=== PATIENT | male | born 1935 | race Two or more races ===

== ENCOUNTER 2016-10-22 12:34 | Inpatient (IN) | payer OTHER ==
[2016-10-22 12:43] VITALS: BMI 20.3
--- NOTE | 2016-10-22 13:27 | PDOC ---
History of Present Illness - General Chief Complaint: Abscess Boil Stated Complaint: abscess PCP SENT, PAIN Time Seen by Provider: 10/22/16 13:24 History Source: Patient, Form Tamping Machine Operator Used, Old Records Exam Limitations: Language Barrier - History of Present Illness Initial Comments: HPI: This 81 yr old macedonian speaking male presents with c/o thoracic spinal abscess. Through an weight and test bar clerk, pt states he has a tendency to get abscess to the back area. He has one removed several years ago at "2 o'clock " next to current abscess with a large scar that is well healed. He went to his doctor, Arslan to have it looked at and Dr. Mcdaniels attempted to aspirate it with a needle with some fluid expressed several days ago. The abscess continues to grow and become painful on the spinal area He denies any fever, drainage, numbness, tingling, chills. Chief Compliant: abscess spinal Pain location: thoracic spine Duration: several weeks Modifying factors: attempted aspiration Quality:moderate Radiating:to the back Severity:sharp when pushed. Time: continual worse over time PMH: DM2, CAD, CAGB, HLD, neuropathy, wheelchair bound FH: Pt has not recently traveled outside the country in the last 30 days. Pt has not been in contact with people who have traveled out of the country, in contact with people who have been ill with fever, n, v, d. 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 Mcdaniels (admitts to Dr. Miguel Goldsmith Nephrology: Dr. Huggins Past History - Past Medical History Allergies/Adverse Reactions: Allergies Allergy/AdvReac Type Severity Reaction Status Date / Time Sulfa (Sulfonamide Allergy Verified 10/22/16 12:38 Antibiotics) Home Medications: Ambulatory Orders Aspirin Coated [Ecotrin -] 81 mg PO DAILY 11/11/15 Atorvastatin Ca [Lipitor] 10 mg PO HS 11/11/15 Carvedilol [Coreg] 25 mg PO BID 11/11/15 Linagliptin [Tradjenta] 5 mg PO DAILY 11/11/15 Multivitamin with Iron [Daily Kandi with Iron] 1 each PO DAILY 11/11/15 Polyethylene Glycol 3350 [Miralax 119 gm Btl -] 17 gm PO DAILY 11/11/15 Tamsulosin HCl [Flomax -] 0.4 mg PO DAILY 11/19/15 Acetaminophen [Tylenol .Regular Strength -] 325 mg PO Q4H PRN #0 tablet Bethanechol Chloride [Bethanechol Chloride -] 25 mg PO TID tablet 12/05/15 Bisacodyl Suppository [Dulcolax Suppository -] 10 mg RC DAILY PRN #30 supp.rect 12/05/15 Docusate Sodium [Colace -] 100 mg PO Q8H PRN #0 capsule 12/05/15 Fluconazole [Diflucan -] 50 mg PO DAILY #7 tablet 12/05/15 Furosemide [Lasix -] 40 mg PO BID #60 tablet 12/05/15 Lisinopril [Prinivil] 7.5 mg PO HS #30 tablet 12/05/15 Nystatin Powder [Nystop Powder -] 1 applic TP BID applic 12/05/15 Sennosides [Senna -] 2 tab PO HS PRN #0 tablet 12/05/15 Sodium Bicarbonate - 650 mg PO BID #60 tablet 12/05/15 Spironolactone [Aldactone -] 25 mg PO BID #60 tablet 12/05/15 Warfarin Sodium [Coumadin] 5 mg PO DAILY #30 tablet 12/05/15 Cardiac Disorders: Yes (cabg x 4 in 1991) Diabetes: Yes Disorders: Yes (urinary retention) HTN: Yes Hypercholesterolemia: Yes - Immunization History Immunization Up to Date: Yes - Psycho/Social/Smoking Cessation Hx Anxiety: No Suicidal Ideation: No Smoking History: Never smoked Have you smoked in the past 12 months: No Information on smoking cessation initiated: No Hx Alcohol Use: No Drug/Substance Use Hx: No Substance Use Type: None Review of Systems - Review of Systems Able to Perform ROS?: Yes Comments:: 10/22/16 15:40 General statement: I have abscess to the back that I want drained. Hematology: neg history of bleeding/blood thinners Skin: No signs of infection to LE howeve, thoracic spine with a large 10 cm round abscess are that is not red or erythemic, no drainage, no warmth, with two small puncture wounds with healed sites tot hem. + pain on palpation. HEENT: Neg symptoms Respiratory: Neg SOB or difficulty in breathing Cardiac: Neg chest pain GI: Neg pain, n/v : Neg problems on voiding MS: Neg for joint pain/stiffness, no edema Neuro: Neg for LOC, weakness, or numbness, tingling or lose of bowel and bladder. Endocrine: Neg for excess thirst/hunger, cold/heat intolerance, excess sweating Allergies: + for allergies *Physical Exam - Vital Signs Last Vital Signs Temp Pulse Resp BP Pulse Ox 97.4 F L 71 18 124/76 100 10/22/16 12:38 10/22/16 12:38 10/22/16 12:38 10/22/16 12:38 10/22/16 12:38 - Physical Exam Comments: 10/22/16 15:46 General Appearance: This 81-year-old male who presents with his home health aide via wheelchair with complaint of a back abscess V/S: hemodynamically stable, afebrile Skin: WNL of pt's skin color, no signs of pallor, mottling, cyanosis except with an abscess to the back thoracic area Head:symmetrical Eyes: EOM's intact, PERRLA Ears: denies pain Nose: patent Throat: lips, teeth, gums, tongue, buccal mucos pink and moist Lungs: Chest symmetry equal. Cap refill <3 seconds. Lung sounds clear Cardiac: PMI at R 4MCL space, pos S1 and S2, regular rate. Abdomen: Soft, round, nontender : Not observed Muscularskeletal: Came in via wheelchair without edema but with +PMS to the upper extremities Neuro: AAOx3 speaks Telugu, cognitively intact, speech clear and appropriate. ED Treatment Course - LABORATORY CBC & Chemistry Diagram: 10/22/16 14:00 10/22/16 14:00 Medical Decision Making - Medical Decision Making 10/22/16 15:47 Patient was initially seen and examined. Patient's showing me his back abscess which was not appearing to be infected however it does have some pain and it is quite large at 10 cm round. It is with pain onto his thoracic spine region when palpating. He denies having any neurological deficits below the level of the abscess. He denies any fever, chills. There has been no drainage out of it. He does not recall whether or not Dr. Bernal and has placed him on antibiotics. I spoken with Dr. Bray, surgeon regarding patient's abscess and drainage. Patient will need to undergo this abscess removal in the operating room in a controlled environment. -CAT scan of the thoracic spine reveals superficial masslike density to the right posterior paraspinal region mainly at 2 and 3 thoracic level measuring 8.5 x 2.6 x 5 cm in the transverse AP and craniocaudal dimensions suggestive of a collection/abscess Sepsis protocol has been started Noted to have an elevated potassium of 6.4 and Kayexalate 15 g will be initially started. Patient placed on EKG and e learning developer EKG shows sinus rhythm with a first-degree AV block with an ST and T-wave abnormality which is unchanged from his prior EKGs Due to his electrolyte imbalance and his elevated creatinine and I have spoken with Dr. Bates who knows the patient and will be placed on consult. I've spoken with Dr. Goldsmith who is covering Dr. Bernal in for admission. At this time due to his electrolyte imbalances, his cardiac status, he will be admitted to the telemetry admission inpatient. He requested I call Dr. Lugo ID, Dr. Lugo consult has been placed. He is been started on Vanco and Zosyn. Patient is aware of his pending admission. *DC/Admit/Observation/Transfer Diagnosis at time of Disposition: DM2 (diabetes mellitus, type 2), Abscess, Abscess of thorax - Discharge Dispostion Condition at time of disposition: Guarded Admit: Yes - Referrals Referrals: Villa Mcdaniels MD [Primary Care Provider] -
[2016-10-22 14:13] LABS: BASOPHIL 0.7 % (0-2.0); EOSINOPHIL 1.6 % (0-4.5); MCH 28.4 pg (25.7-33.7); MCHC 31.8 g/dl (32.0-35.9); MEAN CELL VOLUME 89.4 fl (80-96); MEAN PLT VOLUME 7.3 fl (7.5-11.1); NEUTROPHILS 74.9 % (42.8-82.8); PLATELET COUNT 317 K/MM3 (134-434); RDW 16.6 % (11.9-15.9); WHITE BLOOD COUNT 10.4 K/mm3 (4.0-10.0)
--- NOTE | 2016-10-22 14:24 | PDOC ---
*Physical Exam - Vital Signs Last Vital Signs Temp Pulse Resp BP Pulse Ox 97.4 F L 71 18 124/76 100 10/22/16 12:38 10/22/16 12:38 10/22/16 12:38 10/22/16 12:38 10/22/16 12:38 ED Treatment Course - LABORATORY CBC & Chemistry Diagram: 10/23/16 06:00 10/24/16 06:50 - ADDITIONAL ORDERS Additional order review: 10/22/16 14:00 RBC 3.48 L MCV 89.4 MCHC 31.8 L RDW 16.6 H MPV 7.3 L Neutrophils % 74.9 Lymphocytes % 14.1 D Monocytes % 8.7 Eosinophils % 1.6 Basophils % 0.7 Medical Decision Making - Medical Decision Making 10/22/16 14:24 Patient seen and evaluated with the nurse practitioner. I agree with the overall evaluation, assessment, and management with the following summary of visit: 81-year-old male presents with large midline back abscess. Had one attempt at I+ D as outpatient. Neurologically intact. Agree with management as outlined, imaging to determine extent of abscess infiltration, IV antibiotics, surgical consult. *DC/Admit/Observation/Transfer Diagnosis at time of Disposition: Abscess, Thoracic abscess DM2 (diabetes mellitus, type 2) Qualifiers: Diabetes mellitus complication status: with unspecified complications Diabetes mellitus [facility] insulin use: unspecified [facility] insulin use status Qualified Code(s): E11.8 - Type 2 diabetes mellitus with unspecified complications - Discharge Dispostion Disposition: HOME Condition at time of disposition: Good - Prescriptions - Referrals
[2016-10-22 14:27] LABS: INR 1.24 (0.82-1.09); PROTHROMBIN TIME (PATIENT) 13.7 SEC (9.98-11.88)
[2016-10-22 14:30] LABS: ACTIVATED PTT 30.5 SECONDS (26.9-34.4)
[2016-10-22 14:33] LABS: ALBUMIN 2.2 g/dl (3.4-5.0); BILIRUBIN,TOTAL 0.5 mg/dL (0.2-1.0); CALCIUM 8.2 mg/dL (8.5-10.1); COCKROFT - GAULT 15.13; CREATININE 3.3 mg/dL (0.7-1.3); TOT PROT 6.7 g/dl (6.4-8.2)
[2016-10-22 14:35] LABS: TROPONIN I 0.04 ng/ml (0.00-0.05)
[2016-10-22] MEDS ORDERED: VANCOMYCIN 1,000 MG in DEXTROSE 5%-WATER - 250 ML IVPB ONE (15:13)
[2016-10-22] MEDS ORDERED: PIPERACILLIN/TAZOB 3.375 GM/50 ML PRE-DOCKED IV ONE (15:14)
[2016-10-22] MEDS ORDERED: SODIUM CHLORIDE 500 ML IV STA (15:17)
[2016-10-22] MEDS ORDERED: SODIUM POLYSTYRENE SULFONATE 15 GM/60 ML BOTTLE PO ONE ×2 (15:20→17:36)
[2016-10-22] MEDS ORDERED: SODIUM POLYSTYRENE SULFONATE 15 GM/60 ML BOTTLE ONE (15:27)
[2016-10-22] MEDS ORDERED: PIPERACILLIN/TAZOB 3.375 GM 50 ML IVPB ONE (15:28)
[2016-10-22] MEDS ORDERED: VANCOMYCIN 1 GRAM (PRE-DOCKED) 250 ML IVPB ONE (16:07)
[2016-10-22] MEDS ORDERED: LIDOCAINE HCL 2% (20ML MULTI-DOSE VIAL) NR ONE (16:15)
--- NOTE | 2016-10-22 16:33 | CONSULT ---
Consult Consult Specialty:: surgery Reason for Consultation:: back pain and swelling - History of Present Illness Chief Complaint: back pain History of Present Illness: patient is a 81M with back pain and swelling x 1 week getting worse. workup in ED included CT which showed large subcutaneous abscess - History Source History Provided By: Patient Limitations to Obtaining History: Language Barrier - Past Medical History Cardio/Vascular: Yes: CAD, CHF, Hyperlipdemia Gastrointestinal: Yes: Constipation, Other (no hx colonoscopy) Renal/: Yes: BPH Endocrine: Yes: Diabetes Mellitus - Past Surgical History Past Surgical History: Yes: Amputation (bilateral lower leg amputations due to diabeic complications.), CABG - Alcohol/Substance Use Hx Alcohol Use: No - Smoking History Smoking history: Never smoked Have you smoked in the past 12 months: No - Social History History of Recent Travel: No Home Medications - Allergies Allergies/Adverse Reactions: Allergies Allergy/AdvReac Type Severity Reaction Status Date / Time Sulfa (Sulfonamide Allergy Verified 10/22/16 12:38 Antibiotics) - Home Medications Home Medications: Ambulatory Orders Aspirin Coated [Ecotrin -] 81 mg PO DAILY 11/11/15 Atorvastatin Ca [Lipitor] 10 mg PO HS 11/11/15 Carvedilol [Coreg] 25 mg PO BID 11/11/15 Linagliptin [Tradjenta] 5 mg PO DAILY 11/11/15 Multivitamin with Iron [Daily Kandi with Iron] 1 each PO DAILY 11/11/15 Polyethylene Glycol 3350 [Miralax 119 gm Btl -] 17 gm PO DAILY 11/11/15 Tamsulosin HCl [Flomax -] 0.4 mg PO DAILY 11/19/15 Acetaminophen [Tylenol .Regular Strength -] 325 mg PO Q4H PRN #0 tablet Bethanechol Chloride [Bethanechol Chloride -] 25 mg PO TID tablet 12/05/15 Bisacodyl Suppository [Dulcolax Suppository -] 10 mg RC DAILY PRN #30 supp.rect 12/05/15 Docusate Sodium [Colace -] 100 mg PO Q8H PRN #0 capsule 12/05/15 Fluconazole [Diflucan -] 50 mg PO DAILY #7 tablet 12/05/15 Furosemide [Lasix -] 40 mg PO BID #60 tablet 12/05/15 Lisinopril [Prinivil] 7.5 mg PO HS #30 tablet 12/05/15 Nystatin Powder [Nystop Powder -] 1 applic TP BID applic 12/05/15 Sennosides [Senna -] 2 tab PO HS PRN #0 tablet 12/05/15 Sodium Bicarbonate - 650 mg PO BID #60 tablet 12/05/15 Spironolactone [Aldactone -] 25 mg PO BID #60 tablet 12/05/15 Warfarin Sodium [Coumadin] 5 mg PO DAILY #30 tablet 12/05/15 Review of Systems - Review of Systems Constitutional: denies: Chills, Fever Eyes: denies: Blind Spots, Blurred Vision HENT: denies: Difficult Swallowing, Ear Discharge Neck: denies: Decreased ROM, Lumps Cardiovascular: denies: Chest Pain, Edema Respiratory: denies: Cough, Hemoptysis Gastrointestinal: denies: Abdominal Pain, Bloating Genitourinary: denies: Burning, Discharge Musculoskeletal: reports: Back Pain Integumentary: reports: Blister, Lump Neurological: denies: Change in Speech, Confusion Endocrine: denies: Excessive Sweating, Flushing Hematology/Lymphatic: denies: Easily Bruised, Excessive Bleeding Psychiatric: denies: Altered Sleep Pattern, Anxiety Physical Exam Vital Signs: Vital Signs Temperature 97.4 F L 10/22/16 12:38 Pulse Rate 71 10/22/16 12:38 Respiratory Rate 18 10/22/16 12:38 Blood Pressure 124/76 10/22/16 12:38 O2 Sat by Pulse Oximetry (%) 100 10/22/16 12:38 Constitutional: Yes: No Distress, Calm Eyes: Yes: Conjunctiva Clear, EOM Intact HENT: Yes: Atraumatic, Normocephalic Neck: Yes: Supple, Trachea Midline Cardiovascular: Yes: Regular Rate and Rhythm Respiratory: Yes: Regular, CTA Bilaterally Gastrointestinal: Yes: Soft. No: Distention, Tenderness ...Rectal Exam: Yes: Deferred Renal/: No: CVA Tenderness - Left, CVA Tenderness - Right Musculoskeletal: Yes: Back Pain Extremities: Yes: Other (b/l amputations of LE) Integumentary: Yes: Erythema, Other (large fluctuant area in upper thoracic back medial to old scar.) Neurological: Yes: Alert, Oriented Psychiatric: Yes: Alert, Oriented Labs: CBC, BMP 10/22/16 14:00 10/22/16 14:00 Imaging - Results Cat Scan: Image Reviewed Problem List - Problems (1) Abscess Assessment/Plan: for I&D under local anesthesia Code(s): L02.91 - CUTANEOUS ABSCESS, UNSPECIFIED (2) Acute on chronic systolic and diastolic heart failure, NYHA class 3 Code(s): I50.43 - ACUTE ON CHRONIC COMBINED SYSTOLIC AND DIASTOLIC HRT FAIL (3) CAD (coronary artery disease) Code(s): I25.10 - ATHSCL HEART DISEASE OF [place] CORONARY ARTERY W/O ANG PCTRS (4) CHF (congestive heart failure) Code(s): I50.9 - HEART FAILURE, UNSPECIFIED (5) DM2 (diabetes mellitus, type 2) Code(s): E11.9 - TYPE 2 DIABETES MELLITUS WITHOUT COMPLICATIONS
--- NOTE | 2016-10-22 16:34 | PROC ---
Procedure Note Procedure: pt sitting up. injected 7cc 2% lidocaine as wheal around fluctuant area. Made large cruciate incision and drained copious amounts of white purulent material. wound cultured obtained. irrigated with 30cc NS. dry dressing applied and secured.
--- NOTE | 2016-10-22 17:11 | CONSULT ---
Consult - text type - Consultation Consultation Note: Renal Consult for KAMRAN on CKD and Hyperkalemia 80 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 with PMhx of CKD stage 4 with proteinuia, CAD s/p CABG, DM on Insulin, Hypertension, HLD, 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 Pt had has this boil in his back for some time and now has become painful. No fever or chills at home. No N/V/D. No chest pain or sob. reports poor oral intake for 1 week. No diarrhea. No flank pain or dyuria. PMhx: As above Allergies: NKDA Family Hx: NC Social Hx: No Tobacco, social ETOH ROS: as per HPI Home Medications Medication Instructions Recorded Aspirin Coated [Ecotrin -] 81 mg PO DAILY 11/11/15 Atorvastatin Ca [Lipitor] 10 mg PO HS 11/11/15 Carvedilol [Coreg] 25 mg PO BID 11/11/15 Linagliptin [Tradjenta] 5 mg PO DAILY 11/11/15 Multivitamin with Iron [Daily Kandi 1 each PO DAILY 11/11/15 with Iron] Polyethylene Glycol 3350 [Miralax 17 gm PO DAILY 11/11/15 119 gm Btl -] Tamsulosin HCl [Flomax -] 0.4 mg PO DAILY 11/19/15 Acetaminophen [Tylenol .Regular 325 mg PO Q4H PRN #0 tablet 12/05/15 Strength -] Bethanechol Chloride [Bethanechol 25 mg PO TID tablet 12/05/15 Chloride -] Bisacodyl Suppository [Dulcolax 10 mg RC DAILY PRN #30 supp.rect 12/05/15 Suppository -] Docusate Sodium [Colace -] 100 mg PO Q8H PRN #0 capsule 12/05/15 Fluconazole [Diflucan -] 50 mg PO DAILY #7 tablet 12/05/15 Furosemide [Lasix -] 40 mg PO BID #60 tablet 12/05/15 Lisinopril [Prinivil] 7.5 mg PO HS #30 tablet 12/05/15 Nystatin Powder [Nystop Powder -] 1 applic TP BID applic 12/05/15 Sennosides [Senna -] 2 tab PO HS PRN #0 tablet 12/05/15 Sodium Bicarbonate - 650 mg PO BID #60 tablet 12/05/15 Spironolactone [Aldactone -] 25 mg PO BID #60 tablet 12/05/15 Warfarin Sodium [Coumadin] 5 mg PO DAILY #30 tablet 12/05/15 Vital Signs Temperature 97.4 F L 10/22/16 12:38 Pulse Rate 71 10/22/16 12:38 Respiratory Rate 18 10/22/16 12:38 Blood Pressure 124/76 10/22/16 12:38 O2 Sat by Pulse Oximetry (%) 100 10/22/16 12:38 Intake & Output 10/19/16 10/20/16 10/21/16 10/22/16 23:59 23:59 23:59 23:59 Weight 130 lb Gen: NAD ,awake and alert HEENT: NC/AT, Dry MM, No JVD CVS: RRR, No M/R Lungs: CTA, dec BS lung bases Abd: soft NT/ND Ext: s/p B/L LE amputation. No sacral edema : no bladder distension CBC, BMP 10/22/16 14:00 10/22/16 14:00 Laboratory Tests 10/22/16 14:00 Calcium 8.2 L Albumin 2.2 L A/P 80 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 with PMhx of CKD stage 4 with proteinuia, CAD s/p CABG, DM on Insulin, Hypertension, HLD, 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 #Acute on Chronic Renal insufficiency Etiology likely volume depletion vs ATN in setting of OLIVA/Aldactone and Sepsis/ Abcess formation d/c ACEi and aldcatone Give IV fluids with caution 75cc of NS x 24 hours Check UA, UPCR, FeUrea Dose all meds for Cr Cl less then 15 #Hyperkalemia Secondary to OLIVA/Aldacotne/KAMRAN Give Kayexalate 30g x 1 no acute EKG changes Repeat BMP this evening #Metabolic Acidosis Start sodium bicarb 650mg Daily #Abcess on back Surgical follow up IV Abx as per primary #Anemia check iron profile Trend CBC no acute indication for transfusion #hx of CHF no acute decompensation at his time close monitoring of resp status with IVF Thank you Will follow Hugh Huggins DO
[2016-10-22] MEDS ORDERED: SODIUM CHLORIDE 1,000 ML IV SCH (17:45)
[2016-10-22] MEDS ORDERED: DOCUSATE SODIUM 100 MG CAPSULE (FP) PO PRN (23:14)
[2016-10-22] MEDS ORDERED: BISACODYL 10 MG SUPP.RECT RC PRN (23:14)
[2016-10-23] MEDS: INSULIN SLIDING SCALE (NOVOLOG) 1 VIAL SQ SCH ×3 (06:12→17:38)
[2016-10-23 07:52] LABS: BASOPHIL 0.6 % (0-2.0); EOSINOPHIL 2.6 % (0-4.5); MCH 28.4 pg (25.7-33.7); MEAN CELL VOLUME 88.8 fl (80-96); MEAN PLT VOLUME 7.1 fl (7.5-11.1); PLATELET COUNT 286 K/MM3 (134-434); RDW 16.3 % (11.9-15.9); WHITE BLOOD COUNT 8.7 K/mm3 (4.0-10.0)
[2016-10-23 08:05] LABS: INR 2.39 (0.82-1.09); PROTHROMBIN TIME (PATIENT) 26.8 SEC (9.98-11.88)
[2016-10-23 08:35] LABS: ALBUMIN 2.1 g/dl (3.4-5.0); BILIRUBIN,TOTAL 0.6 mg/dL (0.2-1.0); CALCIUM 7.9 mg/dL (8.5-10.1); COCKROFT - GAULT 16.11; CREATININE 3.1 mg/dL (0.7-1.3); MAGNESIUM 2.1 mg/dL (1.8-2.4); PHOSPHOROUS 3.2 mg/dL (2.5-4.9); TOT PROT 6.3 g/dl (6.4-8.2)
[2016-10-23 08:37] LABS: URINE APPEARANCE CLEAR; URINE BILIRUBIN NEGATIVE (NEGATIVE); URINE COLOR YELLOW; URINE GLUCOSE (UA) 2+ (NEGATIVE); URINE KETONE TRACE (NEGATIVE); URINE LEUK ESTERASE NEGATIVE (NEGATIVE); URINE NITRITE NEGATIVE (NEGATIVE); URINE UROBILINOGEN NEGATIVE E.U./dl (0.2-1.0)
[2016-10-23 09:16] LABS: URINE BLOOD 1+ (NEGATIVE); URINE PROTEIN 3+ (NEGATIVE)
[2016-10-23 09:21] LABS: URINE HYALINE CAST 1 /lpf; URINE RBC 3 /hpf (0-3); URINE WBC 2 /hpf (3-5)
--- NOTE | 2016-10-23 09:56 | HP ---
Admitting History and Physical - Primary Care Physician PCP: Villa Mcdaniels - Admission Chief Complaint: swelling in back History of Present Illness: ER HISTORY - History of Present Illness Initial Comments: HPI: This 81 yr old bulgarian speaking male presents with c/o thoracic spinal abscess. Through an lozenge maker helper, pt states he has a tendency to get abscess to the back area. He has one removed several years ago at "2 o'clock " next to current abscess with a large scar that is well healed. He went to his doctor, Arslan to have it looked at and Dr. Mcdaniels attempted to aspirate it with a needle with some fluid expressed several days ago. The abscess continues to grow and become painful on the spinal area He denies any fever, drainage, numbness, tingling, chills. Chief Compliant: abscess spinal Pain location: thoracic spine Duration: several weeks Modifying factors: attempted aspiration Quality:moderate Radiating:to the back Severity:sharp when pushed. Time: continual worse over time PMH: DM2, CAD, CAGB, HLD, neuropathy, wheelchair bound Pt seen and examined in ER s/p I & D for back abscess Spoke with DR Brooks-- needs daily dressing changes only, no packing Has no pain Also has worsening of renal function- appears dehydrated - received gentle fluids Denies using NSAIDS Pt is wheelchair bound- from home History Source: Patient Limitations to Obtaining History: No Limitations - Past Medical History Cardiovascular: Yes: CAD, CHF (low EF), Hyperlipdemia Gastrointestinal: Yes: Constipation, Other (no hx colonoscopy) Renal/: Yes: BPH Heme/Onc: Yes: Anemia Endocrine: Yes: Diabetes Mellitus - Past Surgical History Past Surgical History: Yes: Amputation (bilateral lower leg amputations due to diabeic complications.), CABG - Smoking History Smoking history: Never smoked Have you smoked in the past 12 months: No - Alcohol/Substance Use Hx Alcohol Use: No - Social History History of Recent Travel: No Home Medications - Allergies Allergies/Adverse Reactions: Allergies Allergy/AdvReac Type Severity Reaction Status Date / Time Sulfa (Sulfonamide Allergy Verified 10/22/16 12:38 Antibiotics) - Home Medications Home Medications: Ambulatory Orders Aspirin Coated [Ecotrin -] 81 mg PO DAILY 11/11/15 Atorvastatin Ca [Lipitor] 10 mg PO HS 11/11/15 Carvedilol [Coreg] 25 mg PO BID 11/11/15 Linagliptin [Tradjenta] 5 mg PO DAILY 11/11/15 Multivitamin with Iron [Daily Kandi with Iron] 1 each PO DAILY 11/11/15 Polyethylene Glycol 3350 [Miralax 119 gm Btl -] 17 gm PO DAILY 11/11/15 Tamsulosin HCl [Flomax -] 0.4 mg PO DAILY 11/19/15 Acetaminophen [Tylenol .Regular Strength -] 325 mg PO Q4H PRN #0 tablet Bethanechol Chloride [Bethanechol Chloride -] 25 mg PO TID tablet 12/05/15 Bisacodyl Suppository [Dulcolax Suppository -] 10 mg RC DAILY PRN #30 supp.rect 12/05/15 Docusate Sodium [Colace -] 100 mg PO Q8H PRN #0 capsule 12/05/15 Fluconazole [Diflucan -] 50 mg PO DAILY #7 tablet 12/05/15 Furosemide [Lasix -] 40 mg PO BID #60 tablet 12/05/15 Lisinopril [Prinivil] 7.5 mg PO HS #30 tablet 12/05/15 Nystatin Powder [Nystop Powder -] 1 applic TP BID applic 12/05/15 Sennosides [Senna -] 2 tab PO HS PRN #0 tablet 12/05/15 Sodium Bicarbonate - 650 mg PO BID #60 tablet 12/05/15 Spironolactone [Aldactone -] 25 mg PO BID #60 tablet 12/05/15 Warfarin Sodium [Coumadin] 5 mg PO DAILY #30 tablet 12/05/15 Review of Systems - Review of Systems Constitutional: denies: Chills Cardiovascular: denies: Chest Pain, Shortness of Breath Physical Examination Vital Signs: Vital Signs Temperature 97.7 F 10/22/16 23:00 Pulse Rate 89 10/23/16 05:34 Respiratory Rate 19 10/23/16 05:34 Blood Pressure 120/91 10/23/16 05:34 O2 Sat by Pulse Oximetry (%) 99 10/22/16 23:00 Constitutional: Yes: No Distress, Calm Cardiovascular: Yes: Regular Rate and Rhythm, Murmur Respiratory: Yes: CTA Bilaterally Gastrointestinal: Yes: Normal Bowel Sounds, Soft. No: Distention, Tenderness Musculoskeletal: Yes: Other (back-- open wound-- dressing in place) Extremities: Yes: Amputation (right BKA and left AKA) Neurological: Yes: Alert, Oriented Labs: CBC, BMP 10/23/16 06:00 10/23/16 06:00 Imaging - Results Chest X-ray: Image Reviewed (no infiltrate, no congestion) Cat Scan: Report Reviewed (thoacic spine CT - abscess+) EKG: Image Reviewed Problem List - Problems (1) KAMRAN (acute kidney injury) Code(s): N17.9 - ACUTE KIDNEY FAILURE, UNSPECIFIED (2) Abscess Code(s): L02.91 - CUTANEOUS ABSCESS, UNSPECIFIED (3) CAD (coronary artery disease) Code(s): I25.10 - ATHSCL HEART DISEASE OF [place] CORONARY ARTERY W/O ANG PCTRS (4) CHF (congestive heart failure) Code(s): I50.9 - HEART FAILURE, UNSPECIFIED (5) DM2 (diabetes mellitus, type 2) Code(s): E11.9 - TYPE 2 DIABETES MELLITUS WITHOUT COMPLICATIONS Assessment/Plan PLAN Not in decompensated CHF Renal function slighly better with gentle fluid boluses Spoke with Renal, will need more hydration as needed, holding diuretics now will resume when his renal function better ID follow up noted-- on PO antibiotics daily dressing changes DVT prophylaxis-- Heparin sc
[2016-10-23] MEDS ORDERED: WARFARIN NA 5 MG TABLET (UD) PO SCH (10:00)
[2016-10-23] MEDS: TAMSULOSIN HCL 0.4 MG CAP.ER.24H (FP) PO SCH (10:32)
[2016-10-23] MEDS: CARVEDILOL 25 MG TABLET (FP) PO SCH ×2 (10:32→22:31)
[2016-10-23] MEDS ORDERED: HEMOQUE TEST 1 EACH EACH ONE (11:18)
[2016-10-23] MEDS ORDERED: INSULIN REGULAR HUMAN 100 UNITS/ML *VIAL ONE ×2 (12:00→17:40)
--- NOTE | 2016-10-23 12:36 | PN ---
Progress Note (short form) - Note Progress Note: ID Consult dictated S/P I&D soft tissue abscess on back Diabetes mellitus CKD Sulfa allergy Given stat doses vancomycin/ zosyn May substitute po clindamycin/ levaquin adjusted for renal failure pending c/s
[2016-10-23] MEDS ORDERED: LEVOFLOXACIN 250 MG TABLET (FP) PO SCH (13:00)
--- NOTE | 2016-10-23 13:25 | EKG ---
Test Reason : Blood Pressure : / mmHG Vent. Rate : 067 BPM Atrial Rate : 067 BPM P-R Int : 254 ms QRS Dur : 124 ms QT Int : 458 ms P-R-T Axes : 016 -22 188 degrees QTc Int : 483 ms SINUS RHYTHM WITH 1ST DEGREE A-V BLOCK WITH PREMATURE ATRIAL COMPLEXES WITH ABERRANT CONDUCTION INFERIOR INFARCT (CITED ON OR BEFORE 27-NOV-2015) ABNORMAL ECG WHEN COMPARED WITH ECG OF 27-NOV-2015 10:38, PREMATURE VENTRICULAR COMPLEXES ARE NO LONGER PRESENT ABERRANT CONDUCTION IS NOW PRESENT CLINICAL CORRELATION IS RECOMMENDED Confirmed by BRICE COLLINS, ASMITA ([id number]) on 10/23/2016 1:25:17 PM Referred By: Confirmed By:ASMITA NARVAEZ MD
--- NOTE | 2016-10-23 13:46 | CONS ---
DATE OF CONSULTATION: HISTORY: A 81-year-old diabetic male evaluated for soft tissue abscess of the back. History was obtained from the chart as well as family members by phone. He is Kyrgyz speaking. The patient has a history of soft tissue abscess of the thoracic spine area, which had been drained previously. He now presents with worsening pain and swelling in the upper back area for approximately 2 weeks. He had been seen as an outpatient by his PMD where an aspiration was performed, however, yielded no pus. He was referred to the emergency room where a CAT scan showed a large soft tissue abscess involving the posterior thorax in the area of T2-T3 consistent with a soft tissue abscess. The patient was seen in the emergency room by Dr. Brooks. An incision and drainage was performed, according to the notes, purulent fluid was obtained. He denies any pain at the present time. He denies any associated fever or chills. On review of previous cultures, the patient had an Acinetobacter in a urine culture. He was empirically treated with vancomycin and Zosyn in the ER. PAST MEDICAL HISTORY: Positive for diabetes, peripheral neuropathy, coronary artery disease, hyperlipidemia, peripheral vascular disease, coronary artery bypass, chronic kidney disease. ALLERGIES: SULFA (rash). MEDICATIONS: Include Colace, Lasix, Prinivil, aspirin, Lipitor, Coreg, Flomax. SOCIAL HISTORY: He lives at home. He has a home health aide. He is wheelchair bound. Negative tobacco or alcohol. SYSTEMS REVIEW: Neurologic: No loss of consciousness, seizure activity, or focal weakness. Cardiac: Negative chest pain or palpitations. Respiratory: Negative cough or sputum production. Gastrointestinal: Negative vomiting or diarrhea. Genitourinary: Negative for urinary tract infection. LABORATORY DATA: White count 8.7, hematocrit 30, platelet count 286, BUN 49, creatinine 3.1. Blood and wound culture is pending. Chest x-ray is negative. PHYSICAL EXAMINATION: General: He is awake and alert. He is not acutely toxic appearing. Vital Signs: Temperature 97.7, blood pressure 120/91, pulse 89 and regular, respirations 20 per minute. HEENT: Sclerae anicteric. Heart: Sound S1, S2. Lungs: Clear. Abdomen: Soft. No tenderness elicited. No mass, rebound, or rigidity. Extremities: Status post left [id number] amputation and right [id number] amputation. Back: There is an incisional wound present over the right scapular area with slight erythema and induration. There is no expressible pus. No fluctuance. IMPRESSION: 1. Status post incision and drainage of soft tissue back abscess. 2. Diabetes mellitus. 3. Chronic kidney disease. 4. SULFA allergy. PLAN: Patient given STAT doses of vancomycin and Zosyn. May substitute oral therapy with clindamycin 300 mg p.o. t.i.d. and Levaquin 250 mg p.o. q.48 hours pending wound culture results. Local wound care. Thank you for the kind referral. GOVIND FRANCO M.D. [id number]
--- NOTE | 2016-10-23 15:03 | PN ---
Progress Note (short form) - Note Progress Note: Renal follow up for KAMRAN on CKD Stage 4 Pt seen and examined in the ED No acute complaints denies sob or chest pain Vital Signs Temperature 97.7 F 10/22/16 23:00 Pulse Rate 89 10/23/16 05:34 Respiratory Rate 19 10/23/16 05:34 Blood Pressure 120/91 10/23/16 05:34 O2 Sat by Pulse Oximetry (%) 99 10/22/16 23:00 Intake & Output 10/20/16 10/21/16 10/22/16 10/23/16 23:59 23:59 23:59 23:59 Weight 130 lb Gen: NAD ,awake and alert HEENT: NC/AT, Dry MM, No JVD CVS: RRR, No M/R Lungs: CTA, dec BS lung bases Abd: soft NT/ND Ext: s/p B/L LE amputation. No sacral edema : no bladder distension CBC, BMP 10/23/16 06:00 10/23/16 06:00 Laboratory Tests 10/23/16 06:00 Calcium 7.9 L Phosphorus 3.2 D Magnesium 2.1 Albumin 2.1 L Current Medications Atorvastatin Calcium (Lipitor -) 10 mg PO HS [facility] Bisacodyl (Dulcolax Suppository -) 10 mg RC DAILY PRN PRN Reason: CONSTIPATION Carvedilol (Coreg -) 25 mg PO BID [facility] Last Admin: 10/23/16 10:32 Dose: 25 mg Clindamycin HCl (Cleocin -) 300 mg PO TID [facility] Docusate Sodium (Colace -) 100 mg PO Q8H PRN PRN Reason: CONSTIPATION Last Admin: 10/23/16 11:13 Dose: 100 mg Insulin Aspart (Novolog Vial Sliding Scale -) 1 vial SQ TIDAC [facility] PRN Reason: Protocol Last Admin: 10/23/16 11:50 Dose: 2 unit Levofloxacin (Levaquin -) 250 mg PO Q2D@0600 [facility] Tamsulosin HCl (Flomax -) 0.4 mg PO DAILY@0830 [facility] Last Admin: 10/23/16 10:32 Dose: 0.4 mg Warfarin Sodium 2 mg/ Warfarin (Sodium 3 mg) 5 mg PO DAILY@1800 [facility] A/P 80 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 with PMhx of CKD stage 4 with proteinuia, CAD s/p CABG, DM on Insulin, Hypertension, HLD, 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 #Acute on Chronic Renal insufficiency Etiology likely volume depletion vs ATN in setting of OLIVA/Aldactone and Sepsis/ Abcess formation Renal function with mild improvement continue to maintain off Aldactone/Diuretics/ACEi Trend BUN/Cr and volume status #Hyperkalemia Secondary to OLIVA/Aldacotne/KAMRAN improved today low k diet #Metabolic Acidosis Start sodium bicarb 650mg Daily #Abcess on back Abx as per ID f/u wound cultures #Anemia check iron profile Trend CBC no acute indication for transfusion #hx of CHF no acute decompensation at his time close monitoring of resp status with IVF Thank you Will follow Hugh Huggins DO
[2016-10-23] MEDS ORDERED: CLINDAMYCIN HCL 150 MG CAPSULE (FP) ONE (15:48)
[2016-10-23] MEDS ORDERED: LEVOFLOXACIN 250 MG TABLET (FP) ONE (15:48)
[2016-10-23] MEDS: CLINDAMYCIN HCL 300 MG CAPSULE PO SCH ×2 (15:55→22:31)
[2016-10-23] MEDS: SODIUM BICARBONATE 650 MG TABLET PO SCH (15:55)
[2016-10-23] MEDS ORDERED: WARFARIN NA PO SCH (18:00)
[2016-10-23] MEDS ORDERED: WARFARIN NA 3 MG TABLET ONE (18:49)
[2016-10-23] MEDS ORDERED: WARFARIN NA 2 MG TABLET (UD) ONE (18:49)
[2016-10-23] MEDS ORDERED: ATORVASTATIN CA 10 MG TABLET (FP) PO SCH (22:00)
[2016-10-23] MEDS: CLINDAMYCIN HCL 150 MG CAPSULE (FP) PO SCH (23:22)
[2016-10-24] MEDS: INSULIN SLIDING SCALE (NOVOLOG) 1 VIAL SQ SCH ×2 (06:36→12:08)
[2016-10-24] MEDS: CLINDAMYCIN HCL 150 MG CAPSULE (FP) PO SCH ×2 (06:36→13:16)
[2016-10-24 08:12] LABS: INR 1.28 (0.82-1.09); PROTHROMBIN TIME (PATIENT) 14.2 SEC (9.98-11.88)
[2016-10-24 08:22] LABS: CALCIUM 7.6 mg/dL (8.5-10.1); COCKROFT - GAULT 16.11; CREATININE 3.1 mg/dL (0.7-1.3)
[2016-10-24] MEDS: TAMSULOSIN HCL 0.4 MG CAP.ER.24H (FP) PO SCH (08:30)
[2016-10-24] MEDS: SODIUM BICARBONATE 650 MG TABLET PO SCH (09:22)
[2016-10-24] MEDS: CARVEDILOL 25 MG TABLET (FP) PO SCH (09:22)
[2016-10-24 09:33] LABS: URINE APPEARANCE CLEAR; URINE BILIRUBIN NEGATIVE (NEGATIVE); URINE BLOOD NEGATIVE (NEGATIVE); URINE COLOR YELLOW; URINE GLUCOSE (UA) 2+ (NEGATIVE); URINE KETONE NEGATIVE (NEGATIVE); URINE LEUK ESTERASE NEGATIVE (NEGATIVE); URINE NITRITE NEGATIVE (NEGATIVE); URINE PROTEIN 3+ (NEGATIVE); URINE UROBILINOGEN NEGATIVE E.U./dl (0.2-1.0)
[2016-10-24 09:36] LABS: GRANULAR CASTS 9 /lpf; URINE RBC 1 /hpf (0-3); URINE WBC 1 /hpf (3-5)
--- NOTE | 2016-10-24 11:11 | PN ---
Progress Note, Physician Chief Complaint: No complaints feels well no pain in back - Current Medication List Current Medications: Active Medications Atorvastatin Calcium (Lipitor -) 10 mg PO HS [facility] Last Admin: 10/23/16 22:31 Dose: 10 mg Bisacodyl (Dulcolax Suppository -) 10 mg RC DAILY PRN PRN Reason: CONSTIPATION Carvedilol (Coreg -) 25 mg PO BID [facility] Last Admin: 10/24/16 09:22 Dose: 25 mg Clindamycin HCl (Cleocin -) 300 mg PO TID [facility] Last Admin: 10/24/16 06:36 Dose: 300 mg Docusate Sodium (Colace -) 100 mg PO Q8H PRN PRN Reason: CONSTIPATION Last Admin: 10/23/16 11:13 Dose: 100 mg Insulin Aspart (Novolog Vial Sliding Scale -) 1 vial SQ TIDAC [facility] PRN Reason: Protocol Last Admin: 10/24/16 06:36 Dose: 2 unit Levofloxacin (Levaquin -) 250 mg PO Q2D@0600 [facility] Last Admin: 10/23/16 15:55 Dose: 250 mg Sodium Bicarbonate (Sodium Bicarbonate -) 650 mg PO DAILY [facility] Last Admin: 10/24/16 09:22 Dose: 650 mg Tamsulosin HCl (Flomax -) 0.4 mg PO DAILY@0830 [facility] Last Admin: 10/24/16 08:30 Dose: 0.4 mg - Objective Vital Signs: Vital Signs Temperature 98.2 F 10/24/16 06:00 Pulse Rate 69 10/24/16 06:00 Respiratory Rate 18 10/24/16 06:00 Blood Pressure 129/68 10/24/16 06:00 O2 Sat by Pulse Oximetry (%) 99 10/23/16 22:00 Constitutional: Yes: No Distress Cardiovascular: Yes: Regular Rate and Rhythm Respiratory: Yes: Diminished Gastrointestinal: Yes: Normal Bowel Sounds, Soft. No: Distention, Tenderness Extremities: Yes: Amputation Edema: No Labs: CBC, BMP 10/23/16 06:00 10/24/16 06:50 INR, PTT INR 1.28 (0.82-1.09) H D 10/24/16 06:50 Problem List - Problems (1) KAMRAN (acute kidney injury) Code(s): N17.9 - ACUTE KIDNEY FAILURE, UNSPECIFIED (2) Abscess Code(s): L02.91 - CUTANEOUS ABSCESS, UNSPECIFIED (3) CAD (coronary artery disease) Code(s): I25.10 - ATHSCL HEART DISEASE OF [place] CORONARY ARTERY W/O ANG PCTRS (4) CHF (congestive heart failure) Code(s): I50.9 - HEART FAILURE, UNSPECIFIED (5) DM2 (diabetes mellitus, type 2) Code(s): E11.9 - TYPE 2 DIABETES MELLITUS WITHOUT COMPLICATIONS Assessment/Plan PLAN Not in decompensated CHF Renal function same ID follow up noted-- on PO antibiotics daily dressing changes DVT prophylaxis-- on Warfarin -- increase to 7.5mg today
[2016-10-24] MEDS ORDERED: PT OWN MED DRAWER 7, Y5N ONE (12:02)
--- NOTE | 2016-10-24 12:16 | DS ---
Physical Examination Vital Signs: Vital Signs Temperature 98.2 F 10/24/16 06:00 Pulse Rate 69 10/24/16 06:00 Respiratory Rate 18 10/24/16 06:00 Blood Pressure 129/68 10/24/16 06:00 O2 Sat by Pulse Oximetry (%) 99 10/23/16 22:00 Labs: CBC, BMP 10/23/16 06:00 10/24/16 06:50 Discharge Summary Reason For Visit: ABCESS/ DM2 Current Active Problems KAMRAN (acute kidney injury) (Acute) Abscess (Acute) Acute on chronic systolic and diastolic heart failure, NYHA class 3 (Acute) CAD (coronary artery disease) (Acute) CHF (congestive heart failure) (Acute) DM2 (diabetes mellitus, type 2) (Acute) DVT (deep venous thrombosis) (Acute) Dyspnea (Acute) HTN (hypertension) (Acute) Ischemic cardiomyopathy (Acute) Nephrotic syndrome (Acute) Obstructive uropathy (Acute) Pleural effusion (Acute) Pneumonia (Acute) S/P CABG (coronary artery bypass graft) (Acute) S/P thoracentesis (Acute) Thoracic abscess (Acute) UTI (urinary tract infection) (Acute) Urinary retention (Acute) Hospital Course: see progress note- spoke with Dr Reese- hold off Lisinopril and Aldactone. May resume Lasix . He will need to follow up with Dr Reese in 1 week and he will repeat BMP Condition: Good - Instructions Diet, Activity, Other Instructions: hold off Lisinopril and Aldactone till seen by Dr Reese in 1 week. May resume Lasix Referrals: Villa Mcdaniels MD [Primary Care Provider] - Hugh Huggins MD [Staff Physician] - Disposition: HOME - Home Medications Comprehensive Discharge Medication List: Ambulatory Orders Aspirin Coated [Ecotrin -] 81 mg PO DAILY 11/11/15 Atorvastatin Ca [Lipitor] 10 mg PO HS 11/11/15 Carvedilol [Coreg] 25 mg PO BID 11/11/15 Linagliptin [Tradjenta] 5 mg PO DAILY 11/11/15 Multivitamin with Iron [Daily Kandi with Iron] 1 each PO DAILY 11/11/15 Polyethylene Glycol 3350 [Miralax 119 gm Btl -] 17 gm PO DAILY 11/11/15 Tamsulosin HCl [Flomax -] 0.4 mg PO DAILY 11/19/15 Acetaminophen [Tylenol .Regular Strength -] 325 mg PO Q4H PRN #0 tablet Bisacodyl Suppository [Dulcolax Suppository -] 10 mg RC DAILY PRN #30 supp.rect 12/05/15 Docusate Sodium [Colace -] 100 mg PO Q8H PRN #0 capsule 12/05/15 Furosemide [Lasix -] 40 mg PO BID #60 tablet 12/05/15 Nystatin Powder [Nystop Powder -] 1 applic TP BID applic 12/05/15 Sennosides [Senna -] 2 tab PO HS PRN #0 tablet 12/05/15 Warfarin Sodium [Coumadin] 5 mg PO DAILY #30 tablet 12/05/15 Clindamycin [Cleocin -] 300 mg PO TID #18 mg 10/24/16 Levofloxacin [Levaquin -] 250 mg PO Q2D@0600 #6 tablet 10/24/16 Sodium Bicarbonate - 650 mg PO DAILY #30 tablet 10/24/16
--- NOTE | 2016-10-24 13:10 | PN ---
Progress Note (short form) - Note Progress Note: Renal follow up for KAMRAN on CKD Stage 4 Pt seen and examined at the bedside no acute complaints denies any fever, chills no sob, chest pain, N/V/D Vital Signs Temperature 98.2 F 10/24/16 06:00 Pulse Rate 69 10/24/16 06:00 Respiratory Rate 18 10/24/16 06:00 Blood Pressure 129/68 10/24/16 06:00 O2 Sat by Pulse Oximetry (%) 99 10/23/16 22:00 Intake & Output 10/21/16 10/22/16 10/23/16 10/24/16 23:59 23:59 23:59 23:59 Intake Total 515 200 Output Total 300 250 Balance 215 -50 Weight 130 lb Gen: NAD ,awake and alert HEENT: NC/AT, Dry MM, No JVD CVS: RRR, No M/R Lungs: CTA, dec BS lung bases Abd: soft NT/ND Ext: s/p B/L LE amputation. No sacral edema : no bladder distension CBC, BMP 10/23/16 06:00 10/24/16 06:50 Current Medications Atorvastatin Calcium (Lipitor -) 10 mg PO HS [facility] Last Admin: 10/23/16 22:31 Dose: 10 mg Bisacodyl (Dulcolax Suppository -) 10 mg RC DAILY PRN PRN Reason: CONSTIPATION Carvedilol (Coreg -) 25 mg PO BID [facility] Last Admin: 10/24/16 09:22 Dose: 25 mg Clindamycin HCl (Cleocin -) 300 mg PO TID [facility] Last Admin: 10/24/16 06:36 Dose: 300 mg Docusate Sodium (Colace -) 100 mg PO Q8H PRN PRN Reason: CONSTIPATION Last Admin: 10/23/16 11:13 Dose: 100 mg Insulin Aspart (Novolog Vial Sliding Scale -) 1 vial SQ TIDAC [facility] PRN Reason: Protocol Last Admin: 10/24/16 12:08 Dose: 2 unit Levofloxacin (Levaquin -) 250 mg PO Q2D@0600 [facility] Last Admin: 10/23/16 15:55 Dose: 250 mg Sodium Bicarbonate (Sodium Bicarbonate -) 650 mg PO DAILY [facility] Last Admin: 10/24/16 09:22 Dose: 650 mg Tamsulosin HCl (Flomax -) 0.4 mg PO DAILY@0830 [facility] Last Admin: 10/24/16 08:30 Dose: 0.4 mg Warfarin Sodium (Coumadin -) 7.5 mg PO DAILY@1800 [facility] A/P 80 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 with PMhx of CKD stage 4 with proteinuia, CAD s/p CABG, DM on Insulin, Hypertension, HLD, 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 #Acute on Chronic Renal insufficiency Etiology likely volume depletion vs ATN in setting of OLIVA/Aldactone and Sepsis/ Abcess formation Renal function with minimal improvement and now stable can restart Lasix 40mg BID to follow up in the office next week on discharge #Hyperkalemia holding Aldactone/Linsinopril for the time being low k diet repeat labs in 1 week #Metabolic Acidosis Continue sodium bicarb 650mg Daily #Abcess on back Abx as per ID #Anemia Hgb stable #hx of CHF no acute decompensation at his time resume lasix 40mg BID, holding ACEi/Aldactone Hugh Huggins DO
[2016-10-24 13:36] VITALS: BP 140/64; PULSE 75; TEMP 98.9
[2016-10-24] MEDS ORDERED: WARFARIN NA 7.5 MG TABLET (FP) PO SCH (18:00)
== END 2016-10-24 16:55 | disposition home or self-care (01) | DRG 683 ==
LOC: JER 12:34 → JERBED 15:56 → J5S 10-23 18:05
PROVIDERS: ADMIT Internal Medicine; ATTEND Internal Medicine
PROC: 0J970ZX Drainage of Back Subcutaneous Tissue and Fascia, Open Approach, Diagnostic (ICD-10-PCS; principal; 2016-10-22)
DX: N17.9 Acute kidney failure, unspecified (principal); L02.212 Cutaneous abscess of back [any part, except buttock and flank]; E87.2 Acidosis; I13.0 Hypertensive heart and chronic kidney disease with heart failure and stage 1 through stage 4 chronic kidney disease, or unspecified chronic kidney disease; I42.8 Other cardiomyopathies; I50.42 Chronic combined systolic (congestive) and diastolic (congestive) heart failure; I25.810 Atherosclerosis of coronary artery bypass graft(s) without angina pectoris; N18.4 Chronic kidney disease, stage 4 (severe); Z95.1 Presence of aortocoronary bypass graft; E78.5 Hyperlipidemia, unspecified; Z99.3 Dependence on wheelchair; E87.5 Hyperkalemia; Z79.4 Long term (current) use of insulin; I73.9 Peripheral vascular disease, unspecified; Z89.511 Acquired absence of right leg below knee; Z89.612 Acquired absence of left leg above knee; D64.9 Anemia, unspecified; E11.22 Type 2 diabetes mellitus with diabetic chronic kidney disease; E86.0 Dehydration; E11.40 Type 2 diabetes mellitus with diabetic neuropathy, unspecified
CPT/HCPCS: 36415; 71010-TC; 72128-TC; 80048; 80053; 81003; 81015; 82550; 82570; 83605; 83735; 84100; 84156; 84300; 84484; 84540; 85025; 85610; 85730; 86850; 86900; 86901; 87040; 87070; 87086; 87186; 87205; 93005; 93010; 99285-25

== ENCOUNTER 2016-11-26 17:58 | Inpatient (IN) | payer OTHER ==
[2016-11-26 18:43] VITALS: BMI 22.7
[2016-11-26] MEDS ORDERED: ALBUTEROL SO4 2.5/IPRATROPIUM 0.5 INH SOL 3 ML VIAL.NEB. NEB ONE ×2 (19:15→19:23)
--- NOTE | 2016-11-26 19:17 | PDOC ---
History of Present Illness - General History Source: Patient, Family, Old Records Exam Limitations: No Limitations - History of Present Illness Initial Comments: 11/26/16 20:13 The patient is a 81 year old male, accompanied by family, with a significant past medical history of Diabetes, HTN, HLD, s/p CABG x4, and diabetes, who presents to the emergency department today for further evaluation of difficulty breathing since yesterday. He states his difficulty breathing is mostly shortness of breath and has been worsening. He notes that his shortness of breath has improved in the emergency department after receiving breathing treatments. He does not report any associated symptoms. He does not report any exacerbating nor alleviating factors. The patient denies fever, chills, and sweats. The patient denies nausea, vomiting, and diarrhea. The patient denies chest pain, cough. PCP: Dr. Mcdaniels [phone] PAST MEDICAL HISTORY: Diabetes, HTN, HLD PAST SURGICAL HISTORY: CABG x 4 FAMILY HISTORY: No pertinent history reported SOCIAL HISTORY: None reported MEDICATIONS: Tradjenta 5 mg, ASA 81 mg, Lasix 40 mg BID, Flomax 0.4 mg, Carvedilol 25 mg, Glipizide 10 mg, Finasteride 5 mg. <Mayank Villarreal - Last Filed: 11/26/16 21:25> <Katerina Looney - Last Filed: 11/28/16 02:22> - General Chief Complaint: Shortness of Breath Stated Complaint: SOB Time Seen by Provider: 11/26/16 18:22 Past History <Mayank Villarreal - Last Filed: 11/26/16 21:25> - Past Medical History Cardiac Disorders: Yes (cabg x 4 in 1991) Diabetes: Yes Disorders: Yes (urinary retention) HTN: Yes Hypercholesterolemia: Yes - Immunization History Immunization Up to Date: Yes - Psycho/Social/Smoking Cessation Hx Anxiety: No Suicidal Ideation: No Smoking History: Never smoked Have you smoked in the past 12 months: No Hx Alcohol Use: No Drug/Substance Use Hx: No Substance Use Type: None <Katerina Looney - Last Filed: 11/28/16 02:22> - Past Medical History Allergies/Adverse Reactions: Allergies Allergy/AdvReac Type Severity Reaction Status Date / Time Sulfa (Sulfonamide Allergy Verified 11/26/16 18:33 Antibiotics) Home Medications: Ambulatory Orders Unobtainable [Unobtainable] 11/26/16 Review of Systems - Review of Systems Able to Perform ROS?: Yes Comments:: CONSTITUTIONAL: Absent: fever, chills, diaphoresis, generalized weakness, malaise, loss of appetite HEENT: Absent: rhinorrhea, nasal congestion, throat pain, throat swelling, difficulty swallowing, mouth swelling, ear pain, eye pain, visual Changes CARDIOVASCULAR: Absent: chest pain, syncope, palpitations, irregular heart rate, lightheadedness , peripheral edema RESPIRATORY: Present: Shortness of breath Absent: cough, dyspnea with exertion, orthopnea, wheezing, stridor, hemoptysis GASTROINTESTINAL: Absent: abdominal pain, abdominal distension, nausea, vomiting, diarrhea, constipation, melena, hematochezia GENITOURINARY: Absent: dysuria, frequency, urgency, hesitancy, hematuria, flank pain, genital pain MUSCULOSKELETAL: Absent: myalgia, arthralgia, joint swelling SKIN: Absent: rash, itching, pallor HEMATOLOGIC/IMMUNOLOGIC: Absent: easy bleeding, easy bruising, lymphadenopathy, frequent infections ENDOCRINE: Absent: unexplained weight gain, unexplained weight loss, heat intolerance, cold intolerance NEUROLOGIC: Absent: headache, focal weakness or paresthesias, dizziness, mental status changes, bladder or bowel incontinence PSYCHIATRIC: Absent: anxiety, depression, suicidal or homicidal ideation, hallucinations. <Mayank Villarreal - Last Filed: 11/26/16 21:25> *Physical Exam - Vital Signs Last Vital Signs Temp Pulse Resp BP Pulse Ox 98.4 F 64 20 141/87 100 11/26/16 18:34 11/26/16 18:44 11/26/16 18:34 11/26/16 18:34 11/26/16 18:44 - Physical Exam Comments: GENERAL: Well developed, well nourished. Awake and alert. No acute distress. HEENT: Normocephalic, atraumatic. PERRLA, EOMI. No conjunctival pallor. Sclera are non- icteric. Moist mucous membranes. Oropharynx is clear. NECK: Supple. Full ROM. No JVD. Carotid pulses 2+ and symmetric, without bruits. No thyromegaly. No lymphadenopathy. CARDIOVASCULAR: Regular rate and rhythm. No murmurs, rubs, or gallops. Distal pulses are 2+ and symmetric. PULMONARY: No evidence of respiratory distress. Lungs clear to auscultation bilaterally. No wheezing, rales or rhonchi. ABDOMINAL: Soft. Non-tender. Non-distended. No rebound or guarding. No organomegaly. Normoactive bowel sounds. MUSCULOSKELETAL No bony deformities or tenderness. No CVA tenderness. EXTREMITIES: (+) AKA at left knee, BKA at right knee. No cyanosis. No clubbing. No edema. No calf tenderness. SKIN: (+) 10 cm scar right upper back, warm and dry. Normal capillary refill. No rashes. No jaundice. NEUROLOGICAL: Alert, awake, appropriate. Cranial nerves 2-12 intact. No deficits to light touch and temperature in face, upper extremities and lower extremities. No motor deficits in the in face, upper extremities and lower extremities. Normoreflexic in the upper and lower extremities. Normal speech. Toes are down-going bilaterally. PSYCHIATRIC: Cooperative. Good eye contact. Appropriate mood and affect. <Mayank Villarreal - Last Filed: 11/26/16 21:25> - Vital Signs Last Vital Signs Temp Pulse Resp BP Pulse Ox 98.4 F 64 20 141/87 100 11/26/16 18:34 11/26/16 18:44 11/26/16 18:34 11/26/16 18:34 11/26/16 18:44 <Katerina Looney - Last Filed: 11/28/16 02:22> Heart Score/ECG Review - ECG Impressions Comment:: Junctional rhythm. Low voltage QRS. ST & T wave abnormalities, consider iferolateral ischemia. Abnormal ECG. <Mayank Villarreal - Last Filed: 11/26/16 21:25> ED Treatment Course - LABORATORY CBC & Chemistry Diagram: 11/26/16 18:30 11/26/16 18:30 - ADDITIONAL ORDERS Additional order review: Laboratory Results 11/26/16 18:30 INR 1.25 H 11/26/16 18:30 RBC 3.73 L MCV 89.0 MCHC 32.2 RDW 19.0 H D MPV 7.8 Neutrophils % 68.1 Lymphocytes % 17.6 D Monocytes % 11.2 H Eosinophils % 2.2 Basophils % 0.9 - RADIOLOGY Radiograph Interpretation: 11/26/16 20:35 EXAM#: TYPE/EXAM: RESULT: [id number] RAD/CHEST X-RAY PORTABLE* HISTORY PROVIDED: Shortness of breath. A single frontal portable projection of the chest at 7:51 PM is submitted. The heart size is enlarged. A moderate right pleural effusion is noted with consolidation/ atelectasis of the lower lobe. The left lung is largely clear with slight blunting of the costophrenic angle indicative of a small amount of pleural fluid. IMPRESSION: Cardiomegaly and moderate right pleural effusion. Reported By: Osmani Mcwilliams MD 11/26/162022 - Medications Given in the ED: ED Medications Discontinued Medications Generic Name Dose Route Start Last Admin Trade Name Freq PRN Reason Stop Dose Admin Albuterol/Ipratropium 1 amp 11/26/16 19:15 11/26/16 19:37 Duoneb - NEB 11/26/16 19:16 1 amp ONCE ONE Administration <Mayank Villarreal - Last Filed: 11/26/16 21:25> - LABORATORY CBC & Chemistry Diagram: 11/27/16 06:55 11/27/16 06:55 <Katerina Looney - Last Filed: 11/28/16 02:22> Medical Decision Making - Medical Decision Making 11/26/16 20:[address] Lisandro Goldsmith placed. Awaiting call back. 11/26/16 20:50 Dr. Goldsmith called in the ED. Case discussed. Patient will be placed in Med Surg. <Mayank Villarreal - Last Filed: 11/26/16 21:25> - Medical Decision Making 81-year-old male presented with increasing shortness of breath. Past medical history of coronary artery disease, severe LV dysfunction, congestive heart failure, diabetes, chronic kidney disease and hypertension. 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 Chest x-ray did not show any infiltrates but did show a pleural effusion. Patient was given Lasix IV and admitted for further workup. He has a chronic anemia. Cardiac enzymes were negative 11/28/16 02:21 <Katerina Looney - Last Filed: 11/28/16 02:22> *DC/Admit/Observation/Transfer - Attestations Scribe Attestion: Documentation prepared by Mayank Villarreal, acting as senior medical technologist for Dr. Katerina Looney MD. <Mayank Villarreal - Last Filed: 11/26/16 21:25> - Discharge Dispostion Admit: Yes <Katerina Looney - Last Filed: 11/28/16 02:22> Diagnosis at time of Disposition: Acute on chronic systolic and diastolic heart failure, NYHA class 3, Pleural effusion Dyspnea Qualifiers: Dyspnea type: shortness of breath Qualified Code(s): R06.02 - Shortness of breath DM2 (diabetes mellitus, type 2) Qualifiers: Diabetes mellitus complication status: with neurologic complications Diabetes mellitus complication detail: with unspecified neuropathy Diabetes mellitus terminal operations supervisor insulin use: without terminal operations supervisor use Qualified Code(s): E11.40 - Type 2 diabetes mellitus with diabetic neuropathy, unspecified - Referrals
[2016-11-26 19:45] LABS: BASOPHIL 0.9 % (0-2.0); EOSINOPHIL 2.2 % (0-4.5); MCH 28.6 pg (25.7-33.7); MCHC 32.2 g/dl (32.0-35.9); MEAN PLT VOLUME 7.8 fl (7.5-11.1); NEUTROPHILS 68.1 % (42.8-82.8); PLATELET COUNT 359 K/MM3 (134-434); WHITE BLOOD COUNT 6.1 K/mm3 (4.0-10.0)
[2016-11-26 19:59] LABS: INR 1.25 (0.82-1.09); PROTHROMBIN TIME (PATIENT) 13.8 SEC (9.98-11.88)
[2016-11-26 20:26] LABS: ALBUMIN 2.7 g/dl (3.4-5.0); BILIRUBIN,TOTAL 0.5 mg/dL (0.2-1.0); CALCIUM 8.4 mg/dL (8.5-10.1); COCKROFT - GAULT 17.97; CREATININE 3.1 mg/dL (0.7-1.3); TOT PROT 7.1 g/dl (6.4-8.2)
[2016-11-26 20:29] LABS: TROPONIN I 0.03 ng/ml (0.00-0.05)
[2016-11-26] MEDS ORDERED: FUROSEMIDE 40 MG/4 ML INJECTABLE VIAL IVPUSH ONE (20:45)
[2016-11-26] MEDS ORDERED: FUROSEMIDE 40 MG/4 ML INJECTABLE VIAL ONE (20:49)
[2016-11-26] MEDS ORDERED: ACETAMINOPHEN 325 MG TABLET (FP) PO PRN (20:58)
[2016-11-26] MEDS ORDERED: ALBUTEROL SO4 0.083% IH SOL 2.5 MG/3 ML VIAL.NEB. NEB PRN (20:58)
[2016-11-26] MEDS: INSULIN SLIDING SCALE (NOVOLOG) 1 VIAL SQ SCH (22:27)
[2016-11-26] MEDS: INSULIN DETEMIR 100 UNITS/ML MDV SQ SCH (22:27)
[2016-11-27] MEDS: INSULIN SLIDING SCALE (NOVOLOG) 1 VIAL SQ SCH ×4 (06:40→21:53)
[2016-11-27 07:57] LABS: BASOPHIL 1.1 % (0-2.0); MCH 29.1 pg (25.7-33.7); MCHC 32.9 g/dl (32.0-35.9); MEAN CELL VOLUME 88.5 fl (80-96); MEAN PLT VOLUME 7.6 fl (7.5-11.1); NEUTROPHILS 70.8 % (42.8-82.8); PLATELET COUNT 320 K/MM3 (134-434); RDW 18.1 % (11.9-15.9); WHITE BLOOD COUNT 6.4 K/mm3 (4.0-10.0)
[2016-11-27 08:16] LABS: ALBUMIN 2.7 g/dl (3.4-5.0); BILIRUBIN,TOTAL 0.7 mg/dL (0.2-1.0); CALCIUM 8.7 mg/dL (8.5-10.1); COCKROFT - GAULT 20.97; CREATININE 3.1 mg/dL (0.7-1.3)
[2016-11-27] MEDS ORDERED: FUROSEMIDE 40 MG/4 ML INJECTABLE VIAL IVPB SCH (10:00)
[2016-11-27] MEDS: FINASTERIDE 5 MG TABLET (FP) PO SCH (10:32)
--- NOTE | 2016-11-27 12:19 | HP ---
Admitting History and Physical - Primary Care Physician PCP: Villa Mcdaniels - Admission Chief Complaint: sob History of Present Illness: - History of Present Illness Initial Comments: 11/26/16 20:13 The patient is a 81 year old male, accompanied by family, with a significant past medical history of Diabetes, HTN, HLD, s/p CABG x4, and diabetes, who presents to the emergency department today for further evaluation of difficulty breathing since yesterday. He states his difficulty breathing is mostly shortness of breath and has been worsening. He notes that his shortness of breath has improved in the emergency department after receiving breathing treatments. He does not report any associated symptoms. He does not report any exacerbating nor alleviating factors. The patient denies fever, chills, and sweats. The patient denies nausea, vomiting, and diarrhea. The patient denies chest pain, cough. PCP: Dr. Mcdaniels [phone] Pt examined by me on the floors He has SOB , no chest pain Non compliant with meds and follow up with PMD states he wants O2 at home. Had similar complaints last year and had thoracentesis for right pleural effusion , transudate, pathology negative for malignancy . Has recurrence of pleural effusion right sided History Source: Patient Limitations to Obtaining History: Poor Historian - Past Medical History Cardiovascular: Yes: CAD, CHF (low EF), Hyperlipdemia Gastrointestinal: Yes: Constipation, Other (no hx colonoscopy) Renal/: Yes: Renal Inusuff, BPH Heme/Onc: Yes: Anemia Endocrine: Yes: Diabetes Mellitus - Past Surgical History Past Surgical History: Yes: Amputation (bilateral lower leg amputations due to diabeic complications.), CABG - Smoking History Smoking history: Never smoked Have you smoked in the past 12 months: No - Alcohol/Substance Use Hx Alcohol Use: No - Social History History of Recent Travel: No Home Medications - Allergies Allergies/Adverse Reactions: Allergies Allergy/AdvReac Type Severity Reaction Status Date / Time Sulfa (Sulfonamide Allergy Verified 11/26/16 18:33 Antibiotics) - Home Medications Home Medications: Ambulatory Orders Unobtainable [Unobtainable] 11/26/16 Review of Systems - Review of Systems Constitutional: denies: Chills, Fever, Weakness Cardiovascular: denies: Chest Pain Respiratory: reports: SOB Physical Examination Vital Signs: Vital Signs Temperature 97.5 F L 11/27/16 06:00 Pulse Rate 61 11/27/16 06:00 Respiratory Rate 20 11/27/16 06:00 Blood Pressure 128/70 11/27/16 06:00 O2 Sat by Pulse Oximetry (%) 98 11/27/16 03:30 Constitutional: Yes: No Distress Cardiovascular: Yes: Regular Rate and Rhythm Respiratory: Yes: Diminished (right), Rales (right) Gastrointestinal: Yes: Normal Bowel Sounds, Soft. No: Distention, Tenderness Extremities: Yes: Other (B/l amputation -- rt BKA and left AKA) Labs: CBC, BMP 11/27/16 06:55 11/27/16 06:55 Imaging - Results Chest X-ray: Image Reviewed (rt pleural effusion) EKG: Image Reviewed (sinus, prolonged QT) Problem List - Problems (1) KAMRAN (acute kidney injury) Code(s): N17.9 - ACUTE KIDNEY FAILURE, UNSPECIFIED (2) Acute on chronic systolic and diastolic heart failure, NYHA class 3 Code(s): I50.43 - ACUTE ON CHRONIC COMBINED SYSTOLIC AND DIASTOLIC HRT FAIL (3) CAD (coronary artery disease) Code(s): I25.10 - ATHSCL HEART DISEASE OF [place] CORONARY ARTERY W/O ANG PCTRS Qualifiers: Coronary Disease-Associated Artery/Lesion type: [place] artery [place] vs. transplanted heart: [place] heart Associated angina: without angina Qualified Code(s): I25.10 - Atherosclerotic heart disease of [place] coronary artery without angina pectoris (4) DM2 (diabetes mellitus, type 2) Code(s): E11.9 - TYPE 2 DIABETES MELLITUS WITHOUT COMPLICATIONS Qualifiers: Diabetes mellitus complication status: with neurologic complications Diabetes mellitus complication detail: with unspecified neuropathy Diabetes mellitus senior care insulin use: without vermin exterminator use Qualified Code(s): E11.40 - Type 2 diabetes mellitus with diabetic neuropathy, unspecified; Z79.4 - [facility] (current) use of insulin (5) Pleural effusion Assessment/Plan: recurrent Code(s): J90 - PLEURAL EFFUSION, NOT ELSEWHERE CLASSIFIED Assessment/Plan PLAN Spoke with renal and Cardiology unsure if he is taking his meds at home He is non compliant with follow ups per PMD Was on Warfarin but subtherapeutic Will plan for thoracentesis Hold warfarin on Lasix Monitor renal function Time spent 30 min
[2016-11-27] MEDS ORDERED: CARVEDILOL 12.5 MG TABLET (FP) PO SCH (13:15)
[2016-11-27] MEDS ORDERED: FUROSEMIDE 40 MG/4 ML INJECTABLE VIAL IVPUSH SCH (13:30)
--- NOTE | 2016-11-27 13:40 | CONSULT ---
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 Pt s/p thoracentesis last year for similar effusion and it was found to be a transudative effusion seconadary to CHF. Pt was recently admitted for an abcess on his back that was treated with oral Abx on discharge. Pt s/p IV lasix and Resp Tx in [facility] ED with improvement in symptoms. Pt denies any abd pain, chest pain, N/V/D. No flank pain. No blood in urine. PMhx: As above Allergies: NKDA Family Hx: NC Social Hx: No Tobacco, social ETOH ROS: as per HPI Vital Signs Temperature 97.5 F L 11/27/16 06:00 Pulse Rate 61 11/27/16 06:00 Respiratory Rate 20 11/27/16 06:00 Blood Pressure 128/70 11/27/16 06:00 O2 Sat by Pulse Oximetry (%) 98 11/27/16 03:30 Intake & Output 11/24/16 11/25/16 11/26/16 11/27/16 23:59 23:59 23:59 23:59 Intake Total 240 Balance 240 Weight 145 lb 169 lb 3.2 oz Gen: NAD on NC HEENT: NC/AT, No JVD, MMM CVS: RRR, No M Lungs: Dec Bs right lung base, trace rales in the left lung base Abd: soft NT/ND Ext: Trace to 1+ sacral edema, B/L AKA : No bladder distension CBC, BMP 11/27/16 06:55 11/27/16 06:55 Laboratory Tests 10/23/16 11/27/16 06:00 06:55 Creat Clearance w eGFR 19.53 Calcium 7.9 L 8.7 Phosphorus 3.2 D Magnesium 2.1 Albumin 2.1 L 2.7 L Current Medications Acetaminophen (Tylenol -) 650 mg PO Q4H PRN PRN Reason: FEVER OR PAIN Albuterol Sulfate (Ventolin 0.083% Nebulizer Soln -) 1 amp NEB Q4H PRN PRN Reason: SHORT OF BREATH/WHEEZING Last Admin: 11/27/16 03:52 Dose: 1 amp Aspirin (Ecotrin -) 81 mg PO DAILY [facility] Carvedilol (Coreg -) 12.5 mg PO BID [facility] Finasteride (Proscar -) 5 mg PO DAILY [facility] Last Admin: 11/27/16 10:32 Dose: 5 mg Furosemide (Lasix Injection -) 40 mg IVPUSH DAILY [facility] Last Admin: 11/27/16 13:36 Dose: Not Given Insulin Aspart (Novolog Vial Sliding Scale -) 1 vial SQ ACHS [facility] PRN Reason: Protocol Last Admin: 11/27/16 12:20 Dose: Not Given Insulin Detemir (Levemir Vial) 8 units SQ HS [facility] Last Admin: 11/26/16 22:27 Dose: 8 units Warfarin Sodium (Coumadin -) 5 mg PO DAILY@1800 [facility] A/P 80 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 with PMhx of 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 #CKD Stage 4 with Nephrotic range proteinuria with volume overlaod suspected underlying etiology of CKD is diabetic +/- ischemic nephropathy Cr without significant change from prior admission but BUN is higher now check Urine studies and Kidney/Bladder US give Volume overload and pleural effusion with symptoms will give IV lasix 80mg BID Trend BUN/Cr and electrolytes Dose all meds for Cr Cl < 20 no acute indication for FIELD HAND Check Repeat SPEP (abnormal study last year) to r/o secondary cause of proteinuria #Pleural effusion/CHF Prior tap showed transudative effusion Continue IV Lasix Consider pulmonary eval for possible additional thoracentesis #Anemia of CKD Hgb better then prior admission Trend CBC Check iron profile no need for CASSANDRA given Hgb > 10 Thank you Hugh Huggins DO
[2016-11-27 13:46] LABS: INR 1.22 (0.82-1.09); PROTHROMBIN TIME (PATIENT) 13.5 SEC (9.98-11.88)
[2016-11-27] MEDS: FUROSEMIDE 40 MG/4 ML INJECTABLE VIAL IVPUSH SCH (15:22)
--- NOTE | 2016-11-27 15:27 | CON.CARD ---
Consult Consult Specialty:: cardio Referred by:: rossy Reason for Consultation:: chf, pleural effusion - History of Present Illness Chief Complaint: sob History of Present Illness: 81 yo male presented with sob. pt has h/o CABG and severe LV dysfunction on echo here 2016. has not followed up with any cardiologists. saw galdino 2012, seen by sheldon here 2016--did not f/u with them afterwards. i advised pt he has a weak heart and he disagrees (politely)--states he had surgery on his heart in 1991 but he has no problems from his heart. admits to several days of sob at home--none presently. denies cp, palpit, leg swelling (BKAs) PMH: DM HPL HTN CAD syst chf prior UE thrombus 2015 CKD, nephrotic range proteinuria prior bilat LE amputations - Past Medical History Cardio/Vascular: Yes: CAD, CHF (low EF), Hyperlipdemia Gastrointestinal: Yes: Constipation, Other (no hx colonoscopy) Renal/: Yes: BPH Endocrine: Yes: Diabetes Mellitus - Past Surgical History Past Surgical History: Yes: Amputation (bilateral lower leg amputations due to diabeic complications.), CABG - Alcohol/Substance Use Hx Alcohol Use: No - Smoking History Smoking history: Never smoked Have you smoked in the past 12 months: No - Social History History of Recent Travel: No Home Medications - Allergies Allergies/Adverse Reactions: Allergies Allergy/AdvReac Type Severity Reaction Status Date / Time Sulfa (Sulfonamide Allergy Verified 11/26/16 18:33 Antibiotics) - Home Medications Home Medications: Ambulatory Orders Unobtainable [Unobtainable] 11/26/16 Family Disease History - Family Disease History Family History: Denies (no cmp) Review of Systems - Review of Systems Constitutional: denies: Chills, Fever Eyes: denies: Eye Pain HENT: denies: Nasal Congestion Neck: denies: Stiffness Cardiovascular: denies: Palpitations Respiratory: denies: Orthopnea, PND Gastrointestinal: denies: Diarrhea, Rectal Bleeding Genitourinary: denies: Burning, Hematuria Musculoskeletal: denies: Muscle Pain Integumentary: denies: Rash Neurological: denies: Numbness, Seizure, Syncope Endocrine: denies: Excessive Sweating Hematology/Lymphatic: denies: Excessive Bleeding Vital Signs: Vital Signs Temperature 98.7 F 11/27/16 14:19 Pulse Rate 74 05/16/17 14:19 Respiratory Rate 22 11/27/16 14:19 Blood Pressure 141/72 11/27/16 14:19 O2 Sat by Pulse Oximetry (%) 100 11/27/16 09:00 Constitutional: Yes: Well Nourished, No Distress Eyes: No: Sclera Icterus HENT: No: Nasal Congestion Neck: No: Decreased ROM Respiratory: Yes: CTA Bilaterally, Diminished (R base). No: Accessory Muscle Use Gastrointestinal: Yes: Normal Bowel Sounds. No: Distention, Hepatomegaly, Palpable Mass, Tenderness Cardiovascular: Yes: Regular Rate and Rhythm JVD: No Carotid Bruit: No PMI: Non-Displaced Heart Sounds: Yes: S1, S2. No: Gallop Murmur: No: Systolic Murmur, Diastolic Murmur Musculoskeletal: Yes: Other (No kyphosis) Extremities: No: Cold, Cyanosis Edema: No (thighs (s/p bilat amp)) Peripheral Pulses: 2+ Left Carotid, 2+ Right Carotid, 2+ Left Doralis Pedis, 2+ Right Dorsalis Pedis Integumentary: No: Jaundice Neurological: Yes: Alert. No: Seizure Psychiatric: No: Agitated - Other Data Labs, Other Data: CBC, BMP 11/27/16 06:55 11/27/16 06:55 INR, PTT INR 1.22 (0.82-1.09) H 11/27/16 13:05 Laboratory Tests 12/02/15 12/05/15 11/26/16 06:00 06:30 18:30 WBC Hgb Plt Count Sodium Potassium Carbon Dioxide BUN Creatinine 3.3 H 2.8 H AST ALT Creatine Kinase 81 Troponin I 0.03 B-Natriuretic Peptide 11/26/16 11/27/16 11/27/16 18:30 06:55 06:55 WBC 6.4 Hgb 10.5 L Plt Count 320 Sodium 141 Potassium 4.7 Carbon Dioxide 21 BUN 84 H Creatinine 3.1 H AST 17 ALT 34 Creatine Kinase Troponin I B-Natriuretic Peptide 54499.24 H ekg 11/26: NSR with 1st degree AVB; normal axis, borderline QTC; PRWP; old IWMI; diffuse NSST-Ts--no change vs 10/29 and 11/27 priors Imaging - Results Chest X-ray: Report Reviewed, Image Reviewed Assessment/Plan Echo 11/2015 ([facility]): mild LVE; severe, global HK; nl RV; mod MR, mild TR; no RVSP acute on chronic syst chf: -BNP 52K here, from 13K in 2016 (low GFR) -CXR reviewed by me: ? underlying vasc congestion pattern, no L effusion, moderate R effusion--NO CHANGE VS 11/2015 -here 11/27 with anasarca and suspected CHF, treated by sheldon/jorge vazquez (lasix 40 iv bid)--per d/w them today, pt never followed up with them in office -wt declined from 192 to 167 (lift scale) during that hosp stay -he is 169 lbs here on lift scale -no JVD on exam, thighs without edema -had [id number] R effusion 2015, s/p thoracentesis reportedly was transudative c/w chf -now back with same effusion--home meds not known to pt and likely not complying with any/some of rx'd meds, ? lasix -exam not very suggestive of total-body fluid overload/chf, and suspect this effusion may require thoracentesis again ultimately. -will try IV lasix and observe renal fxn closely--low threshold to stop and do tap if renal fxn worsens -incr carvedilol to 25 bid; -defer OLIVA and spirono (? Entresto) until K and creat (and bp) can be observed s /p aggressive diuresis -unfortunately, the biggest obstacle in pt's ability to stay out of chf and avoid VT/VF complications of low EF is that he appears to refuse to believe ( when informed by me) that he has a weak heart and is at risk. rec family (if any ) be brought into this discussion, to try to help convince pt to follow up with appropriate chf recs incl ? of ICD down the road if EF remains depressed once he 's on optimal meds (assuming he takes them) CAD: -s/p 4V cabg (1991) -no f/u with us since [facility] o.v. 2012 (at that time was on coreg 25 bid, asa 81, lisinopril 20 bid, atorva 20) -no angina sxs -no ekg changes vs baseline -stress testing not indicated HTN: -bp controlled here CKD stage IV, nephrotic range proteinuria: -baseline creat range here is 2.8-3.3 -renal fxn currently stable -per renal team h/o upper extremity DVT -thrombus in RIJ and basilic vein dx'd here 11/27, likely hypercoagulable from nephrotic syndrome -rx'd coumadin at that time--? if compliant as outpt, current med list is unknown -INR here 1.2 -rec heme input regarding whether or not there is need for indefinite AC here ( due to nephrotic syndrome)--if so, ? eliquis or xarelto is better option to maximize compliance (d/w'd dr blair) anemia, chronic -baseline Hgb 9s, stable here -per pmd DM: -s/p right BKA and left AKA -glycemia mgmt per PMD
[2016-11-27 16:02] LABS: TROPONIN I 0.03 ng/ml (0.00-0.05)
--- NOTE | 2016-11-27 17:05 | EKG ---
Test Reason : Blood Pressure : / mmHG Vent. Rate : 075 BPM Atrial Rate : 075 BPM P-R Int : 268 ms QRS Dur : 124 ms QT Int : 444 ms P-R-T Axes : 001 -13 192 degrees QTc Int : 495 ms SINUS RHYTHM WITH SINUS ARRHYTHMIA WITH 1ST DEGREE A-V BLOCK CANNOT RULE OUT INFERIOR INFARCT , AGE UNDETERMINED ABNORMAL ECG WHEN COMPARED WITH ECG OF 26-NOV-2016 18:52, SINUS RHYTHM HAS REPLACED JUNCTIONAL RHYTHM , BUT PREVIOUS RHYTHM IS UNCLEAR Confirmed by BLAISE DEJESUS MD ([id number]) on 11/27/2016 5:05:03 PM Referred By: Miguel CALLEJAS Confirmed By:BLAISE DEJESUS MD
--- NOTE | 2016-11-27 17:11 | EKG ---
Test Reason : Blood Pressure : / mmHG Vent. Rate : 064 BPM Atrial Rate : 064 BPM P-R Int : 000 ms QRS Dur : 096 ms QT Int : 482 ms P-R-T Axes : 000 -21 174 degrees QTc Int : 497 ms PROBABLE SINUS RHYTHM LOW VOLTAGE QRS PROLONGED QT ABNORMAL ECG WHEN COMPARED WITH ECG OF 22-OCT-2016 14:46, LIKELY NO SIGNIFICANT CHANGES WERE SEEN Confirmed by BLAISE DEJESUS MD ([id number]) on 11/27/2016 5:11:27 PM Referred By: Confirmed By:BLAISE DEJESUS MD
[2016-11-27] MEDS ORDERED: WARFARIN NA 5 MG TABLET (UD) PO SCH (18:00)
[2016-11-27 20:45] LABS: URINE APPEARANCE CLEAR; URINE BILIRUBIN NEGATIVE (NEGATIVE); URINE BLOOD NEGATIVE (NEGATIVE); URINE COLOR LTYELLOW; URINE GLUCOSE (UA) 1+ (NEGATIVE); URINE KETONE NEGATIVE (NEGATIVE); URINE LEUK ESTERASE NEGATIVE (NEGATIVE); URINE NITRITE NEGATIVE (NEGATIVE); URINE UROBILINOGEN NEGATIVE E.U./dl (0.2-1.0)
[2016-11-27 20:51] LABS: URINE PROTEIN 2+ (NEGATIVE)
[2016-11-27 20:58] LABS: URINE HYALINE CAST 3 /lpf; URINE RBC 1 /hpf (0-3); URINE WBC <1 /hpf (3-5)
[2016-11-27] MEDS: CARVEDILOL 25 MG TABLET (FP) PO SCH (21:52)
[2016-11-27] MEDS: INSULIN DETEMIR 100 UNITS/ML MDV SQ SCH (21:52)
[2016-11-27] MEDS ORDERED: PHYTONADIONE 5 MG TABLET PO ONE (22:36)
[2016-11-27 22:52] LABS: URINE CREATININE 26.6 mg/dL (20-370)
[2016-11-28] MEDS: INSULIN SLIDING SCALE (NOVOLOG) 1 VIAL SQ SCH ×4 (06:14→22:02)
[2016-11-28] MEDS: FUROSEMIDE 40 MG/4 ML INJECTABLE VIAL IVPUSH SCH ×2 (06:14→14:45)
[2016-11-28 07:34] LABS: BASOPHIL 1.1 % (0-2.0); EOSINOPHIL 3.7 % (0-4.5); MCH 29.2 pg (25.7-33.7); MCHC 32.8 g/dl (32.0-35.9); MEAN CELL VOLUME 89.1 fl (80-96); MEAN PLT VOLUME 7.4 fl (7.5-11.1); NEUTROPHILS 63.3 % (42.8-82.8); PLATELET COUNT 294 K/MM3 (134-434); RDW 18.5 % (11.9-15.9); WHITE BLOOD COUNT 5.9 K/mm3 (4.0-10.0)
[2016-11-28 07:53] LABS: INR 1.23 (0.82-1.09); PROTHROMBIN TIME (PATIENT) 13.6 SEC (9.98-11.88)
[2016-11-28 08:05] LABS: ALBUMIN 2.5 g/dl (3.4-5.0); CALCIUM 8.1 mg/dL (8.5-10.1); COCKROFT - GAULT 20.41; CREATININE 3.2 mg/dL (0.7-1.3); MAGNESIUM 2.3 mg/dL (1.8-2.4); PHOSPHOROUS 4.8 mg/dL (2.5-4.9)
[2016-11-28 08:07] LABS: BILIRUBIN,TOTAL 0.5 mg/dL (0.2-1.0); TOT PROT 6.7 g/dl (6.4-8.2)
[2016-11-28] MEDS: FINASTERIDE 5 MG TABLET (FP) PO SCH (09:41)
[2016-11-28] MEDS: CARVEDILOL 25 MG TABLET (FP) PO SCH ×2 (09:42→22:02)
--- NOTE | 2016-11-28 10:56 | PN ---
Progress Note (short form) - Note Progress Note: Renal Follow up for KAMRAN on CKD pt seen and examined at the bedside states that he feels a little better no sob or chest pain no fevers Vital Signs Temperature 97.5 F L 11/28/16 06:00 Pulse Rate 64 11/28/16 06:00 Respiratory Rate 20 11/28/16 06:00 Blood Pressure 126/71 11/28/16 06:00 O2 Sat by Pulse Oximetry (%) 100 11/27/16 21:00 Intake & Output 11/25/16 11/26/16 11/27/16 11/28/16 23:59 23:59 23:59 23:59 Intake Total 940 Balance 940 Weight 145 lb 169 lb 3.2 oz 170 lb Gen: NAD on NC HEENT: NC/AT, No JVD, MMM CVS: RRR, No M Lungs: Dec Bs right lung base, trace rales in the left lung base Abd: soft NT/ND Ext: Trace to 1+ sacral edema, B/L AKA : No bladder distension CBC, BMP 11/28/16 06:20 11/28/16 06:20 Laboratory Tests 11/28/16 06:20 Uric Acid 8.0 H Calcium 8.1 L Phosphorus 4.8 D Albumin 2.5 L Laboratory Tests 11/27/16 20:00 U Random Total Protein 139 H Urine Creatinine 26.6 Current Medications Acetaminophen (Tylenol -) 650 mg PO Q4H PRN PRN Reason: FEVER OR PAIN Albuterol Sulfate (Ventolin 0.083% Nebulizer Soln -) 1 amp NEB Q4H PRN PRN Reason: SHORT OF BREATH/WHEEZING Last Admin: 11/27/16 03:52 Dose: 1 amp Aspirin (Ecotrin -) 81 mg PO DAILY [facility] Carvedilol (Coreg -) 25 mg PO BID [facility] Last Admin: 11/28/16 09:42 Dose: 25 mg Finasteride (Proscar -) 5 mg PO DAILY [facility] Last Admin: 11/28/16 09:41 Dose: 5 mg Furosemide (Lasix Injection -) 80 mg IVPUSH BID@0600,1400 [facility] Last Admin: 11/28/16 06:14 Dose: 80 mg Insulin Aspart (Novolog Vial Sliding Scale -) 1 vial SQ ACHS [facility] PRN Reason: Protocol Last Admin: 11/28/16 06:14 Dose: Not Given Insulin Detemir (Levemir Vial) 8 units SQ HS [facility] Last Admin: 11/27/16 21:52 Dose: 8 units A/P 80 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 with PMhx of 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 #CKD Stage 4 with Nephrotic range proteinuria with volume overlaod suspected underlying etiology of CKD is diabetic +/- ischemic nephropathy UPCR is in the nephrotic range Renal Us showed preserved kidney size w/o evidence of obstruction or urinary retention Renal function stable at this time continue aggressive IV diureiss if BUN/Cr up trend with IV lasix will need to cut back Repeat SPEP (abnormal study last year) to r/o secondary cause of proteinuria - being processed #Pleural effusion/CHF Prior tap showed transudative effusion Continue IV Lasix Consider pulmonary eval for possible additional thoracentesis #Anemia of CKD Trend CBC Check iron profile may require CASSANDRA if hgb is consistently less then 10 Thank you Hugh Huggins DO
--- NOTE | 2016-11-28 11:43 | PN ---
Progress Note, Physician Chief Complaint: s/p right thoracentesis has pain in right side of abdomen no SOB - Current Medication List Current Medications: Active Medications Acetaminophen (Tylenol -) 650 mg PO Q4H PRN PRN Reason: FEVER OR PAIN Albuterol Sulfate (Ventolin 0.083% Nebulizer Soln -) 1 amp NEB Q4H PRN PRN Reason: SHORT OF BREATH/WHEEZING Last Admin: 11/27/16 03:52 Dose: 1 amp Aspirin (Ecotrin -) 81 mg PO DAILY [facility] Carvedilol (Coreg -) 25 mg PO BID [facility] Last Admin: 11/28/16 09:42 Dose: 25 mg Finasteride (Proscar -) 5 mg PO DAILY [facility] Last Admin: 11/28/16 09:41 Dose: 5 mg Furosemide (Lasix Injection -) 80 mg IVPUSH BID@0600,1400 [facility] Last Admin: 11/28/16 06:14 Dose: 80 mg Insulin Aspart (Novolog Vial Sliding Scale -) 1 vial SQ ACHS [facility] PRN Reason: Protocol Last Admin: 11/28/16 06:14 Dose: Not Given Insulin Detemir (Levemir Vial) 8 units SQ HS [facility] Last Admin: 11/27/16 21:52 Dose: 8 units - Objective Vital Signs: Vital Signs Temperature 97.5 F L 11/28/16 06:00 Pulse Rate 64 11/28/16 06:00 Respiratory Rate 20 11/28/16 06:00 Blood Pressure 126/71 11/28/16 06:00 O2 Sat by Pulse Oximetry (%) 100 11/27/16 21:00 Constitutional: Yes: No Distress Cardiovascular: Yes: Regular Rate and Rhythm Respiratory: Yes: Diminished Gastrointestinal: Yes: Normal Bowel Sounds, Soft, Tenderness (Rt upper quadrant) Extremities: Yes: Amputation Edema: No Labs: CBC, BMP 11/28/16 06:20 11/28/16 06:20 INR, PTT INR 1.23 (0.82-1.09) H 11/28/16 06:20 Problem List - Problems (1) Abscess Code(s): L02.91 - CUTANEOUS ABSCESS, UNSPECIFIED (2) Acute on chronic systolic and diastolic heart failure, NYHA class 3 Code(s): I50.43 - ACUTE ON CHRONIC COMBINED SYSTOLIC AND DIASTOLIC HRT FAIL (3) CAD (coronary artery disease) Code(s): I25.10 - ATHSCL HEART DISEASE OF [place] CORONARY ARTERY W/O ANG PCTRS Qualifiers: Coronary Disease-Associated Artery/Lesion type: [place] artery [place] vs. transplanted heart: [place] heart Associated angina: without angina Qualified Code(s): I25.10 - Atherosclerotic heart disease of [place] coronary artery without angina pectoris (4) CHF (congestive heart failure) Code(s): I50.9 - HEART FAILURE, UNSPECIFIED (5) DM2 (diabetes mellitus, type 2) Code(s): E11.9 - TYPE 2 DIABETES MELLITUS WITHOUT COMPLICATIONS Qualifiers: Diabetes mellitus complication status: with neurologic complications Diabetes mellitus complication detail: with unspecified neuropathy Diabetes mellitus predatory animal exterminator insulin use: without predatory animal exterminator use Qualified Code(s): E11.40 - Type 2 diabetes mellitus with diabetic neuropathy, unspecified; Z79.4 - snf (current) use of insulin (6) HTN (hypertension) Code(s): I10 - ESSENTIAL (PRIMARY) HYPERTENSION (7) Nephrotic syndrome Code(s): N04.9 - NEPHROTIC SYNDROME WITH UNSPECIFIED MORPHOLOGIC CHANGES (8) S/P thoracentesis Code(s): Z98.89 - OTHER SPECIFIED POSTPROCEDURAL STATES * DO NOT USE * Assessment/Plan PLAN s/p thoracentesis check abd sono Hold warfarin on Lasix Monitor renal function- worse today Hematology eval with regards to continuing Anticoagulation
[2016-11-28] MEDS: ASPIRIN COATED 81 MG TABLET.EC PO SCH (12:03)
[2016-11-28 12:55] LABS: GLUCOSE,PLEURAL FLUID 96.118
[2016-11-28 14:10] LABS: PLEURAL FLUID APPEARANCE CLEAR; PLEURAL FLUID COLOR YELLOW; PLEURAL FLUID SOURCE RIGHT PLEURAL
--- NOTE | 2016-11-28 17:57 | PN ---
Progress Note (short form) - Note Progress Note: Chief Complaint: sob History of Present Illness: S: Feels better after thoracentesis today. Sob improved. + cough. no cp, palps, mild le edema remains. No increased uop on IV lasix. States he normally has small amount of uop. Current Medications Acetaminophen (Tylenol -) 650 mg PO Q4H PRN PRN Reason: FEVER OR PAIN Albuterol Sulfate (Ventolin 0.083% Nebulizer Soln -) 1 amp NEB Q4H PRN PRN Reason: SHORT OF BREATH/WHEEZING Last Admin: 11/27/16 03:52 Dose: 1 amp Aspirin (Ecotrin -) 81 mg PO DAILY [facility] Last Admin: 11/28/16 12:03 Dose: Not Given Carvedilol (Coreg -) 25 mg PO BID [facility] Last Admin: 11/28/16 09:42 Dose: 25 mg Finasteride (Proscar -) 5 mg PO DAILY [facility] Last Admin: 11/28/16 09:41 Dose: 5 mg Furosemide (Lasix Injection -) 80 mg IVPUSH BID@0600,1400 [facility] Last Admin: 11/28/16 14:45 Dose: 80 mg Insulin Aspart (Novolog Vial Sliding Scale -) 1 vial SQ ACHS [facility] PRN Reason: Protocol Last Admin: 11/28/16 17:40 Dose: 2 units Insulin Detemir (Levemir Vial) 8 units SQ HS [facility] Last Admin: 11/27/16 21:52 Dose: 8 units Vital Signs - 24 hr 11/27/16 11/27/16 11/28/16 18:00 21:00 03:00 Temperature 98.1 F Pulse Rate 73 77 Respiratory 20 20 20 Rate Blood Pressure 131/69 131/70 O2 Sat by Pulse 100 Oximetry (%) 11/28/16 11/28/16 11/28/16 06:00 09:00 10:00 Temperature 97.5 F L 97.3 F L Pulse Rate 64 84 Respiratory 20 20 Rate Blood Pressure 126/71 143/76 O2 Sat by Pulse 98 Oximetry (%) 11/28/16 14:28 Temperature 97.7 F Pulse Rate 73 Respiratory 20 Rate Blood Pressure 127/71 O2 Sat by Pulse Oximetry (%) Intake & Output 11/26/16 11/27/16 11/28/16 11/29/16 07:59 07:59 07:59 07:59 Intake Total 60 880 710 Balance 60 880 710 Weight 169 lb 3.2 oz 170 lb Constitutional: Yes: Well Nourished, No Distress Eyes: No: Sclera Icterus HENT: No: Nasal Congestion Neck: No: Decreased ROM Respiratory: Yes:bibasilar dullness. No: Accessory Muscle Use Gastrointestinal: Yes: Normal Bowel Sounds. No: Distention, Hepatomegaly, Palpable Mass, Tenderness Cardiovascular: Yes: Regular Rate and Rhythm JVD: No Carotid Bruit: No PMI: Non-Displaced Heart Sounds: Yes: S1, S2. diminished heart sounds No: Gallop Murmur: No: Systolic Murmur, Diastolic Murmur Musculoskeletal: Yes: Other (No kyphosis) Extremities: No: Cold, Cyanosis Edema:( trace thighs (s/p bilat amp)) Peripheral Pulses: 2+ Left Carotid, 2+ Right Carotid, 2+ Left Doralis Pedis, 2+ Right Dorsalis Pedis Integumentary: No: Jaundice Neurological: Yes: Alert. No: Seizure Psychiatric: No: Agitated - Other Data Labs, Other Data: CBC, BMP 11/28/16 06:20 11/28/16 06:20 ekg 11/26: NSR with 1st degree AVB; normal axis, borderline QTC; PRWP; old IWMI; diffuse NSST-Ts--no change vs 10/29 and 11/27 priors Imaging - Results Chest X-ray: Report Reviewed, Image Reviewed Assessment/Plan Echo 11/2015 (): mild LVE; severe, global HK; nl RV; mod MR, mild TR; no RVSP 81 yo with CAD s/p CABG, severe LV dysfunction on prior echo, HTN, HL, prior B LE amputations, DM, prior UE thrombus, CKD with nephrotic range proteinuria, bph who presented with sob. acute on chronic syst chf: -BNP 52K here, from 13K in 2016 (low GFR) -CXR reviewed by me: ? underlying vasc congestion pattern, no L effusion, moderate R effusion--NO CHANGE VS 11/2015 -here 11/27 with anasarca and suspected CHF, treated by sheldon/jorge vazquez (lasix 40 iv bid)--per d/w them today, pt never followed up with them in office -wt declined from 192 to 167 (lift scale) during that hosp stay -he is 169 lbs here on lift scale -no JVD on exam, thighs without edema -had [id number] R effusion 2015, s/p thoracentesis reportedly was transudative c/w chf -now back with same effusion--home meds not known to pt and likely not complying with any/some of rx'd meds, ? lasix -exam not very suggestive of total-body fluid overload/chf, and suspect this effusion may require thoracentesis again ultimately. -will try IV lasix and observe renal fxn closely--low threshold to stop and do tap if renal fxn worsens -incr carvedilol to 25 bid; -defer OLIVA and spirono (? Entresto) until K and creat (and bp) can be observed s /p aggressive diuresis - 11/28: sob improved s/p thoracentesis. No signficant uop on increased lasix dose. Consider decreasing to daily dosing tomorrow. Would like to repeat echo but patient declines. Patient states he doesn't want anyone evaluating his heart and performing operations on him. (Note, no discussions of heart surgery have been raised with patient). Tolerating increased coreg -unfortunately, the biggest obstacle in pt's ability to stay out of chf and avoid VT/VF complications of low EF is that he appears to refuse to believe ( when informed by me) that he has a weak heart and is at risk. rec family (if any ) be brought into this discussion, to try to help convince pt to follow up with appropriate chf recs incl ? of ICD down the road if EF remains depressed once he 's on optimal meds (assuming he takes them) CAD: -s/p 4V cabg (1991) -no f/u with us since ginelli o.v. 2012 (at that time was on coreg 25 bid, asa 81, lisinopril 20 bid, atorva 20) -no angina sxs -no ekg changes vs baseline -stress testing not indicated HTN: -bp controlled here CKD stage IV, nephrotic range proteinuria: -baseline creat range here is 2.8-3.3 -renal fxn currently stable -per renal team h/o upper extremity DVT -thrombus in RIJ and basilic vein dx'd here 11/27, likely hypercoagulable from nephrotic syndrome -rx'd coumadin at that time--? if compliant as outpt, current med list is unknown -INR here 1.2 -rec heme input regarding whether or not there is need for indefinite AC here ( due to nephrotic syndrome)--if so, ? eliquis or xarelto is better option to maximize compliance (d/w'd dr balir) anemia, chronic -baseline Hgb 9s, stable here -per pmd DM: -s/p right BKA and left AKA -glycemia mgmt per PMD
[2016-11-28 18:20] LABS: PLEURAL FLUID LYMPHOCYTES 80 %; PLEURAL FLUID MACROPHAGES 5 %; PLEURAL FLUID NEUTROPHIL 2 %
[2016-11-28] MEDS ORDERED: INSULIN (NOVOLOG) ASPART 100 UNITS/ML 10ML VIAL ONE (20:40)
[2016-11-28] MEDS: INSULIN DETEMIR 100 UNITS/ML MDV SQ SCH (22:02)
[2016-11-29] MEDS: INSULIN SLIDING SCALE (NOVOLOG) 1 VIAL SQ SCH ×4 (06:49→22:23)
[2016-11-29] MEDS: FUROSEMIDE 40 MG/4 ML INJECTABLE VIAL IVPUSH SCH (06:49)
[2016-11-29] MEDS ORDERED: INSULIN (NOVOLOG) ASPART 100 UNITS/ML 10ML VIAL ONE (07:04)
[2016-11-29] MEDS ORDERED: INSULIN DETEMIR 100 UNITS/ML MDV SQ ONE (07:05)
[2016-11-29 08:03] LABS: ALBUMIN 2.4 g/dl (3.4-5.0)
[2016-11-29 08:09] LABS: BILIRUBIN,TOTAL 0.5 mg/dL (0.2-1.0); COCKROFT - GAULT 19.4; CREATININE 3.3 mg/dL (0.7-1.3); MAGNESIUM 2.5 mg/dL (1.8-2.4); PHOSPHOROUS 5.3 mg/dL (2.5-4.9); TOT PROT 6.5 g/dl (6.4-8.2)
[2016-11-29 11:33] LABS: BASOPHIL 0.9 % (0-2.0); EOSINOPHIL 2.1 % (0-4.5); MCHC 32.3 g/dl (32.0-35.9); MEAN CELL VOLUME 89.7 fl (80-96); MEAN PLT VOLUME 7.5 fl (7.5-11.1); NEUTROPHILS 65.3 % (42.8-82.8); PLATELET COUNT 285 K/MM3 (134-434); RDW 18.7 % (11.9-15.9); WHITE BLOOD COUNT 6.9 K/mm3 (4.0-10.0)
[2016-11-29] MEDS: CARVEDILOL 25 MG TABLET (FP) PO SCH ×2 (12:10→22:15)
[2016-11-29] MEDS: FINASTERIDE 5 MG TABLET (FP) PO SCH (12:11)
[2016-11-29] MEDS: ASPIRIN COATED 81 MG TABLET.EC PO SCH (12:11)
--- NOTE | 2016-11-29 12:27 | PN ---
Progress Note, Physician Chief Complaint: no distress no c/o SOB or pain in abdomen - Current Medication List Current Medications: Active Medications Acetaminophen (Tylenol -) 650 mg PO Q4H PRN PRN Reason: FEVER OR PAIN Albuterol Sulfate (Ventolin 0.083% Nebulizer Soln -) 1 amp NEB Q4H PRN PRN Reason: SHORT OF BREATH/WHEEZING Last Admin: 11/27/16 03:52 Dose: 1 amp Aspirin (Ecotrin -) 81 mg PO DAILY [facility] Last Admin: 11/29/16 12:11 Dose: 81 mg Carvedilol (Coreg -) 25 mg PO BID [facility] Last Admin: 11/29/16 12:10 Dose: 25 mg Finasteride (Proscar -) 5 mg PO DAILY [facility] Last Admin: 11/29/16 12:11 Dose: 5 mg Furosemide (Lasix Injection -) 80 mg IVPUSH BID@0600,1400 [facility] Last Admin: 11/29/16 06:49 Dose: 80 mg Insulin Aspart (Novolog Vial Sliding Scale -) 1 vial SQ ACHS [facility] PRN Reason: Protocol Last Admin: 11/29/16 11:19 Dose: Not Given Insulin Detemir (Levemir Vial) 8 units SQ HS [facility] Last Admin: 11/28/16 22:02 Dose: 8 units - Objective Vital Signs: Vital Signs Temperature 98.7 F 11/29/16 06:00 Pulse Rate 62 11/29/16 11:57 Respiratory Rate 18 11/29/16 06:00 Blood Pressure 136/72 11/29/16 06:00 O2 Sat by Pulse Oximetry (%) 95 11/29/16 11:57 Constitutional: Yes: No Distress, Calm Cardiovascular: Yes: Regular Rate and Rhythm Respiratory: Yes: Diminished. No: Rales Gastrointestinal: Yes: Normal Bowel Sounds, Soft. No: Distention, Tenderness Extremities: Yes: Amputation (B/.L), Other (decreased sacral edema) Edema: No Labs: CBC, BMP 11/29/16 06:15 11/29/16 06:15 INR, PTT INR 1.23 (0.82-1.09) H 11/28/16 06:20 Problem List - Problems (1) Abscess Code(s): L02.91 - CUTANEOUS ABSCESS, UNSPECIFIED (2) Acute on chronic systolic and diastolic heart failure, NYHA class 3 Code(s): I50.43 - ACUTE ON CHRONIC COMBINED SYSTOLIC AND DIASTOLIC HRT FAIL (3) CAD (coronary artery disease) Code(s): I25.10 - ATHSCL HEART DISEASE OF [place] CORONARY ARTERY W/O ANG PCTRS Qualifiers: Coronary Disease-Associated Artery/Lesion type: [place] artery [place] vs. transplanted heart: [place] heart Associated angina: without angina Qualified Code(s): I25.10 - Atherosclerotic heart disease of [place] coronary artery without angina pectoris (4) CHF (congestive heart failure) Code(s): I50.9 - HEART FAILURE, UNSPECIFIED (5) DM2 (diabetes mellitus, type 2) Code(s): E11.9 - TYPE 2 DIABETES MELLITUS WITHOUT COMPLICATIONS Qualifiers: Diabetes mellitus complication status: with neurologic complications Diabetes mellitus complication detail: with unspecified neuropathy Diabetes mellitus ad terminal makeup operator insulin use: without ad terminal makeup operator use Qualified Code(s): E11.40 - Type 2 diabetes mellitus with diabetic neuropathy, unspecified; Z79.4 - nursing home (current) use of insulin (6) HTN (hypertension) Code(s): I10 - ESSENTIAL (PRIMARY) HYPERTENSION (7) Nephrotic syndrome Code(s): N04.9 - NEPHROTIC SYNDROME WITH UNSPECIFIED MORPHOLOGIC CHANGES (8) S/P thoracentesis Code(s): Z98.89 - OTHER SPECIFIED POSTPROCEDURAL STATES * DO NOT USE * Assessment/Plan PLAN s/p thoracentesis check abd sono Hold warfarin on Lasix-- spoke with renal , may reduce dose of Lasix-- creatinine at new baseline likely Monitor renal function- worse today Hematology eval with regards to continuing Anticoagulation pleural fluid studies pending
--- NOTE | 2016-11-29 16:15 | PN ---
Progress Note (short form) - Note Progress Note: Renal Follow up for KAMRAN on CKD pt seen and examined at the bedside s/p thoracentesis yesterday feels better denies any cough, sob, chest pain no abd pain, N/V/D Vital Signs Temperature 97.5 F L 11/29/16 13:51 Pulse Rate 77 11/29/16 13:51 Respiratory Rate 20 11/29/16 13:51 Blood Pressure 141/80 11/29/16 13:51 O2 Sat by Pulse Oximetry (%) 95 11/29/16 11:57 Intake & Output 11/26/16 11/27/16 11/28/16 11/29/16 23:59 23:59 23:59 23:59 Intake Total 940 710 500 Balance 940 710 500 Weight 145 lb 169 lb 3.2 oz 170 lb 166 lb 9.6 oz Gen: NAD on NC HEENT: NC/AT, No JVD, MMM CVS: RRR, No M Lungs: Dec Bs right lung base, trace rales in the left lung base Abd: soft NT/ND Ext: Trace to 1+ sacral edema, B/L AKA : No bladder distension CBC, BMP 11/29/16 06:15 11/29/16 06:15 Current Medications Acetaminophen (Tylenol -) 650 mg PO Q4H PRN PRN Reason: FEVER OR PAIN Albuterol Sulfate (Ventolin 0.083% Nebulizer Soln -) 1 amp NEB Q4H PRN PRN Reason: SHORT OF BREATH/WHEEZING Last Admin: 11/27/16 03:52 Dose: 1 amp Aspirin (Ecotrin -) 81 mg PO DAILY [facility] Last Admin: 11/29/16 12:11 Dose: 81 mg Carvedilol (Coreg -) 25 mg PO BID [facility] Last Admin: 11/29/16 12:10 Dose: 25 mg Finasteride (Proscar -) 5 mg PO DAILY [facility] Last Admin: 11/29/16 12:11 Dose: 5 mg Furosemide (Lasix Injection -) 80 mg IVPUSH DAILY [facility] Insulin Aspart (Novolog Vial Sliding Scale -) 1 vial SQ ACHS [facility] PRN Reason: Protocol Last Admin: 11/29/16 11:19 Dose: Not Given Insulin Detemir (Levemir Vial) 8 units SQ HS [facility] Last Admin: 11/28/16 22:02 Dose: 8 units A/P 80 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 with PMhx of 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
[2016-11-29] MEDS: INSULIN DETEMIR 100 UNITS/ML MDV SQ SCH (22:15)
--- NOTE | 2016-11-29 22:36 | CONSULT ---
Consult - text type - Consultation Consultation Note: The patient is a 81 year old male, accompanied by family, with a significant past medical history of Diabetes, HTN, HLD, s/p CABG x4, and diabetes, who presents to the emergency department today for further evaluation of difficulty breathing. He states his difficulty breathing is mostly shortness of breath and has been worsening. The patient denies fever, chills, and sweats. The patient denies nausea, vomiting, and diarrhea. The patient denies chest pain, cough History Source: Patient Limitations to Obtaining History: Poor Historian - Past Medical History Cardiovascular: Yes: CAD, CHF (low EF), Hyperlipdemia Gastrointestinal: Yes: Constipation, Other (no hx colonoscopy) Renal/: Yes: Renal Inusuff, BPH Heme/Onc: Yes: Anemia Endocrine: Yes: Diabetes Mellitus - Past Surgical History Past Surgical History: Yes: Amputation (bilateral lower leg amputations due to diabeic complications.), CABG - Smoking History Smoking history: Never smoked Home Medications - Allergies Allergies/Adverse Reactions: Allergies Allergy/AdvReac Type Severity Reaction Status Date / Time Sulfa (Sulfonamide Allergy Verified 11/26/16 18:33 Antibiotics) - Home Medications Home Medications: Ambulatory Orders Unobtainable [Unobtainable] 11/26/16 Active Medications Acetaminophen (Tylenol -) 650 mg PO Q4H PRN PRN Reason: FEVER OR PAIN Last Admin: 11/29/16 20:23 Dose: 650 mg Albuterol Sulfate (Ventolin 0.083% Nebulizer Soln -) 1 amp NEB Q4H PRN PRN Reason: SHORT OF BREATH/WHEEZING Last Admin: 11/27/16 03:52 Dose: 1 amp Aspirin (Ecotrin -) 81 mg PO DAILY [facility] Last Admin: 11/29/16 12:11 Dose: 81 mg Carvedilol (Coreg -) 25 mg PO BID [facility] Last Admin: 11/29/16 22:15 Dose: 25 mg Finasteride (Proscar -) 5 mg PO DAILY [facility] Last Admin: 11/29/16 12:11 Dose: 5 mg Furosemide (Lasix Injection -) 80 mg IVPUSH DAILY [facility] Insulin Aspart (Novolog Vial Sliding Scale -) 1 vial SQ ACHS [facility] PRN Reason: Protocol Last Admin: 11/30/16 06:50 Dose: Not Given Insulin Detemir (Levemir Vial) 8 units SQ HS [facility] Last Admin: 11/29/16 22:15 Dose: 8 units Physical Examination Vital Signs: AFVSS Constitutional: Yes: No Distress Cardiovascular: Yes: Regular Rate and Rhythm Respiratory: Yes: Diminished (right), Rales (right) Gastrointestinal: Yes: Normal Bowel Sounds, Soft. No: Distention, Tenderness Extremities: Yes: Other (B/l amputation -- rt BKA and left AKA) Abnormal Lab Results 11/28/16 11/29/16 06:20 06:15 RBC 3.27 L Hgb 9.5 L Hct 29.3 L RDW 18.7 H Monocytes % 12.0 H Albumin 2.7 L Free [place] LC, Quant 185.85 H Free [place] LC, Quant 98.90 H Free [place]/Lambda Ratio 1.88 H Problem List - Problems (1) KAMRAN (acute kidney injury) Code(s): N17.9 - ACUTE KIDNEY FAILURE, UNSPECIFIED (2) Acute on chronic systolic and diastolic heart failure, NYHA class 3 Code(s): I50.43 - ACUTE ON CHRONIC COMBINED SYSTOLIC AND DIASTOLIC HRT FAIL (3) CAD (coronary artery disease) Code(s): I25.10 - ATHSCL HEART DISEASE OF [place] CORONARY ARTERY W/O ANG PCTRS Qualifiers: Coronary Disease-Associated Artery/Lesion type: [place] artery [place] vs. transplanted heart: [place] heart Associated angina: without angina Qualified Code(s): I25.10 - Atherosclerotic heart disease of [place] coronary artery without angina pectoris (4) DM2 (diabetes mellitus, type 2) Code(s): E11.9 - TYPE 2 DIABETES MELLITUS WITHOUT COMPLICATIONS Qualifiers: Diabetes mellitus complication status: with neurologic complications Diabetes mellitus complication detail: with unspecified neuropathy Diabetes mellitus fpc insulin use: without long winder tender use Qualified Code(s): E11.40 - Type 2 diabetes mellitus with diabetic neuropathy, unspecified; Z79.4 - [facility] (current) use of insulin (5) Pleural effusion Assessment/Plan: recurrent Code(s): J90 - PLEURAL EFFUSION, NOT ELSEWHERE CLASSIFIED Assessment/Plan 81 y/o patient with DM, PVD, s/p amputaiton, CAD, CHF, CKD with KAMRAN, now with CHF exacerbation/rt. 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 anemia --- anemia of ckd/+/- iron deficiency
[2016-11-30 00:07] LABS: A/G RATIO 0.7 (0.7-1.7); ALBUMIN 2.7 g/dL (2.9-4.4); GLOBULIN, TOTAL 3.7 g/dL (2.2-3.9); M-SPIKE Not Observed g/dL (Not Observed); TOTAL PROTEIN 6.4 g/dL (6.0-8.5)
[2016-11-30] MEDS: INSULIN SLIDING SCALE (NOVOLOG) 1 VIAL SQ SCH ×2 (06:50→11:41)
--- NOTE | 2016-11-30 08:14 | PN ---
Progress Note (short form) - Note Progress Note: SUBJECTIVE: Patient seen and examined. Chart reviewed. Awake and comfortable. Wants to go home. Denies chest pain or shortness of breath. OBJECTIVE: Vital Signs 11/30/16 11/30/16 02:00 06:00 Temperature 98.2 F 97.8 F Pulse Rate 65 63 Respiratory 20 20 Rate Blood Pressure 127/69 138/80 Intake & Output 11/29/16 11/30/16 11/30/16 23:59 07:59 15:59 Intake Total 1200 0 Output Total 500 Balance 1200 -500 Weight 74.933 kg Intake: IV 0 saline lock 0 IVPB 0 Oral 1200 Output: Urine 500 Void 500 Other: Voiding Method Urinal Urinal # Unmeasured Voids Void 2 1 Bowel Movement Yes No # Bowel Movements 1 Weight Measurement Method Patient Lift Scale Active Medications Acetaminophen (Tylenol -) 650 mg PO Q4H PRN PRN Reason: FEVER OR PAIN Last Admin: 11/29/16 20:23 Dose: 650 mg Albuterol Sulfate (Ventolin 0.083% Nebulizer Soln -) 1 amp NEB Q4H PRN PRN Reason: SHORT OF BREATH/WHEEZING Last Admin: 11/27/16 03:52 Dose: 1 amp Aspirin (Ecotrin -) 81 mg PO DAILY [facility] Last Admin: 11/29/16 12:11 Dose: 81 mg Carvedilol (Coreg -) 25 mg PO BID [facility] Last Admin: 11/29/16 22:15 Dose: 25 mg Finasteride (Proscar -) 5 mg PO DAILY [facility] Last Admin: 11/29/16 12:11 Dose: 5 mg Furosemide (Lasix Injection -) 80 mg IVPUSH DAILY [facility] Insulin Aspart (Novolog Vial Sliding Scale -) 1 vial SQ ACHS [facility] PRN Reason: Protocol Last Admin: 11/30/16 06:50 Dose: Not Given Insulin Detemir (Levemir Vial) 8 units SQ HS [facility] Last Admin: 11/29/16 22:15 Dose: 8 units CBC, BMP 11/29/16 06:15 11/29/16 06:15 Laboratory Results - last 24 hr 11/28/16 11/29/16 11/29/16 06:20 06:15 12:18 WBC 6.9 RBC 3.27 L Hgb 9.5 L Hct 29.3 L MCV 89.7 MCHC 32.3 RDW 18.7 H Plt Count 285 MPV 7.5 Neutrophils % 65.3 Lymphocytes % 19.7 Monocytes % 12.0 H Eosinophils % 2.1 Basophils % 0.9 POC Glucometer 115 Prot Electrophoresis Serum Total Protein 6.4 Albumin 2.7 L Globulin 3.7 Albumin/Globulin Ratio 0.7 Xhqwv-1-Jvfupzmky 0.2 Zxthb-3-Qvkclypcv 0.8 Beta Globulins 1.0 Gamma Globulins 1.7 UNIQUE M-Lit Not observed Free [place] LC, Quant 185.85 H Free [place]ambda LC, Quant 98.90 H Free [place]/Lambda Ratio 1.88 H 11/29/16 11/29/16 11/30/16 17:28 22:22 06:49 WBC RBC Hgb Hct MCV MCHC RDW Plt Count MPV Neutrophils % Lymphocytes % Monocytes % Eosinophils % Basophils % POC Glucometer 158 116 70 Prot Electrophoresis Serum Total Protein Albumin Globulin Albumin/Globulin Ratio Bctxo-3-Bmzsuapqw Upwyt-3-Fjxazpilq Beta Globulins Gamma Globulins UNIQUE M-Lit Free [place] LC, Quant Free [place]ambda LC, Quant [place]/Lambda Ratio Microbiology 11/28/16 11:30 ENEDELIA Preparation - Preliminary Pleural Fluid Fungal Culture - Preliminary 11/28/16 11:30 Body Fluid Culture - Preliminary Pleural Fluid NO AEROBIC GROWTH, 24 HRS 11/28/16 11:30 AFB Smear Concentration - Preliminary Pleural Fluid Mycobacterial Culture - Preliminary PHYSICAL EXAMINATION: Constitutional: Yes: No Distress, Calm Cardiovascular: Yes: Regular Rate and Rhythm Respiratory: Yes: Diminished. at bases. No: Rales Gastrointestinal: Yes: Normal Bowel Sounds, Soft. No: Distention, Tenderness Extremities: Yes: Amputation (B/.L), Other (decreased sacral edema) Edema: No Problem List - Problems (1) Abscess Code(s): L02.91 - CUTANEOUS ABSCESS, UNSPECIFIED (2) Acute on chronic systolic and diastolic heart failure, NYHA class 3 Code(s): I50.43 - ACUTE ON CHRONIC COMBINED SYSTOLIC AND DIASTOLIC HRT FAIL (3) CAD (coronary artery disease) Code(s): I25.10 - ATHSCL HEART DISEASE OF [place] CORONARY ARTERY W/O ANG PCTRS Qualifiers: Coronary Disease-Associated Artery/Lesion type: [place] artery [place] vs. transplanted heart: [place] heart Associated angina: without angina Qualified Code(s): I25.10 - Atherosclerotic heart disease of [place] coronary artery without angina pectoris (4) CHF (congestive heart failure) Code(s): I50.9 - HEART FAILURE, UNSPECIFIED (5) DM2 (diabetes mellitus, type 2) Code(s): E11.9 - TYPE 2 DIABETES MELLITUS WITHOUT COMPLICATIONS Qualifiers: Diabetes mellitus complication status: with neurologic complications Diabetes mellitus complication detail: with unspecified neuropathy Diabetes mellitus prison insulin use: without prison use Qualified Code(s): E11.40 - Type 2 diabetes mellitus with diabetic neuropathy, unspecified; Z79.4 - offal separator (current) use of insulin (6) HTN (hypertension) Code(s): I10 - ESSENTIAL (PRIMARY) HYPERTENSION (7) Nephrotic syndrome Code(s): N04.9 - NEPHROTIC SYNDROME WITH UNSPECIFIED MORPHOLOGIC CHANGES (8) S/P thoracentesis Code(s): Z98.89 - OTHER SPECIFIED POSTPROCEDURAL STATES * DO NOT USE * ASSESSMENT & PLAN: - S/P thoracentesis - Clinically stable. - Will discuss with Dr. Hugo and Dr. Mcdaniels - Will likely discharge on PO Lasix. - Will discuss with family also. - Will follow. Documentation prepared by Beth Kaplan, acting as a resident medical officer for Lisandro Goldsmith MD.
[2016-11-30] MEDS ORDERED: FUROSEMIDE 40 MG/4 ML INJECTABLE VIAL IVPUSH SCH (10:00)
[2016-11-30] MEDS: FINASTERIDE 5 MG TABLET (FP) PO SCH (10:35)
[2016-11-30] MEDS: CARVEDILOL 25 MG TABLET (FP) PO SCH (10:35)
[2016-11-30] MEDS: ASPIRIN COATED 81 MG TABLET.EC PO SCH (10:35)
--- NOTE | 2016-11-30 11:12 | DS ---
Physical Examination Vital Signs: Vital Signs Temperature 97.8 F 11/30/16 06:00 Pulse Rate 63 11/30/16 06:00 Respiratory Rate 20 11/30/16 06:00 Blood Pressure 138/80 11/30/16 06:00 O2 Sat by Pulse Oximetry (%) 95 11/29/16 21:00 Labs: CBC, BMP 11/29/16 06:15 11/29/16 06:15 <Lisandro Goldsmith - Last Filed: 11/30/16 11:12> Vital Signs: Vital Signs Temperature 97.8 F 11/30/16 06:00 Pulse Rate 63 11/30/16 06:00 Respiratory Rate 20 11/30/16 06:00 Blood Pressure 138/80 11/30/16 06:00 O2 Sat by Pulse Oximetry (%) 95 11/29/16 21:00 Findings/Remarks: See today's progress note. Labs: CBC, BMP 11/29/16 06:15 11/29/16 06:15 <Beth Kaplan - Last Filed: 11/30/16 11:19> Discharge Summary Reason For Visit: PLEURAL EFFUSION/TYPE II DIABETES Current Active Problems KAMRAN (acute kidney injury) (Acute) Acute on chronic systolic and diastolic heart failure, NYHA class 3 (Acute) CAD (coronary artery disease) (Acute) CHF (congestive heart failure) (Acute) DM2 (diabetes mellitus, type 2) (Acute) DVT (deep venous thrombosis) (Acute) Dyspnea (Acute) HTN (hypertension) (Acute) Ischemic cardiomyopathy (Acute) Nephrotic syndrome (Acute) Obstructive uropathy (Acute) Pleural effusion (Acute) Pneumonia (Acute) S/P CABG (coronary artery bypass graft) (Acute) S/P thoracentesis (Acute) UTI (urinary tract infection) (Acute) Urinary retention (Acute) - Home Medications Comprehensive Discharge Medication List: Ambulatory Orders Acetaminophen [Tylenol .Regular Strength -] 650 mg PO Q4H PRN #0 tablet Albuterol 0.083% Nebulizer Charo [Ventolin 0.083% Nebulizer Soln -] 1 amp NEB Q4H PRN #0 amp 11/30/16 Aspirin Coated [Ecotrin -] 81 mg PO DAILY #30 amp MDD 1 11/30/16 Carvedilol [Coreg -] 25 mg PO BID tablet 11/30/16 Finasteride [Proscar -] 5 mg PO DAILY tablet 11/30/16 Furosemide [Lasix] 40 mg PO BID #60 tablet MDD 2 11/30/16 Insulin (Levemir) [Levemir Vial] 8 units SQ HS #8 ml 11/30/16 Insulin Sliding Scale [Novolog Vial Sliding Scale -] 1 vial SQ ACHS units 11/30 <Lisandro Goldsmith - Last Filed: 11/30/16 11:12> Current Active Problems KAMRAN (acute kidney injury) (Acute) Acute on chronic systolic and diastolic heart failure, NYHA class 3 (Acute) CAD (coronary artery disease) (Acute) CHF (congestive heart failure) (Acute) DM2 (diabetes mellitus, type 2) (Acute) DVT (deep venous thrombosis) (Acute) Dyspnea (Acute) HTN (hypertension) (Acute) Ischemic cardiomyopathy (Acute) Nephrotic syndrome (Acute) Obstructive uropathy (Acute) Pleural effusion (Acute) Pneumonia (Acute) S/P CABG (coronary artery bypass graft) (Acute) S/P thoracentesis (Acute) UTI (urinary tract infection) (Acute) Urinary retention (Acute) Hospital Course: The patient is a 80-year-old male with a significant past medicla history of 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 Patient underwent thoracentesis. Treated with IV Lasix. Cardiology followed. Echocardiogram was also done which showed severe LV global dysfunction. Patient also non-complaint with medications. Patient need ICD but not willing at this time. May need in future if ejection fraction does not improve with medication compliance and also if patient agrees. Patient wants to go home. Family at bedside. I also discussed with patient's PMD, Dr. Mcdaniels. Apparently the patient had completed three months of anticoagulation treatment in 2016 for DVT. No active issues. I also discussed with Dr. Hugo about the above discussion with Dr. Mcdaniels. I also discussed with abnormal proteins, for which she believes it is likely due to history of diabetes. Will discharge patient on PO Lasix. Needs close follow up with his PMD as well as Tobacco Warehouse Manager and other specialists -- especially with Renal. Patient's family in agreement. Will see Dr. Mcdaniels on Saturday to repeat chemistries. Pleural thoracentesis results still pending-- to be followed as outpatient. Medications reconciled. Discussed with Roadside Mechanic as well as nursing staff. Will discharge home today. Discharge plan in examining, coordinating and documenting care 40 minutes. Documentation prepared by Beth Kaplan, acting as a medical technologist generalist for Lisandro Goldsmith MD. - Home Medications Comprehensive Discharge Medication List: Ambulatory Orders Acetaminophen [Tylenol .Regular Strength -] 650 mg PO Q4H PRN #0 tablet Albuterol 0.083% Nebulizer Charo [Ventolin 0.083% Nebulizer Soln -] 1 amp NEB Q4H PRN #0 amp 11/30/16 Aspirin Coated [Ecotrin -] 81 mg PO DAILY #30 amp MDD 1 11/30/16 Carvedilol [Coreg -] 25 mg PO BID tablet 11/30/16 Finasteride [Proscar -] 5 mg PO DAILY tablet 11/30/16 Furosemide [Lasix] 40 mg PO BID #60 tablet MDD 2 11/30/16 Insulin (Levemir) [Levemir Vial] 8 units SQ HS #8 ml 11/30/16 Insulin Sliding Scale [Novolog Vial Sliding Scale -] 1 vial SQ ACHS units 11/30 <Beth Kaplan - Last Filed: 11/30/16 11:19> - Instructions Referrals: Villa Mcdaniels MD [Primary Care Provider] -
--- NOTE | 2016-11-30 13:51 | PN ---
Progress Note (short form) - Note Progress Note: Renal Follow up for KAMRAN on CKD pt seen and examined at the bedside feels ok, denies sob, chest pain no N/V/D for discharge today Vital Signs Temperature 97 F L 11/30/16 10:00 Pulse Rate 71 11/30/16 10:00 Respiratory Rate 20 11/30/16 10:00 Blood Pressure 132/70 11/30/16 10:00 O2 Sat by Pulse Oximetry (%) 95 11/29/16 21:00 Intake & Output 11/27/16 11/28/16 11/29/16 11/30/16 23:59 23:59 23:59 23:59 Intake Total 980 032 4085 150 Output Total 500 Balance 923 497 7361 -350 Weight 169 lb 3.2 oz 170 lb 166 lb 9.6 oz 165 lb 3.2 oz Gen: NAD on NC CVS: RRR, No M Lungs: Dec BS at lung bases Abd: soft NT/ND Ext: Trace to 1+ sacral edema, B/L AKA CBC, BMP 11/29/16 06:15 11/29/16 06:15 Current Medications Acetaminophen (Tylenol -) 650 mg PO Q4H PRN PRN Reason: FEVER OR PAIN Last Admin: 11/29/16 20:23 Dose: 650 mg Albuterol Sulfate (Ventolin 0.083% Nebulizer Soln -) 1 amp NEB Q4H PRN PRN Reason: SHORT OF BREATH/WHEEZING Last Admin: 11/27/16 03:52 Dose: 1 amp Aspirin (Ecotrin -) 81 mg PO DAILY [facility] Last Admin: 11/30/16 10:35 Dose: 81 mg Carvedilol (Coreg -) 25 mg PO BID [facility] Last Admin: 11/30/16 10:35 Dose: 25 mg Finasteride (Proscar -) 5 mg PO DAILY [facility] Last Admin: 11/30/16 10:35 Dose: 5 mg Furosemide (Lasix Injection -) 80 mg IVPUSH DAILY [facility] Last Admin: 11/30/16 10:35 Dose: 80 mg Insulin Aspart (Novolog Vial Sliding Scale -) 1 vial SQ ACHS [facility] PRN Reason: Protocol Last Admin: 11/30/16 11:41 Dose: Not Given Insulin Detemir (Levemir Vial) 8 units SQ HS [facility] Last Admin: 11/29/16 22:15 Dose: 8 units A/P 80 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 with PMhx of 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 #CKD Stage 4 with Nephrotic range proteinuria with volume overlaod suspected underlying etiology of CKD is diabetic +/- ischemic nephropathy Renal function stable Continue Lasix 80mg PO once daily to follow up in the office next week SPEP pending, Free light chains abnormal will need Heme/Oncology follow up on discharge #Pleural effusion/CHF Prior tap showed transudative effusion s/p Thoracentesis #Anemia of CKD iron studies pending may require CASSANDRA if hgb less then 10 and iron stores are replete Thank you Hugh Huggins DO
[2016-11-30 15:37] VITALS: BP 129/61; PULSE 67; TEMP 97.4
[2016-12-04 00:07] LABS: ALBUMIN FOR UPE 55.4 % (.); GAMMA GLOBULIN % 22.3 % (.); M-SPIKE, % Not Observed % (Not Observed)
--- NOTE | 2016-12-05 11:18 | PATH ---
Cytology Non-Gynecological Report Patient Name: GEOFF LOPEZ [facility]. Rec. #: [id number] /Age/Gender: 1935 (Age: 81) / M Account: [id number] Location: [address] [place] [address] Taken: 11/28/2016 Received: 11/28/2016 Reported: 11/29/2016 Physicians: Jimenez Frye M.D. Specimen(s) Received A: RIGHT PLEURAL FLUID IN 50% ALCOHOL B: RIGHT PLEURAL FLUID FRESH Clinical History Pleural effusion Final Diagnosis A,B. PLEURAL FLUID, RIGHT, THORACENTESIS: SATISFACTORY FOR EVALUATION. NO MALIGNANT CELLS IDENTIFIED. REACTIVE MESOTHELIAL CELLS, HISTIOCYTES AND LYMPHOCYTES. Electronically Signed Abad Mcgrath M.D. Gross Description A. Received is a 50 cc of yellow fluid in 50% alcohol. One cytofunnel slide and one cell block are made. B. Received is 1000 cc of yellow fluid fresh. One cytofunnel slide and one cell block are made.
== END 2016-11-30 16:31 | disposition home health service (06) | DRG 186 ==
LOC: JER 17:58 → JERBED 20:59 → J5S 11-27 00:45
PROVIDERS: ADMIT Internal Medicine; ATTEND Internal Medicine
PROC: 0W9B3ZX Drainage of Left Pleural Cavity, Percutaneous Approach, Diagnostic (ICD-10-PCS; principal; 2016-11-28)
DX: J90 Pleural effusion, not elsewhere classified (principal); I50.43 Acute on chronic combined systolic (congestive) and diastolic (congestive) heart failure; I13.0 Hypertensive heart and chronic kidney disease with heart failure and stage 1 through stage 4 chronic kidney disease, or unspecified chronic kidney disease; N18.4 Chronic kidney disease, stage 4 (severe); E78.5 Hyperlipidemia, unspecified; I25.10 Atherosclerotic heart disease of native coronary artery without angina pectoris; N40.0 Benign prostatic hyperplasia without lower urinary tract symptoms; K59.00 Constipation, unspecified; D63.1 Anemia in chronic kidney disease; E11.40 Type 2 diabetes mellitus with diabetic neuropathy, unspecified; I73.9 Peripheral vascular disease, unspecified; E11.22 Type 2 diabetes mellitus with diabetic chronic kidney disease; Z86.718 Personal history of other venous thrombosis and embolism; Z95.1 Presence of aortocoronary bypass graft; Z89.612 Acquired absence of left leg above knee; Z89.511 Acquired absence of right leg below knee
CPT/HCPCS: 36415; 71010-TC; 76705-TC; 76775-TC; 76856-TC; 76942; 80053; 81003; 81015; 82042; 82150; 82550; 82570; 82945; 83615; 83735; 83880; 83883; 84100; 84155; 84156; 84157; 84165; 84300; 84478; 84484; 84540; 84550; 85025; 85610; 87070; 87075; 87102; 87116; 87205; 87206; 87210; 87899; 88108; 88305-TC; 89051; 93005; 93010; 93306-TC; 94640; 99285-25

== ENCOUNTER 2017-01-16 13:34 | Inpatient (IN) | payer OTHER ==
[2017-01-16 13:55] VITALS: BMI 57.9
[2017-01-16 15:37] LABS: ALBUMIN 2.3 g/dl (3.4-5.0); ALK PHOS 171 U/L (45-117); ANION GAP 10 (8-16); BILIRUBIN,TOTAL 0.8 mg/dL (0.2-1.0); CALCIUM 7.9 mg/dL (8.5-10.1); CO2 19 mmol/L (21-32); CREATININE 3.6 mg/dL (0.7-1.3); GLUCOSE,RANDOM 60 mg/dL (74-106); SGOT/AST 37 U/L (15-37); SGPT/ALT 32 U/L (12-78); TOT PROT 6.5 g/dl (6.4-8.2)
[2017-01-16 15:39] LABS: TROPONIN I 0.15 ng/ml (0.00-0.05)
--- NOTE | 2017-01-16 16:47 | PDOC ---
History of Present Illness - General History Source: Patient Exam Limitations: No Limitations - History of Present Illness Initial Comments: 01/16/17 16:49 The patient is a 81 year old male with a significant past medical history of CAD s/p CABG, severe LV dysfunction on prior echo, HTN, HL, prior B LE amputations, DM, prior UE thrombus, CKD with nephrotic range proteinuria, bph who presents to the emergency department with lower extremity edema. Patient states that lower extremity edema has gotten worse over the last 2 days. He also reports SOB and orthopnea. He reports decreased urinary output. The patient denies fever, chills, and sweats. The patient denies nausea, vomiting, and diarrhea. The patient denies chest pain, cough. PCP: Dr. Mcdaniels [phone] <Bushra Beavers - Last Filed: 01/16/17 16:49> <Chrissie Andersen - Last Filed: 01/16/17 17:30> - General Chief Complaint: Edema Stated Complaint: SICK Past History <Bushra Beavers - Last Filed: 01/16/17 16:49> - Past Medical History Cardiac Disorders: Yes (cabg x 4 in 1991) Diabetes: Yes Disorders: Yes (urinary retention) HTN: Yes Hypercholesterolemia: Yes - Immunization History Immunization Up to Date: Yes - Psycho/Social/Smoking Cessation Hx Anxiety: No Suicidal Ideation: No Smoking History: Never smoked Have you smoked in the past 12 months: No Hx Alcohol Use: No Drug/Substance Use Hx: No Substance Use Type: None <Chrissie Andersen - Last Filed: 01/16/17 17:30> - Past Medical History Allergies/Adverse Reactions: Allergies Allergy/AdvReac Type Severity Reaction Status Date / Time Sulfa (Sulfonamide Allergy Verified 01/16/17 13:47 Antibiotics) Home Medications: Ambulatory Orders Aspirin [Aspirin EC] 81 mg PO DAILY 01/16/17 Carvedilol [Coreg -] 25 mg PO BID 01/16/17 Clotrimazole [Mycelex Arcelia's -] 10 mg PO 5XD 01/16/17 Finasteride [Proscar -] 5 mg PO DAILY 01/16/17 Furosemide [Lasix -] 40 mg PO DAILY 01/16/17 Glipizide [Glipizide ER] 10 mg PO DAILY 01/16/17 Levothyroxine [Synthroid -] 50 mcg PO DAILY 01/16/17 Linagliptin [Tradjenta] 5 mg PO DAILY 01/16/17 Loperamide HCl [Loperamide] 2 mg PO DAILY PRN 01/16/17 Metolazone [Zaroxolyn -] 5 mg PO DAILY 01/16/17 Sacubitril/Valsartan [Entresto 24 mg-26 mg Tablet] 1 each PO BID 01/16/17 Tamsulosin HCl [Flomax] 0.4 mg PO DAILY 01/16/17 Review of Systems - Review of Systems Able to Perform ROS?: Yes Comments:: 01/16/17 16:49 GENERAL/CONSTITUTIONAL: No fever or chills. No weakness. HEAD, EYES, EARS, NOSE AND THROAT: No change in vision. No ear pain or discharge. No sore throat. GASTROINTESTINAL: No nausea, vomiting, diarrhea or constipation. GENITOURINARY: No dysuria, frequency, or change in urination. CARDIOVASCULAR: No chest pain or shortness of breath. RESPIRATORY: No cough, wheezing, or hemoptysis. MUSCULOSKELETAL: +lower extremity edema. No joint or muscle pain. No neck pain. SKIN: No rash NEUROLOGIC: No headache, vertigo, loss of consciousness, or change in strength/ sensation. ENDOCRINE: No increased thirst. No abnormal weight change. HEMATOLOGIC/LYMPHATIC: No anemia, easy bleeding, or history of blood clots. ALLERGIC/IMMUNOLOGIC: No hives or skin allergy. <Bushra Beavers - Last Filed: 01/16/17 16:49> *Physical Exam - Vital Signs Last Vital Signs Temp Pulse Resp BP Pulse Ox 98.4 F 77 16 120/70 97 01/16/17 13:48 01/16/17 13:48 01/16/17 13:48 01/16/17 13:48 01/16/17 13:48 - Physical Exam Comments: 01/16/17 16:49 GENERAL: Awake, alert, and fully oriented, in no acute distress HEAD: No signs of trauma EYES: PERRLA, EOMI, sclera anicteric, conjunctiva clear ENT: Auricles normal inspection, nares patent, Moist mucosa NECK: Normal ROM, supple, no lymphadenopathy, JVD, or masses LUNGS: (+)decreased breath sounds at the right base. No wheezes, and no crackles HEART: Regular rate and rhythm, normal S1 and S2, no murmurs, rubs or gallops ABDOMEN: Soft, nontender, normoactive bowel sounds. No guarding, no rebound. No masses : severe scrotal edema uncircumcised minimal erythema EXTREMITIES: (+)right BKA and left AKA, +peripheral 2+ pitting edema. Normal range of motion. No clubbing or cyanosis. No cords, erythema, or tenderness NEUROLOGICAL: A&Ox3. Normal speech SKIN: Warm, Dry, normal turgor, no rashes or lesions noted. <Bushra Beavers - Last Filed: 01/16/17 16:49> - Vital Signs Last Vital Signs Temp Pulse Resp BP Pulse Ox 98.4 F 77 16 120/70 97 01/16/17 13:48 01/16/17 13:48 01/16/17 13:48 01/16/17 13:48 01/16/17 13:48 <Chrissie Andersen - Last Filed: 01/16/17 17:30> ED Treatment Course - LABORATORY CBC & Chemistry Diagram: 01/16/17 14:45 01/16/17 14:45 - ADDITIONAL ORDERS Additional order review: Laboratory Results 01/16/17 01/16/17 01/16/17 15:05 15:05 14:45 Sodium 142 Potassium 4.3 Chloride 113 H Carbon Dioxide 19 L Anion Gap 10 BUN 76 H Creatinine 3.6 H Creat Clearance w eGFR 16.44 Random Glucose 60 L D Calcium 7.9 L Total Bilirubin 0.8 D AST 37 D ALT 32 Alkaline Phosphatase 171 H Creatine Kinase 200 D Creatine Kinase Index 2.7 CK-MB (CK-2) 5.468 H CK-MB (CK-2) Rel Index Cancelled Troponin I 0.15 H D Total Protein 6.5 Albumin 2.3 L <Bushra Beavers - Last Filed: 01/16/17 16:49> - LABORATORY CBC & Chemistry Diagram: 01/16/17 14:45 01/16/17 14:45 - ADDITIONAL ORDERS Additional order review: Laboratory Results 01/16/17 01/16/17 01/16/17 15:05 15:05 14:45 Sodium 142 Potassium 4.3 Chloride 113 H Carbon Dioxide 19 L Anion Gap 10 BUN 76 H Creatinine 3.6 H Creat Clearance w eGFR 16.44 Random Glucose 60 L D Calcium 7.9 L Total Bilirubin 0.8 D AST 37 D ALT 32 Alkaline Phosphatase 171 H Creatine Kinase 200 D Creatine Kinase Index 2.7 CK-MB (CK-2) 5.468 H CK-MB (CK-2) Rel Index Cancelled Troponin I 0.15 H D Total Protein 6.5 Albumin 2.3 L - RADIOLOGY Radiology Studies Ordered: Category Date Time Status CXRPORT [CHEST X-RAY PORTABLE*] [RAD] Stat Radiology 01/16/17 14:45 Completed <Chrissie Andersen - Last Filed: 01/16/17 17:30> Medical Decision Making - Medical Decision Making 01/16/17 16:42 81 yo M with h/o HTN CKD CHF HLD here wtih c/o worsening leg edema. no f/c no cp . states swelling got worse over last two days. does have some sob. worse with lying flat at night. making less urine. had seen a channel cementer outsole machine while back, but has not seen in a very long time. per pt home health aid, just increased his lasix dose to 80mg bid. no other complaints. pcp dr mcdaniels on exam awake alert. lungs decreased bs at right lung base otherwise no wheeze no crackles. heart rrr no mrg. abd soft NT ND. skin warm and dry. bilat leg amput, right bKA, left aka. right stump with small 1.0 cm x 1.0 cm wound no active drainage. nuero alert oriented. scrotum severe edema plan: r/o worsening chf renal failure. liver failure, anemia plan cxxr ekg labs. likely admit . 01/16/17 16:56 d/w dr Mcdaniels, pt was just increased from 40 mg lasix daily, to 80 mg daily. has not seen a nephrologis.t dr Mcdaniels request admission to [facility]. 01/16/17 17:29 d/w dr Santizo, will admit pt to tele. <Chrissie Andersen - Last Filed: 01/16/17 17:30> *DC/Admit/Observation/Transfer - Attestations Armen Attestion: 01/16/17 16:51 Documentation prepared by ARMEN Brady, acting as special forces medical sergeant for Chrissie Andersen MD. <Bushra Beavers - Last Filed: 01/16/17 16:49> - Discharge Dispostion Admit: Yes <Chrissie Andersen - Last Filed: 01/16/17 17:30> Diagnosis at time of Disposition: KAMRAN (acute kidney injury), Acute on chronic congestive heart failure - Referrals Referrals: Villa Mcdaniels MD [Primary Care Provider] -
[2017-01-16 17:20] LABS: BASOPHIL 0.4 % (0-2.0); EOSINOPHIL 1.5 % (0-4.5); MCH 28.8 pg (25.7-33.7); MCHC 32.3 g/dl (32.0-35.9); MEAN CELL VOLUME 89.2 fl (80-96); NEUTROPHILS 76.7 % (42.8-82.8); PLATELET COUNT 177 K/MM3 (134-434); RDW 16.9 % (11.9-15.9); WHITE BLOOD COUNT 8.5 K/mm3 (4.0-10.0)
[2017-01-16] MEDS: CARVEDILOL 25 MG TABLET (FP) PO SCH (21:49)
[2017-01-16] MEDS: SACUBITRIL/VALSARTAN 24 MG-26 MG TABLET PO SCH (21:49)
[2017-01-16 22:49] LABS: TROPONIN I 0.12 ng/ml (0.00-0.05)
[2017-01-17 05:02] LABS: TROPONIN I 0.09 ng/ml (0.00-0.05)
[2017-01-17] MEDS: LEVOTHYROXINE NA 50 MCG TABLET (FP) PO SCH (06:31)
[2017-01-17] MEDS: glipiZIDE-XL 10 MG TAB.ER.24 (FP) PO SCH (06:32)
[2017-01-17] MEDS: INSULIN SLIDING SCALE (NOVOLOG) 1 VIAL SQ SCH ×3 (06:32→17:23)
[2017-01-17 07:23] LABS: BASOPHIL 0.3 % (0-2.0); EOSINOPHIL 1.1 % (0-4.5); MCH 28.7 pg (25.7-33.7); MCHC 32.3 g/dl (32.0-35.9); MEAN CELL VOLUME 88.7 fl (80-96); MEAN PLT VOLUME 7.6 fl (7.5-11.1); NEUTROPHILS 79.9 % (42.8-82.8); PLATELET COUNT 155 K/MM3 (134-434); RDW 17.1 % (11.9-15.9); WHITE BLOOD COUNT 8.1 K/mm3 (4.0-10.0)
[2017-01-17 08:08] LABS: ALBUMIN 2.4 g/dl (3.4-5.0); ALK PHOS 164 U/L (45-117); ANION GAP 12 (8-16); CO2 17 mmol/L (21-32); CREATININE 3.5 mg/dL (0.7-1.3); GLUCOSE,RANDOM 68 mg/dL (74-106); SGOT/AST 26 U/L (15-37); SGPT/ALT 28 U/L (12-78); TOT PROT 6.4 g/dl (6.4-8.2)
[2017-01-17 09:16] LABS: TROPONIN I 0.08 ng/ml (0.00-0.05)
--- NOTE | 2017-01-17 09:18 | HP ---
Admitting History and Physical - Primary Care Physician PCP: Villa Mcdaniels - Admission Chief Complaint: sob, scrotal swelling History of Present Illness: ER HISTORY - History of Present Illness Initial Comments: 01/16/17 16:49 The patient is a 81 year old male with a significant past medical history of CAD s/p CABG, severe LV dysfunction on prior echo, HTN, HL, prior B LE amputations, DM, prior UE thrombus, CKD with nephrotic range proteinuria, bph who presents to the emergency department with lower extremity edema. Patient states that lower extremity edema has gotten worse over the last 2 days. He also reports SOB and orthopnea. He reports decreased urinary output. The patient denies fever, chills, and sweats. The patient denies nausea, vomiting, and diarrhea. The patient denies chest pain, cough. PCP: Dr. Mcdaniels [phone] Pt examined by me in Telemetry Appears comfortable Speaks Welsh mainly known to me from prior admissions c/o few days of cough,SOB and scrotal swelling. No difficulty urination PMD has been adjusting his Lasix. Orthopnea+ Lives with daughter B/L BKA History Source: Patient, Medical Record Limitations to Obtaining History: No Limitations - Past Medical History Cardiovascular: Yes: CAD, CHF (low EF), Hyperlipdemia Gastrointestinal: Yes: Constipation, Other (no hx colonoscopy) Renal/: Yes: Renal Inusuff, BPH Heme/Onc: Yes: Anemia Endocrine: Yes: Diabetes Mellitus - Past Surgical History Past Surgical History: Yes: Amputation (bilateral lower leg amputations due to diabeic complications.), CABG - Smoking History Smoking history: Never smoked Have you smoked in the past 12 months: No - Alcohol/Substance Use Hx Alcohol Use: No - Social History History of Recent Travel: No Home Medications - Allergies Allergies/Adverse Reactions: Allergies Allergy/AdvReac Type Severity Reaction Status Date / Time Sulfa (Sulfonamide Allergy Verified 01/16/17 13:47 Antibiotics) - Home Medications Home Medications: Ambulatory Orders Aspirin [Aspirin EC] 81 mg PO DAILY 01/16/17 Carvedilol [Coreg -] 25 mg PO BID 01/16/17 Clotrimazole [Mycelex Arcelia's -] 10 mg PO 5XD 01/16/17 Finasteride [Proscar -] 5 mg PO DAILY 01/16/17 Furosemide [Lasix -] 40 mg PO DAILY 01/16/17 Glipizide [Glipizide ER] 10 mg PO DAILY 01/16/17 Levothyroxine [Synthroid -] 50 mcg PO DAILY 01/16/17 Linagliptin [Tradjenta] 5 mg PO DAILY 01/16/17 Loperamide HCl [Loperamide] 2 mg PO DAILY PRN 01/16/17 Metolazone [Zaroxolyn -] 5 mg PO DAILY 01/16/17 Sacubitril/Valsartan [Entresto 24 mg-26 mg Tablet] 1 each PO BID 01/16/17 Tamsulosin HCl [Flomax] 0.4 mg PO DAILY 01/16/17 Review of Systems - Review of Systems Constitutional: denies: Chills, Fever, Lethargy Cardiovascular: reports: Shortness of Breath. denies: Chest Pain, Palpitations Respiratory: reports: Cough, Orthopnea. denies: PND Physical Examination Vital Signs: Vital Signs Temperature 98.2 F 01/17/17 08:05 Pulse Rate 60 01/17/17 08:05 Respiratory Rate 16 01/17/17 08:05 Blood Pressure 140/82 01/17/17 08:05 O2 Sat by Pulse Oximetry (%) 97 01/16/17 21:30 Constitutional: Yes: No Distress, Calm Cardiovascular: Yes: Regular Rate and Rhythm Respiratory: Yes: Diminished, Rales (rt>left) Gastrointestinal: Yes: Normal Bowel Sounds, Soft. No: Distention, Tenderness Extremities: Yes: Amputation (B/L BKA, Rt BKA- wound+ surrounding erythema and tender+) Edema: No Labs: CBC, BMP 01/17/17 05:35 01/17/17 05:35 Imaging - Results Chest X-ray: Image Reviewed EKG: Image Reviewed (sinus, 1st degree AV block) Problem List - Problems (1) KAMRAN (acute kidney injury) Code(s): N17.9 - ACUTE KIDNEY FAILURE, UNSPECIFIED (2) CHF (congestive heart failure) Code(s): I50.9 - HEART FAILURE, UNSPECIFIED Qualifiers: Congestive heart failure type: combined Congestive heart failure chronicity: acute on chronic Qualified Code(s): I50.43 - Acute on chronic combined systolic (congestive) and diastolic (congestive) heart failure (3) CHF exacerbation Code(s): I50.9 - HEART FAILURE, UNSPECIFIED Qualifiers: Congestive heart failure type: combined Qualified Code(s): I50.43 - Acute on chronic combined systolic (congestive) and diastolic (congestive) heart failure (4) HTN (hypertension) Code(s): I10 - ESSENTIAL (PRIMARY) HYPERTENSION Qualifiers: Hypertension type: essential hypertension Qualified Code(s): I10 - Essential (primary) hypertension (5) Acute on chronic systolic and diastolic heart failure, NYHA class 3 Code(s): I50.43 - ACUTE ON CHRONIC COMBINED SYSTOLIC AND DIASTOLIC HRT FAIL (6) Pleural effusion Code(s): J90 - PLEURAL EFFUSION, NOT ELSEWHERE CLASSIFIED Assessment/Plan PLAN CHF decompensation -- Cardiology evkayy noted- spoke with Dr Araya- Lasix increased to BID -- dc Entresto as his renal function is worse --- repeat CXR in AM -- I and O -- Telemetry -- Troponins trending down Acute on chronic renal disease -- check urine out put -- Baseline creatinine around 3 -- dc Entresto -- moniotor renal function on Lasix Pleural effusion -- had previous thoracentesis-- negative for malignancy, same area -- will see with increased Lasix for response-- if not, may need to repeat thoracentesis Wound on stump -- tender , will start IV Ancef-- spoke with DR Mcdaniels-- he had surgery many years ago , unsure of surgeon -- will consult Vascular for wound care DVT prophylaxis-- Heparin sc Time spent 40 min
[2017-01-17] MEDS: FINASTERIDE 5 MG TABLET (FP) PO SCH (09:24)
[2017-01-17] MEDS: ASPIRIN COATED 81 MG TABLET.EC PO SCH (09:24)
[2017-01-17] MEDS: TAMSULOSIN HCL 0.4 MG CAP.ER.24H (FP) PO SCH (09:24)
[2017-01-17] MEDS: SACUBITRIL/VALSARTAN 24 MG-26 MG TABLET PO SCH (09:25)
[2017-01-17] MEDS: CARVEDILOL 25 MG TABLET (FP) PO SCH ×3 (09:40→22:02)
[2017-01-17] MEDS: FUROSEMIDE 40 MG/4 ML INJECTABLE VIAL IVPUSH SCH ×2 (09:42→14:25)
[2017-01-17] MEDS ORDERED: CEFAZOLIN 1 GM in DEXTROSE 5%-WATER - 50 ML IVPB SCH (10:00)
[2017-01-17] MEDS ORDERED: FUROSEMIDE 40 MG/4 ML INJECTABLE VIAL IVPB SCH (10:00)
--- NOTE | 2017-01-17 10:05 | CON.CARD ---
Cardiology Consult (text) - Consultation Consultation Note: - History of Present Illness Chief Complaint: sob History of Present Illness: 81 yo male presented with sob. pt has h/o CABG and severe LV dysfunction has not followed up with any cardiologists routinely reports several days of sob and scrotal swelling no cp, palps, dizzy, loc, pnd, orthopnea reports taking meds appropriately PMH: DM HPL HTN CAD syst chf prior UE thrombus 2015 CKD, nephrotic range proteinuria prior bilat LE amputations - Past Medical History Cardio/Vascular: Yes: CAD, CHF (low EF), Hyperlipdemia Gastrointestinal: Yes: Constipation, Other (no hx colonoscopy) Renal/: Yes: BPH Endocrine: Yes: Diabetes Mellitus - Past Surgical History Past Surgical History: Yes: Amputation (bilateral lower leg amputations due to diabeic complications.), CABG - Alcohol/Substance Use Hx Alcohol Use: No - Smoking History Smoking history: Never smoked Have you smoked in the past 12 months: No - Social History History of Recent Travel: No Home Medications - Allergies Allergies/Adverse Reactions: Allergies Allergy/AdvReac Type Severity Reaction Status Date / Time Sulfa (Sulfonamide Allergy Verified 01/16/17 13:47 Antibiotics) - Home Medications Home Medications Medication Instructions Recorded Aspirin [Aspirin EC] 81 mg PO DAILY 01/16/17 Carvedilol [Coreg -] 25 mg PO BID 01/16/17 Clotrimazole [Mycelex Arcelia's -] 10 mg PO 5XD 01/16/17 Finasteride [Proscar -] 5 mg PO DAILY 01/16/17 Furosemide [Lasix -] 40 mg PO DAILY 01/16/17 Glipizide [Glipizide ER] 10 mg PO DAILY 01/16/17 Levothyroxine [Synthroid -] 50 mcg PO DAILY 01/16/17 Linagliptin [Tradjenta] 5 mg PO DAILY 01/16/17 Loperamide HCl [Loperamide] 2 mg PO DAILY PRN 01/16/17 Metolazone [Zaroxolyn -] 5 mg PO DAILY 01/16/17 Sacubitril/Valsartan [Entresto 24 1 each PO BID 01/16/17 mg-26 mg Tablet] Tamsulosin HCl [Flomax] 0.4 mg PO DAILY 01/16/17 Family Disease History - Family Disease History Family History: Denies (no cmp) Review of Systems - Review of Systems Constitutional: denies: Chills, Fever Eyes: denies: Eye Pain HENT: denies: Nasal Congestion Neck: denies: Stiffness Cardiovascular: denies: Palpitations Respiratory: denies: Orthopnea, PND Gastrointestinal: denies: Diarrhea, Rectal Bleeding Genitourinary: denies: Burning, Hematuria Musculoskeletal: denies: Muscle Pain Integumentary: denies: Rash Neurological: denies: Numbness, Seizure, Syncope Endocrine: denies: Excessive Sweating Hematology/Lymphatic: denies: Excessive Bleeding Vital Signs: Vital Signs Period Temp Pulse Resp BP Sys/Stock Pulse Ox Last 24 Hr 97.4 F-98.4 F 60-77 16-20 120-140/70-85 97-97 Constitutional: Yes: Well Nourished, No Distress Eyes: No: Sclera Icterus HENT: No: Nasal Congestion Neck: No: Decreased ROM Respiratory: Yes: Diminished (R base). nl eff No: Accessory Muscle Use Gastrointestinal: Yes: Normal Bowel Sounds. No: Distention, Hepatomegaly, Palpable Mass, Tenderness Cardiovascular: Yes: Regular Rate and Rhythm JVD: No Carotid Bruit: No PMI: Non-Displaced Heart Sounds: Yes: S1, S2. No: Gallop Murmur: No: Systolic Murmur, Diastolic Murmur Extremities: No: Cold, Cyanosis Edema: (+edema in thighs (s/p bilat amp)) Peripheral Pulses: 2+ Left Carotid, 2+ Right Carotid, 2+ Left Doralis Pedis, 2+ Right Dorsalis Pedis Integumentary: No: Jaundice diaphoresis Neurological: Yes: Alert. No: Seizure Psychiatric: No: Agitated, aaox3 - Other Data Labs, Other Data: Laboratory Last Values WBC 8.1 K/mm3 (4.0-10.0) 01/17/17 05:35 RBC 4.00 M/mm3 (4.00-5.60) 01/17/17 05:35 Hgb 11.5 GM/dL (11.7-16.9) L 01/17/17 05:35 Hct 35.5 % (35.4-49) 01/17/17 05:35 MCV 88.7 fl (80-96) 01/17/17 05:35 MCHC 32.3 g/dl (32.0-35.9) 01/17/17 05:35 RDW 17.1 % (11.9-15.9) H 01/17/17 05:35 Plt Count 155 K/MM3 (134-434) 01/17/17 05:35 MPV 7.6 fl (7.5-11.1) 01/17/17 05:35 Neutrophils % 79.9 % (42.8-82.8) 01/17/17 05:35 Lymphocytes % 9.7 % (8-40) D 01/17/17 05:35 Monocytes % 9.0 % (3.8-10.2) 01/17/17 05:35 Eosinophils % 1.1 % (0-4.5) 01/17/17 05:35 Basophils % 0.3 % (0-2.0) 01/17/17 05:35 Sodium 142 mmol/L (136-145) 01/17/17 05:35 Potassium 4.1 mmol/L (3.5-5.1) 01/17/17 05:35 Chloride 113 mmol/L (98-107) H 01/17/17 05:35 Carbon Dioxide 17 mmol/L (21-32) L 01/17/17 05:35 Anion Gap 12 (8-16) 01/17/17 05:35 BUN 81 mg/dL (7-18) H 01/17/17 05:35 Creatinine 3.5 mg/dL (0.7-1.3) H 01/17/17 05:35 Creat Clearance w eGFR 16.98 (>60) 01/17/17 05:35 POC Glucometer 75 UNITS (()) 01/17/17 06:31 Random Glucose 68 mg/dL (74-106) L 01/17/17 05:35 Calcium 8.0 mg/dL (8.5-10.1) L 01/17/17 05:35 Total Bilirubin 1.0 mg/dL (0.2-1.0) D 01/17/17 05:35 AST 26 U/L (15-37) D 01/17/17 05:35 ALT 28 U/L (12-78) 01/17/17 05:35 Alkaline Phosphatase 164 U/L (45-117) H 01/17/17 05:35 Creatine Kinase 119 IU/L (39-308) 01/17/17 05:35 Creatine Kinase Index 2.7 % (0.0-5.0) 01/16/17 15:05 CK-MB (CK-2) 5.468 ng/ml (0.5-3.6) H 01/16/17 15:05 CK-MB (CK-2) Rel Index Cancelled 01/16/17 15:05 Troponin I 0.08 ng/ml (0.00-0.05) H 01/17/17 05:35 B-Natriuretic Peptide 906071.78 pg/ml (5-450) H 01/16/17 18:50 Total Protein 6.4 g/dl (6.4-8.2) 01/17/17 05:35 Albumin 2.4 g/dl (3.4-5.0) L 01/17/17 05:35 ekg 01/16/17: SR with 1st degree AVB; borderline QTC, old IWMI; diffuse NSST-Ts-- no change vs priors tele: sr, pvcs cxr: large right eff Echo 11/2015 (): mild LVE; severe, global HK; nl RV; mod MR, mild TR; no RVSP echo 11/2016: mod lve, sev dec lvef, global hk, mod rve, mod dec rv fcn, sarah, mod mr, mild tr, rvsp 30-40 a/p: 81 yo with CAD s/p CABG, severe LV dysfunction on prior echo, HTN, HL, prior B LE amputations, DM, prior UE thrombus, CKD with nephrotic range proteinuria, bph who presented with sob. acute on chronic syst chf: -several prior admits for sob/chf -required thoracentesis for large right eff 2015 and again 11/2016 (reportedly was transudative c/w chf) -currently with signs of vol overload and recurrent large right eff -will start diuresis with lasix iv 40 bid, monitor daily bmp, wts -if no improvement with lasix or worsening renal fcn may need another thoracentesis -cont coreg -hold entresto due to claudio on ckd -pt not interested in icd, cont outpt discussions positive trops: -borderline trop elevation with flat trend and normal ck, not consistent with acs, likely 2/2 chf/claudio -no new ecg findings CAD: -s/p 4V cabg (1991) -no angina sxs -no ekg changes vs baseline -cont coreg, asa HTN: -cont coreg claudio on ckd: -baseline creat range here is 2.8-3.3 -cr above baseline on admit, possibly cardiorenal, observe trend with diuresis DM: -s/p right BKA and left AKA -glycemia mgmt per PMD
--- NOTE | 2017-01-17 11:22 | CON.NEP ---
Consult Consult Specialty:: Renal Referred by:: Dr. Santizo Reason for Consultation:: CKD stage 4 with volume overload - History of Present Illness Chief Complaint: SOB and LE swelling History of Present Illness: This is a 81 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 with PMhx of CKD stage 4 (baseline Cr 2.6-3.3) with nephrotic range proteinuria, Systolic CHF, PVD s/p b/l LE amputations, Hyperlipidemia, Anemia who presented with SOB, LE swelling and found to have large pleural effusion and BUN/Cr of 81/3.5. Pt was last seen in November of 2016 and was discharged with BUN/Cr of 91/3.3. Pt denies any NSAID or abx use at home. Not on OLIVA/ARB. No recent contrast exposure. No rash, hematuria or dysurai. report good urine output. - History Source History Provided By: Patient Limitations to Obtaining History: Language Barrier - Past Medical History Cardio/Vascular: Yes: CAD, CHF (low EF), Hyperlipdemia Gastrointestinal: Yes: Constipation, Other (no hx colonoscopy) Renal/: Yes: Renal Inusuff, BPH Endocrine: Yes: Diabetes Mellitus - Past Surgical History Past Surgical History: Yes: Amputation (bilateral lower leg amputations due to diabeic complications.), CABG - Alcohol/Substance Use Hx Alcohol Use: No - Smoking History Smoking history: Never smoked Have you smoked in the past 12 months: No - Social History History of Recent Travel: No Home Medications - Allergies Allergies/Adverse Reactions: Allergies Allergy/AdvReac Type Severity Reaction Status Date / Time Sulfa (Sulfonamide Allergy Verified 01/16/17 13:47 Antibiotics) - Home Medications Home Medications: Ambulatory Orders Aspirin [Aspirin EC] 81 mg PO DAILY 01/16/17 Carvedilol [Coreg -] 25 mg PO BID 01/16/17 Clotrimazole [Mycelex Arcelia's -] 10 mg PO 5XD 01/16/17 Finasteride [Proscar -] 5 mg PO DAILY 01/16/17 Furosemide [Lasix -] 40 mg PO DAILY 01/16/17 Glipizide [Glipizide ER] 10 mg PO DAILY 01/16/17 Levothyroxine [Synthroid -] 50 mcg PO DAILY 01/16/17 Linagliptin [Tradjenta] 5 mg PO DAILY 01/16/17 Loperamide HCl [Loperamide] 2 mg PO DAILY PRN 01/16/17 Metolazone [Zaroxolyn -] 5 mg PO DAILY 01/16/17 Sacubitril/Valsartan [Entresto 24 mg-26 mg Tablet] 1 each PO BID 01/16/17 Tamsulosin HCl [Flomax] 0.4 mg PO DAILY 01/16/17 Family Disease History - Family Disease History Family History: Unremarkable Review of Systems - Review of Systems Constitutional: denies: Chills, Diaphoresis, Fever, Lethargy, Loss of Appetite Eyes: reports: No Symptoms HENT: reports: No Symptoms Neck: reports: No Symptoms Cardiovascular: reports: Edema, Shortness of Breath. denies: Chest Pain, Palpitations Respiratory: reports: Cough, Orthopnea, SOB, SOB on Exertion Gastrointestinal: denies: Abdominal Pain, Constipation, Diarrhea, Nausea Genitourinary: reports: Testicular Swelling. denies: Burning, Discharge, Dysuria, Flank Pain, Frequency, Hematuria Musculoskeletal: reports: No Symptoms Integumentary: reports: No Symptoms Neurological: reports: No Symptoms Endocrine: reports: No Symptoms Nephrology Consult - Height Height: 48 in - Weight Weight: 190 lb - BMI Body Mass Index (BMI): 57.9 - Lab Results CBC,BMP: CBC, BMP 01/17/17 05:35 01/17/17 05:35 Anion Gap: Anion Gap Anion Gap 12 (8-16) 01/17/17 05:35 - Imaging Chest X-ray: Report Reviewed - Physical Examination Vital Signs: Vital Signs Temperature 98.2 F 01/17/17 08:05 Pulse Rate 60 01/17/17 08:05 Respiratory Rate 16 01/17/17 08:05 Blood Pressure 140/82 01/17/17 08:05 O2 Sat by Pulse Oximetry (%) 96 01/17/17 09:00 Constitutional: Yes: No Distress, Calm Eyes: Yes: Conjunctiva Clear HENT: Yes: Atraumatic, Normocephalic Neck: Yes: Supple Cardiovascular: Yes: Regular Rate and Rhythm, S1, S2. No: JVD, Murmur, Rub Respiratory: Yes: Regular, Diminished, Rales, SOB Gastrointestinal: Yes: Normal Bowel Sounds, Soft, Abdomen, Obese Renal/: Yes: Scrotal Edema. No: Anuria, Bladder Distention, CVA Tenderness - Left, CVA Tenderness - Right, [place] Present, Hematuria Extremities: Yes: Amputation Edema: Yes Edema: LLE: 2+, RLE: 2+ Integumentary: Yes: WNL Neurological: Yes: Alert, Oriented Problem List - Problems (1) KAMRAN (acute kidney injury) Code(s): N17.9 - ACUTE KIDNEY FAILURE, UNSPECIFIED (2) CAD (coronary artery disease) Code(s): I25.10 - ATHSCL HEART DISEASE OF [place] CORONARY ARTERY W/O ANG PCTRS Qualifiers: Coronary Disease-Associated Artery/Lesion type: [place] artery [place] vs. transplanted heart: [place] heart Associated angina: without angina Qualified Code(s): I25.10 - Atherosclerotic heart disease of [place] coronary artery without angina pectoris (3) CHF (congestive heart failure) Code(s): I50.9 - HEART FAILURE, UNSPECIFIED Qualifiers: Congestive heart failure type: combined Congestive heart failure chronicity: acute on chronic Qualified Code(s): I50.43 - Acute on chronic combined systolic (congestive) and diastolic (congestive) heart failure (4) CHF exacerbation Code(s): I50.9 - HEART FAILURE, UNSPECIFIED Qualifiers: Congestive heart failure type: combined Qualified Code(s): I50.43 - Acute on chronic combined systolic (congestive) and diastolic (congestive) heart failure (5) HTN (hypertension) Code(s): I10 - ESSENTIAL (PRIMARY) HYPERTENSION Qualifiers: Hypertension type: essential hypertension Qualified Code(s): I10 - Essential (primary) hypertension (6) Nephrotic syndrome Code(s): N04.9 - NEPHROTIC SYNDROME WITH UNSPECIFIED MORPHOLOGIC CHANGES (7) Pleural effusion Code(s): J90 - PLEURAL EFFUSION, NOT ELSEWHERE CLASSIFIED (8) Metabolic acidosis Code(s): E87.2 - ACIDOSIS Assessment/Plan 81 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 with PMhx of CKD stage 4 (baseline Cr 2.6-3.3) with nephrotic range proteinuria, Systolic CHF, PVD s/p b/l LE amputations, Hyperlipidemia, Anemia who presented with SOB, LE swelling and found to have large pleural effusion and BUN/Cr of 81/3.5.\] #CKD Stage 4 with nephrotic rang proteinuria with volume overload Etiology of CKD likely ischemic + diabetic nephropathy but 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
--- NOTE | 2017-01-17 11:23 | EKG ---
Test Reason : Blood Pressure : / mmHG Vent. 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
[2017-01-17] MEDS: HEPARIN NA (PORCINE) 5,000 UNITS/ML 1ML VIAL SQ SCH ×2 (11:25→22:02)
[2017-01-17] MEDS: CEFAZOLIN (PRE-DOCKED) 50 ML IVPB SCH ×2 (11:26→22:02)
--- NOTE | 2017-01-17 13:21 | CONSULT ---
Consult - Past Medical History Cardio/Vascular: Yes: CAD, CHF (low EF), Hyperlipdemia Gastrointestinal: Yes: Constipation, Other (no hx colonoscopy) Renal/: Yes: Renal Inusuff, BPH Endocrine: Yes: Diabetes Mellitus - Past Surgical History Past Surgical History: Yes: Amputation (bilateral lower leg amputations due to diabeic complications.), CABG - Alcohol/Substance Use Hx Alcohol Use: No - Smoking History Smoking history: Never smoked Have you smoked in the past 12 months: No - Social History History of Recent Travel: No Home Medications - Allergies Allergies/Adverse Reactions: Allergies Allergy/AdvReac Type Severity Reaction Status Date / Time Sulfa (Sulfonamide Allergy Verified 01/16/17 13:47 Antibiotics) - Home Medications Home Medications: Ambulatory Orders Aspirin [Aspirin EC] 81 mg PO DAILY 01/16/17 Carvedilol [Coreg -] 25 mg PO BID 01/16/17 Clotrimazole [Mycelex Arcelia's -] 10 mg PO 5XD 01/16/17 Finasteride [Proscar -] 5 mg PO DAILY 01/16/17 Furosemide [Lasix -] 40 mg PO DAILY 01/16/17 Glipizide [Glipizide ER] 10 mg PO DAILY 01/16/17 Levothyroxine [Synthroid -] 50 mcg PO DAILY 01/16/17 Linagliptin [Tradjenta] 5 mg PO DAILY 01/16/17 Loperamide HCl [Loperamide] 2 mg PO DAILY PRN 01/16/17 Metolazone [Zaroxolyn -] 5 mg PO DAILY 01/16/17 Sacubitril/Valsartan [Entresto 24 mg-26 mg Tablet] 1 each PO BID 01/16/17 Tamsulosin HCl [Flomax] 0.4 mg PO DAILY 01/16/17 Physical Exam Vital Signs: Vital Signs Temperature 97.9 F 01/17/17 13:18 Pulse Rate 76 01/17/17 13:18 Respiratory Rate 16 01/17/17 13:18 Blood Pressure 143/81 01/17/17 13:18 O2 Sat by Pulse Oximetry (%) 96 01/17/17 09:00 Labs: CBC, BMP 01/17/17 05:35 01/17/17 05:35 Assessment/Plan VAscular Surgery The patient is a 81 year old male with a significant past medical history of CAD s/p CABG, severe LV dysfunction on prior echo, HTN, HL, prior B LE amputations, DM, prior UE thrombus, CKD with nephrotic range proteinuria, bph who presents to the emergency department with lower extremity edema. Patient states that lower extremity edema has gotten worse over the last 2 days. He also reports SOB and orthopnea. He reports decreased urinary output. The patient denies fever, chills, and sweats. The patient denies nausea, vomiting, and diarrhea. The patient denies chest pain, cough. PE Head - NC/AT Lung - cTA Heart - RRR abd - soft,nt,nd ext - right bka stump -- 2 ulcers healed with scab. A/P Right bka with 2 areas of scabbed over ulcers. 1. Can place bacitracin to area daily. Kartik Rabago DO
[2017-01-17] MEDS: BACITRACIN 15 GM TUBE TOPICAL OINTMENT TP SCH (16:30)
[2017-01-18] MEDS: INSULIN SLIDING SCALE (NOVOLOG) 1 VIAL SQ SCH ×3 (06:17→17:12)
[2017-01-18] MEDS: LEVOTHYROXINE NA 50 MCG TABLET (FP) PO SCH (06:24)
[2017-01-18] MEDS: glipiZIDE-XL 10 MG TAB.ER.24 (FP) PO SCH (06:24)
[2017-01-18] MEDS: FUROSEMIDE 40 MG/4 ML INJECTABLE VIAL IVPUSH SCH ×2 (06:24→13:53)
[2017-01-18 07:31] LABS: BASOPHIL 0.3 % (0-2.0); EOSINOPHIL 0.7 % (0-4.5); MCH 29.5 pg (25.7-33.7); MCHC 33.5 g/dl (32.0-35.9); MEAN PLT VOLUME 7.8 fl (7.5-11.1); NEUTROPHILS 79.5 % (42.8-82.8); PLATELET COUNT 151 K/MM3 (134-434); WHITE BLOOD COUNT 8.3 K/mm3 (4.0-10.0)
[2017-01-18 08:07] LABS: ALBUMIN 2.3 g/dl (3.4-5.0); ALK PHOS 170 U/L (45-117); ANION GAP 14 (8-16); CALCIUM 7.7 mg/dL (8.5-10.1); CO2 17 mmol/L (21-32); CREATININE 3.3 mg/dL (0.7-1.3); GLUCOSE,RANDOM 125 mg/dL (74-106); MAGNESIUM 2.4 mg/dL (1.8-2.4); PHOSPHOROUS 3.3 mg/dL (2.5-4.9); SGOT/AST 22 U/L (15-37); SGPT/ALT 22 U/L (12-78); TOT PROT 6.3 g/dl (6.4-8.2)
[2017-01-18] MEDS: CEFAZOLIN (PRE-DOCKED) 50 ML IVPB SCH ×2 (09:35→21:26)
[2017-01-18] MEDS: TAMSULOSIN HCL 0.4 MG CAP.ER.24H (FP) PO SCH (09:36)
[2017-01-18] MEDS: HEPARIN NA (PORCINE) 5,000 UNITS/ML 1ML VIAL SQ SCH ×2 (09:36→21:25)
[2017-01-18] MEDS: CARVEDILOL 25 MG TABLET (FP) PO SCH ×2 (09:37→21:26)
[2017-01-18] MEDS: ASPIRIN COATED 81 MG TABLET.EC PO SCH (09:37)
[2017-01-18] MEDS: FINASTERIDE 5 MG TABLET (FP) PO SCH (09:37)
[2017-01-18] MEDS: BACITRACIN 15 GM TUBE TOPICAL OINTMENT TP SCH (09:37)
--- NOTE | 2017-01-18 11:08 | PN ---
Progress Note (short form) - Note Progress Note: s: no cp palps dizzy; sob same as yesterday o: Vital Signs Period Temp Pulse Resp BP Sys/Stock Pulse Ox Last 24 Hr 97.4 F-98.8 F 68-76 14-20 118-143/73-88 97 Constitutional: Yes: Well Nourished, No Distress Respiratory: Yes: Diminished (R base). nl eff No: Accessory Muscle Use Gastrointestinal: Yes: Normal Bowel Sounds. No: Distention, Hepatomegaly, Palpable Mass, Tenderness Cardiovascular: Yes: Regular Rate and Rhythm JVD: No Heart Sounds: Yes: S1, S2. No: Gallop Murmur: No: Systolic Murmur, Diastolic Murmur Extremities: No: Cold, Cyanosis Edema: (+edema in thighs (s/p bilat amp) Integumentary: No: Jaundice diaphoresis Neurological: Yes: Alert. No: Seizure Psychiatric: No: Agitated, aaox3 Current Medications Generic Name Dose Route Start Last Admin Trade Name Freq PRN Reason Stop Dose Admin Alprazolam 0.25 mg 01/18/17 11:05 Xanax - PO BID PRN ANXIETY Aspirin 81 mg 01/17/17 10:00 01/18/17 09:37 Ecotrin - PO 81 mg DAILY CARLYN Administration Bacitracin 1 applic 01/17/17 14:45 01/18/17 09:37 Bacitracin - TP 1 applic DAILY CARLYN Administration Carvedilol 25 mg 01/16/17 22:00 01/18/17 09:37 Coreg - PO 25 mg BID CARLYN Administration Finasteride 5 mg 01/17/17 10:00 01/18/17 09:37 Proscar - PO 5 mg DAILY CARLYN Administration Furosemide 80 mg 01/18/17 11:04 Lasix Injection - IVPUSH BID@0600,1400 CARLYN Heparin Sodium (Porcine) 5,000 unit 01/17/17 10:00 01/18/17 09:36 Heparin - SQ 5,000 unit BID CARLYN Administration Cefazolin Sodium 50 mls @ 100 mls/hr 01/17/17 10:30 01/18/17 09:35 Ancef 1gm Ivpb (Pre-Docked) IVPB 100 mls/hr BID CARLYN Administration Insulin Aspart 1 vial 01/17/17 07:00 01/18/17 06:17 Novolog Vial Sliding Scale - SQ Not Given TIDAC [facility] Protocol Insulin Detemir 8 units 01/18/17 22:00 Levemir Vial SQ [facility] Levothyroxine Sodium 50 mcg 01/17/17 07:00 01/18/17 06:24 Synthroid - PO 50 mcg DAILY@0700 CARLYN Administration Sodium Bicarbonate 650 mg 01/18/17 11:00 Sodium Bicarbonate - PO BID CARLYN Tamsulosin HCl 0.4 mg 01/17/17 10:00 01/18/17 09:36 Flomax - PO 0.4 mg DAILY CARLYN Administration CBC, BMP 01/18/17 06:42 01/18/17 06:42 ekg 01/16/17: SR with 1st degree AVB; borderline QTC, old IWMI; diffuse NSST-Ts-- no change vs priors tele: sr, pvcs cxr: large right eff Echo 11/2015 (): mild LVE; severe, global HK; nl RV; mod MR, mild TR; no RVSP echo 11/2016: mod lve, sev dec lvef, global hk, mod rve, mod dec rv fcn, sarah, mod mr, mild tr, rvsp 30-40 a/p: 81 yo with CAD s/p CABG, severe LV dysfunction on prior echo, HTN, HL, prior B LE amputations, DM, prior UE thrombus, CKD with nephrotic range proteinuria, bph who presented with sob. acute on chronic syst chf: -several prior admits for sob/chf -required thoracentesis for large right eff 2015 and again 11/2016 (reportedly was transudative c/w chf) -currently with signs of vol overload and recurrent large right eff -no change in sob or cxr after lasix 40 iv bid-->cr stable/improved so will increase to lasix 80 iv bid, monitor daily bmp, wts -if no improvement with lasix or worsening renal fcn may need another thoracentesis -cont coreg -hold entresto due to claudio on ckd -pt not interested in icd, cont outpt discussions positive trops: -borderline trop elevation with flat trend and normal ck, not consistent with acs, likely 2/2 chf/claudio -no new ecg findings CAD: -s/p 4V cabg (1991) -no angina sxs -no ekg changes vs baseline -cont coreg, asa HTN: -cont coreg claudio on ckd: -baseline creat range here is 2.8-3.3 -cr above baseline on admit, possibly cardiorenal, observe trend with diuresis, has improved so far DM: -s/p right BKA and left AKA -glycemia mgmt per PMD
--- NOTE | 2017-01-18 11:14 | PN ---
Progress Note (short form) - Note Progress Note: Pt seen/ examined Chart reviewed nurse reports - was confused last night - pulling tubes did not sleep well now sleepy but arousable no distress. denies pain. afebrile. nurse reports foul smelling urine- Vital Signs Temp 98.2 F 01/18/17 08:05 Pulse 74 01/18/17 08:05 Resp 14 01/18/17 08:05 BP 130/76 01/18/17 08:05 Pulse Ox 96 01/18/17 09:00 Intake & Output 01/17/17 01/17/17 01/18/17 11:59 23:59 11:59 Intake Total 50 600 270 Output Total 300 Balance 50 300 270 Weight 190 lb 179 lb 6.4 oz Intake: IV 20 30 saline lock 20 30 IVPB 100 Oral 50 480 240 Output: Urine 300 Void 300 Other: Voiding Method Incontinent Incontinent Incontinent # Unmeasured Voids Void 2 2 Height 48 in Body Mass Index (BMI) 57.9 Weight Measurement Method Patient Lift Scale Active Medications Alprazolam (Xanax -) 0.25 mg PO BID PRN PRN Reason: ANXIETY Aspirin (Ecotrin -) 81 mg PO DAILY [facility] Last Admin: 01/18/17 09:37 Dose: 81 mg Bacitracin (Bacitracin -) 1 applic TP DAILY [facility] Last Admin: 01/18/17 09:37 Dose: 1 applic Carvedilol (Coreg -) 25 mg PO BID [facility] Last Admin: 01/18/17 09:37 Dose: 25 mg Finasteride (Proscar -) 5 mg PO DAILY [facility] Last Admin: 01/18/17 09:37 Dose: 5 mg Furosemide (Lasix Injection -) 80 mg IVPUSH BID@0600,1400 [facility] Heparin Sodium (Porcine) (Heparin -) 5,000 unit SQ BID [facility] Last Admin: 01/18/17 09:36 Dose: 5,000 unit Cefazolin Sodium (Ancef 1gm Ivpb (Pre-Docked)) 50 mls @ 100 mls/hr IVPB BID [facility] Last Admin: 01/18/17 09:35 Dose: 100 mls/hr Insulin Aspart (Novolog Vial Sliding Scale -) 1 vial SQ TIDAC [facility] PRN Reason: Protocol Last Admin: 01/18/17 06:17 Dose: Not Given Insulin Detemir (Levemir Vial) 8 units SQ [facility] Levothyroxine Sodium (Synthroid -) 50 mcg PO DAILY@0700 [facility] Last Admin: 01/18/17 06:24 Dose: 50 mcg Sodium Bicarbonate (Sodium Bicarbonate -) 650 mg PO BID [facility] Tamsulosin HCl (Flomax -) 0.4 mg PO DAILY [facility] Last Admin: 01/18/17 09:36 Dose: 0.4 mg CBC, BMP 01/18/17 06:42 01/18/17 06:42 Physical Examination Constitutional: Yes: No Distress, Calm Cardiovascular: Yes: Regular Rate and Rhythm Respiratory: Yes: Diminished, Rales at bases Gastrointestinal: Yes: Normal Bowel Sounds, Soft. No: Distention, Tenderness Extremities: Yes: Amputation (B/L BKA, Rt BKA- wound+ surrounding erythema and tender+) Edema: No Imaging - Results Chest X-ray: Image Reviewed EKG: Image Reviewed (sinus, 1st degree AV block) Problem List - Problems (1) KAMRAN (acute kidney injury) Code(s): N17.9 - ACUTE KIDNEY FAILURE, UNSPECIFIED (2) CHF (congestive heart failure) Code(s): I50.9 - HEART FAILURE, UNSPECIFIED Qualifiers: Congestive heart failure type: combined Congestive heart failure chronicity: acute on chronic Qualified Code(s): I50.43 - Acute on chronic combined systolic (congestive) and diastolic (congestive) heart failure (3) CHF exacerbation Code(s): I50.9 - HEART FAILURE, UNSPECIFIED Qualifiers: Congestive heart failure type: combined Qualified Code(s): I50.43 - Acute on chronic combined systolic (congestive) and diastolic (congestive) heart failure (4) HTN (hypertension) Code(s): I10 - ESSENTIAL (PRIMARY) HYPERTENSION Qualifiers: Hypertension type: essential hypertension Qualified Code(s): I10 - Essential (primary) hypertension (5) Acute on chronic systolic and diastolic heart failure, NYHA class 3 Code(s): I50.43 - ACUTE ON CHRONIC COMBINED SYSTOLIC AND DIASTOLIC HRT FAIL (6) Pleural effusion Code(s): J90 - PLEURAL EFFUSION, NOT ELSEWHERE CLASSIFIED Assessment/Plan continue lasix losing weight abx continue present care will send for urine culture xanax for anxiety wound care consult noted as well as renal and cardiology f/u lytes closely condition gaurded but stable will follow discussed with nursing staff also.
[2017-01-18] MEDS: SODIUM BICARBONATE 650 MG TABLET PO SCH ×2 (12:05→21:26)
--- NOTE | 2017-01-18 13:17 | PN ---
Progress Note (short form) - Note Progress Note: Renal Follow up for CKD with Volume overload Pt seen and examined at the bedside SOB is improved but not completely resolved no cough no on NC O2 Edema persists and pt reports that he is urinating but not a large amount Vital Signs Temperature 98.2 F 01/18/17 08:05 Pulse Rate 74 01/18/17 08:05 Respiratory Rate 14 01/18/17 08:05 Blood Pressure 130/76 01/18/17 08:05 O2 Sat by Pulse Oximetry (%) 96 01/18/17 09:00 Gen: NAD CVS: RRR Lungs: Dec BS b/l lung freitas Ext: 2+ edema in LE, s/l amp CBC, BMP 01/18/17 06:42 01/18/17 06:42 Current Medications Alprazolam (Xanax -) 0.25 mg PO Q12H PRN Aspirin (Ecotrin -) 81 mg PO DAILY [facility] 234 BEDS AT [facility] Last Admin: 01/18/17 09:37 Dose: 81 mg Bacitracin (Bacitracin -) 1 applic TP DAILY [facility]CLUDE 234 BEDS AT THE [facility] Last Admin: 01/18/17 09:37 Dose: 1 applic Carvedilol (Coreg -) 25 mg PO BID [facility]S [facility]CLUDE 234 BEDS AT THE [facility] Last Admin: 01/18/17 09:37 Dose: 25 mg Finasteride (Proscar -) 5 mg PO DAILY [facility]CLUDE 234 BEDS AT THE [facility] Last Admin: 01/18/17 09:37 Dose: 5 mg Furosemide (Lasix Injection -) 80 mg IVPUSH BID@0600,1400 [facility]S [facility]CLUDE 234 BEDS AT THE [facility] Heparin Sodium (Porcine) (Heparin -) 5,000 unit SQ BID [facility]S [facility]CLUDE 234 BEDS AT THE [facility] Last Admin: 01/18/17 09:36 Dose: 5,000 unit Cefazolin Sodium (Ancef 1gm Ivpb (Pre-Docked)) 50 mls @ 100 mls/hr IVPB BID [facility]CLUDE 234 BEDS AT THE [facility] Last Admin: 01/18/17 09:35 Dose: 100 mls/hr Insulin Aspart (Novolog Vial Sliding Scale -) 1 vial SQ TIDAC [facility]S [facility]CLUDE 234 BEDS AT THE [facility] PRN Reason: Protocol Last Admin: 01/18/17 12:04 Dose: 2 units Insulin Detemir (Levemir Vial) 8 units SQ HS [facility]S [facility]CLUDE 234 BEDS AT THE [facility] Levothyroxine Sodium (Synthroid -) 50 mcg PO DAILY@0700 [facility]S [facility]CLUDE 234 BEDS AT THE [facility] Last Admin: 01/18/17 06:24 Dose: 50 mcg Sodium Bicarbonate (Sodium Bicarbonate -) 650 mg PO BID [facility]S [facility]CLUDE 234 BEDS AT THE [facility] Last Admin: 01/18/17 12:05 Dose: 650 mg Tamsulosin HCl (Flomax -) 0.4 mg PO DAILY [facility] Last Admin: 01/18/17 09:36 Dose: 0.4 mg A/P 81 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 with PMhx of CKD stage 4 (baseline Cr 2.6-3.3) with nephrotic range proteinuria, Systolic CHF, PVD s/p b/l LE amputations, Hyperlipidemia, Anemia who presented with SOB, LE swelling and found to have large pleural effusion and BUN/Cr of 81/3.5.\] #CKD Stage 4 with nephrotic rang proteinuria with volume overload Etiology of CKD likely ischemic + diabetic nephropathy but 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 as well Renal function stable and pt is making good urine may need to titrate up diuretic dose if pt does not achieve a good response ? efficacy in using metolazone given pt with advanced CKD no OLIVA/ARB at this time no acute indication fo rRRT #CHF/Pleural effusion titarte diuretics to achieve evolemia ? thoracentsis #Anion gap metabolic acidosis sodium bicarb 650mg BID Hugh Huggins DO Problem List - Problems (1) KAMRAN (acute kidney injury) Code(s): N17.9 - ACUTE KIDNEY FAILURE, UNSPECIFIED (2) CAD (coronary artery disease) Code(s): I25.10 - ATHSCL HEART DISEASE OF [place] CORONARY ARTERY W/O ANG PCTRS Qualifiers: Coronary Disease-Associated Artery/Lesion type: [place] artery [place] vs. transplanted heart: [place] heart Associated angina: without angina Qualified Code(s): I25.10 - Atherosclerotic heart disease of [place] coronary artery without angina pectoris (3) CHF (congestive heart failure) Code(s): I50.9 - HEART FAILURE, UNSPECIFIED Qualifiers: Congestive heart failure type: combined Congestive heart failure chronicity: acute on chronic Qualified Code(s): I50.43 - Acute on chronic combined systolic (congestive) and diastolic (congestive) heart failure (4) CHF exacerbation Code(s): I50.9 - HEART FAILURE, UNSPECIFIED Qualifiers: Congestive heart failure type: combined Qualified Code(s): I50.43 - Acute on chronic combined systolic (congestive) and diastolic (congestive) heart failure (5) HTN (hypertension) Code(s): I10 - ESSENTIAL (PRIMARY) HYPERTENSION Qualifiers: Hypertension type: essential hypertension Qualified Code(s): I10 - Essential (primary) hypertension (6) Nephrotic syndrome Code(s): N04.9 - NEPHROTIC SYNDROME WITH UNSPECIFIED MORPHOLOGIC CHANGES (7) Pleural effusion Code(s): J90 - PLEURAL EFFUSION, NOT ELSEWHERE CLASSIFIED (8) Metabolic acidosis Code(s): E87.2 - ACIDOSIS
--- NOTE | 2017-01-18 15:44 | EKG ---
Test Reason : Blood Pressure : / mmHG Vent. 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
[2017-01-18 17:19] LABS: URINE APPEARANCE CLOUDY; URINE BILIRUBIN NEGATIVE (NEGATIVE); URINE COLOR YELLOW; URINE GLUCOSE (UA) NEGATIVE (NEGATIVE); URINE KETONE NEGATIVE (NEGATIVE); URINE NITRITE NEGATIVE (NEGATIVE); URINE UROBILINOGEN NEGATIVE E.U./dl (0.2-1.0)
[2017-01-18 17:21] LABS: URINE BLOOD 3+ (NEGATIVE); URINE LEUK ESTERASE 3+ (NEGATIVE); URINE PROTEIN 2+ (NEGATIVE)
[2017-01-18 17:24] LABS: URINE BACTERIA MANY /hpf (NONE SEEN); URINE RBC 126 /hpf (0-3); URINE WBC 754 /hpf (3-5)
[2017-01-18] MEDS: ALPRAZolam 0.25 MG TABLET PO PRN (21:26)
[2017-01-18] MEDS: INSULIN DETEMIR 100 UNITS/ML MDV SQ SCH ×2 (21:26→21:51)
[2017-01-19] MEDS: FUROSEMIDE 40 MG/4 ML INJECTABLE VIAL IVPUSH SCH ×2 (05:49→15:50)
[2017-01-19] MEDS: INSULIN SLIDING SCALE (NOVOLOG) 1 VIAL SQ SCH ×3 (06:11→17:12)
[2017-01-19] MEDS: LEVOTHYROXINE NA 50 MCG TABLET (FP) PO SCH (06:11)
[2017-01-19 07:56] LABS: BASOPHIL 0.3 % (0-2.0); EOSINOPHIL 0.8 % (0-4.5); MCH 29.3 pg (25.7-33.7); MCHC 33.4 g/dl (32.0-35.9); MEAN CELL VOLUME 87.7 fl (80-96); MEAN PLT VOLUME 7.9 fl (7.5-11.1); NEUTROPHILS 74.5 % (42.8-82.8); PLATELET COUNT 164 K/MM3 (134-434); RDW 16.3 % (11.9-15.9); WHITE BLOOD COUNT 7.1 K/mm3 (4.0-10.0)
[2017-01-19 08:02] LABS: INR 1.39 (0.82-1.09); PROTHROMBIN TIME (PATIENT) 15.4 SEC (9.98-11.88)
[2017-01-19 08:05] LABS: ACTIVATED PTT 32.6 SECONDS (26.9-34.4)
[2017-01-19 08:29] LABS: ALBUMIN 2.2 g/dl (3.4-5.0); ALK PHOS 181 U/L (45-117); ANION GAP 14 (8-16); BILIRUBIN,TOTAL 0.8 mg/dL (0.2-1.0); CALCIUM 8.3 mg/dL (8.5-10.1); CO2 16 mmol/L (21-32); CREATININE 3.5 mg/dL (0.7-1.3); GLUCOSE,RANDOM 99 mg/dL (74-106); MAGNESIUM 2.4 mg/dL (1.8-2.4); PHOSPHOROUS 3.6 mg/dL (2.5-4.9); SGOT/AST 18 U/L (15-37); SGPT/ALT 7 U/L (12-78); TOT PROT 6.4 g/dl (6.4-8.2)
[2017-01-19] MEDS: HEPARIN NA (PORCINE) 5,000 UNITS/ML 1ML VIAL SQ SCH ×2 (10:00→21:23)
--- NOTE | 2017-01-19 10:23 | PN ---
Progress Note (short form) - Note Progress Note: Renal Follow up for CKD with Volume overload Pt seen and examined at the bedside reports feeling about the same no chest pain, fever, chills no cough no abd pain legs and scrotum remain swollen Vital Signs Temperature 97.9 F 01/19/17 05:22 Pulse Rate 66 01/19/17 05:22 Respiratory Rate 18 01/19/17 05:22 Blood Pressure 135/77 01/19/17 05:22 O2 Sat by Pulse Oximetry (%) 96 01/18/17 21:00 Intake & Output 01/16/17 01/17/17 01/18/17 01/19/17 23:59 23:59 23:59 23:59 Intake Total 650 520 100 Output Total 300 500 50 Balance 350 20 50 Weight 190 lb 190 lb 179 lb 6.4 oz 174 lb 12.8 oz Gen: NAD CVS: RRR Lungs: Dec BS b/l lung freitas Ext: 2+ edema in LE, s/l amp CBC, BMP 01/19/17 06:00 01/19/17 06:00 Laboratory Tests 01/19/17 06:00 Calcium 8.3 L Phosphorus 3.6 Magnesium 2.4 Albumin 2.2 L Current Medications Alprazolam (Xanax -) 0.25 mg PO Q12H PRN Last Admin: 01/18/17 21:26 Dose: 0.25 mg Aspirin (Ecotrin -) 81 mg PO DAILY [facility] Last Admin: 01/18/17 09:37 Dose: 81 mg Bacitracin (Bacitracin -) 1 applic TP DAILY [facility] Last Admin: 01/18/17 09:37 Dose: 1 applic Carvedilol (Coreg -) 25 mg PO BID [facility] Last Admin: 01/18/17 21:26 Dose: 25 mg Finasteride (Proscar -) 5 mg PO DAILY [facility] Last Admin: 01/18/17 09:37 Dose: 5 mg Furosemide (Lasix Injection -) 80 mg IVPUSH BID@0600,1400 [facility] Last Admin: 01/19/17 05:49 Dose: 80 mg Heparin Sodium (Porcine) (Heparin -) 5,000 unit SQ BID [facility] Last Admin: 01/18/17 21:25 Dose: 5,000 unit Cefazolin Sodium (Ancef 1gm Ivpb (Pre-Docked)) 50 mls @ 100 mls/hr IVPB BID [facility] Last Admin: 01/18/17 21:26 Dose: 100 mls/hr Insulin Aspart (Novolog Vial Sliding Scale -) 1 vial SQ TIDAC [facility] PRN Reason: Protocol Last Admin: 01/19/17 06:11 Dose: Not Given Insulin Detemir (Levemir Vial) 8 units SQ HS [facility] Last Admin: 01/18/17 21:51 Dose: Not Given Levothyroxine Sodium (Synthroid -) 50 mcg PO DAILY@0700 [facility] Last Admin: 01/19/17 06:11 Dose: 50 mcg Sodium Bicarbonate (Sodium Bicarbonate -) 650 mg PO BID [facility] Last Admin: 01/18/17 21:26 Dose: 650 mg Tamsulosin HCl (Flomax -) 0.4 mg PO DAILY [facility] Last Admin: 01/18/17 09:36 Dose: 0.4 mg A/P 81 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 with PMhx of CKD stage 4 (baseline Cr 2.6-3.3) with nephrotic range proteinuria, Systolic CHF, PVD s/p b/l LE amputations, Hyperlipidemia, Anemia who presented with SOB, LE swelling and found to have large pleural effusion and BUN/Cr of 81/3.5.\] #CKD Stage 4 with nephrotic rang proteinuria with volume overload Etiology of CKD likely ischemic + diabetic nephropathy but 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 as well Renal function stable Weights improving 190>174lbs continue present lasix dose no OLIVA/ARB no acute indication for [employer] #CHF/Pleural effusion titarte diuretics to achieve evolemia ? thoracentsis #Anion gap metabolic acidosis increase sodium bicarb to 1300mg BID Hugh Huggins DO Problem List - Problems (1) KAMRAN (acute kidney injury) Code(s): N17.9 - ACUTE KIDNEY FAILURE, UNSPECIFIED (2) CAD (coronary artery disease) Code(s): I25.10 - ATHSCL HEART DISEASE OF [place] CORONARY ARTERY W/O ANG PCTRS Qualifiers: Coronary Disease-Associated Artery/Lesion type: [place] artery [place] vs. transplanted heart: [place] heart Associated angina: without angina Qualified Code(s): I25.10 - Atherosclerotic heart disease of [place] coronary artery without angina pectoris (3) CHF (congestive heart failure) Code(s): I50.9 - HEART FAILURE, UNSPECIFIED Qualifiers: Congestive heart failure type: combined Congestive heart failure chronicity: acute on chronic Qualified Code(s): I50.43 - Acute on chronic combined systolic (congestive) and diastolic (congestive) heart failure (4) CHF exacerbation Code(s): I50.9 - HEART FAILURE, UNSPECIFIED Qualifiers: Congestive heart failure type: combined Qualified Code(s): I50.43 - Acute on chronic combined systolic (congestive) and diastolic (congestive) heart failure (5) HTN (hypertension) Code(s): I10 - ESSENTIAL (PRIMARY) HYPERTENSION Qualifiers: Hypertension type: essential hypertension Qualified Code(s): I10 - Essential (primary) hypertension (6) Nephrotic syndrome Code(s): N04.9 - NEPHROTIC SYNDROME WITH UNSPECIFIED MORPHOLOGIC CHANGES (7) Pleural effusion Code(s): J90 - PLEURAL EFFUSION, NOT ELSEWHERE CLASSIFIED (8) Metabolic acidosis Code(s): E87.2 - ACIDOSIS
--- NOTE | 2017-01-19 10:36 | PN ---
Progress Note (short form) - Note Progress Note: pt seen/ examined awake/ weak afebrile. Vital Signs Temp 97.9 F 01/19/17 05:22 Pulse 66 01/19/17 05:22 Resp 18 01/19/17 05:22 BP 135/77 01/19/17 05:22 Pulse Ox 96 01/18/17 21:00 Intake & Output 01/18/17 01/18/17 01/19/17 11:59 23:59 11:59 Intake Total 270 250 100 Output Total 500 50 Balance 270 -250 50 Weight 179 lb 6.4 oz 174 lb 12.8 oz Intake: IV 30 saline lock 30 IVPB 50 Oral 240 200 100 Output: Urine 500 50 Void 500 50 Other: Voiding Method Incontinent Incontinent Incontinent # Unmeasured Voids Void 2 1 2 Weight Measurement Method Patient Lift Scale Patient Lift Scale Active Medications Alprazolam (Xanax -) 0.25 mg PO Q12H PRN Last Admin: 01/18/17 21:26 Dose: 0.25 mg Aspirin (Ecotrin -) 81 mg PO DAILY [facility] Last Admin: 01/18/17 09:37 Dose: 81 mg Bacitracin (Bacitracin -) 1 applic TP DAILY [facility] Last Admin: 01/18/17 09:37 Dose: 1 applic Carvedilol (Coreg -) 25 mg PO BID [facility] Last Admin: 01/18/17 21:26 Dose: 25 mg Finasteride (Proscar -) 5 mg PO DAILY [facility] Last Admin: 01/18/17 09:37 Dose: 5 mg Furosemide (Lasix Injection -) 80 mg IVPUSH BID@0600,1400 [facility] Last Admin: 01/19/17 05:49 Dose: 80 mg Heparin Sodium (Porcine) (Heparin -) 5,000 unit SQ BID [facility] Last Admin: 01/18/17 21:25 Dose: 5,000 unit Cefazolin Sodium (Ancef 1gm Ivpb (Pre-Docked)) 50 mls @ 100 mls/hr IVPB BID [facility] Last Admin: 01/18/17 21:26 Dose: 100 mls/hr Insulin Aspart (Novolog Vial Sliding Scale -) 1 vial SQ TIDAC [facility] PRN Reason: Protocol Last Admin: 01/19/17 06:11 Dose: Not Given Insulin Detemir (Levemir Vial) 8 units SQ HS [facility] Last Admin: 01/18/17 21:51 Dose: Not Given Levothyroxine Sodium (Synthroid -) 50 mcg PO DAILY@0700 [facility] Last Admin: 01/19/17 06:11 Dose: 50 mcg Sodium Bicarbonate (Sodium Bicarbonate -) 1,300 mg PO BID [facility] Tamsulosin HCl (Flomax -) 0.4 mg PO DAILY [facility] Last Admin: 01/18/17 09:36 Dose: 0.4 mg CBC, BMP 01/19/17 06:00 01/19/17 06:00 Physical Examination Constitutional: Yes: No Distress but weak Cardiovascular: Yes: Regular Rate and Rhythm Respiratory: Yes: Diminished at bases Gastrointestinal: Yes: Normal Bowel Sounds, Soft. No: Distention, Tenderness Extremities: Yes: Amputation (B/L BKA, Rt BKA- wound+ surrounding erythema ) Edema: No Imaging - Results Chest X-ray: Image Reviewed EKG: Image Reviewed (sinus, 1st degree AV block) Problem List - Problems (1) KAMRAN (acute kidney injury) Code(s): N17.9 - ACUTE KIDNEY FAILURE, UNSPECIFIED (2) CHF (congestive heart failure) Code(s): I50.9 - HEART FAILURE, UNSPECIFIED Qualifiers: Congestive heart failure type: combined Congestive heart failure chronicity: acute on chronic Qualified Code(s): I50.43 - Acute on chronic combined systolic (congestive) and diastolic (congestive) heart failure (3) CHF exacerbation Code(s): I50.9 - HEART FAILURE, UNSPECIFIED Qualifiers: Congestive heart failure type: combined Qualified Code(s): I50.43 - Acute on chronic combined systolic (congestive) and diastolic (congestive) heart failure (4) HTN (hypertension) Code(s): I10 - ESSENTIAL (PRIMARY) HYPERTENSION Qualifiers: Hypertension type: essential hypertension Qualified Code(s): I10 - Essential (primary) hypertension (5) Acute on chronic systolic and diastolic heart failure, NYHA class 3 Code(s): I50.43 - ACUTE ON CHRONIC COMBINED SYSTOLIC AND DIASTOLIC HRT FAIL (6) Pleural effusion Code(s): J90 - PLEURAL EFFUSION, NOT ELSEWHERE CLASSIFIED Assessment/Plan condition same continue lasix losing weight abx continue present care u/c pending xanax for anxiety physical therapy daily oob - chair condition gaurded will follow discussed with nursing staff also.
[2017-01-19] MEDS: FINASTERIDE 5 MG TABLET (FP) PO SCH (10:48)
[2017-01-19] MEDS: CEFAZOLIN (PRE-DOCKED) 50 ML IVPB SCH ×2 (10:48→21:24)
[2017-01-19] MEDS: TAMSULOSIN HCL 0.4 MG CAP.ER.24H (FP) PO SCH (10:48)
[2017-01-19] MEDS: BACITRACIN 15 GM TUBE TOPICAL OINTMENT TP SCH (10:49)
[2017-01-19] MEDS: CARVEDILOL 25 MG TABLET (FP) PO SCH ×2 (10:49→21:24)
[2017-01-19] MEDS: ASPIRIN COATED 81 MG TABLET.EC PO SCH (10:49)
[2017-01-19] MEDS: SODIUM BICARBONATE 650 MG TABLET PO SCH ×2 (11:39→21:24)
--- NOTE | 2017-01-19 16:11 | PN ---
Progress Note (short form) - Note Progress Note: CC: s: no cp palps dizzy; sob same unchanged. LE edema unchanged. + fatigue/ lethargy. Lasix increased to 80 mg IV bid yesterday. o: Current Medications Alprazolam (Xanax -) 0.25 mg PO Q12H PRN Last Admin: 01/18/17 21:26 Dose: 0.25 mg Aspirin (Ecotrin -) 81 mg PO DAILY [facility] Last Admin: 01/19/17 10:49 Dose: 81 mg Bacitracin (Bacitracin -) 1 applic TP DAILY [facility] Last Admin: 01/19/17 10:49 Dose: 1 applic Carvedilol (Coreg -) 25 mg PO BID [facility] Last Admin: 01/19/17 10:49 Dose: 25 mg Finasteride (Proscar -) 5 mg PO DAILY [facility] Last Admin: 01/19/17 10:48 Dose: 5 mg Furosemide (Lasix Injection -) 80 mg IVPUSH BID@0600,1400 [facility] Last Admin: 01/19/17 15:50 Dose: 80 mg Heparin Sodium (Porcine) (Heparin -) 5,000 unit SQ BID [facility] Last Admin: 01/19/17 10:00 Dose: 5,000 unit Cefazolin Sodium (Ancef 1gm Ivpb (Pre-Docked)) 50 mls @ 100 mls/hr IVPB BID [facility] Last Admin: 01/19/17 10:48 Dose: 100 mls/hr Insulin Aspart (Novolog Vial Sliding Scale -) 1 vial SQ TIDAC [facility] PRN Reason: Protocol Last Admin: 01/19/17 11:45 Dose: Not Given Insulin Detemir (Levemir Vial) 8 units SQ HS [facility] Last Admin: 01/18/17 21:51 Dose: Not Given Levothyroxine Sodium (Synthroid -) 50 mcg PO DAILY@0700 [facility] Last Admin: 01/19/17 06:11 Dose: 50 mcg Sodium Bicarbonate (Sodium Bicarbonate -) 1,300 mg PO BID [facility] Tamsulosin HCl (Flomax -) 0.4 mg PO DAILY [facility] Last Admin: 01/19/17 10:48 Dose: 0.4 mg Vital Signs - 24 hr 01/18/17 01/18/17 01/18/17 18:00 21:00 22:00 Temperature 98.2 F 98 F Pulse Rate 67 71 Respiratory 18 18 18 Rate Blood Pressure 124/74 134/73 O2 Sat by Pulse 96 Oximetry (%) 01/19/17 01/19/17 01/19/17 01:58 05:22 09:00 Temperature 98.5 F 97.9 F Pulse Rate 107 H 66 Respiratory 18 18 20 Rate Blood Pressure 141/88 135/77 O2 Sat by Pulse 96 Oximetry (%) 01/19/17 01/19/17 10:47 15:46 Temperature 98 F 98 F Pulse Rate 116 H 72 Respiratory 20 20 Rate Blood Pressure 118/82 127/71 O2 Sat by Pulse Oximetry (%) Intake & Output 01/17/17 01/18/17 01/19/17 01/20/17 07:59 07:59 07:59 07:59 Intake Total 50 870 350 120 Output Total 300 550 300 Balance 50 570 -200 -180 Weight 190 lb 179 lb 6.4 oz 174 lb 12.8 oz Constitutional: Yes: Well Nourished, No Distress Respiratory: Yes: Diminished (R base). nl eff No: Accessory Muscle Use Gastrointestinal: Yes: Normal Bowel Sounds. No: Distention, Hepatomegaly, Palpable Mass, Tenderness Cardiovascular: Yes: Regular Rate and Rhythm JVD: No Heart Sounds: Yes: S1, S2. No: Gallop Murmur: No: Systolic Murmur, Diastolic Murmur Extremities: No: Cold, Cyanosis Edema: (+edema in thighs (s/p bilat amp) Integumentary: No: Jaundice diaphoresis Neurological: Yes: Alert. 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 pacs. episode of svt cxr: large right eff Echo 11/2015 (): mild LVE; severe, global HK; nl RV; mod MR, mild TR; no RVSP echo 11/2016: mod lve, sev dec lvef, global hk, mod rve, mod dec rv fcn, sarah, mod mr, mild tr, rvsp 30-40 a/p: 81 yo with CAD s/p CABG, severe LV dysfunction on prior echo, HTN, HL, prior B LE amputations, DM, prior UE thrombus, CKD with nephrotic range proteinuria, bph who presented with sob. acute on chronic syst chf: -several prior admits for sob/chf -required thoracentesis for large right eff 2015 and again 11/2016 (reportedly was transudative c/w chf) -currently with signs of vol overload and recurrent large right eff -01/18 no change in sob or cxr after lasix 40 iv bid-->cr stable/improved so will increase to lasix 80 iv bid, monitor daily bmp, wts - 01/19: still no improvement in sx's on increased lasix dose. unable to record i/ o and ? accuracy of bed weights. Will give trial of extra dose of 80 mg IV lasix this afternoon. If bun/cr worsens consider need for milrinone. -if no improvement with lasix or worsening renal fcn may need another thoracentesis -cont coreg -hold entresto due to claudio on ckd -pt not interested in icd, cont outpt discussions positive trops: -borderline trop elevation with flat trend and normal ck, not consistent with acs, likely 2/2 chf/claudio -no new ecg findings brief svt on tele. - on max dose of coreg. con't to monitor. lytes repleted. CAD: -s/p 4V cabg (1991) -no angina sxs -no ekg changes vs baseline -cont coreg, asa HTN: -cont coreg claudio on ckd: -baseline creat range here is 2.8-3.3 -cr above baseline on admit, possibly cardiorenal, observe trend with diuresis. DM: -s/p right BKA and left AKA -glycemia mgmt per PMD
[2017-01-19] MEDS ORDERED: FUROSEMIDE 40 MG/4 ML INJECTABLE VIAL IVPUSH ONE (16:54)
[2017-01-19] MEDS: ISOSORBIDE DINITRATE 10 MG TABLET (FP) PO SCH (17:11)
[2017-01-19] MEDS: hydrALAZINE HCL 10 MG TABLET PO SCH ×2 (17:12→21:26)
[2017-01-19] MEDS: INSULIN DETEMIR 100 UNITS/ML MDV SQ SCH (21:41)
[2017-01-20] MEDS: INSULIN SLIDING SCALE (NOVOLOG) 1 VIAL SQ SCH ×3 (06:06→17:21)
[2017-01-20] MEDS: FUROSEMIDE 40 MG/4 ML INJECTABLE VIAL IVPUSH SCH ×2 (06:12→14:19)
[2017-01-20] MEDS: LEVOTHYROXINE NA 50 MCG TABLET (FP) PO SCH (06:12)
[2017-01-20 07:22] LABS: ANION GAP 11 (8-16); CALCIUM 7.8 mg/dL (8.5-10.1); CO2 19 mmol/L (21-32); CREATININE 3.6 mg/dL (0.7-1.3); GLUCOSE,RANDOM 69 mg/dL (74-106); MAGNESIUM 2.2 mg/dL (1.8-2.4); PHOSPHOROUS 3.8 mg/dL (2.5-4.9)
--- NOTE | 2017-01-20 09:05 | PN ---
Progress Note (short form) - Note Progress Note: Renal Follow up for CKD with Volume overload Pt seen and examined at the bedside reports tenderness in right ear has some purlent and foul smelling discharge continues to have some dyspnea Vital Signs Temperature 98 F 01/20/17 07:52 Pulse Rate 60 01/20/17 07:52 Respiratory Rate 18 01/20/17 07:52 Blood Pressure 125/68 01/20/17 07:52 O2 Sat by Pulse Oximetry (%) 95 01/19/17 21:00 Intake & Output 01/17/17 01/18/17 01/19/17 01/20/17 23:59 23:59 23:59 23:59 Intake Total 650 520 610 Output Total 300 500 350 Balance 350 20 260 Weight 190 lb 179 lb 6.4 oz 174 lb 12.8 oz 171 lb 8 oz Gen: NAD CVS: RRR Lungs: Dec BS b/l lung freitas Ext: 2+ edema in LE, s/l amp CBC, BMP 01/19/17 06:00 01/20/17 05:40 Current Medications Alprazolam (Xanax -) 0.25 mg PO Q12H PRN Last Admin: 01/18/17 21:26 Dose: 0.25 mg Aspirin (Ecotrin -) 81 mg PO DAILY [facility] Last Admin: 01/19/17 10:49 Dose: 81 mg Bacitracin (Bacitracin -) 1 applic TP DAILY [facility] Last Admin: 01/19/17 10:49 Dose: 1 applic Carvedilol (Coreg -) 25 mg PO BID [facility] Last Admin: 01/19/17 21:24 Dose: 25 mg Finasteride (Proscar -) 5 mg PO DAILY [facility] Last Admin: 01/19/17 10:48 Dose: 5 mg Furosemide (Lasix Injection -) 80 mg IVPUSH BID@0600,1400 [facility] Last Admin: 01/20/17 06:12 Dose: 80 mg Heparin Sodium (Porcine) (Heparin -) 5,000 unit SQ BID [facility] Last Admin: 01/19/17 21:23 Dose: 5,000 unit Hydralazine HCl (Apresoline -) 20 mg PO BID [facility] Last Admin: 01/19/17 21:26 Dose: 20 mg Cefazolin Sodium (Ancef 1gm Ivpb (Pre-Docked)) 50 mls @ 100 mls/hr IVPB BID [facility] Last Admin: 01/19/17 21:24 Dose: 100 mls/hr Insulin Aspart (Novolog Vial Sliding Scale -) 1 vial SQ TIDAC [facility] PRN Reason: Protocol Last Admin: 01/20/17 06:06 Dose: Not Given Insulin Detemir (Levemir Vial) 8 units SQ HS [facility] Last Admin: 01/19/17 21:41 Dose: 8 units Isosorbide Dinitrate (Isordil -) 20 mg PO BIDISORDIL [facility] Last Admin: 01/19/17 17:11 Dose: 20 mg Levothyroxine Sodium (Synthroid -) 50 mcg PO DAILY@0700 [facility] Last Admin: 01/20/17 06:12 Dose: 50 mcg Sodium Bicarbonate (Sodium Bicarbonate -) 1,300 mg PO BID [facility] Last Admin: 01/19/17 21:24 Dose: 1,300 mg Tamsulosin HCl (Flomax -) 0.4 mg PO DAILY [facility] Last Admin: 01/19/17 10:48 Dose: 0.4 mg A/P 81 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 with PMhx of CKD stage 4 (baseline Cr 2.6-3.3) with nephrotic range proteinuria, Systolic CHF, PVD s/p b/l LE amputations, Hyperlipidemia, Anemia who presented with SOB, LE swelling and found to have large pleural effusion and BUN/Cr of 81/3.5.\] #CKD Stage 4 with nephrotic rang proteinuria with volume overload Etiology of CKD likely ischemic + diabetic nephropathy but 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 as well Renal function stable throughout the admission (BUN now starting to up trend but Cr stable) pt appears responsive to diuretics as weights continue to imporve would continue BID Lasix for now Trend BUN/Cr and electrolytes #Right Ear discharge e/o otitis externa will need ENT Evaluation and topical steroid/Abx #Anion gap metabolic acidosis continue sodium bicarb to 1300mg BID Hugh Huggins DO Problem List - Problems (1) KAMRAN (acute kidney injury) Code(s): N17.9 - ACUTE KIDNEY FAILURE, UNSPECIFIED (2) CAD (coronary artery disease) Code(s): I25.10 - ATHSCL HEART DISEASE OF [place] CORONARY ARTERY W/O ANG PCTRS Qualifiers: Coronary Disease-Associated Artery/Lesion type: [place] artery [place] vs. transplanted heart: [place] heart Associated angina: without angina Qualified Code(s): I25.10 - Atherosclerotic heart disease of [place] coronary artery without angina pectoris (3) CHF (congestive heart failure) Code(s): I50.9 - HEART FAILURE, UNSPECIFIED Qualifiers: Congestive heart failure type: combined Congestive heart failure chronicity: acute on chronic Qualified Code(s): I50.43 - Acute on chronic combined systolic (congestive) and diastolic (congestive) heart failure (4) CHF exacerbation Code(s): I50.9 - HEART FAILURE, UNSPECIFIED Qualifiers: Congestive heart failure type: combined Qualified Code(s): I50.43 - Acute on chronic combined systolic (congestive) and diastolic (congestive) heart failure (5) HTN (hypertension) Code(s): I10 - ESSENTIAL (PRIMARY) HYPERTENSION Qualifiers: Hypertension type: essential hypertension Qualified Code(s): I10 - Essential (primary) hypertension (6) Nephrotic syndrome Code(s): N04.9 - NEPHROTIC SYNDROME WITH UNSPECIFIED MORPHOLOGIC CHANGES (7) Pleural effusion Code(s): J90 - PLEURAL EFFUSION, NOT ELSEWHERE CLASSIFIED (8) Metabolic acidosis Code(s): E87.2 - ACIDOSIS
[2017-01-20] MEDS: SODIUM BICARBONATE 650 MG TABLET PO SCH ×2 (09:21→21:23)
[2017-01-20] MEDS: CEFAZOLIN (PRE-DOCKED) 50 ML IVPB SCH ×2 (09:21→21:24)
[2017-01-20] MEDS: TAMSULOSIN HCL 0.4 MG CAP.ER.24H (FP) PO SCH (09:22)
[2017-01-20] MEDS: ASPIRIN COATED 81 MG TABLET.EC PO SCH (09:22)
[2017-01-20] MEDS: hydrALAZINE HCL 10 MG TABLET PO SCH ×2 (09:22→21:24)
[2017-01-20] MEDS: ISOSORBIDE DINITRATE 10 MG TABLET (FP) PO SCH ×2 (09:22→21:26)
[2017-01-20] MEDS: FINASTERIDE 5 MG TABLET (FP) PO SCH (09:22)
[2017-01-20] MEDS: HEPARIN NA (PORCINE) 5,000 UNITS/ML 1ML VIAL SQ SCH ×2 (09:22→21:23)
[2017-01-20] MEDS: CARVEDILOL 25 MG TABLET (FP) PO SCH ×2 (09:22→21:23)
[2017-01-20] MEDS: BACITRACIN 15 GM TUBE TOPICAL OINTMENT TP SCH (09:23)
[2017-01-20] MEDS ORDERED: OFLOXACIN 0.3% OTIC SOLUTION 5 ML BOTTLE AD SCH (10:00)
[2017-01-20] MEDS ORDERED: POLYETHYLENE GLYCOL 3350 119 GM BTL PO PRN (12:04)
--- NOTE | 2017-01-20 12:10 | PN ---
Progress Note (short form) - Note Progress Note: pt seen/ examined more alert and awake. eating ok purulent discharge from left ear today pain + afebrile. Vital Signs Temp 98 F 01/20/17 07:52 Pulse 60 01/20/17 07:52 Resp 18 01/20/17 08:00 BP 125/68 01/20/17 07:52 Pulse Ox 93 L 01/20/17 08:00 Intake & Output 01/19/17 01/20/17 01/20/17 23:59 11:59 23:59 Intake Total 390 Output Total 200 Balance 190 Weight 171 lb 8 oz Intake: IVPB 50 Oral 340 Output: Urine 200 Void 200 Other: Voiding Method Incontinent Incontinent # Unmeasured Voids Void 3 3 Bowel Movement Yes # Bowel Movements 2 Weight Measurement Method Patient Lift Scale Active Medications Acetaminophen (Tylenol -) 500 mg PO Q4H PRN PRN Reason: FEVER OR PAIN Alprazolam (Xanax -) 0.25 mg PO Q12H PRN Last Admin: 01/18/17 21:26 Dose: 0.25 mg Aspirin (Ecotrin -) 81 mg PO DAILY [facility] [place] Last Admin: 01/20/17 09:22 Dose: 81 mg Bacitracin (Bacitracin -) 1 applic TP DAILY [facility] Last Admin: 01/20/17 09:23 Dose: 1 applic Carvedilol (Coreg -) 25 mg PO BID [facility] Last Admin: 01/20/17 09:22 Dose: 25 mg Finasteride (Proscar -) 5 mg PO DAILY [facility] Last Admin: 01/20/17 09:22 Dose: 5 mg Furosemide (Lasix Injection -) 80 mg IVPUSH BID@0600,1400 [facility] [place] Last Admin: 01/20/17 06:12 Dose: 80 mg Heparin Sodium (Porcine) (Heparin -) 5,000 unit SQ BID [facility] [place] Last Admin: 01/20/17 09:22 Dose: 5,000 unit Hydralazine HCl (Apresoline -) 20 mg PO BID [facility] [place] Last Admin: 01/20/17 09:22 Dose: 20 mg Cefazolin Sodium (Ancef 1gm Ivpb (Pre-Docked)) 50 mls @ 100 mls/hr IVPB BID [facility] [place] Last Admin: 01/20/17 09:21 Dose: 100 mls/hr Insulin Aspart (Novolog Vial Sliding Scale -) 1 vial SQ TIDAC [facility] PRN Reason: Protocol Last Admin: 01/20/17 12:03 Dose: Not Given Insulin Detemir (Levemir Vial) 8 units SQ HS [facility] [place] Last Admin: 01/19/17 21:41 Dose: 8 units Isosorbide Dinitrate (Isordil -) 20 mg PO BIDISORDIL [facility] [place] Last Admin: 01/20/17 09:22 Dose: 20 mg Levothyroxine Sodium (Synthroid -) 50 mcg PO DAILY@0700 [facility] [place] Last Admin: 01/20/17 06:12 Dose: 50 mcg Ofloxacin (Floxin Otic (Ear) Solution -) 10 drop AD DAILY [facility] [place] Stop: 01/27/17 09:59 Ofloxacin (Floxin Otic (Ear) Solution -) 10 drop AD DAILY [facility] [place] Stop: 01/21/17 12:14 Polyethylene Glycol (Miralax (For Daily Use) -) 17 gm PO DAILY PRN PRN Reason: CONSTIPATION Sodium Bicarbonate (Sodium Bicarbonate -) 1,300 mg PO BID [facility] [place] Last Admin: 01/20/17 09:21 Dose: 1,300 mg Tamsulosin HCl (Flomax -) 0.4 mg PO DAILY [facility] [place] Last Admin: 01/20/17 09:22 Dose: 0.4 mg CBC,CMP WBC 7.1 K/mm3 (4.0-10.0) 01/19/17 06:00 RBC 3.90 M/mm3 (4.00-5.60) L 01/19/17 06:00 Hgb 11.4 GM/dL (11.7-16.9) L 01/19/17 06:00 Hct 34.2 % (35.4-49) L 01/19/17 06:00 MCV 87.7 fl (80-96) 01/19/17 06:00 MCH 29.3 pg (25.7-33.7) 01/19/17 06:00 MCHC 33.4 g/dl (32.0-35.9) 01/19/17 06:00 RDW 16.3 % (11.9-15.9) H 01/19/17 06:00 Plt Count 164 K/MM3 (134-434) 01/19/17 06:00 MPV 7.9 fl (7.5-11.1) 01/19/17 06:00 Neutrophils % 74.5 % (42.8-82.8) 01/19/17 06:00 Lymphocytes % 12.4 % (8-40) D 01/19/17 06:00 Monocytes % 12.0 % (3.8-10.2) H 01/19/17 06:00 Eosinophils % 0.8 % (0-4.5) 01/19/17 06:00 Basophils % 0.3 % (0-2.0) 01/19/17 06:00 Sodium 140 mmol/L (136-145) 01/20/17 05:40 Potassium 4.1 mmol/L (3.5-5.1) 01/20/17 05:40 Chloride 110 mmol/L (98-107) H 01/20/17 05:40 Carbon Dioxide 19 mmol/L (21-32) L 01/20/17 05:40 Anion Gap 11 (8-16) 01/20/17 05:40 BUN 84 mg/dL (7-18) H 01/20/17 05:40 Creatinine 3.6 mg/dL (0.7-1.3) H 01/20/17 05:40 Creat Clearance w eGFR 16.98 (>60) 01/19/17 06:00 POC Glucometer 77 UNITS (()) 01/20/17 05:50 Random Glucose 69 mg/dL (74-106) L D 01/20/17 05:40 Hemoglobin A1c % 6.8 % (4.8-6.0) H D 01/19/17 06:00 Calcium 7.8 mg/dL (8.5-10.1) L 01/20/17 05:40 Phosphorus 3.8 mg/dL (2.5-4.9) 01/20/17 05:40 Magnesium 2.2 mg/dL (1.8-2.4) 01/20/17 05:40 Total Bilirubin 0.8 mg/dL (0.2-1.0) 01/19/17 06:00 AST 18 U/L (15-37) 01/19/17 06:00 ALT 7 U/L (12-78) L D 01/19/17 06:00 Alkaline Phosphatase 181 U/L (45-117) H 01/19/17 06:00 Creatine Kinase 119 IU/L (39-308) 01/17/17 05:35 Creatine Kinase Index 2.7 % (0.0-5.0) 01/16/17 15:05 CK-MB (CK-2) 5.468 ng/ml (0.5-3.6) H 01/16/17 15:05 CK-MB (CK-2) Rel Index Cancelled 01/16/17 15:05 Troponin I 0.08 ng/ml (0.00-0.05) H 01/17/17 05:35 B-Natriuretic Peptide 539504.78 pg/ml (5-450) H 01/16/17 18:50 Total Protein 6.4 g/dl (6.4-8.2) 01/19/17 06:00 Albumin 2.2 g/dl (3.4-5.0) L 01/19/17 06:00 Physical Examination Constitutional: Yes: awake/ alert Cardiovascular: Yes: Regular Rate and Rhythm Respiratory: Yes: Diminished at bases Gastrointestinal: Yes: Normal Bowel Sounds, Soft. No: Distention, Tenderness Extremities: Yes: Amputation (B/L BKA, Rt BKA- wound+ surrounding erythema ) Edema: No Right Ear-- whitish discharge + Tender pre - auricular adenopathy Imaging - Results Chest X-ray: Image Reviewed EKG: Image Reviewed (sinus, 1st degree AV block) Problem List - Problems (1) KAMRAN (acute kidney injury) Code(s): N17.9 - ACUTE KIDNEY FAILURE, UNSPECIFIED (2) CHF (congestive heart failure) Code(s): I50.9 - HEART FAILURE, UNSPECIFIED Qualifiers: Congestive heart failure type: combined Congestive heart failure chronicity: acute on chronic Qualified Code(s): I50.43 - Acute on chronic combined systolic (congestive) and diastolic (congestive) heart failure (3) CHF exacerbation Code(s): I50.9 - HEART FAILURE, UNSPECIFIED Qualifiers: Congestive heart failure type: combined Qualified Code(s): I50.43 - Acute on chronic combined systolic (congestive) and diastolic (congestive) heart failure (4) HTN (hypertension) Code(s): I10 - ESSENTIAL (PRIMARY) HYPERTENSION Qualifiers: Hypertension type: essential hypertension Qualified Code(s): I10 - Essential (primary) hypertension (5) Acute on chronic systolic and diastolic heart failure, NYHA class 3 Code(s): I50.43 - ACUTE ON CHRONIC COMBINED SYSTOLIC AND DIASTOLIC HRT FAIL (6) Pleural effusion Code(s): J90 - PLEURAL EFFUSION, NOT ELSEWHERE CLASSIFIED Assessment/Plan overall looks better ear drops already on abx ent consult requested cr worsening cardiology/ renal on case tylenol for pain pt also feels constipated-- start on miralax f/u labs condition stable but remains gaurded will follow discussed with nursing staff.
--- NOTE | 2017-01-20 13:34 | PN ---
Progress Note (short form) - Note Progress Note: CC: sob/claudio s: no cp palps dizzy; sob LE edema fatigue/lethargy all slightly improved. Given extra dose of lasix 80 mg IV x 1 last night in addition to BID dosing. Nursing confirmed diaper full 1 hour after lasix administration. Started on hydralazine and imdur yesterday for afterload reduction. o: Current Medications Acetaminophen (Tylenol -) 500 mg PO Q4H PRN PRN Reason: FEVER OR PAIN Alprazolam (Xanax -) 0.25 mg PO Q12H PRN Last Admin: 01/18/17 21:26 Dose: 0.25 mg Aspirin (Ecotrin -) 81 mg PO DAILY [facility] Last Admin: 01/20/17 09:22 Dose: 81 mg Bacitracin (Bacitracin -) 1 applic TP DAILY [facility] Last Admin: 01/20/17 09:23 Dose: 1 applic Carvedilol (Coreg -) 25 mg PO BID [facility] Last Admin: 01/20/17 09:22 Dose: 25 mg Finasteride (Proscar -) 5 mg PO DAILY [facility] Last Admin: 01/20/17 09:22 Dose: 5 mg Furosemide (Lasix Injection -) 80 mg IVPUSH BID@0600,1400 [facility] Last Admin: 01/20/17 06:12 Dose: 80 mg Heparin Sodium (Porcine) (Heparin -) 5,000 unit SQ BID [facility] Last Admin: 01/20/17 09:22 Dose: 5,000 unit Hydralazine HCl (Apresoline -) 20 mg PO BID [facility] Last Admin: 01/20/17 09:22 Dose: 20 mg Cefazolin Sodium (Ancef 1gm Ivpb (Pre-Docked)) 50 mls @ 100 mls/hr IVPB BID [facility] Last Admin: 01/20/17 09:21 Dose: 100 mls/hr Insulin Aspart (Novolog Vial Sliding Scale -) 1 vial SQ TIDAC [facility] PRN Reason: Protocol Last Admin: 01/20/17 12:03 Dose: Not Given Insulin Detemir (Levemir Vial) 8 units SQ HS [facility] Last Admin: 01/19/17 21:41 Dose: 8 units Isosorbide Dinitrate (Isordil -) 20 mg PO BIDISORDIL [facility] Last Admin: 01/20/17 09:22 Dose: 20 mg Levothyroxine Sodium (Synthroid -) 50 mcg PO DAILY@0700 [facility] Last Admin: 01/20/17 06:12 Dose: 50 mcg Ofloxacin (Floxin Otic (Ear) Solution -) 10 drop AD DAILY [facility] Stop: 01/21/17 12:14 Polyethylene Glycol (Miralax (For Daily Use) -) 17 gm PO DAILY PRN PRN Reason: CONSTIPATION Sodium Bicarbonate (Sodium Bicarbonate -) 1,300 mg PO BID [facility] Last Admin: 01/20/17 09:21 Dose: 1,300 mg Tamsulosin HCl (Flomax -) 0.4 mg PO DAILY [facility] Last Admin: 01/20/17 09:22 Dose: 0.4 mg Vital Signs - 24 hr 01/19/17 01/19/17 01/19/17 15:46 17:00 21:00 Temperature 98 F 98.8 F 98 F Pulse Rate 72 70 69 Respiratory 20 18 18 Rate Blood Pressure 127/71 129/70 121/61 O2 Sat by Pulse 95 Oximetry (%) 01/20/17 01/20/17 01/20/17 02:00 05:11 07:52 Temperature 97.3 F L 97.1 F L 98 F Pulse Rate 66 61 60 Respiratory 18 18 18 Rate Blood Pressure 115/63 120/64 125/68 O2 Sat by Pulse Oximetry (%) 01/20/17 08:00 Temperature Pulse Rate Respiratory 18 Rate Blood Pressure O2 Sat by Pulse 93 L Oximetry (%) Intake & Output 01/18/17 01/19/17 01/20/17 01/21/17 07:59 07:59 07:59 07:59 Intake Total 870 350 510 Output Total 300 550 300 Balance 570 -200 210 Weight 179 lb 6.4 oz 174 lb 12.8 oz 171 lb 8 oz Constitutional: Yes: Well Nourished, No Distress Respiratory: Yes: Diminished (R base). nl eff No: Accessory Muscle Use Gastrointestinal: Yes: Normal Bowel Sounds. No: Distention, Hepatomegaly, Palpable Mass, Tenderness Cardiovascular: Yes: Regular Rate and Rhythm JVD: No Heart Sounds: Yes: S1, S2. No: Gallop Murmur: No: Systolic Murmur, Diastolic Murmur Extremities: No: Cold, Cyanosis Edema: (+edema in thighs (s/p bilat amp) --> improved Integumentary: No: Jaundice diaphoresis Neurological: Yes: Alert. No: Seizure Psychiatric: No: Agitated, aaox3 CBC, BMP 01/19/17 06:00 01/20/17 05:40 ekg 01/16/17: SR with 1st degree AVB; borderline QTC, old IWMI; diffuse NSST-Ts-- no change vs priors tele: sr, pvcs. pacs. 8-beat episode of nsvt. cxr: large right eff Echo 11/2015 ([facility]): mild LVE; severe, global HK; nl RV; mod MR, mild TR; no RVSP echo 11/2016: mod lve, sev dec lvef, global hk, mod rve, mod dec rv fcn, sarah, mod mr, mild tr, rvsp 30-40 a/p: 81 yo with CAD s/p CABG, severe LV dysfunction on prior echo, HTN, HL, prior B LE amputations, DM, prior UE thrombus, CKD with nephrotic range proteinuria, bph who presented with sob. acute on chronic syst chf - Biventricular failure -several prior admits for sob/chf -required thoracentesis for large right eff 2015 and again 11/2016 (reportedly was transudative c/w chf) -currently with signs of vol overload and recurrent large right eff -01/18 no change in sob or cxr after lasix 40 iv bid-->cr stable/improved so will increase to lasix 80 iv bid, monitor daily bmp, wts - 01/19: still no improvement in sx's on increased lasix dose. unable to record i/ o and ? accuracy of bed weights (although weights trending down). Will give trial of extra dose of 80 mg IV lasix this afternoon. If bun/cr worsens consider need for milrinone. - 01/20: received additional 80 mg IV lasix yesterday (total of 3 doses). weight con't to decrease but bun/cr not improved. will go back to bid dosing. Hydralazine and imdur added 01/19 to augment cardiac output via afterload reduction, but no significant decrease in bp. Will uptitrate today. If still no improvement in bun/cr tomorrow with lower bp's and ongoing diuresis --> need to consider starting milrinone. -if no improvement with lasix or worsening renal fcn may need another thoracentesis -cont coreg -holding entresto due to claudio on ckd, replaced with hydral/imdur -per report, pt not interested in icd, cont outpt discussions positive trops: -borderline trop elevation with flat trend and normal ck, not consistent with acs, likely 2/2 chf/claudio -no new ecg findings brief svt on tele, nsvt. - on max dose of coreg. con't to monitor. lytes repleted. CAD: -s/p 4V cabg (1991) -no angina sxs -no ekg changes vs baseline -cont coreg, asa HTN: -cont coreg, hydral, imdur claudio on ckd: -baseline creat range here is 2.8-3.3 -cr above baseline on admit, possibly cardiorenal, observe trend with diuresis. renal following DM: -s/p right BKA and left AKA -glycemia mgmt per PMD
[2017-01-20] MEDS ORDERED: ISOSORBIDE DINITRATE 10 MG TABLET (FP) PO ONE (13:50)
[2017-01-20] MEDS ORDERED: hydrALAZINE HCL 10 MG TABLET PO SCH (14:00)
[2017-01-20] MEDS: ACETAMINOPHEN 500 MG TABLET (FP) PO PRN ×2 (14:18→21:35)
[2017-01-20] MEDS: OFLOXACIN 0.3% OTIC SOLUTION 5 ML BOTTLE AD SCH (14:18)
[2017-01-20] MEDS: ALPRAZolam 0.25 MG TABLET PO PRN (21:35)
[2017-01-20] MEDS: INSULIN DETEMIR 100 UNITS/ML MDV SQ SCH (22:23)
[2017-01-21] MEDS: hydrALAZINE HCL 10 MG TABLET PO SCH ×3 (05:56→21:53)
[2017-01-21] MEDS: FUROSEMIDE 40 MG/4 ML INJECTABLE VIAL IVPUSH SCH ×2 (05:56→14:03)
[2017-01-21] MEDS: ACETAMINOPHEN 500 MG TABLET (FP) PO PRN ×2 (05:57→21:52)
[2017-01-21] MEDS: LEVOTHYROXINE NA 50 MCG TABLET (FP) PO SCH (06:00)
[2017-01-21] MEDS: INSULIN SLIDING SCALE (NOVOLOG) 1 VIAL SQ SCH ×3 (06:06→17:24)
[2017-01-21 07:25] LABS: BASOPHIL 0.5 % (0-2.0); EOSINOPHIL 2.9 % (0-4.5); MCH 29.5 pg (25.7-33.7); MCHC 33.7 g/dl (32.0-35.9); MEAN CELL VOLUME 87.4 fl (80-96); MEAN PLT VOLUME 7.9 fl (7.5-11.1); NEUTROPHILS 68.5 % (42.8-82.8); PLATELET COUNT 213 K/MM3 (134-434); RDW 16.2 % (11.9-15.9); WHITE BLOOD COUNT 5.6 K/mm3 (4.0-10.0)
[2017-01-21 08:04] LABS: ANION GAP 10 (8-16); BILIRUBIN,TOTAL 0.6 mg/dL (0.2-1.0); CALCIUM 7.8 mg/dL (8.5-10.1); CO2 20 mmol/L (21-32); CREATININE 3.7 mg/dL (0.7-1.3); GLUCOSE,RANDOM 86 mg/dL (74-106); SGOT/AST 14 U/L (15-37); SGPT/ALT < 6 U/L (12-78); TOT PROT 5.9 g/dl (6.4-8.2)
[2017-01-21 08:05] LABS: ALK PHOS 176 U/L (45-117)
--- NOTE | 2017-01-21 09:49 | PN ---
Progress Note, Physician Chief Complaint: chf History of Present Illness: denies sob, cp, palpitations, dizzy at the moment no cigs - Current Medication List Current Medications: Active Medications Acetaminophen (Tylenol -) 500 mg PO Q4H PRN PRN Reason: FEVER OR PAIN Last Admin: 01/21/17 05:57 Dose: 500 mg Alprazolam (Xanax -) 0.25 mg PO Q12H PRN Last Admin: 01/20/17 21:35 Dose: 0.25 mg Aspirin (Ecotrin -) 81 mg PO DAILY [facility] Last Admin: 01/20/17 09:22 Dose: 81 mg Bacitracin (Bacitracin -) 1 applic TP DAILY [facility] Last Admin: 01/20/17 09:23 Dose: 1 applic Carvedilol (Coreg -) 25 mg PO BID [facility] Last Admin: 01/20/17 21:23 Dose: 25 mg Finasteride (Proscar -) 5 mg PO DAILY [facility] Last Admin: 01/20/17 09:22 Dose: 5 mg Furosemide (Lasix Injection -) 80 mg IVPUSH BID@0600,1400 [facility] Last Admin: 01/21/17 05:56 Dose: 80 mg Heparin Sodium (Porcine) (Heparin -) 5,000 unit SQ BID [facility] Last Admin: 01/20/17 21:23 Dose: 5,000 unit Hydralazine HCl (Apresoline -) 20 mg PO TID [facility] Last Admin: 01/21/17 05:56 Dose: 20 mg Cefazolin Sodium (Ancef 1gm Ivpb (Pre-Docked)) 50 mls @ 100 mls/hr IVPB BID [facility] Last Admin: 01/20/17 21:24 Dose: 100 mls/hr Insulin Aspart (Novolog Vial Sliding Scale -) 1 vial SQ TIDAC [facility] PRN Reason: Protocol Last Admin: 01/21/17 06:06 Dose: Not Given Insulin Detemir (Levemir Vial) 8 units SQ HS [facility] Last Admin: 01/20/17 22:23 Dose: 8 units Isosorbide Dinitrate (Isordil -) 30 mg PO BIDISORDIL [facility] Last Admin: 01/20/17 21:26 Dose: 30 mg Levothyroxine Sodium (Synthroid -) 50 mcg PO DAILY@0700 [facility] Last Admin: 01/21/17 06:00 Dose: 50 mcg Ofloxacin (Floxin Otic (Ear) Solution -) 10 drop AD DAILY [facility] Stop: 01/21/17 12:14 Last Admin: 01/20/17 14:18 Dose: 10 drop Polyethylene Glycol (Miralax (For Daily Use) -) 17 gm PO DAILY PRN PRN Reason: CONSTIPATION Sodium Bicarbonate (Sodium Bicarbonate -) 1,300 mg PO BID [facility] Last Admin: 01/20/17 21:23 Dose: 1,300 mg Tamsulosin HCl (Flomax -) 0.4 mg PO DAILY [facility] Last Admin: 01/20/17 09:22 Dose: 0.4 mg - Objective Vital Signs: Vital Signs Temperature 98.0 F 01/21/17 07:52 Pulse Rate 59 L 01/21/17 07:52 Respiratory Rate 18 01/21/17 08:20 Blood Pressure 132/78 01/21/17 07:52 O2 Sat by Pulse Oximetry (%) 94 L 01/21/17 08:20 Constitutional: Yes: No Distress, Calm Eyes: No: Sclera Icterus HENT: No: Nasal Congestion Cardiovascular: Yes: Regular Rate and Rhythm (decr intensity), JVD (probable), S1, S2, Other (PMI non diplaced). No: Gallop, Murmur Respiratory: Yes: CTA Bilaterally. No: Accessory Muscle Use, Rales, Wheezes Gastrointestinal: Yes: Normal Bowel Sounds, Soft. No: Tenderness Musculoskeletal: Yes: Other (No kyphosis) Extremities: No: Cold Edema: Yes (b/l amp (mild thigh)) Integumentary: No: Jaundice Neurological: Yes: Alert. No: Seizure Psychiatric: No: Agitated Labs: CBC, BMP 01/21/17 05:35 01/21/17 05:35 INR, PTT INR 1.39 (0.82-1.09) H 01/19/17 06:00 - ....Imaging EKG: Other (tele: NSR, NSVT x 8b, AIVR run at 20:01) Assessment/Plan ekg 01/16/17: SR with 1st degree AVB; borderline QTC, old IWMI; diffuse NSST-Ts-- no change vs priors tele: sr, pvcs. pacs. 8-beat episode of nsvt. CXR 01/21 ([facility]): no change in R effusion and venous redistrib pattern Echo 11/2016: mod lve, sev dec lvef, global hk, mod rve, mod dec rv fcn, sarah, mod mr, mild tr, rvsp 30-40 Echo 11/2015 ([facility]): mild LVE; severe, global HK; nl RV; mod MR, mild TR; no RVSP a/p: 81 yo with CAD s/p CABG, severe LV dysfunction on prior echo, HTN, HL, prior B LE amputations, DM, prior UE thrombus, CKD with nephrotic range proteinuria, bph who presented with sob. acute on chronic syst chf - Biventricular failure -several prior admits for sob/chf -required thoracentesis for large right eff 2015 and again 11/2016 (reportedly was transudative c/w chf) -currently with signs of vol overload and recurrent large right eff -01/18 no change in sob or cxr after lasix 40 iv bid-->cr stable/improved so will increase to lasix 80 iv bid, monitor daily bmp, wts - 01/19: still no improvement in sx's on increased lasix dose. unable to record i/ o and ? accuracy of bed weights (although weights trending down). Will give trial of extra dose of 80 mg IV lasix this afternoon. If bun/cr worsens consider need for milrinone. - 01/20: received additional 80 mg IV lasix yesterday (total of 3 doses). weight con't to decrease but bun/cr not improved. will go back to bid dosing. Hydralazine and imdur added 01/19 to augment cardiac output via afterload reduction, but no significant decrease in bp. Will uptitrate today. If still no improvement in bun/cr tomorrow with lower bp's and ongoing diuresis --> need to consider starting milrinone. -limited ability to assess response to diuresis given no wts, no UOP monitoring -01/21: JVD present on exam, likely volume overloaded. rpt CXR with R effusion and venous congestionpersisting--will start milrinone 0.25mcg/kg/min trial (if frequent ventric ectopy or bp declines, will hold and try 0.125 mcg) -defer repeat thoracentesis while observe response to inotropes -cont coreg -holding entresto due to claudio on ckd, replaced with hydral/imdur -unfortunately, prognosis here is poor and the biggest obstacle in pt's ability to stay out of chf and avoid VT/VF complications of low EF is that he has refused prior discussion of the realities of his cardiac condition and refuses any escalation in treatments (e.g. devices, incl ICD) -rec outpt f/u with family involvement if pt amenable--perhaps if rapport builds he will accept intensification of home monitoring and chf mgmt positive trops: -borderline trop elevation with flat trend and normal ck, not consistent with acs, likely 2/2 chf -no new ecg findings VT, brief SVT - on max dose of coreg. - lytes stable--replete per usual targets - monitor tele on milrinone CAD: -s/p 4V cabg (1991) -no angina sxs -no ekg changes vs baseline -cont coreg, asa HTN: -cont coreg, hydral, imdur caludio on ckd: -baseline creat range here is 3.1-3.3 -worsened here likely cardiorenal syndrome, overall stable 3.5-3.7 range DM: -s/p right BKA and left AKA -glycemia mgmt per PMD
[2017-01-21] MEDS: SODIUM BICARBONATE 650 MG TABLET PO SCH ×2 (10:01→21:51)
[2017-01-21] MEDS: TAMSULOSIN HCL 0.4 MG CAP.ER.24H (FP) PO SCH (10:01)
[2017-01-21] MEDS: CEFAZOLIN (PRE-DOCKED) 50 ML IVPB SCH ×2 (10:01→21:53)
[2017-01-21] MEDS: CARVEDILOL 25 MG TABLET (FP) PO SCH ×2 (10:01→21:51)
[2017-01-21] MEDS: FINASTERIDE 5 MG TABLET (FP) PO SCH (10:01)
[2017-01-21] MEDS: ASPIRIN COATED 81 MG TABLET.EC PO SCH (10:01)
[2017-01-21] MEDS: HEPARIN NA (PORCINE) 5,000 UNITS/ML 1ML VIAL SQ SCH ×2 (10:01→21:51)
[2017-01-21] MEDS: OFLOXACIN 0.3% OTIC SOLUTION 5 ML BOTTLE AD SCH (10:02)
[2017-01-21] MEDS: ISOSORBIDE DINITRATE 10 MG TABLET (FP) PO SCH ×2 (10:03→17:22)
[2017-01-21] MEDS: BACITRACIN 15 GM TUBE TOPICAL OINTMENT TP SCH (10:04)
--- NOTE | 2017-01-21 10:49 | PN ---
Progress Note (short form) - Note Progress Note: Renal Follow up for CKD with Volume overload Pt seen and examined at the bedside continues to have pain in the right ear no fever, chest pain has mild dyspnea no N/V weight remains the same today Vital Signs Temperature 98.0 F 01/21/17 07:52 Pulse Rate 59 L 01/21/17 07:52 Respiratory Rate 18 01/21/17 08:20 Blood Pressure 132/78 01/21/17 07:52 O2 Sat by Pulse Oximetry (%) 94 L 01/21/17 08:20 Intake & Output 01/18/17 01/19/17 01/20/17 01/21/17 23:59 23:59 23:59 23:59 Intake Total 520 610 200 170 Output Total 500 350 Balance 20 260 200 170 Weight 179 lb 6.4 oz 174 lb 12.8 oz 171 lb 8 oz 171 lb 9.6 oz Gen: NAD CVS: RRR Lungs: Dec BS b/l lung freitas Ext: 2+ edema in LE, s/l amp CBC, BMP 01/21/17 05:35 01/21/17 05:35 Laboratory Tests 01/21/17 05:35 Calcium 7.8 L Albumin 2.0 L Current Medications Acetaminophen (Tylenol -) 500 mg PO Q4H PRN PRN Reason: FEVER OR PAIN Last Admin: 01/21/17 05:57 Dose: 500 mg Alprazolam (Xanax -) 0.25 mg PO Q12H PRN Last Admin: 01/20/17 21:35 Dose: 0.25 mg Aspirin (Ecotrin -) 81 mg PO DAILY [facility] Last Admin: 01/21/17 10:01 Dose: 81 mg Bacitracin (Bacitracin -) 1 applic TP DAILY [facility] Last Admin: 01/21/17 10:04 Dose: 1 applic Carvedilol (Coreg -) 25 mg PO BID [facility] Last Admin: 01/21/17 10:01 Dose: 25 mg Finasteride (Proscar -) 5 mg PO DAILY [facility] Last Admin: 01/21/17 10:01 Dose: 5 mg Furosemide (Lasix Injection -) 80 mg IVPUSH BID@0600,1400 [facility] Last Admin: 01/21/17 05:56 Dose: 80 mg Heparin Sodium (Porcine) (Heparin -) 5,000 unit SQ BID [facility] Last Admin: 01/21/17 10:01 Dose: 5,000 unit Hydralazine HCl (Apresoline -) 20 mg PO TID [facility] Last Admin: 01/21/17 05:56 Dose: 20 mg Cefazolin Sodium (Ancef 1gm Ivpb (Pre-Docked)) 50 mls @ 100 mls/hr IVPB BID [facility] Last Admin: 01/21/17 10:01 Dose: 100 mls/hr Insulin Aspart (Novolog Vial Sliding Scale -) 1 vial SQ TIDAC [facility] PRN Reason: Protocol Last Admin: 01/21/17 06:06 Dose: Not Given Insulin Detemir (Levemir Vial) 8 units SQ HS [facility] Last Admin: 01/20/17 22:23 Dose: 8 units Isosorbide Dinitrate (Isordil -) 30 mg PO BIDISORDIL [facility] Last Admin: 01/21/17 10:03 Dose: 30 mg Levothyroxine Sodium (Synthroid -) 50 mcg PO DAILY@0700 [facility] Last Admin: 01/21/17 06:00 Dose: 50 mcg Ofloxacin (Floxin Otic (Ear) Solution -) 10 drop AD DAILY [facility] Stop: 01/21/17 12:14 Last Admin: 01/21/17 10:02 Dose: 10 drop Polyethylene Glycol (Miralax (For Daily Use) -) 17 gm PO DAILY PRN PRN Reason: CONSTIPATION Sodium Bicarbonate (Sodium Bicarbonate -) 1,300 mg PO BID [facility] Last Admin: 01/21/17 10:01 Dose: 1,300 mg Tamsulosin HCl (Flomax -) 0.4 mg PO DAILY [facility] Last Admin: 01/21/17 10:01 Dose: 0.4 mg A/P 81 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 with PMhx of CKD stage 4 (baseline Cr 2.6-3.3) with nephrotic range proteinuria, Systolic CHF, PVD s/p b/l LE amputations, Hyperlipidemia, Anemia who presented with SOB, LE swelling and found to have large pleural effusion and BUN/Cr of 81/3.5.\] #CKD Stage 4 with nephrotic rang proteinuria with volume overload Etiology of CKD likely ischemic + diabetic nephropathy but 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 as well BUN/Cr with slight up trend but no overall significant change in GFR continue Lasix as per cardiology Trend BUN/Cr, electrolytes and weight daily #CHF/RIght Pleural effusion effusion remains on most recent CXR but no other signs of pulmonary vascular congestion it be difficulty to achieve resolution of effusion with diuretics alone may need throacentesis #Right Ear discharge e/o otitis externa will need ENT Evaluation and topical steroid/Abx #Anion gap metabolic acidosis continue sodium bicarb to 1300mg BID [facility] Problem List - Problems (1) KAMRAN (acute kidney injury) Code(s): N17.9 - ACUTE KIDNEY FAILURE, UNSPECIFIED (2) CAD (coronary artery disease) Code(s): I25.10 - ATHSCL HEART DISEASE OF [place] CORONARY ARTERY W/O ANG PCTRS Qualifiers: Coronary Disease-Associated Artery/Lesion type: [place] artery [place] vs. transplanted heart: [place] heart Associated angina: without angina Qualified Code(s): I25.10 - Atherosclerotic heart disease of [place] coronary artery without angina pectoris (3) CHF (congestive heart failure) Code(s): I50.9 - HEART FAILURE, UNSPECIFIED Qualifiers: Congestive heart failure type: combined Congestive heart failure chronicity: acute on chronic Qualified Code(s): I50.43 - Acute on chronic combined systolic (congestive) and diastolic (congestive) heart failure (4) CHF exacerbation Code(s): I50.9 - HEART FAILURE, UNSPECIFIED Qualifiers: Congestive heart failure type: combined Qualified Code(s): I50.43 - Acute on chronic combined systolic (congestive) and diastolic (congestive) heart failure (5) HTN (hypertension) Code(s): I10 - ESSENTIAL (PRIMARY) HYPERTENSION Qualifiers: Hypertension type: essential hypertension Qualified Code(s): I10 - Essential (primary) hypertension (6) Nephrotic syndrome Code(s): N04.9 - NEPHROTIC SYNDROME WITH UNSPECIFIED MORPHOLOGIC CHANGES (7) Pleural effusion Code(s): J90 - PLEURAL EFFUSION, NOT ELSEWHERE CLASSIFIED (8) Metabolic acidosis Code(s): E87.2 - ACIDOSIS
[2017-01-21] MEDS ORDERED: INSULIN (NOVOLOG) ASPART 100 UNITS/ML 10ML VIAL ONE (11:29)
[2017-01-21] MEDS: MILRINONE 20MG/100ML IVPB - 100 ML IVPB SCH (11:29)
--- NOTE | 2017-01-21 12:11 | PN ---
Progress Note (short form) - Note Progress Note: pt seen/ examined alert and awake. eating lunch purulent discharge from left ear -- decreased decreased pain cardiology/ renal f/u noted Vital Signs Temp 98.0 F 01/21/17 07:52 Pulse 59 L 01/21/17 07:52 Resp 18 01/21/17 08:20 BP 132/78 01/21/17 07:52 Pulse Ox 94 L 01/21/17 08:20 Intake & Output 01/20/17 01/21/17 01/21/17 23:59 11:59 23:59 Intake Total 200 170 Balance 200 170 Weight 171 lb 9.6 oz Intake: IVPB 50 Oral 200 120 Other: Voiding Method Incontinent Incontinent # Unmeasured Voids Void 3 Bowel Movement Yes # Bowel Movements 1 Weight Measurement Method Patient Lift Scale CBC, BMP 01/21/17 05:35 01/21/17 05:35 Physical Examination Constitutional: Yes: awake/ alert Cardiovascular: Yes: Regular Rate and Rhythm Respiratory: Yes: Diminished at bases Gastrointestinal: Yes: Normal Bowel Sounds, Soft. No: Distention, Tenderness Extremities: Yes: Amputation (B/L BKA, Rt BKA- wound+ surrounding erythema ) Edema: No Right Ear-- whitish discharge + Tender pre - auricular adenopathy Imaging - Results Chest X-ray: Image Reviewed EKG: Image Reviewed (sinus, 1st degree AV block) Problem List - Problems (1) KAMRAN (acute kidney injury) Code(s): N17.9 - ACUTE KIDNEY FAILURE, UNSPECIFIED (2) CHF (congestive heart failure) Code(s): I50.9 - HEART FAILURE, UNSPECIFIED Qualifiers: Congestive heart failure type: combined Congestive heart failure chronicity: acute on chronic Qualified Code(s): I50.43 - Acute on chronic combined systolic (congestive) and diastolic (congestive) heart failure (3) CHF exacerbation Code(s): I50.9 - HEART FAILURE, UNSPECIFIED Qualifiers: Congestive heart failure type: combined Qualified Code(s): I50.43 - Acute on chronic combined systolic (congestive) and diastolic (congestive) heart failure (4) HTN (hypertension) Code(s): I10 - ESSENTIAL (PRIMARY) HYPERTENSION Qualifiers: Hypertension type: essential hypertension Qualified Code(s): I10 - Essential (primary) hypertension (5) Acute on chronic systolic and diastolic heart failure, NYHA class 3 Code(s): I50.43 - ACUTE ON CHRONIC COMBINED SYSTOLIC AND DIASTOLIC HRT FAIL (6) Pleural effusion Code(s): J90 - PLEURAL EFFUSION, NOT ELSEWHERE CLASSIFIED A/p clinically looks improved cr - worsening weight noted continue present care ent consult pending will follow overall condition remains gaurded due to multiple comorbidities
--- NOTE | 2017-01-21 12:54 | CON.ENT ---
Consult Consult Specialty:: ENT Referred by:: rossy Reason for Consultation:: ear infection - History of Present Illness Chief Complaint: ear infection History of Present Illness: 81M admitted for renal issues, noted to have right ear pain and drainage. [facility] consult called. Patient is a limited historian (despite speaking to him in icelandic). No clear history of ear surgery, infections, or problems. 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.), CABG - Alcohol/Substance Use Hx Alcohol Use: No - Smoking History Smoking history: Never smoked Have you smoked in the past 12 months: No - Social History History of Recent Travel: No Home Medications - Allergies Allergies/Adverse Reactions: Allergies Allergy/AdvReac Type Severity Reaction Status Date / Time Sulfa (Sulfonamide Allergy Verified 01/16/17 13:47 Antibiotics) - Home Medications Home Medications: Ambulatory Orders Aspirin [Aspirin EC] 81 mg PO DAILY 01/16/17 Carvedilol [Coreg -] 25 mg PO BID 01/16/17 Clotrimazole [Mycelex Arcelia's -] 10 mg PO 5XD 01/16/17 Finasteride [Proscar -] 5 mg PO DAILY 01/16/17 Furosemide [Lasix -] 40 mg PO DAILY 01/16/17 Glipizide [Glipizide ER] 10 mg PO DAILY 01/16/17 Levothyroxine [Synthroid -] 50 mcg PO DAILY 01/16/17 Linagliptin [Tradjenta] 5 mg PO DAILY 01/16/17 Loperamide HCl [Loperamide] 2 mg PO DAILY PRN 01/16/17 Metolazone [Zaroxolyn -] 5 mg PO DAILY 01/16/17 Sacubitril/Valsartan [Entresto 24 mg-26 mg Tablet] 1 each PO BID 01/16/17 Tamsulosin HCl [Flomax] 0.4 mg PO DAILY 01/16/17 Physical Exam-ENT Vital Signs: Vital Signs Temperature 98.0 F 01/21/17 07:52 Pulse Rate 59 L 01/21/17 07:52 Respiratory Rate 18 01/21/17 08:20 Blood Pressure 132/78 01/21/17 07:52 O2 Sat by Pulse Oximetry (%) 94 L 01/21/17 08:20 Constitutional: Yes: Well Nourished, No Distress, Other (eating breakfast. does not seem to want to be examined. withdraws and had to repeatedly ask him to allow examination) Head: Yes: WNL Face: Yes: WNL Eyes: Yes: WNL Nose: Yes: Other (grossly normal. withdraws) Oral/Pharynx: Yes: Other (grossly normal. withdraws. +dentures. post o/p grossly clear) Outer Ear: Yes: Other (Right ear with drainage, crusting. 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 Left imapcted cerumen densely.) Tympanic Membrane: Yes: Other (right grossly clear; left cerumen obstr) Neck: Yes: WNL, Other (withdraws) Neurological: Yes: Other (CN3-7,11,12 grossly intact) Problem List - Problems (1) Acute otitis externa of right ear Assessment/Plan: Ofloxacin - 5 drops twice daily to right ear for one week. He should see me as an outpatient in two weeks for audiometry, will also clean left ear (too densely impacted to safely do bedside without microscope) -No sig discharge as to require debridement at this time. -Derm eval advised outpatient for lesion on auricle (unrelated), likely benign. -Ear should be kept dry and open to air. -Glycemic control important as well -Medical mgmt, UTI mgmt per medical team. Thank you for this consultation. Please call with questions. Code(s): H60.501 - UNSPECIFIED ACUTE NONINFECTIVE OTITIS EXTERNA, RIGHT EAR
--- NOTE | 2017-01-21 15:08 | PN ---
Progress Note (short form) - Note Progress Note: ID consult dictated UTI-ESBL CKD Otitis externa Start ertapenem 500mg IVPB q24h Vancomycin 1gm IVPB x1 dose Contact precautions
[2017-01-21] MEDS ORDERED: VANCOMYCIN 1 GRAM (PRE-DOCKED) 250 ML IVPB ONE (15:15)
[2017-01-21] MEDS: ERTAPENEM SODIUM 0.5 GM in SODIUM CHLORIDE 50 ML IVPB SCH (17:22)
[2017-01-21] MEDS: INSULIN DETEMIR 100 UNITS/ML MDV SQ SCH (21:51)
--- NOTE | 2017-01-21 22:03 | CONS ---
DATE OF CONSULTATION: DATE OF DICTATION: 01/21/2017 The patient is a 81-year-old male with multiple medical problems including diabetes mellitus, chronic kidney disease, and peripheral vascular disease, now evaluated for urinary tract infection. The patient was admitted to the hospital on January 16, 2017, with worsening shortness of breath and lower extremity edema. His hospital course was complicated by complaints of dysuria. Urinalysis revealed cloudy urine and showed many white cells. Urine culture now positive for ESBL. When questioned, he confirms the presence of dysuria, no reports of hematuria. He denies any suprapubic or flank pain. The patient has been afebrile with a normal white blood cell count. Past medical history positive for diabetes mellitus, hypertension, hyperlipidemia, coronary artery disease. PAST SURGICAL HISTORY: Status post coronary artery bypass graft, status post left misjv-sqn-[id number] amputation and right xtwog-guy-fwcz amputation. Allergies to SULFA. MEDICATIONS: Aspirin, Coreg, Proscar, Lasix, glipizide, Synthroid, Zaroxolyn, Entresto, Flomax. SOCIAL HISTORY: Lives at home. Dependent in activities of daily living. SYSTEMS REVIEW: Neurologic: No loss of consciousness, seizure activity, or focal weakness. Cardiac: Negative chest pain or palpitations. Respiratory: As per HPI. Gastrointestinal: Negative vomiting or diarrhea. Genitourinary: As per HPI. LABORATORY DATA: White count 5.6, hematocrit 31.2, platelet count 213. BUN 85, creatinine 3.4. Urinalysis: 754 white cells. Chest x-ray shows right lower lobe infiltrate and effusion. Urine culture: ESBL. PHYSICAL EXAMINATION: General: He is awake but lethargic. He is chronically ill-appearing. Vital Signs: Temperature 98.0. Blood pressure 132/78. Pulse 59, regular. Respirations 18 per minute. ENT: Sclerae anicteric. Right pinna appears slightly swollen. There is no appreciable erythema. No ear discharge. Neck: Supple. There is a healed surgical scar on the right scapula area. Heart Sounds: S1, S2. Lungs: Diminished breath sounds bilaterally. Abdomen: Soft. No tenderness elicited. No mass, rebound or rigidity. Extremities: Status post left rzfky-tqi-[id number] amputation, status post right ebmog-tzh-esci amputation. There is an approximately 2-cm ulceration present over the pretibial aspect of the right BKA stump. There is no purulent drainage or surrounding erythema. Genitourinary: No Rutledge catheter is in place. Positive scrotal edema. IMPRESSION: 1. Urinary tract infection, extended-spectrum beta lactamase. 2. Chronic kidney disease. 3. Otitis externa. Will start ertapenem 500 mg IV piggyback every 24 hours for treatment of urinary tract infection, vancomycin 1 g IV piggyback stat for otitis externa. Contact precautions. Will follow. Thank you for the kind referral. GOVIND FRANCO M.D. [id number]
[2017-01-21] MEDS: ALPRAZolam 0.25 MG TABLET PO PRN (23:19)
[2017-01-22] MEDS: MILRINONE 20MG/100ML IVPB - 100 ML IVPB SCH ×3 (03:32→12:00)
[2017-01-22] MEDS: ACETAMINOPHEN 500 MG TABLET (FP) PO PRN (04:11)
[2017-01-22] MEDS: FUROSEMIDE 40 MG/4 ML INJECTABLE VIAL IVPUSH SCH ×2 (06:06→14:58)
[2017-01-22] MEDS: INSULIN SLIDING SCALE (NOVOLOG) 1 VIAL SQ SCH ×3 (06:06→17:11)
[2017-01-22] MEDS: hydrALAZINE HCL 10 MG TABLET PO SCH ×3 (06:06→22:24)
[2017-01-22] MEDS: LEVOTHYROXINE NA 50 MCG TABLET (FP) PO SCH (06:07)
[2017-01-22 08:02] LABS: ANION GAP 13 (8-16); CALCIUM 7.7 mg/dL (8.5-10.1); CO2 21 mmol/L (21-32); GLUCOSE,RANDOM 79 mg/dL (74-106)
[2017-01-22 08:03] LABS: CREATININE 3.5 mg/dL (0.7-1.3); PHOSPHOROUS 2.6 mg/dL (2.5-4.9)
--- NOTE | 2017-01-22 09:29 | PN ---
Progress Note, Physician Chief Complaint: wants to go home - Current Medication List Current Medications: Active Medications Acetaminophen (Tylenol -) 500 mg PO Q4H PRN PRN Reason: FEVER OR PAIN Last Admin: 01/22/17 04:11 Dose: 500 mg Alprazolam (Xanax -) 0.25 mg PO Q12H PRN PRN Reason: ANXIETY Last Admin: 01/21/17 23:19 Dose: 0.25 mg Aspirin (Ecotrin -) 81 mg PO DAILY [facility] Last Admin: 01/21/17 10:01 Dose: 81 mg Bacitracin (Bacitracin -) 1 applic TP DAILY [facility] Last Admin: 01/21/17 10:04 Dose: 1 applic Carvedilol (Coreg -) 25 mg PO BID [facility] Last Admin: 01/21/17 21:51 Dose: 25 mg Finasteride (Proscar -) 5 mg PO DAILY [facility] Last Admin: 01/21/17 10:01 Dose: 5 mg Furosemide (Lasix Injection -) 80 mg IVPUSH BID@0600,1400 [facility] Last Admin: 01/22/17 06:06 Dose: 80 mg Heparin Sodium (Porcine) (Heparin -) 5,000 unit SQ BID [facility] Last Admin: 01/21/17 21:51 Dose: 5,000 unit Hydralazine HCl (Apresoline -) 20 mg PO TID [facility] Last Admin: 01/22/17 06:06 Dose: 20 mg Cefazolin Sodium (Ancef 1gm Ivpb (Pre-Docked)) 50 mls @ 100 mls/hr IVPB BID [facility] Last Admin: 01/21/17 21:53 Dose: 100 mls/hr Milrinone Lactate/Dextrose (Milrinone 20mg/100ml Ivpb -) 100 mls @ 5.838 mls/ hr IVPB TITR [facility] PRN Reason: 0.25 MCG/KG/MIN Last Admin: 01/22/17 06:39 Dose: 5.7 mls/hr Ertapenem 0.5 gm/ Sodium (Chloride) 50 mls @ 50 mls/hr IVPB DAILY [facility] PRN Reason: Protocol Last Admin: 01/21/17 17:22 Dose: 50 mls/hr Insulin Aspart (Novolog Vial Sliding Scale -) 1 vial SQ TIDAC [facility] PRN Reason: Protocol Last Admin: 01/22/17 06:06 Dose: Not Given Insulin Detemir (Levemir Vial) 8 units SQ HS [facility] Last Admin: 01/21/17 21:51 Dose: 8 units Isosorbide Dinitrate (Isordil -) 30 mg PO BIDISORDIL [facility] Last Admin: 01/21/17 17:22 Dose: 30 mg Levothyroxine Sodium (Synthroid -) 50 mcg PO DAILY@0700 [facility] Last Admin: 01/22/17 06:07 Dose: 50 mcg Ofloxacin (Floxin Otic (Ear) Solution -) 5 drop AD BID [facility] Polyethylene Glycol (Miralax (For Daily Use) -) 17 gm PO DAILY PRN PRN Reason: CONSTIPATION Sodium Bicarbonate (Sodium Bicarbonate -) 1,300 mg PO BID [facility] Last Admin: 01/21/17 21:51 Dose: 1,300 mg Tamsulosin HCl (Flomax -) 0.4 mg PO DAILY [facility] Last Admin: 01/21/17 10:01 Dose: 0.4 mg - Objective Vital Signs: Vital Signs Temperature 97.7 F 01/22/17 08:43 Pulse Rate 69 01/22/17 08:43 Respiratory Rate 18 01/22/17 08:43 Blood Pressure 118/58 01/22/17 08:43 O2 Sat by Pulse Oximetry (%) 94 L 01/21/17 21:00 Constitutional: Yes: No Distress Cardiovascular: Yes: Regular Rate and Rhythm Respiratory: Yes: Diminished Gastrointestinal: Yes: Normal Bowel Sounds, Soft. No: Distention, Tenderness Edema: No Labs: CBC, BMP 01/21/17 05:35 01/22/17 05:35 INR, PTT INR 1.39 (0.82-1.09) H 01/19/17 06:00 Problem List - Problems (1) KAMRAN (acute kidney injury) Code(s): N17.9 - ACUTE KIDNEY FAILURE, UNSPECIFIED (2) CHF (congestive heart failure) Code(s): I50.9 - HEART FAILURE, UNSPECIFIED Qualifiers: Congestive heart failure type: combined Congestive heart failure chronicity: acute on chronic Qualified Code(s): I50.43 - Acute on chronic combined systolic (congestive) and diastolic (congestive) heart failure (3) CHF exacerbation Code(s): I50.9 - HEART FAILURE, UNSPECIFIED Qualifiers: Congestive heart failure type: combined Qualified Code(s): I50.43 - Acute on chronic combined systolic (congestive) and diastolic (congestive) heart failure (4) HTN (hypertension) Code(s): I10 - ESSENTIAL (PRIMARY) HYPERTENSION Qualifiers: Hypertension type: essential hypertension Qualified Code(s): I10 - Essential (primary) hypertension (5) Acute on chronic systolic and diastolic heart failure, NYHA class 3 Code(s): I50.43 - ACUTE ON CHRONIC COMBINED SYSTOLIC AND DIASTOLIC HRT FAIL (6) Pleural effusion Code(s): J90 - PLEURAL EFFUSION, NOT ELSEWHERE CLASSIFIED (7) UTI (urinary tract infection), bacterial Code(s): N39.0 - URINARY TRACT INFECTION, SITE NOT SPECIFIED A49.9 - BACTERIAL INFECTION, UNSPECIFIED Assessment/Plan PLAN CHF decompensation -- on Torsemide, Milrinone drip -- swelling better -- dc Entresto as his renal function is worse -- I and O -- Telemetry Acute on chronic renal disease -- Baseline creatinine around 3 -- dc Entresto ESBL Urine -- contact precautions -- on Ertapenum DVT prophylaxis-- Heparin sc
[2017-01-22] MEDS: ISOSORBIDE DINITRATE 10 MG TABLET (FP) PO SCH ×2 (10:00→19:54)
[2017-01-22] MEDS: CARVEDILOL 25 MG TABLET (FP) PO SCH ×3 (10:05→22:24)
[2017-01-22] MEDS: ERTAPENEM SODIUM 0.5 GM in SODIUM CHLORIDE 50 ML IVPB SCH (10:13)
[2017-01-22] MEDS: TAMSULOSIN HCL 0.4 MG CAP.ER.24H (FP) PO SCH (10:14)
[2017-01-22] MEDS: CEFAZOLIN (PRE-DOCKED) 50 ML IVPB SCH ×2 (10:14→23:07)
[2017-01-22] MEDS: HEPARIN NA (PORCINE) 5,000 UNITS/ML 1ML VIAL SQ SCH ×2 (10:14→22:24)
[2017-01-22] MEDS: SODIUM BICARBONATE 650 MG TABLET PO SCH ×2 (10:14→22:25)
[2017-01-22] MEDS: BACITRACIN 15 GM TUBE TOPICAL OINTMENT TP SCH (10:18)
[2017-01-22] MEDS: FINASTERIDE 5 MG TABLET (FP) PO SCH (10:18)
[2017-01-22] MEDS: ASPIRIN COATED 81 MG TABLET.EC PO SCH (10:18)
--- NOTE | 2017-01-22 12:05 | PN ---
Progress Note (short form) - Note Progress Note: Chief Complaint: chf History of Present Illness: denies sob, cp, palpitations, dizzy at the moment feels back to baseline, wants to go home no cigs Current Medications Acetaminophen (Tylenol -) 500 mg PO Q4H PRN PRN Reason: FEVER OR PAIN Last Admin: 01/22/17 04:11 Dose: 500 mg Alprazolam (Xanax -) 0.25 mg PO Q12H PRN PRN Reason: ANXIETY Last Admin: 01/21/17 23:19 Dose: 0.25 mg Aspirin (Ecotrin -) 81 mg PO DAILY [facility] Last Admin: 01/22/17 10:18 Dose: 81 mg Bacitracin (Bacitracin -) 1 applic TP DAILY [facility] Last Admin: 01/22/17 10:18 Dose: 1 applic Carvedilol (Coreg -) 25 mg PO BID [facility] Last Admin: 01/21/17 21:51 Dose: 25 mg Finasteride (Proscar -) 5 mg PO DAILY [facility] Last Admin: 01/22/17 10:18 Dose: 5 mg Furosemide (Lasix Injection -) 80 mg IVPUSH BID@0600,1400 [facility] Last Admin: 01/22/17 06:06 Dose: 80 mg Heparin Sodium (Porcine) (Heparin -) 5,000 unit SQ BID [facility] Last Admin: 01/22/17 10:14 Dose: 5,000 unit Hydralazine HCl (Apresoline -) 20 mg PO TID [facility] Last Admin: 01/22/17 06:06 Dose: 20 mg Cefazolin Sodium (Ancef 1gm Ivpb (Pre-Docked)) 50 mls @ 100 mls/hr IVPB BID [facility] Last Admin: 01/22/17 10:14 Dose: 100 mls/hr Milrinone Lactate/Dextrose (Milrinone 20mg/100ml Ivpb -) 100 mls @ 5.838 mls/ hr IVPB TITR [facility] PRN Reason: 0.25 MCG/KG/MIN Last Admin: 01/22/17 06:39 Dose: 5.7 mls/hr Ertapenem 0.5 gm/ Sodium (Chloride) 50 mls @ 50 mls/hr IVPB DAILY [facility] PRN Reason: Protocol Last Admin: 01/22/17 10:13 Dose: 50 mls/hr Insulin Aspart (Novolog Vial Sliding Scale -) 1 vial SQ TIDAC [facility] PRN Reason: Protocol Last Admin: 01/22/17 06:06 Dose: Not Given Insulin Detemir (Levemir Vial) 8 units SQ HS [facility] Last Admin: 01/21/17 21:51 Dose: 8 units Isosorbide Dinitrate (Isordil -) 30 mg PO BIDISORDIL [facility] Last Admin: 01/21/17 17:22 Dose: 30 mg Levothyroxine Sodium (Synthroid -) 50 mcg PO DAILY@0700 [facility] Last Admin: 01/22/17 06:07 Dose: 50 mcg Ofloxacin (Floxin Otic (Ear) Solution -) 5 drop AD BID [facility] Polyethylene Glycol (Miralax (For Daily Use) -) 17 gm PO DAILY PRN PRN Reason: CONSTIPATION Sodium Bicarbonate (Sodium Bicarbonate -) 1,300 mg PO BID [facility] Last Admin: 01/22/17 10:14 Dose: 1,300 mg Tamsulosin HCl (Flomax -) 0.4 mg PO DAILY [facility] Last Admin: 01/22/17 10:14 Dose: 0.4 mg Vital Signs - 24 hr 01/21/17 01/21/17 01/21/17 14:13 18:00 21:00 Temperature 97.7 F 98.9 F Pulse Rate 70 76 Respiratory 20 20 20 Rate Blood Pressure 114/59 122/58 O2 Sat by Pulse 94 L Oximetry (%) 01/21/17 01/22/17 01/22/17 22:00 03:17 06:00 Temperature 97.9 F 98.5 F 97.6 F Pulse Rate 75 71 71 Respiratory 20 20 20 Rate Blood Pressure 121/56 111/45 120/59 O2 Sat by Pulse Oximetry (%) 01/22/17 08:43 Temperature 97.7 F Pulse Rate 69 Respiratory 18 Rate Blood Pressure 118/58 O2 Sat by Pulse Oximetry (%) Intake & Output 01/20/17 01/21/17 01/22/17 01/23/17 07:59 07:59 07:59 07:59 Intake Total 510 370 604 250 Output Total 300 300 Balance 210 370 304 250 Weight 171 lb 8 oz 171 lb 9.6 oz 167 lb 9.6 oz 167 lb 6 oz Constitutional: Yes: No Distress, Calm Eyes: No: Sclera Icterus HENT: No: Nasal Congestion Cardiovascular: Yes: Regular Rate and Rhythm (decr intensity), JVD (probable), S1, S2, Other (PMI non diplaced). No: Gallop, Murmur Respiratory: Yes: CTA Bilaterally. No: Accessory Muscle Use, Rales, Wheezes Gastrointestinal: Yes: Normal Bowel Sounds, Soft. No: Tenderness Musculoskeletal: Yes: Other (No kyphosis) Extremities: No: Cold Edema: Yes (b/l amp (mild thigh)) Integumentary: No: Jaundice Neurological: Yes: Alert. No: Seizure Psychiatric: No: Agitated Labs: CBC, BMP 01/21/17 05:35 01/22/17 05:35 - ....Imaging EKG: Other (tele: NSR, frequent nsvt) Assessment/Plan ekg 01/16/17: SR with 1st degree AVB; borderline QTC, old IWMI; diffuse NSST-Ts-- no change vs priors tele: sr, pvcs. pacs. 8-beat episode of nsvt. CXR 01/21 (gitig read): no change in R effusion and venous redistrib pattern Echo 11/2016: mod lve, sev dec lvef, global hk, mod rve, mod dec rv fcn, sarah, mod mr, mild tr, rvsp 30-40 Echo 11/2015 (): mild LVE; severe, global HK; nl RV; mod MR, mild TR; no RVSP a/p: 81 yo with CAD s/p CABG, severe LV dysfunction on prior echo, HTN, HL, prior B LE amputations, DM, prior UE thrombus, CKD with nephrotic range proteinuria, bph who presented with sob. acute on chronic syst chf - Biventricular failure -several prior admits for sob/chf -required thoracentesis for large right eff 2015 and again 11/2016 (reportedly was transudative c/w chf) -currently with signs of vol overload and recurrent large right eff -01/18 no change in sob or cxr after lasix 40 iv bid-->cr stable/improved so will increase to lasix 80 iv bid, monitor daily bmp, wts - 01/19: still no improvement in sx's on increased lasix dose. unable to record i/ o and ? accuracy of bed weights (although weights trending down). Will give trial of extra dose of 80 mg IV lasix this afternoon. If bun/cr worsens consider need for milrinone. - 01/20: received additional 80 mg IV lasix yesterday (total of 3 doses). weight con't to decrease but bun/cr not improved. will go back to bid dosing. Hydralazine and imdur added 01/19 to augment cardiac output via afterload reduction, but no significant decrease in bp. Will uptitrate today. If still no improvement in bun/cr tomorrow with lower bp's and ongoing diuresis --> need to consider starting milrinone. -limited ability to assess response to diuresis given no wts, no UOP monitoring -01/21: JVD present on exam, likely volume overloaded. rpt CXR with R effusion and venous congestionpersisting--will start milrinone 0.25mcg/kg/min trial (if frequent ventric ectopy or bp declines, will hold and try 0.125 mcg) -01/22: appears overall well euvolemic will transition to po torsemide. BMP improving on milrinone, but frequent NSVT will decrease milrinone to 0.2 mcg/kg/ min. If persists tomorrow consider reducing dose further or stopping. -defer repeat thoracentesis while observe response to inotropes -cont coreg -holding entresto due to claudio on ckd, replaced with hydral/imdur -unfortunately, prognosis here is poor and the biggest obstacle in pt's ability to stay out of chf and avoid VT/VF complications of low EF is that he has refused prior discussion of the realities of his cardiac condition and refuses any escalation in treatments (e.g. devices, incl ICD) -rec outpt f/u with family involvement if pt amenable--perhaps if rapport builds he will accept intensification of home monitoring and chf mgmt positive trops: -borderline trop elevation with flat trend and normal ck, not consistent with acs, likely 2/2 chf -no new ecg findings VT, brief SVT - on max dose of coreg. - lytes stable--replete per usual targets - monitor tele on milrinone CAD: -s/p 4V cabg (1991) -no angina sxs -no ekg changes vs baseline -cont coreg, asa HTN: -cont coreg, hydral, imdur claudio on ckd: -baseline creat range here is 3.1-3.3 -worsened here likely cardiorenal syndrome, overall stable 3.5-3.7 range DM: -s/p right BKA and left AKA -glycemia mgmt per PMD
--- NOTE | 2017-01-22 13:56 | PN ---
Progress Note (short form) - Note Progress Note: Renal Follow up for CKD with Volume overload Pt seen and examined at the bedside reports feeling better and dyspnea is improved wants to go home but appears confused Vital Signs Temperature 97.7 F 01/22/17 08:43 Pulse Rate 69 01/22/17 08:43 Respiratory Rate 18 01/22/17 08:43 Blood Pressure 118/58 01/22/17 08:43 O2 Sat by Pulse Oximetry (%) 95 01/22/17 09:00 Intake & Output 01/19/17 01/20/17 01/21/17 01/22/17 23:59 23:59 23:59 23:59 Intake Total 610 200 405 619 Output Total 350 300 Balance 260 200 105 619 Weight 174 lb 12.8 oz 171 lb 8 oz 171 lb 9.6 oz 167 lb 6 oz Gen: NAD CVS: RRR Lungs: Dec BS b/l lung freitas Ext: 2+ edema in LE, s/l amp CBC, BMP 01/21/17 05:35 01/22/17 05:35 Laboratory Tests 01/22/17 05:35 Calcium 7.7 L Phosphorus 2.6 D Magnesium 2.0 Current Medications Acetaminophen (Tylenol -) 500 mg PO Q4H PRN PRN Reason: FEVER OR PAIN Last Admin: 01/22/17 04:11 Dose: 500 mg Alprazolam (Xanax -) 0.25 mg PO Q12H PRN PRN Reason: ANXIETY Last Admin: 01/21/17 23:19 Dose: 0.25 mg Aspirin (Ecotrin -) 81 mg PO DAILY [facility] Last Admin: 01/22/17 10:18 Dose: 81 mg Bacitracin (Bacitracin -) 1 applic TP DAILY [facility] Last Admin: 01/22/17 10:18 Dose: 1 applic Carvedilol (Coreg -) 25 mg PO BID [facility] Last Admin: 01/21/17 21:51 Dose: 25 mg Finasteride (Proscar -) 5 mg PO DAILY [facility] Last Admin: 01/22/17 10:18 Dose: 5 mg Furosemide (Lasix Injection -) 80 mg IVPUSH BID@0600,1400 [facility] Last Admin: 01/22/17 06:06 Dose: 80 mg Heparin Sodium (Porcine) (Heparin -) 5,000 unit SQ BID [facility] Last Admin: 01/22/17 10:14 Dose: 5,000 unit Hydralazine HCl (Apresoline -) 20 mg PO TID [facility] Last Admin: 01/22/17 06:06 Dose: 20 mg Cefazolin Sodium (Ancef 1gm Ivpb (Pre-Docked)) 50 mls @ 100 mls/hr IVPB BID [facility] Last Admin: 01/22/17 10:14 Dose: 100 mls/hr Milrinone Lactate/Dextrose (Milrinone 20mg/100ml Ivpb -) 100 mls @ 5.838 mls/ hr IVPB TITR [facility] PRN Reason: 0.25 MCG/KG/MIN Last Admin: 01/22/17 06:39 Dose: 5.7 mls/hr Ertapenem 0.5 gm/ Sodium (Chloride) 50 mls @ 50 mls/hr IVPB DAILY [facility] PRN Reason: Protocol Last Admin: 01/22/17 10:13 Dose: 50 mls/hr Insulin Aspart (Novolog Vial Sliding Scale -) 1 vial SQ TIDAC [facility] PRN Reason: Protocol Last Admin: 01/22/17 06:06 Dose: Not Given Insulin Detemir (Levemir Vial) 8 units SQ HS [facility] Last Admin: 01/21/17 21:51 Dose: 8 units Isosorbide Dinitrate (Isordil -) 30 mg PO BIDISORDIL [facility] Last Admin: 01/21/17 17:22 Dose: 30 mg Levothyroxine Sodium (Synthroid -) 50 mcg PO DAILY@0700 [facility] Last Admin: 01/22/17 06:07 Dose: 50 mcg Ofloxacin (Floxin Otic (Ear) Solution -) 5 drop AD BID [facility] Polyethylene Glycol (Miralax (For Daily Use) -) 17 gm PO DAILY PRN PRN Reason: CONSTIPATION Sodium Bicarbonate (Sodium Bicarbonate -) 1,300 mg PO BID [facility] Last Admin: 01/22/17 10:14 Dose: 1,300 mg Tamsulosin HCl (Flomax -) 0.4 mg PO DAILY [facility] Last Admin: 01/22/17 10:14 Dose: 0.4 mg A/P 81 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 with PMhx of CKD stage 4 (baseline Cr 2.6-3.3) with nephrotic range proteinuria, Systolic CHF, PVD s/p b/l LE amputations, Hyperlipidemia, Anemia who presented with SOB, LE swelling and found to have large pleural effusion and BUN/Cr of 81/3.5.\] #CKD Stage 4 with nephrotic rang proteinuria with volume overload Etiology of CKD likely ischemic + diabetic nephropathy but 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 as well Cr improved to 3.5 with milrinone gtt continue IV lasix BID Trend BUN/Cr and electrolytes dose all meds for Cr Cl less then 20 not a candidate for OLIVA/ARB given low egFR #CHF/RIght Pleural effusion continue Milronone and Lasix as per cardiology weights improving pt appears clinically better low salt diet #Right Ear discharge e/o otitis externa continue Abx as per ENT #Anion gap metabolic acidosis continue sodium bicarb to 1300mg BID Hugh Huggins DO Problem List - Problems (1) KAMRAN (acute kidney injury) Code(s): N17.9 - ACUTE KIDNEY FAILURE, UNSPECIFIED (2) CAD (coronary artery disease) Code(s): I25.10 - ATHSCL HEART DISEASE OF [place] CORONARY ARTERY W/O ANG PCTRS Qualifiers: Coronary Disease-Associated Artery/Lesion type: [place] artery [place] vs. transplanted heart: [place] heart Associated angina: without angina Qualified Code(s): I25.10 - Atherosclerotic heart disease of [place] coronary artery without angina pectoris (3) CHF (congestive heart failure) Code(s): I50.9 - HEART FAILURE, UNSPECIFIED Qualifiers: Congestive heart failure type: combined Congestive heart failure chronicity: acute on chronic Qualified Code(s): I50.43 - Acute on chronic combined systolic (congestive) and diastolic (congestive) heart failure (4) CHF exacerbation Code(s): I50.9 - HEART FAILURE, UNSPECIFIED Qualifiers: Congestive heart failure type: combined Qualified Code(s): I50.43 - Acute on chronic combined systolic (congestive) and diastolic (congestive) heart failure (5) HTN (hypertension) Code(s): I10 - ESSENTIAL (PRIMARY) HYPERTENSION Qualifiers: Hypertension type: essential hypertension Qualified Code(s): I10 - Essential (primary) hypertension (6) Nephrotic syndrome Code(s): N04.9 - NEPHROTIC SYNDROME WITH UNSPECIFIED MORPHOLOGIC CHANGES (7) Pleural effusion Code(s): J90 - PLEURAL EFFUSION, NOT ELSEWHERE CLASSIFIED (8) Metabolic acidosis Code(s): E87.2 - ACIDOSIS
--- NOTE | 2017-01-22 14:36 | PN ---
Progress Note, Physician History of Present Illness: Lethargic but arousable Asked if he has dysuria and he answered yes No fever/ chills - Current Medication List Current Medications: Active Medications Acetaminophen (Tylenol -) 500 mg PO Q4H PRN PRN Reason: FEVER OR PAIN Last Admin: 01/22/17 04:11 Dose: 500 mg Alprazolam (Xanax -) 0.25 mg PO Q12H PRN PRN Reason: ANXIETY Last Admin: 01/21/17 23:19 Dose: 0.25 mg Aspirin (Ecotrin -) 81 mg PO DAILY [facility] Last Admin: 01/22/17 10:18 Dose: 81 mg Bacitracin (Bacitracin -) 1 applic TP DAILY [facility] Last Admin: 01/22/17 10:18 Dose: 1 applic Carvedilol (Coreg -) 25 mg PO BID [facility] Last Admin: 01/21/17 21:51 Dose: 25 mg Finasteride (Proscar -) 5 mg PO DAILY [facility] Last Admin: 01/22/17 10:18 Dose: 5 mg Furosemide (Lasix Injection -) 80 mg IVPUSH BID@0600,1400 [facility] Last Admin: 01/22/17 06:06 Dose: 80 mg Heparin Sodium (Porcine) (Heparin -) 5,000 unit SQ BID [facility] Last Admin: 01/22/17 10:14 Dose: 5,000 unit Hydralazine HCl (Apresoline -) 20 mg PO TID [facility] Last Admin: 01/22/17 06:06 Dose: 20 mg Cefazolin Sodium (Ancef 1gm Ivpb (Pre-Docked)) 50 mls @ 100 mls/hr IVPB BID [facility] Last Admin: 01/22/17 10:14 Dose: 100 mls/hr Milrinone Lactate/Dextrose (Milrinone 20mg/100ml Ivpb -) 100 mls @ 5.838 mls/ hr IVPB TITR [facility] PRN Reason: 0.25 MCG/KG/MIN Last Admin: 01/22/17 06:39 Dose: 5.7 mls/hr Ertapenem 0.5 gm/ Sodium (Chloride) 50 mls @ 50 mls/hr IVPB DAILY [facility] PRN Reason: Protocol Last Admin: 01/22/17 10:13 Dose: 50 mls/hr Insulin Aspart (Novolog Vial Sliding Scale -) 1 vial SQ TIDAC [facility] PRN Reason: Protocol Last Admin: 01/22/17 06:06 Dose: Not Given Insulin Detemir (Levemir Vial) 8 units SQ HS [facility] Last Admin: 01/21/17 21:51 Dose: 8 units Isosorbide Dinitrate (Isordil -) 30 mg PO BIDISORDIL [facility] Last Admin: 01/21/17 17:22 Dose: 30 mg Levothyroxine Sodium (Synthroid -) 50 mcg PO DAILY@0700 [facility] Last Admin: 01/22/17 06:07 Dose: 50 mcg Ofloxacin (Floxin Otic (Ear) Solution -) 5 drop AD BID [facility] Polyethylene Glycol (Miralax (For Daily Use) -) 17 gm PO DAILY PRN PRN Reason: CONSTIPATION Sodium Bicarbonate (Sodium Bicarbonate -) 1,300 mg PO BID [facility] Last Admin: 01/22/17 10:14 Dose: 1,300 mg Tamsulosin HCl (Flomax -) 0.4 mg PO DAILY [facility] Last Admin: 01/22/17 10:14 Dose: 0.4 mg - Objective Vital Signs: Vital Signs Temperature 97.7 F 01/22/17 08:43 Pulse Rate 69 01/22/17 08:43 Respiratory Rate 18 01/22/17 08:43 Blood Pressure 118/58 01/22/17 08:43 O2 Sat by Pulse Oximetry (%) 95 01/22/17 09:00 Constitutional: Yes: No Distress Eyes: Yes: Conjunctiva Clear HENT: Yes: Other (R pinna no erythema/ swelling/ tenderness No ear drainage) Cardiovascular: Yes: Regular Rate and Rhythm, S1, S2 Respiratory: Yes: Diminished Gastrointestinal: Yes: Normal Bowel Sounds, Soft. No: Tenderness Extremities: Yes: Amputation, Other Labs: CBC, BMP 01/21/17 05:35 01/22/17 05:35 INR, PTT INR 1.39 (0.82-1.09) H 01/19/17 06:00 Assessment/Plan UTI ESBL CKD Otitis externa Continue ertapenem Contact precautions
[2017-01-22] MEDS ORDERED: MILRINONE 20MG/100ML IVPB - 100 ML IVPB SCH (18:37)
[2017-01-22] MEDS: INSULIN DETEMIR 100 UNITS/ML MDV SQ SCH (22:24)
[2017-01-22] MEDS: ALPRAZolam 0.25 MG TABLET PO PRN (22:25)
[2017-01-23] MEDS: hydrALAZINE HCL 10 MG TABLET PO SCH ×3 (06:58→21:24)
[2017-01-23] MEDS: LEVOTHYROXINE NA 50 MCG TABLET (FP) PO SCH (06:58)
[2017-01-23] MEDS: INSULIN SLIDING SCALE (NOVOLOG) 1 VIAL SQ SCH ×3 (06:59→16:26)
[2017-01-23] MEDS ORDERED: INSULIN (NOVOLOG) ASPART 100 UNITS/ML 10ML VIAL ONE (07:05)
[2017-01-23] MEDS ORDERED: INSULIN DETEMIR 100 UNITS/ML MDV SQ ONE (07:05)
[2017-01-23] MEDS: ASPIRIN COATED 81 MG TABLET.EC PO SCH (09:20)
[2017-01-23] MEDS: HEPARIN NA (PORCINE) 5,000 UNITS/ML 1ML VIAL SQ SCH ×2 (09:20→21:23)
[2017-01-23] MEDS: TAMSULOSIN HCL 0.4 MG CAP.ER.24H (FP) PO SCH (09:20)
[2017-01-23] MEDS: SODIUM BICARBONATE 650 MG TABLET PO SCH ×2 (09:20→21:23)
[2017-01-23] MEDS: FINASTERIDE 5 MG TABLET (FP) PO SCH (09:20)
[2017-01-23] MEDS: TORSEMIDE 20 MG TABLET (FP) PO SCH (09:20)
[2017-01-23] MEDS: ISOSORBIDE DINITRATE 10 MG TABLET (FP) PO SCH (09:21)
[2017-01-23] MEDS: CARVEDILOL 25 MG TABLET (FP) PO SCH ×2 (09:21→21:23)
[2017-01-23] MEDS: BACITRACIN 15 GM TUBE TOPICAL OINTMENT TP SCH (09:21)
[2017-01-23 09:30] LABS: ANION GAP 14 (8-16); CALCIUM 8.1 mg/dL (8.5-10.1); CO2 22 mmol/L (21-32); CREATININE 3.4 mg/dL (0.7-1.3); GLUCOSE,RANDOM 54 mg/dL (74-106); MAGNESIUM 2.1 mg/dL (1.8-2.4); PHOSPHOROUS 2.8 mg/dL (2.5-4.9)
[2017-01-23] MEDS: ERTAPENEM SODIUM 0.5 GM in SODIUM CHLORIDE 50 ML IVPB SCH (09:53)
--- NOTE | 2017-01-23 10:12 | PN ---
Progress Note, Physician Chief Complaint: wants to go home feels well no distress - Current Medication List Current Medications: Active Medications Acetaminophen (Tylenol -) 500 mg PO Q4H PRN PRN Reason: FEVER OR PAIN Last Admin: 01/22/17 04:11 Dose: 500 mg Alprazolam (Xanax -) 0.25 mg PO Q12H PRN PRN Reason: ANXIETY Last Admin: 01/22/17 22:25 Dose: 0.25 mg Aspirin (Ecotrin -) 81 mg PO DAILY [facility] Last Admin: 01/23/17 09:20 Dose: 81 mg Bacitracin (Bacitracin -) 1 applic TP DAILY [facility] Last Admin: 01/23/17 09:21 Dose: 1 applic Carvedilol (Coreg -) 25 mg PO BID [facility] Last Admin: 01/23/17 09:21 Dose: 25 mg Finasteride (Proscar -) 5 mg PO DAILY [facility] Last Admin: 01/23/17 09:20 Dose: 5 mg Heparin Sodium (Porcine) (Heparin -) 5,000 unit SQ BID [facility] Last Admin: 01/23/17 09:20 Dose: 5,000 unit Hydralazine HCl (Apresoline -) 20 mg PO TID [facility] Last Admin: 01/23/17 06:58 Dose: 20 mg Ertapenem 0.5 gm/ Sodium (Chloride) 50 mls @ 50 mls/hr IVPB DAILY [facility] PRN Reason: Protocol Last Admin: 01/23/17 09:53 Dose: 50 mls/hr Milrinone Lactate/Dextrose (Milrinone 20mg/100ml Ivpb -) 100 mls @ 4.67 mls/hr IVPB TITR [facility] PRN Reason: 0.2 MCG/KG/MIN Last Admin: 01/22/17 19:55 Dose: 4.67 mls/hr Insulin Aspart (Novolog Vial Sliding Scale -) 1 vial SQ TIDAC [facility] PRN Reason: Protocol Last Admin: 01/23/17 06:59 Dose: Not Given Insulin Detemir (Levemir Vial) 8 units SQ HS [facility] Last Admin: 01/22/17 22:24 Dose: 8 units Isosorbide Dinitrate (Isordil -) 30 mg PO BIDISORDIL [facility] Last Admin: 01/23/17 09:21 Dose: 30 mg Levothyroxine Sodium (Synthroid -) 50 mcg PO DAILY@0700 [facility] Last Admin: 01/23/17 06:58 Dose: 50 mcg Ofloxacin (Floxin Otic (Ear) Solution -) 5 drop AD BID [facility] Polyethylene Glycol (Miralax (For Daily Use) -) 17 gm PO DAILY PRN PRN Reason: CONSTIPATION Sodium Bicarbonate (Sodium Bicarbonate -) 1,300 mg PO BID [facility] Last Admin: 01/23/17 09:20 Dose: 1,300 mg Tamsulosin HCl (Flomax -) 0.4 mg PO DAILY [facility] Last Admin: 01/23/17 09:20 Dose: 0.4 mg Torsemide (Demadex -) 40 mg PO DAILY [facility] Last Admin: 01/23/17 09:20 Dose: 40 mg - Objective Vital Signs: Vital Signs Temperature 97.8 F 01/23/17 08:01 Pulse Rate 69 01/23/17 08:01 Respiratory Rate 20 01/23/17 08:01 Blood Pressure 124/64 01/23/17 08:01 O2 Sat by Pulse Oximetry (%) 95 01/22/17 21:00 Constitutional: Yes: No Distress Cardiovascular: Yes: Regular Rate and Rhythm Respiratory: Yes: Diminished Gastrointestinal: Yes: Normal Bowel Sounds, Soft. No: Distention, Tenderness Genitourinary: Yes: Other (decreased scrotal edema) Edema: No Psychiatric: Yes: Alert, Oriented Labs: CBC, BMP 01/21/17 05:35 01/23/17 05:48 INR, PTT INR 1.39 (0.82-1.09) H 01/19/17 06:00 Problem List - Problems (1) KAMRAN (acute kidney injury) Code(s): N17.9 - ACUTE KIDNEY FAILURE, UNSPECIFIED (2) CHF (congestive heart failure) Code(s): I50.9 - HEART FAILURE, UNSPECIFIED Qualifiers: Congestive heart failure type: combined Congestive heart failure chronicity: acute on chronic Qualified Code(s): I50.43 - Acute on chronic combined systolic (congestive) and diastolic (congestive) heart failure (3) CHF exacerbation Code(s): I50.9 - HEART FAILURE, UNSPECIFIED Qualifiers: Congestive heart failure type: combined Qualified Code(s): I50.43 - Acute on chronic combined systolic (congestive) and diastolic (congestive) heart failure (4) HTN (hypertension) Code(s): I10 - ESSENTIAL (PRIMARY) HYPERTENSION Qualifiers: Hypertension type: essential hypertension Qualified Code(s): I10 - Essential (primary) hypertension (5) Acute on chronic systolic and diastolic heart failure, NYHA class 3 Code(s): I50.43 - ACUTE ON CHRONIC COMBINED SYSTOLIC AND DIASTOLIC HRT FAIL (6) Pleural effusion Code(s): J90 - PLEURAL EFFUSION, NOT ELSEWHERE CLASSIFIED Assessment/Plan PLAN CHF decompensation -- on Torsemide,tolerating well -- Milrinone drip dc -- swelling better -- dc Entresto -- I and O -- Telemetry Acute on chronic renal disease -- Baseline creatinine around 3 -- dc Entresto ESBL Urine -- contact precautions -- spoke with ID-- dc Ertapenum Spoke with manager social , family and pt refusing rehab transfer dc planning , PT eval , home services DVT prophylaxis-- Heparin sc
--- NOTE | 2017-01-23 10:59 | PN ---
Progress Note (short form) - Note Progress Note: Chief Complaint: chf History of Present Illness: denies sob, cp, palpitations, dizzy at the moment asking to go home no cigs Current Medications Generic Name Dose Route Start Last Admin Trade Name Day PRN Reason Stop Dose Admin Acetaminophen 500 mg 01/20/17 12:04 01/22/17 04:11 Tylenol - PO 500 mg Q4H PRN Administration FEVER OR PAIN Alprazolam 0.25 mg 01/21/17 22:42 01/22/17 22:25 Xanax - PO 0.25 mg Q12H PRN Administration ANXIETY Aspirin 81 mg 01/17/17 10:00 01/23/17 09:20 Ecotrin - PO 81 mg DAILY CARLYN Administration Bacitracin 1 applic 01/17/17 14:45 01/23/17 09:21 Bacitracin - TP 1 applic DAILY CARLYN Administration Carvedilol 25 mg 01/16/17 22:00 01/23/17 09:21 Coreg - PO 25 mg BID CARLYN Administration Finasteride 5 mg 01/17/17 10:00 01/23/17 09:20 Proscar - PO 5 mg DAILY CARLYN Administration Heparin Sodium (Porcine) 5,000 unit 01/17/17 10:00 01/23/17 09:20 Heparin - SQ 5,000 unit BID CARLYN Administration Hydralazine HCl 20 mg 01/20/17 22:00 01/23/17 06:58 Apresoline - PO 20 mg TID CARLYN Administration Ertapenem 0.5 gm/ Sodium 50 mls @ 50 mls/hr 01/21/17 15:15 01/23/17 09:53 Chloride IVPB 50 mls/hr DAILY CARLYN Administration Protocol Insulin Aspart 1 vial 01/17/17 07:00 01/23/17 06:59 Novolog Vial Sliding Scale - SQ Not Given TIDAC [facility] Protocol Insulin Detemir 8 units 01/18/17 22:00 01/22/17 22:24 Levemir Vial SQ 8 units HS CARLYN Administration Isosorbide Dinitrate 30 mg 01/20/17 22:00 01/23/17 09:21 Isordil - PO 30 mg BIDISORDIL CARLYN Administration Levothyroxine Sodium 50 mcg 01/17/17 07:00 01/23/17 06:58 Synthroid - PO 50 mcg DAILY@0700 CARLYN Administration Ofloxacin 5 drop 01/21/17 22:00 Floxin Otic (Ear) Solution - AD BID CARLYN Polyethylene Glycol 17 gm 01/20/17 12:04 Miralax (For Daily Use) - PO DAILY PRN CONSTIPATION Sodium Bicarbonate 1,300 mg 01/19/17 10:23 01/23/17 09:20 Sodium Bicarbonate - PO 1,300 mg BID CARLYN Administration Tamsulosin HCl 0.4 mg 01/17/17 10:00 01/23/17 09:20 Flomax - PO 0.4 mg DAILY CARLYN Administration Torsemide 40 mg 01/23/17 10:00 01/23/17 09:20 Demadex - PO 40 mg DAILY CARLYN Administration Vital Signs Temp 97.8 F 01/23/17 08:01 Pulse 69 01/23/17 08:01 Resp 20 01/23/17 08:01 BP 124/64 01/23/17 08:01 Pulse Ox 95 01/22/17 21:00 Intake & Output 01/22/17 01/22/17 01/23/17 11:59 23:59 11:59 Intake Total 619 770.8 304.0 Balance 619 770.8 304.0 Weight 167 lb 6 oz 165 lb 4 oz Intake: IV 149 70.8 54.0 Milrinone 20Mg/100Ml Ivpb 119 70.8 - 100 ml @ 0.25 MCG/KG/ MIN 5.838 mls/hr IVPB TITR CARLYN Rx#:[id number] Milrinone 20Mg/100Ml Ivpb 54.0 - 100 ml @ 0.2 MCG/KG/ MIN 4.67 mls/hr IVPB TITR CARLYN Rx#:[id number] saline lock 30 IVPB 50 100 Oral 370 600 250 Tube Irrigant 50 Other: Voiding Method Urinal Urinal # Unmeasured Voids Void 4 2 2 Bowel Movement Yes No # Bowel Movements 1 Weight Measurement Method Patient Lift Scale Patient Lift Scale Constitutional: Yes: No Distress, Calm Eyes: No: Sclera Icterus HENT: No: Nasal Congestion Cardiovascular: Yes: Regular Rate and Rhythm (decr intensity), no jvd, S1, S2, Other (PMI non diplaced). No: Gallop, Murmur Respiratory: Yes: CTA Bilaterally. No: Accessory Muscle Use, Rales, Wheezes Gastrointestinal: Yes: Normal Bowel Sounds, Soft. No: Tenderness Musculoskeletal: Yes: Other (No kyphosis) Extremities: No: Cold Edema: Yes (b/l amp (mild thigh)) Integumentary: No: Jaundice diaphoresis Neurological: Yes: Alert. No: Seizure Psychiatric: No: Agitated Labs: Laboratory Last Values WBC 5.6 K/mm3 (4.0-10.0) 01/21/17 05:35 RBC 3.57 M/mm3 (4.00-5.60) L 01/21/17 05:35 Hgb 10.5 GM/dL (11.7-16.9) L 01/21/17 05:35 Hct 31.2 % (35.4-49) L 01/21/17 05:35 MCV 87.4 fl (80-96) 01/21/17 05:35 MCH 29.5 pg (25.7-33.7) 01/21/17 05:35 MCHC 33.7 g/dl (32.0-35.9) 01/21/17 05:35 RDW 16.2 % (11.9-15.9) H 01/21/17 05:35 Plt Count 213 K/MM3 (134-434) D 01/21/17 05:35 MPV 7.9 fl (7.5-11.1) 01/21/17 05:35 Neutrophils % 68.5 % (42.8-82.8) 01/21/17 05:35 Lymphocytes % 18.4 % (8-40) D 01/21/17 05:35 Monocytes % 9.7 % (3.8-10.2) 01/21/17 05:35 Eosinophils % 2.9 % (0-4.5) D 01/21/17 05:35 Basophils % 0.5 % (0-2.0) 01/21/17 05:35 INR 1.39 (0.82-1.09) H 01/19/17 06:00 PTT (Actin FS) 32.6 SECONDS (26.9-34.4) 01/19/17 06:00 Sodium 138 mmol/L (136-145) 01/23/17 05:48 Potassium 3.6 mmol/L (3.5-5.1) 01/23/17 05:48 Chloride 102 mmol/L (98-107) 01/23/17 05:48 Carbon Dioxide 22 mmol/L (21-32) 01/23/17 05:48 Anion Gap 14 (8-16) 01/23/17 05:48 BUN 86 mg/dL (7-18) H 01/23/17 05:48 Creatinine 3.4 mg/dL (0.7-1.3) H 01/23/17 05:48 Creat Clearance w eGFR 15.93 (>60) 01/21/17 05:35 POC Glucometer 65 UNITS (()) 01/23/17 06:05 Random Glucose 54 mg/dL (74-106) L D 01/23/17 05:48 Hemoglobin A1c % 6.8 % (4.8-6.0) H D 01/19/17 06:00 Calcium 8.1 mg/dL (8.5-10.1) L 01/23/17 05:48 Phosphorus 2.8 mg/dL (2.5-4.9) 01/23/17 05:48 Magnesium 2.1 mg/dL (1.8-2.4) 01/23/17 05:48 Total Bilirubin 0.6 mg/dL (0.2-1.0) D 01/21/17 05:35 AST 14 U/L (15-37) L D 01/21/17 05:35 ALT < 6 U/L (12-78) L 01/21/17 05:35 Alkaline Phosphatase 176 U/L (45-117) H 01/21/17 05:35 Creatine Kinase 119 IU/L (39-308) 01/17/17 05:35 Creatine Kinase Index 2.7 % (0.0-5.0) 01/16/17 15:05 CK-MB (CK-2) 5.468 ng/ml (0.5-3.6) H 01/16/17 15:05 CK-MB (CK-2) Rel Index Cancelled 01/16/17 15:05 Troponin I 0.08 ng/ml (0.00-0.05) H 01/17/17 05:35 B-Natriuretic Peptide 209241.78 pg/ml (5-450) H 01/16/17 18:50 Total Protein 5.9 g/dl (6.4-8.2) L 01/21/17 05:35 Albumin 2.0 g/dl (3.4-5.0) L 01/21/17 05:35 Urine Color Yellow 01/18/17 16:45 Urine Appearance Cloudy 01/18/17 16:45 Urine pH 5.0 (5.0-8.0) 01/18/17 16:45 Ur Specific [place] 1.010 (1.005-1.025) 01/18/17 16:45 Urine Protein 2+ (NEGATIVE) H 01/18/17 16:45 Urine Glucose (UA) Negative (NEGATIVE) 01/18/17 16:45 Urine Ketones Negative (NEGATIVE) 01/18/17 16:45 Urine Blood 3+ (NEGATIVE) H 01/18/17 16:45 Urine Nitrite Negative (NEGATIVE) 01/18/17 16:45 Urine Bilirubin Negative (NEGATIVE) 01/18/17 16:45 Urine Urobilinogen Negative E.U./dl (0.2-1.0) 01/18/17 16:45 Ur Leukocyte Esterase 3+ (NEGATIVE) H 01/18/17 16:45 Urine RBC 126 /hpf (0-3) 01/18/17 16:45 Urine WBC 754 /hpf (3-5) 01/18/17 16:45 Ur Epithelial Cells Rare /hpf (FEW) 01/18/17 16:45 Urine Bacteria Many /hpf (NONE SEEN) 01/18/17 16:45 U Random Total Protein 95 mg/dl (5-11.9) H 01/17/17 15:00 Ur Random Sodium 104 MMOL/L 01/17/17 14:40 Ur Random Urea Nitrogn 261 mg/dL 01/17/17 15:00 Urine Creatinine 21.1 mg/dL (20-370) 01/17/17 15:00 - ....Imaging EKG: Other (tele: NSR, frequent pvcs) ekg 01/16/17: SR with 1st degree AVB; borderline QTC, old IWMI; diffuse NSST-Ts-- no change vs priors tele: sr, pvcs. pacs. 8-beat episode of nsvt. CXR 01/21 (gitig read): no change in R effusion and venous redistrib pattern Echo 11/2016: mod lve, sev dec lvef, global hk, mod rve, mod dec rv fcn, sarah, mod mr, mild tr, rvsp 30-40 Echo 11/2015 ([facility]): mild LVE; severe, global HK; nl RV; mod MR, mild TR; no RVSP a/p: 81 yo with CAD s/p CABG, severe LV dysfunction on prior echo, HTN, HL, prior B LE amputations, DM, prior UE thrombus, CKD with nephrotic range proteinuria, bph who presented with sob. acute on chronic syst chf - Biventricular failure -several prior admits for sob/chf -required thoracentesis for large right eff 2015 and again 11/2016 (reportedly was transudative c/w chf) -currently with signs of vol overload and recurrent large right eff -01/18 no change in sob or cxr after lasix 40 iv bid-->cr stable/improved so will increase to lasix 80 iv bid, monitor daily bmp, wts - 01/19: still no improvement in sx's on increased lasix dose. unable to record i/ o and ? accuracy of bed weights (although weights trending down). Will give trial of extra dose of 80 mg IV lasix this afternoon. If bun/cr worsens consider need for milrinone. - 01/20: received additional 80 mg IV lasix yesterday (total of 3 doses). weight con't to decrease but bun/cr not improved. will go back to bid dosing. Hydralazine and imdur added 01/19 to augment cardiac output via afterload reduction, but no significant decrease in bp. Will uptitrate today. If still no improvement in bun/cr tomorrow with lower bp's and ongoing diuresis --> need to consider starting milrinone. -limited ability to assess response to diuresis given no wts, no UOP monitoring -01/21: JVD present on exam, likely volume overloaded. rpt CXR with R effusion and venous congestionpersisting--will start milrinone 0.25mcg/kg/min trial (if frequent ventric ectopy or bp declines, will hold and try 0.125 mcg) -01/22: appears overall well euvolemic will transition to po torsemide. BMP improving on milrinone, but frequent NSVT will decrease milrinone to 0.2 mcg/kg/ min. - -01/23: cont po torsemide for maintenance. Tele with frequent ectopy and bp improved so will dc milrinone -cont coreg -stopped entresto due to claudio on ckd, replaced with hydral/imdur -unfortunately, prognosis here is poor and the biggest obstacle in pt's ability to stay out of chf and avoid VT/VF complications of low EF is that he has refused prior discussion of the realities of his cardiac condition and refuses any escalation in treatments (e.g. devices, incl ICD) -rec outpt f/u with family involvement if pt amenable--perhaps if rapport builds he will accept intensification of home monitoring and chf mgmt positive trops: -borderline trop elevation with flat trend and normal ck, not consistent with acs, likely 2/2 chf -no new ecg findings VT, brief SVT - on max dose of coreg. - lytes stable--replete per usual targets - dc milrinone today CAD: -s/p 4V cabg (1991) -no angina sxs -no ekg changes vs baseline -cont coreg, asa HTN: -cont coreg, hydral, imdur claudio on ckd: -baseline creat range here is 3.1-3.3 -worsened here likely cardiorenal syndrome DM: -s/p right BKA and left AKA -glycemia mgmt per PMD
--- NOTE | 2017-01-23 11:28 | PN ---
Progress Note, Physician History of Present Illness: Awake, alert No complaints Denies dysuria No fever/ chills - Current Medication List Current Medications: Active Medications Acetaminophen (Tylenol -) 500 mg PO Q4H PRN PRN Reason: FEVER OR PAIN Last Admin: 01/22/17 04:11 Dose: 500 mg Alprazolam (Xanax -) 0.25 mg PO Q12H PRN PRN Reason: ANXIETY Last Admin: 01/22/17 22:25 Dose: 0.25 mg Aspirin (Ecotrin -) 81 mg PO DAILY [facility] Last Admin: 01/23/17 09:20 Dose: 81 mg Bacitracin (Bacitracin -) 1 applic TP DAILY [facility] Last Admin: 01/23/17 09:21 Dose: 1 applic Carvedilol (Coreg -) 25 mg PO BID [facility] Last Admin: 01/23/17 09:21 Dose: 25 mg Finasteride (Proscar -) 5 mg PO DAILY [facility] Last Admin: 01/23/17 09:20 Dose: 5 mg Heparin Sodium (Porcine) (Heparin -) 5,000 unit SQ BID [facility] Last Admin: 01/23/17 09:20 Dose: 5,000 unit Hydralazine HCl (Apresoline -) 20 mg PO TID [facility] Last Admin: 01/23/17 06:58 Dose: 20 mg Ertapenem 0.5 gm/ Sodium (Chloride) 50 mls @ 50 mls/hr IVPB DAILY [facility] PRN Reason: Protocol Last Admin: 01/23/17 09:53 Dose: 50 mls/hr Insulin Aspart (Novolog Vial Sliding Scale -) 1 vial SQ TIDAC [facility] PRN Reason: Protocol Last Admin: 01/23/17 11:11 Dose: 2 units Insulin Detemir (Levemir Vial) 8 units SQ HS [facility] Last Admin: 01/22/17 22:24 Dose: 8 units Isosorbide Dinitrate (Isordil -) 30 mg PO BIDISORDIL [facility] Last Admin: 01/23/17 09:21 Dose: 30 mg Levothyroxine Sodium (Synthroid -) 50 mcg PO DAILY@0700 [facility] Last Admin: 01/23/17 06:58 Dose: 50 mcg Ofloxacin (Floxin Otic (Ear) Solution -) 5 drop AD BID [facility] Polyethylene Glycol (Miralax (For Daily Use) -) 17 gm PO DAILY PRN PRN Reason: CONSTIPATION Sodium Bicarbonate (Sodium Bicarbonate -) 1,300 mg PO BID [facility] Last Admin: 01/23/17 09:20 Dose: 1,300 mg Tamsulosin HCl (Flomax -) 0.4 mg PO DAILY [facility] Last Admin: 01/23/17 09:20 Dose: 0.4 mg Torsemide (Demadex -) 40 mg PO DAILY [facility] Last Admin: 01/23/17 09:20 Dose: 40 mg - Objective Vital Signs: Vital Signs Temperature 97.8 F 01/23/17 08:01 Pulse Rate 69 01/23/17 08:01 Respiratory Rate 20 01/23/17 08:01 Blood Pressure 124/64 01/23/17 08:01 O2 Sat by Pulse Oximetry (%) 95 01/22/17 21:00 Constitutional: Yes: No Distress Eyes: Yes: Conjunctiva Clear Cardiovascular: Yes: Regular Rate and Rhythm, S1, S2 Respiratory: Yes: CTA Bilaterally Gastrointestinal: Yes: Normal Bowel Sounds, Soft. No: Tenderness Edema: No Labs: CBC, BMP 01/21/17 05:35 01/23/17 05:48 INR, PTT INR 1.39 (0.82-1.09) H 01/19/17 06:00 Assessment/Plan UTI ESBL CKD Otitis externa ertapenem day #3 Substitute po Augmentin 250mg bid x 7d
--- NOTE | 2017-01-23 11:53 | PN ---
Progress Note (short form) - Note Progress Note: Renal Follow up for CKD with Volume overload Pt seen and examined at the bedside reports feeling better wants to go home off Milirone gtt on PO Torsemide making urine Vital Signs Temperature 97.8 F 01/23/17 08:01 Pulse Rate 69 01/23/17 08:01 Respiratory Rate 20 01/23/17 08:01 Blood Pressure 124/64 01/23/17 08:01 O2 Sat by Pulse Oximetry (%) 95 01/22/17 21:00 Intake & Output 01/20/17 01/21/17 01/22/17 01/23/17 23:59 23:59 23:59 23:59 Intake Total 187 197 6255.8 304.0 Output Total 300 Balance 728 180 0713.8 304.0 Weight 171 lb 8 oz 171 lb 9.6 oz 167 lb 6 oz 165 lb 4 oz Gen: NAD CVS: RRR Lungs: Dec BS b/l lung freitas Ext: 2+ edema in LE, s/l amp CBC, BMP 01/21/17 05:35 01/23/17 05:48 Laboratory Tests 01/23/17 05:48 Calcium 8.1 L Phosphorus 2.8 Magnesium 2.1 Current Medications Acetaminophen (Tylenol -) 500 mg PO Q4H PRN PRN Reason: FEVER OR PAIN Last Admin: 01/22/17 04:11 Dose: 500 mg Alprazolam (Xanax -) 0.25 mg PO Q12H PRN PRN Reason: ANXIETY Last Admin: 01/22/17 22:25 Dose: 0.25 mg Amoxicillin/Clavulanate Potassium (Augmentin - 250mg Tablet) 1 tab PO BID@0800, 1730 [facility] Aspirin (Ecotrin -) 81 mg PO DAILY [facility] Last Admin: 01/23/17 09:20 Dose: 81 mg Bacitracin (Bacitracin -) 1 applic TP DAILY [facility] Last Admin: 01/23/17 09:21 Dose: 1 applic Carvedilol (Coreg -) 25 mg PO BID [facility] Last Admin: 01/23/17 09:21 Dose: 25 mg Finasteride (Proscar -) 5 mg PO DAILY [facility] Last Admin: 01/23/17 09:20 Dose: 5 mg Heparin Sodium (Porcine) (Heparin -) 5,000 unit SQ BID [facility] Last Admin: 01/23/17 09:20 Dose: 5,000 unit Hydralazine HCl (Apresoline -) 20 mg PO TID [facility] Last Admin: 01/23/17 06:58 Dose: 20 mg Insulin Aspart (Novolog Vial Sliding Scale -) 1 vial SQ TIDAC [facility] PRN Reason: Protocol Last Admin: 01/23/17 11:11 Dose: 2 units Insulin Detemir (Levemir Vial) 8 units SQ HS [facility] Last Admin: 01/22/17 22:24 Dose: 8 units Isosorbide Dinitrate (Isordil -) 30 mg PO BIDISORDIL [facility] Last Admin: 01/23/17 09:21 Dose: 30 mg Levothyroxine Sodium (Synthroid -) 50 mcg PO DAILY@0700 [facility] Last Admin: 01/23/17 06:58 Dose: 50 mcg Ofloxacin (Floxin Otic (Ear) Solution -) 5 drop AD BID [facility] Polyethylene Glycol (Miralax (For Daily Use) -) 17 gm PO DAILY PRN PRN Reason: CONSTIPATION Sodium Bicarbonate (Sodium Bicarbonate -) 1,300 mg PO BID [facility] Last Admin: 01/23/17 09:20 Dose: 1,300 mg Tamsulosin HCl (Flomax -) 0.4 mg PO DAILY [facility] Last Admin: 01/23/17 09:20 Dose: 0.4 mg Torsemide (Demadex -) 40 mg PO DAILY [facility] Last Admin: 01/23/17 09:20 Dose: 40 mg A/P 81 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 with PMhx of CKD stage 4 (baseline Cr 2.6-3.3) with nephrotic range proteinuria, Systolic CHF, PVD s/p b/l LE amputations, Hyperlipidemia, Anemia who presented with SOB, LE swelling and found to have large pleural effusion and BUN/Cr of 81/3.5.\] #CKD Stage 4 with nephrotic rang proteinuria with volume overload Etiology of CKD likely ischemic + diabetic nephropathy but 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 as well Cr with mild improvement while on Milirone gtt off Milirone now as per Cardiology continue Torsemide daily will need close mentoring of renal function and electrolytes as outpatient no OLIVA/ARB given low eGFR #CHF/RIght Pleural effusion Cardiology following clinically improved continue oral torsemide #Right Ear discharge e/o otitis externa continue Abx as per ENT #Anion gap metabolic acidosis continue sodium bicarb to 1300mg BID as outpatient Hugh Huggins DO Problem List - Problems (1) KAMRAN (acute kidney injury) Code(s): N17.9 - ACUTE KIDNEY FAILURE, UNSPECIFIED (2) CAD (coronary artery disease) Code(s): I25.10 - ATHSCL HEART DISEASE OF [place] CORONARY ARTERY W/O ANG PCTRS Qualifiers: Coronary Disease-Associated Artery/Lesion type: [place] artery [place] vs. transplanted heart: [place] heart Associated angina: without angina Qualified Code(s): I25.10 - Atherosclerotic heart disease of [place] coronary artery without angina pectoris (3) CHF (congestive heart failure) Code(s): I50.9 - HEART FAILURE, UNSPECIFIED Qualifiers: Congestive heart failure type: combined Congestive heart failure chronicity: acute on chronic Qualified Code(s): I50.43 - Acute on chronic combined systolic (congestive) and diastolic (congestive) heart failure (4) CHF exacerbation Code(s): I50.9 - HEART FAILURE, UNSPECIFIED Qualifiers: Congestive heart failure type: combined Qualified Code(s): I50.43 - Acute on chronic combined systolic (congestive) and diastolic (congestive) heart failure (5) HTN (hypertension) Code(s): I10 - ESSENTIAL (PRIMARY) HYPERTENSION Qualifiers: Hypertension type: essential hypertension Qualified Code(s): I10 - Essential (primary) hypertension (6) Nephrotic syndrome Code(s): N04.9 - NEPHROTIC SYNDROME WITH UNSPECIFIED MORPHOLOGIC CHANGES (7) Pleural effusion Code(s): J90 - PLEURAL EFFUSION, NOT ELSEWHERE CLASSIFIED (8) Metabolic acidosis Code(s): E87.2 - ACIDOSIS
[2017-01-23] MEDS: OFLOXACIN 0.3% OTIC SOLUTION 5 ML BOTTLE AD SCH ×2 (14:27→21:23)
[2017-01-23] MEDS: AMOX TR/POT CLAV 250MG/125MG TABLETS PO SCH (17:28)
--- NOTE | 2017-01-23 19:42 | PN ---
Progress Note, Physician Chief Complaint: ear infection History of Present Illness: Seems to be bothering him less - Current Medication List Current Medications: Active Medications Acetaminophen (Tylenol -) 500 mg PO Q4H PRN PRN Reason: FEVER OR PAIN Last Admin: 01/22/17 04:11 Dose: 500 mg Alprazolam (Xanax -) 0.25 mg PO Q12H PRN PRN Reason: ANXIETY Last Admin: 01/22/17 22:25 Dose: 0.25 mg Amoxicillin/Clavulanate Potassium (Augmentin - 250mg Tablet) 1 tab PO BID@0800, 1730 [facility] Last Admin: 01/23/17 17:28 Dose: 1 tab Aspirin (Ecotrin -) 81 mg PO DAILY [facility] Last Admin: 01/23/17 09:20 Dose: 81 mg Bacitracin (Bacitracin -) 1 applic TP DAILY [facility] Last Admin: 01/23/17 09:21 Dose: 1 applic Carvedilol (Coreg -) 25 mg PO BID [facility] Last Admin: 01/23/17 09:21 Dose: 25 mg Finasteride (Proscar -) 5 mg PO DAILY [facility] Last Admin: 01/23/17 09:20 Dose: 5 mg Heparin Sodium (Porcine) (Heparin -) 5,000 unit SQ BID [facility] Last Admin: 01/23/17 09:20 Dose: 5,000 unit Hydralazine HCl (Apresoline -) 20 mg PO TID [facility] Last Admin: 01/23/17 14:24 Dose: 20 mg Insulin Aspart (Novolog Vial Sliding Scale -) 1 vial SQ TIDAC [facility] PRN Reason: Protocol Last Admin: 01/23/17 16:26 Dose: Not Given Insulin Detemir (Levemir Vial) 8 units SQ HS [facility] Last Admin: 01/22/17 22:24 Dose: 8 units Isosorbide Dinitrate (Isordil -) 30 mg PO BIDISORDIL [facility] Last Admin: 01/23/17 09:21 Dose: 30 mg Levothyroxine Sodium (Synthroid -) 50 mcg PO DAILY@0700 [facility] Last Admin: 01/23/17 06:58 Dose: 50 mcg Ofloxacin (Floxin Otic (Ear) Solution -) 5 drop AD BID [facility] Last Admin: 01/23/17 14:27 Dose: 5 drop Polyethylene Glycol (Miralax (For Daily Use) -) 17 gm PO DAILY PRN PRN Reason: CONSTIPATION Sodium Bicarbonate (Sodium Bicarbonate -) 1,300 mg PO BID [facility] Last Admin: 01/23/17 09:20 Dose: 1,300 mg Tamsulosin HCl (Flomax -) 0.4 mg PO DAILY [facility] Last Admin: 01/23/17 09:20 Dose: 0.4 mg Torsemide (Demadex -) 40 mg PO DAILY [facility] Last Admin: 01/23/17 09:20 Dose: 40 mg - Objective Vital Signs: Vital Signs Temperature 98.4 F 01/23/17 17:00 Pulse Rate 75 01/23/17 17:00 Respiratory Rate 20 01/23/17 17:00 Blood Pressure 131/70 01/23/17 17:00 O2 Sat by Pulse Oximetry (%) 95 01/22/17 21:00 Constitutional: Yes: Well Nourished, No Distress, Calm HENT: Yes: Other (Right: +purulent discharge. minimal fluid on floor of canal, medially against TM. cannot fully assess TM inferiorly.) Labs: CBC, BMP 01/21/17 05:35 01/23/17 05:48 INR, PTT INR 1.39 (0.82-1.09) H 01/19/17 06:00 Problem List - Problems (1) Acute otitis externa of right ear Assessment/Plan: Ofloxacin - 5 drops twice daily to right ear for one week total. -I understand discharge planned for tmrw possibly. Adv outpatient f/u in my office so I can clean and examine the ear under binocular microscopy. -No sig discharge as to require debridement at this time. -Derm eval advised outpatient for lesion on auricle (unrelated), likely benign. -Ear should be kept dry and open to air. -Glycemic control important as well -Medical mgmt, UTI mgmt per medical team. Code(s): H60.501 - UNSPECIFIED ACUTE NONINFECTIVE OTITIS EXTERNA, RIGHT EAR
[2017-01-23] MEDS: ACETAMINOPHEN 500 MG TABLET (FP) PO PRN (21:22)
[2017-01-23] MEDS: INSULIN DETEMIR 100 UNITS/ML MDV SQ SCH (21:23)
[2017-01-24] MEDS: INSULIN SLIDING SCALE (NOVOLOG) 1 VIAL SQ SCH ×3 (06:11→16:59)
[2017-01-24] MEDS: LEVOTHYROXINE NA 50 MCG TABLET (FP) PO SCH (06:15)
[2017-01-24] MEDS: hydrALAZINE HCL 10 MG TABLET PO SCH ×3 (06:16→21:17)
[2017-01-24] MEDS ORDERED: PT OWN MED DRAWER 7, Y5N ONE ×3 (08:10→16:18)
[2017-01-24] MEDS: CARVEDILOL 25 MG TABLET (FP) PO SCH ×2 (09:10→21:17)
[2017-01-24] MEDS: ISOSORBIDE DINITRATE 10 MG TABLET (FP) PO SCH ×2 (09:10→17:00)
[2017-01-24] MEDS: AMOX TR/POT CLAV 250MG/125MG TABLETS PO SCH ×2 (09:10→16:59)
[2017-01-24] MEDS: SODIUM BICARBONATE 650 MG TABLET PO SCH ×2 (09:10→21:17)
[2017-01-24] MEDS: TORSEMIDE 20 MG TABLET (FP) PO SCH (09:10)
[2017-01-24] MEDS: ASPIRIN COATED 81 MG TABLET.EC PO SCH (09:10)
[2017-01-24] MEDS: TAMSULOSIN HCL 0.4 MG CAP.ER.24H (FP) PO SCH (09:10)
[2017-01-24] MEDS: FINASTERIDE 5 MG TABLET (FP) PO SCH (09:10)
[2017-01-24] MEDS: HEPARIN NA (PORCINE) 5,000 UNITS/ML 1ML VIAL SQ SCH (09:11)
[2017-01-24] MEDS: OFLOXACIN 0.3% OTIC SOLUTION 5 ML BOTTLE AD SCH ×2 (09:11→21:18)
[2017-01-24] MEDS: BACITRACIN 15 GM TUBE TOPICAL OINTMENT TP SCH (09:16)
--- NOTE | 2017-01-24 10:55 | DS ---
Physical Examination Vital Signs: Vital Signs Temperature 97.2 F L 01/24/17 09:24 Pulse Rate 70 01/24/17 09:24 Respiratory Rate 18 01/24/17 09:24 Blood Pressure 130/80 01/24/17 09:24 O2 Sat by Pulse Oximetry (%) 98 01/24/17 09:00 Constitutional: Yes: No Distress, Calm Cardiovascular: Yes: Regular Rate and Rhythm Respiratory: Yes: Diminished Gastrointestinal: Yes: Normal Bowel Sounds, Soft. No: Distention, Tenderness Renal/: Yes: Other (decreased scrotal edema) Extremities: Yes: Other (B/L AKA) Edema: No Labs: CBC, BMP 01/21/17 05:35 01/23/17 05:48 Discharge Summary Reason For Visit: ACUTE KIDNEY INJURY Current Active Problems KAMRAN (acute kidney injury) (Acute) Acute otitis externa of right ear (Acute) CAD (coronary artery disease) (Acute) CHF (congestive heart failure) (Acute) CHF exacerbation (Acute) DVT (deep venous thrombosis) (Acute) HTN (hypertension) (Acute) Ischemic cardiomyopathy (Acute) Metabolic acidosis (Acute) Nephrotic syndrome (Acute) Obstructive uropathy (Acute) Pneumonia (Acute) S/P CABG (coronary artery bypass graft) (Acute) S/P thoracentesis (Acute) UTI (urinary tract infection) (Acute) UTI (urinary tract infection), bacterial (Acute) Urinary retention (Acute) Hospital Course: Admitted for CHF decompensation-- acute systolic CHF and acute kidney injury Pt was seen by Cardiology, Renal , Pulmonary and ID Has ESBL in Urine sensitive to Augmentin Now better euvolemic and tolerating Torsemide Pt is deconditioned . also confused \ He will need STR Family and I agree for STR He lives at home alone- children are out of state ammonia elevated and Lactulose given Condition: Improved - Instructions Referrals: Villa Mcdaniels MD [Primary Care Provider] - Disposition: [facility] - Home Medications Comprehensive Discharge Medication List: Ambulatory Orders Aspirin [Aspirin EC] 81 mg PO DAILY 01/16/17 Carvedilol [Coreg -] 25 mg PO BID 01/16/17 Clotrimazole [Mycelex Arcelia's -] 10 mg PO 5XD 01/16/17 Finasteride [Proscar -] 5 mg PO DAILY 01/16/17 Furosemide [Lasix -] 40 mg PO DAILY 01/16/17 Glipizide [Glipizide ER] 10 mg PO DAILY 01/16/17 Levothyroxine [Synthroid -] 50 mcg PO DAILY 01/16/17 Linagliptin [Tradjenta] 5 mg PO DAILY 01/16/17 Loperamide HCl [Loperamide] 2 mg PO DAILY PRN 01/16/17 Metolazone [Zaroxolyn -] 5 mg PO DAILY 01/16/17 Sacubitril/Valsartan [Entresto 24 mg-26 mg Tablet] 1 each PO BID 01/16/17 Tamsulosin HCl [Flomax] 0.4 mg PO DAILY 01/16/17
--- NOTE | 2017-01-24 11:41 | PN ---
Progress Note (short form) - Note Progress Note: Chief Complaint: chf History of Present Illness: denies sob, cp, palpitations, dizzy asking to go home no cigs Current Medications Generic Name Dose Route Start Last Admin Trade Name Day PRN Reason Stop Dose Admin Acetaminophen 500 mg 01/20/17 12:04 01/23/17 21:22 Tylenol - PO 500 mg Q4H PRN Administration FEVER OR PAIN Alprazolam 0.25 mg 01/21/17 22:42 01/22/17 22:25 Xanax - PO 0.25 mg Q12H PRN Administration ANXIETY Amoxicillin/Clavulanate Potassium 1 tab 01/23/17 17:30 01/24/17 09:10 Augmentin - 250mg Tablet PO 1 tab BID@0800,1730 CARLYN Administration Aspirin 81 mg 01/17/17 10:00 01/24/17 09:10 Ecotrin - PO 81 mg DAILY CARLYN Administration Bacitracin 1 applic 01/17/17 14:45 01/24/17 09:16 Bacitracin - TP 1 applic DAILY CARLYN Administration Carvedilol 25 mg 01/16/17 22:00 01/24/17 09:10 Coreg - PO 25 mg BID CARLYN Administration Finasteride 5 mg 01/17/17 10:00 01/24/17 09:10 Proscar - PO 5 mg DAILY CARLYN Administration Hydralazine HCl 20 mg 01/20/17 22:00 01/24/17 06:16 Apresoline - PO 20 mg TID CARLYN Administration Insulin Aspart 1 vial 01/17/17 07:00 01/24/17 06:11 Novolog Vial Sliding Scale - SQ Not Given TIDAC [facility] Protocol Insulin Detemir 8 units 01/18/17 22:00 01/23/17 21:23 Levemir Vial SQ 8 units HS CARLYN Administration Isosorbide Dinitrate 30 mg 01/20/17 22:00 01/24/17 09:10 Isordil - PO 30 mg BIDISORDIL CARLYN Administration Levothyroxine Sodium 50 mcg 01/17/17 07:00 01/24/17 06:15 Synthroid - PO 50 mcg DAILY@0700 CARLYN Administration Ofloxacin 5 drop 01/23/17 12:00 01/24/17 09:11 Floxin Otic (Ear) Solution - AD 5 drop BID CARLYN Administration Polyethylene Glycol 17 gm 01/20/17 12:04 Miralax (For Daily Use) - PO DAILY PRN CONSTIPATION Sodium Bicarbonate 1,300 mg 01/19/17 10:23 01/24/17 09:10 Sodium Bicarbonate - PO 1,300 mg BID CARLYN Administration Tamsulosin HCl 0.4 mg 01/17/17 10:00 01/24/17 09:10 Flomax - PO 0.4 mg DAILY CARLYN Administration Torsemide 40 mg 01/23/17 10:00 01/24/17 09:10 Demadex - PO 40 mg DAILY CARLYN Administration Vital Signs Temp 97.2 F L 01/24/17 09:24 Pulse 70 01/24/17 09:24 Resp 18 01/24/17 09:24 BP 130/80 01/24/17 09:24 Pulse Ox 98 01/24/17 09:00 Intake & Output 01/23/17 01/23/17 01/24/17 11:59 23:59 11:59 Intake Total 304.0 270 120 Balance 304.0 270 120 Weight 165 lb 4 oz 161 lb Intake: IV 54.0 Milrinone 20Mg/100Ml Ivpb 54.0 - 100 ml @ 0.2 MCG/KG/ MIN 4.67 mls/hr IVPB TITR CARLYN Rx#:[id number] Oral 250 270 120 Other: Voiding Method Urinal Incontinent Incontinent # Unmeasured Voids Void 2 Weight Measurement Method Patient Lift Scale Patient Lift Scale Constitutional: Yes: No Distress, Calm Eyes: No: Sclera Icterus HENT: No: Nasal Congestion Cardiovascular: Yes: Regular Rate and Rhythm (decr intensity), no jvd, S1, S2, Other (PMI non diplaced). No: Gallop, Murmur Respiratory: Yes: CTA Bilaterally. No: Accessory Muscle Use, Rales, Wheezes Gastrointestinal: Yes: Normal Bowel Sounds, Soft. No: Tenderness Musculoskeletal: Yes: Other (No kyphosis) Extremities: No: Cold Edema: Yes (b/l amp (mild thigh)) Integumentary: No: Jaundice diaphoresis Neurological: Yes: Alert. No: Seizure Psychiatric: No: Agitated Labs: CBC, BMP 01/21/17 05:35 01/23/17 05:48 EKG: Other (tele: NSR, pvcs) ekg 01/16/17: SR with 1st degree AVB; borderline QTC, old IWMI; diffuse NSST-Ts-- no change vs priors tele: sr, pvcs. pacs. 8-beat episode of nsvt. CXR 01/21 (gitmellissa cardenas): no change in R effusion and venous redistrib pattern Echo 11/2016: mod lve, sev dec lvef, global hk, mod rve, mod dec rv fcn, sarah, mod mr, mild tr, rvsp 30-40 Echo 11/2015 ([facility]): mild LVE; severe, global HK; nl RV; mod MR, mild TR; no RVSP a/p: 81 yo with CAD s/p CABG, severe LV dysfunction on prior echo, HTN, HL, prior B LE amputations, DM, prior UE thrombus, CKD with nephrotic range proteinuria, bph who presented with sob. acute on chronic syst chf - Biventricular failure -several prior admits for sob/chf -required thoracentesis for large right eff 2015 and again 11/2016 (reportedly was transudative c/w chf) -currently with signs of vol overload and recurrent large right eff -01/18 no change in sob or cxr after lasix 40 iv bid-->cr stable/improved so will increase to lasix 80 iv bid, monitor daily bmp, wts - 01/19: still no improvement in sx's on increased lasix dose. unable to record i/ o and ? accuracy of bed weights (although weights trending down). Will give trial of extra dose of 80 mg IV lasix this afternoon. If bun/cr worsens consider need for milrinone. - 01/20: received additional 80 mg IV lasix yesterday (total of 3 doses). weight con't to decrease but bun/cr not improved. will go back to bid dosing. Hydralazine and imdur added 01/19 to augment cardiac output via afterload reduction, but no significant decrease in bp. Will uptitrate today. If still no improvement in bun/cr tomorrow with lower bp's and ongoing diuresis --> need to consider starting milrinone. -limited ability to assess response to diuresis given no wts, no UOP monitoring -01/21: JVD present on exam, likely volume overloaded. rpt CXR with R effusion and venous congestionpersisting--will start milrinone 0.25mcg/kg/min trial (if frequent ventric ectopy or bp declines, will hold and try 0.125 mcg) -01/22: appears overall well euvolemic will transition to po torsemide. BMP improving on milrinone, but frequent NSVT will decrease milrinone to 0.2 mcg/kg/ min. - -01/23: cont po torsemide for maintenance. Tele with frequent ectopy and bp improved so will dc milrinone -01/24: vol stable, cont po torsemide -cont coreg -stopped entresto due to claudio on ckd, replaced with hydral/imdur -unfortunately, prognosis here is poor and the biggest obstacle in pt's ability to stay out of chf and avoid VT/VF complications of low EF is that he has refused prior discussion of the realities of his cardiac condition and refuses any escalation in treatments (e.g. devices, incl ICD) -rec outpt f/u with family involvement if pt amenable--perhaps if rapport builds he will accept intensification of home monitoring and chf mgmt positive trops: -borderline trop elevation with flat trend and normal ck, not consistent with acs, likely 2/2 chf -no new ecg findings VT, brief SVT - on max dose of coreg. - lytes stable--replete per usual targets - off milrinone now - no further episodes CAD: -s/p 4V cabg (1991) -no angina sxs -no ekg changes vs baseline -cont coreg, asa HTN: -cont coreg, hydral, imdur claudio on ckd: -baseline creat range here is 3.1-3.3 -worsened here likely cardiorenal syndrome, now cr close to baseline DM: -s/p right BKA and left AKA -glycemia mgmt per PMD cardiac lopez remains stable for dc
--- NOTE | 2017-01-24 14:19 | PN ---
Progress Note (short form) - Note Progress Note: Renal Follow up for CKD with Volume overload Pt seen and examined at the bedside no overnight events wants to go home, pt is refusing SNF placement deneis any sob, chest pain weight improved from 190 to 160 lbs Vital Signs Temperature 97.2 F L 01/24/17 09:24 Pulse Rate 70 01/24/17 09:24 Respiratory Rate 18 01/24/17 09:24 Blood Pressure 130/80 01/24/17 09:24 O2 Sat by Pulse Oximetry (%) 98 01/24/17 09:00 Intake & Output 01/21/17 01/22/17 01/23/17 01/24/17 23:59 23:59 23:59 23:59 Intake Total 405 1389.8 574.0 670 Output Total 300 Balance 105 1389.8 574.0 670 Weight 171 lb 9.6 oz 167 lb 6 oz 165 lb 4 oz 161 lb Gen: NAD CVS: RRR Lungs: Dec BS b/l lung freitas Ext: 2+ edema in LE, s/l amp CBC, BMP 01/21/17 05:35 01/23/17 05:48 no new labs today Current Medications Acetaminophen (Tylenol -) 500 mg PO Q4H PRN PRN Reason: FEVER OR PAIN Last Admin: 01/23/17 21:22 Dose: 500 mg Alprazolam (Xanax -) 0.25 mg PO Q12H PRN PRN Reason: ANXIETY Last Admin: 01/22/17 22:25 Dose: 0.25 mg Amoxicillin/Clavulanate Potassium (Augmentin - 250mg Tablet) 1 tab PO BID@0800, 1730 [facility] Last Admin: 01/24/17 09:10 Dose: 1 tab Aspirin (Ecotrin -) 81 mg PO DAILY [facility] Last Admin: 01/24/17 09:10 Dose: 81 mg Bacitracin (Bacitracin -) 1 applic TP DAILY [facility] Last Admin: 01/24/17 09:16 Dose: 1 applic Carvedilol (Coreg -) 25 mg PO BID [facility] Last Admin: 01/24/17 09:10 Dose: 25 mg Finasteride (Proscar -) 5 mg PO DAILY [facility] Last Admin: 01/24/17 09:10 Dose: 5 mg Hydralazine HCl (Apresoline -) 20 mg PO TID [facility] Last Admin: 01/24/17 06:16 Dose: 20 mg Insulin Aspart (Novolog Vial Sliding Scale -) 1 vial SQ TIDAC [facility] PRN Reason: Protocol Last Admin: 01/24/17 12:03 Dose: Not Given Insulin Detemir (Levemir Vial) 8 units SQ HS [facility] Last Admin: 01/23/17 21:23 Dose: 8 units Isosorbide Dinitrate (Isordil -) 30 mg PO BIDISORDIL [facility] Last Admin: 01/24/17 09:10 Dose: 30 mg Lactulose (Cephulac (Oral Use)) 20 gm PO TID PRN PRN Reason: CONSTIPATION Levothyroxine Sodium (Synthroid -) 50 mcg PO DAILY@0700 [facility] Last Admin: 01/24/17 06:15 Dose: 50 mcg Ofloxacin (Floxin Otic (Ear) Solution -) 5 drop AD BID [facility] Last Admin: 01/24/17 09:11 Dose: 5 drop Polyethylene Glycol (Miralax (For Daily Use) -) 17 gm PO DAILY PRN PRN Reason: CONSTIPATION Sodium Bicarbonate (Sodium Bicarbonate -) 1,300 mg PO BID [facility] Last Admin: 01/24/17 09:10 Dose: 1,300 mg Tamsulosin HCl (Flomax -) 0.4 mg PO DAILY [facility] Last Admin: 01/24/17 09:10 Dose: 0.4 mg Torsemide (Demadex -) 40 mg PO DAILY [facility] Last Admin: 01/24/17 09:10 Dose: 40 mg A/P 81 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 with PMhx of CKD stage 4 (baseline Cr 2.6-3.3) with nephrotic range proteinuria, Systolic CHF, PVD s/p b/l LE amputations, Hyperlipidemia, Anemia who presented with SOB, LE swelling and found to have large pleural effusion and BUN/Cr of 81/3.5.\] #CKD Stage 4 with nephrotic rang proteinuria with volume overload Etiology of CKD likely ischemic + diabetic nephropathy but 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 as well Renal function has remained stable this admission pt is non-oliguric and has had a good response to diuretics #CHF/RIght Pleural effusion weight significantly improved continue oral torsemide daily Cardiology following #Right Ear discharge e/o otitis externa continue Abx as per ENT #Anion gap metabolic acidosis continue sodium bicarb 1300mg BID discharge planned as per PMD pt is refusing SNF placement Hugh Joseluis DO Problem List - Problems (1) KAMRAN (acute kidney injury) Code(s): N17.9 - ACUTE KIDNEY FAILURE, UNSPECIFIED (2) CAD (coronary artery disease) Code(s): I25.10 - ATHSCL HEART DISEASE OF [place] CORONARY ARTERY W/O ANG PCTRS Qualifiers: Coronary Disease-Associated Artery/Lesion type: [place] artery [place] vs. transplanted heart: [place] heart Associated angina: without angina Qualified Code(s): I25.10 - Atherosclerotic heart disease of [place] coronary artery without angina pectoris (3) CHF (congestive heart failure) Code(s): I50.9 - HEART FAILURE, UNSPECIFIED Qualifiers: Congestive heart failure type: combined Congestive heart failure chronicity: acute on chronic Qualified Code(s): I50.43 - Acute on chronic combined systolic (congestive) and diastolic (congestive) heart failure (4) CHF exacerbation Code(s): I50.9 - HEART FAILURE, UNSPECIFIED Qualifiers: Congestive heart failure type: combined Qualified Code(s): I50.43 - Acute on chronic combined systolic (congestive) and diastolic (congestive) heart failure (5) HTN (hypertension) Code(s): I10 - ESSENTIAL (PRIMARY) HYPERTENSION Qualifiers: Hypertension type: essential hypertension Qualified Code(s): I10 - Essential (primary) hypertension (6) Nephrotic syndrome Code(s): N04.9 - NEPHROTIC SYNDROME WITH UNSPECIFIED MORPHOLOGIC CHANGES (7) Pleural effusion Code(s): J90 - PLEURAL EFFUSION, NOT ELSEWHERE CLASSIFIED (8) Metabolic acidosis Code(s): E87.2 - ACIDOSIS
[2017-01-24] MEDS: LACTULOSE 20 GM/30 ML UDC (FOR ORAL USE ONLY) PO SCH ×2 (15:37→21:17)
[2017-01-24] MEDS: INSULIN DETEMIR 100 UNITS/ML MDV SQ SCH (21:29)
[2017-01-25] MEDS: LEVOTHYROXINE NA 50 MCG TABLET (FP) PO SCH (06:11)
[2017-01-25] MEDS: hydrALAZINE HCL 10 MG TABLET PO SCH ×3 (06:11→21:48)
[2017-01-25] MEDS: LACTULOSE 20 GM/30 ML UDC (FOR ORAL USE ONLY) PO SCH ×3 (06:11→21:48)
[2017-01-25] MEDS: INSULIN SLIDING SCALE (NOVOLOG) 1 VIAL SQ SCH ×3 (06:12→17:19)
[2017-01-25 07:48] LABS: ANION GAP 12 (8-16); CALCIUM 8.3 mg/dL (8.5-10.1); CO2 26 mmol/L (21-32); CREATININE 3.2 mg/dL (0.7-1.3); MAGNESIUM 2.1 mg/dL (1.8-2.4); PHOSPHOROUS 3.8 mg/dL (2.5-4.9)
[2017-01-25 08:04] LABS: GLUCOSE,RANDOM 28 mg/dL (74-106)
[2017-01-25] MEDS ORDERED: PT OWN MED DRAWER 7, Y5N ONE ×3 (08:08→10:44)
[2017-01-25] MEDS: AMOX TR/POT CLAV 250MG/125MG TABLETS PO SCH ×2 (08:34→17:18)
[2017-01-25] MEDS: TAMSULOSIN HCL 0.4 MG CAP.ER.24H (FP) PO SCH (09:05)
[2017-01-25] MEDS: SODIUM BICARBONATE 650 MG TABLET PO SCH (09:05)
[2017-01-25] MEDS: TORSEMIDE 20 MG TABLET (FP) PO SCH (09:05)
[2017-01-25] MEDS: FINASTERIDE 5 MG TABLET (FP) PO SCH (09:05)
[2017-01-25] MEDS: BACITRACIN 15 GM TUBE TOPICAL OINTMENT TP SCH (09:06)
[2017-01-25] MEDS: ASPIRIN COATED 81 MG TABLET.EC PO SCH (09:06)
[2017-01-25] MEDS: CARVEDILOL 25 MG TABLET (FP) PO SCH ×2 (09:06→21:48)
[2017-01-25] MEDS: ISOSORBIDE DINITRATE 10 MG TABLET (FP) PO SCH ×2 (09:07→17:19)
[2017-01-25] MEDS: OFLOXACIN 0.3% OTIC SOLUTION 5 ML BOTTLE AD SCH ×2 (10:57→21:49)
--- NOTE | 2017-01-25 11:43 | PN ---
Progress Note (short form) - Note Progress Note: Chief Complaint: chf History of Present Illness: denies sob, cp, palpitations, dizzy asking to go home Current Medications Generic Name Dose Route Start Last Admin Trade Name Day PRN Reason Stop Dose Admin Amoxicillin/Clavulanate Potassium 1 tab 01/23/17 17:30 01/25/17 08:34 Augmentin - 250mg Tablet PO 1 tab BID@0800,1730 CARLYN Administration Aspirin 81 mg 01/17/17 10:00 01/25/17 09:06 Ecotrin - PO 81 mg DAILY CARLYN Administration Bacitracin 1 applic 01/17/17 14:45 01/25/17 09:06 Bacitracin - TP 1 applic DAILY CARLYN Administration Carvedilol 25 mg 01/16/17 22:00 01/25/17 09:06 Coreg - PO 25 mg BID CARLYN Administration Finasteride 5 mg 01/17/17 10:00 01/25/17 09:05 Proscar - PO 5 mg DAILY CARLYN Administration Hydralazine HCl 20 mg 01/20/17 22:00 01/25/17 06:11 Apresoline - PO 20 mg TID CARLYN Administration Insulin Aspart 1 vial 01/17/17 07:00 01/25/17 06:12 Novolog Vial Sliding Scale - SQ Not Given TIDAC [facility] Protocol Insulin Detemir 8 units 01/18/17 22:00 01/24/17 21:29 Levemir Vial SQ 8 units HS CARLYN Administration Isosorbide Dinitrate 30 mg 01/20/17 22:00 01/25/17 09:07 Isordil - PO 30 mg BIDISORDIL CARLYN Administration Lactulose 20 gm 01/24/17 14:45 01/25/17 06:11 Cephulac (Oral Use) PO 20 gm TID CARLYN Administration Levothyroxine Sodium 50 mcg 01/17/17 07:00 01/25/17 06:11 Synthroid - PO 50 mcg DAILY@0700 CARLYN Administration Ofloxacin 5 drop 01/23/17 12:00 01/25/17 10:57 Floxin Otic (Ear) Solution - AD 5 drop BID CARLYN Administration Polyethylene Glycol 17 gm 01/20/17 12:04 Miralax (For Daily Use) - PO DAILY PRN CONSTIPATION Sodium Bicarbonate 1,300 mg 01/19/17 10:23 01/25/17 09:05 Sodium Bicarbonate - PO 1,300 mg BID CARLYN Administration Tamsulosin HCl 0.4 mg 01/17/17 10:00 01/25/17 09:05 Flomax - PO 0.4 mg DAILY CARLYN Administration Torsemide 40 mg 01/23/17 10:00 01/25/17 09:05 Demadex - PO 40 mg DAILY CARLYN Administration Vital Signs Period Temp Pulse Resp BP Sys/Stock Pulse Ox Last 24 Hr 97.6 F-98.7 F 56-68 18-20 110-131/54-85 98 Constitutional: Yes: No Distress, Calm Eyes: No: Sclera Icterus HENT: No: Nasal Congestion Cardiovascular: Yes: Regular Rate and Rhythm (decr intensity), no jvd, S1, S2, Other (PMI non diplaced). No: Gallop, Murmur Respiratory: Yes: CTA Bilaterally. No: Accessory Muscle Use, Rales, Wheezes Gastrointestinal: Yes: Normal Bowel Sounds, Soft. No: Tenderness Edema: no Integumentary: No: Jaundice diaphoresis Neurological: Yes: Alert. No: Seizure Psychiatric: No: Agitated Labs: CBC, BMP 01/21/17 05:35 01/25/17 05:35 ekg 01/16/17: SR with 1st degree AVB; borderline QTC, old IWMI; diffuse NSST-Ts-- no change vs priors tele: sr, occ pvcs Echo 11/2016: mod lve, sev dec lvef, global hk, mod rve, mod dec rv fcn, sarah, mod mr, mild tr, rvsp 30-40 Echo 11/2015 (): mild LVE; severe, global HK; nl RV; mod MR, mild TR; no RVSP a/p: 81 yo with CAD s/p CABG, severe LV dysfunction on prior echo, HTN, HL, prior B LE amputations, DM, prior UE thrombus, CKD with nephrotic range proteinuria, bph who presented with sob. acute on chronic syst chf - Biventricular failure -several prior admits for sob/chf -required thoracentesis for large right eff 2015 and again 11/2016 (reportedly was transudative c/w chf) -currently with signs of vol overload and recurrent large right eff -01/18 no change in sob or cxr after lasix 40 iv bid-->cr stable/improved so will increase to lasix 80 iv bid, monitor daily bmp, wts - 01/19: still no improvement in sx's on increased lasix dose. unable to record i/ o and ? accuracy of bed weights (although weights trending down). Will give trial of extra dose of 80 mg IV lasix this afternoon. If bun/cr worsens consider need for milrinone. - 01/20: received additional 80 mg IV lasix yesterday (total of 3 doses). weight con't to decrease but bun/cr not improved. will go back to bid dosing. Hydralazine and imdur added 01/19 to augment cardiac output via afterload reduction, but no significant decrease in bp. Will uptitrate today. If still no improvement in bun/cr tomorrow with lower bp's and ongoing diuresis --> need to consider starting milrinone. -limited ability to assess response to diuresis given no wts, no UOP monitoring -01/21: JVD present on exam, likely volume overloaded. rpt CXR with R effusion and venous congestionpersisting--will start milrinone 0.25mcg/kg/min trial (if frequent ventric ectopy or bp declines, will hold and try 0.125 mcg) -01/22: appears overall well euvolemic will transition to po torsemide. BMP improving on milrinone, but frequent NSVT will decrease milrinone to 0.2 mcg/kg/ min. - -01/23: cont po torsemide for maintenance. Tele with frequent ectopy and bp improved so will dc milrinone -01/24-: vol stable, cont po torsemide -cont coreg -stopped entresto due to claudio on ckd, replaced with hydral/imdur -unfortunately, prognosis here is poor and the biggest obstacle in pt's ability to stay out of chf and avoid VT/VF complications of low EF is that he has refused prior discussion of the realities of his cardiac condition and refuses any escalation in treatments (e.g. devices, incl ICD) -rec outpt f/u with family involvement if pt amenable--perhaps if rapport builds he will accept intensification of home monitoring and chf mgmt positive trops: -borderline trop elevation with flat trend and normal ck, not consistent with acs, likely 2/2 chf -no new ecg findings VT, brief SVT - on max dose of coreg. - lytes stable--replete per usual targets - off milrinone now - no further episodes CAD: -s/p 4V cabg (1991) -no angina sxs -no ekg changes vs baseline -cont coreg, asa HTN: -cont coreg, hydral, imdur claudio on ckd: -baseline creat range here is 3.1-3.3 -worsened here likely cardiorenal syndrome, now cr back to baseline after diuresis DM: -s/p right BKA and left AKA -glycemia mgmt per PMD can dc tele
[2017-01-25] MEDS ORDERED: POTASSIUM CHLORIDE ORAL LIQUID 20 MEQ/15 ML PO ONE ×2 (12:01→14:15)
--- NOTE | 2017-01-25 12:01 | PN ---
Progress Note (short form) - Note Progress Note: pt seen/ examined chart reviewed wants to go home sugar low today- better purulent discharge from left ear -- better dont want to go to str Vital Signs Temp 98 F 01/25/17 09:48 Pulse 68 01/25/17 09:48 Resp 20 01/25/17 09:48 BP 117/70 01/25/17 09:48 Pulse Ox 98 01/24/17 21:00 Intake & Output 01/24/17 01/24/17 01/25/17 11:59 23:59 11:59 Intake Total 120 820 240 Balance 120 820 240 Weight 161 lb 160 lb 3.2 oz Intake: Oral 120 820 240 Other: Voiding Method Incontinent Incontinent Urinal # Unmeasured Voids Void 2 Bowel Movement Yes Weight Measurement Method Patient Lift Scale Patient Lift Scale Active Medications Amoxicillin/Clavulanate Potassium (Augmentin - 250mg Tablet) 1 tab PO BID@0800, 1730 [facility] Last Admin: 01/25/17 08:34 Dose: 1 tab Aspirin (Ecotrin -) 81 mg PO DAILY [facility] Last Admin: 01/25/17 09:06 Dose: 81 mg Bacitracin (Bacitracin -) 1 applic TP DAILY [facility] Last Admin: 01/25/17 09:06 Dose: 1 applic Carvedilol (Coreg -) 25 mg PO BID [facility] Last Admin: 01/25/17 09:06 Dose: 25 mg Finasteride (Proscar -) 5 mg PO DAILY [facility] Last Admin: 01/25/17 09:05 Dose: 5 mg Hydralazine HCl (Apresoline -) 20 mg PO TID [facility] Last Admin: 01/25/17 06:11 Dose: 20 mg Insulin Aspart (Novolog Vial Sliding Scale -) 1 vial SQ TIDAC [facility] PRN Reason: Protocol Last Admin: 01/25/17 06:12 Dose: Not Given Insulin Detemir (Levemir Vial) 6 units SQ [facility] Isosorbide Dinitrate (Isordil -) 30 mg PO BIDISORDIL [facility] Last Admin: 01/25/17 09:07 Dose: 30 mg Lactulose (Cephulac (Oral Use)) 20 gm PO TID [facility] Last Admin: 01/25/17 06:11 Dose: 20 gm Levothyroxine Sodium (Synthroid -) 50 mcg PO DAILY@0700 [facility] Last Admin: 01/25/17 06:11 Dose: 50 mcg Ofloxacin (Floxin Otic (Ear) Solution -) 5 drop AD BID [facility] Last Admin: 01/25/17 10:57 Dose: 5 drop Polyethylene Glycol (Miralax (For Daily Use) -) 17 gm PO DAILY PRN PRN Reason: CONSTIPATION Sodium Bicarbonate (Sodium Bicarbonate -) 1,300 mg PO BID [facility] Last Admin: 01/25/17 09:05 Dose: 1,300 mg Tamsulosin HCl (Flomax -) 0.4 mg PO DAILY [facility] Last Admin: 01/25/17 09:05 Dose: 0.4 mg Torsemide (Demadex -) 40 mg PO DAILY [facility] Last Admin: 01/25/17 09:05 Dose: 40 mg CBC, BMP 01/21/17 05:35 01/25/17 05:35 Physical Examination Constitutional: Yes: awake/ alert Cardiovascular: Yes: Regular Rate and Rhythm Respiratory: Yes: Diminished at bases Gastrointestinal: Yes: Normal Bowel Sounds, Soft. No: Distention, Tenderness Extremities: Yes: Amputation (B/L BKA, Rt BKA- wound+ surrounding erythema ) Edema: No Right Ear-- whitish discharge +-- decreased Tender pre - auricular adenopathy Neuro- alert and awake Imaging - Results Chest X-ray: Image Reviewed EKG: Image Reviewed (sinus, 1st degree AV block) Problem List - Problems (1) KAMRAN (acute kidney injury) Code(s): N17.9 - ACUTE KIDNEY FAILURE, UNSPECIFIED (2) CHF (congestive heart failure) Code(s): I50.9 - HEART FAILURE, UNSPECIFIED Qualifiers: Congestive heart failure type: combined Congestive heart failure chronicity: acute on chronic Qualified Code(s): I50.43 - Acute on chronic combined systolic (congestive) and diastolic (congestive) heart failure (3) CHF exacerbation Code(s): I50.9 - HEART FAILURE, UNSPECIFIED Qualifiers: Congestive heart failure type: combined Qualified Code(s): I50.43 - Acute on chronic combined systolic (congestive) and diastolic (congestive) heart failure (4) HTN (hypertension) Code(s): I10 - ESSENTIAL (PRIMARY) HYPERTENSION Qualifiers: Hypertension type: essential hypertension Qualified Code(s): I10 - Essential (primary) hypertension (5) Acute on chronic systolic and diastolic heart failure, NYHA class 3 Code(s): I50.43 - ACUTE ON CHRONIC COMBINED SYSTOLIC AND DIASTOLIC HRT FAIL (6) Pleural effusion Code(s): J90 - PLEURAL EFFUSION, NOT ELSEWHERE CLASSIFIED A/p stable decrease levemir not a safe discharge to home but pt insists psych consult pending need to follow with ent as out pt. I discussed with pt with sami speaking nurse.
--- NOTE | 2017-01-25 18:11 | PN ---
Progress Note, Physician Chief Complaint: The patient seen in his bed. Wants to go to his home. seems comfortable. Has urinary incontinence. History of Present Illness: 81 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 with PMhx of CKD stage 4 (baseline Cr 2.6-3.3) with nephrotic range proteinuria, Systolic CHF, PVD s/p bilateral Lower extremity amputations, Hyperlipidemia, Anemia who presented with SOB LE swelling and found to have large pleural effusion. The patient has advanced CKD - Current Medication List Current Medications: Active Medications Amoxicillin/Clavulanate Potassium (Augmentin - 250mg Tablet) 1 tab PO BID@0800, 1730 [facility] Last Admin: 01/25/17 17:18 Dose: 1 tab Aspirin (Ecotrin -) 81 mg PO DAILY [facility] Last Admin: 01/25/17 09:06 Dose: 81 mg Bacitracin (Bacitracin -) 1 applic TP DAILY [facility] Last Admin: 01/25/17 09:06 Dose: 1 applic Carvedilol (Coreg -) 25 mg PO BID [facility] Last Admin: 01/25/17 09:06 Dose: 25 mg Finasteride (Proscar -) 5 mg PO DAILY [facility] Last Admin: 01/25/17 09:05 Dose: 5 mg Hydralazine HCl (Apresoline -) 20 mg PO TID [facility] Last Admin: 01/25/17 14:30 Dose: 20 mg Insulin Aspart (Novolog Vial Sliding Scale -) 1 vial SQ TIDAC [facility] PRN Reason: Protocol Last Admin: 01/25/17 17:19 Dose: 2 units Insulin Detemir (Levemir Vial) 6 units SQ HS [facility] Isosorbide Dinitrate (Isordil -) 30 mg PO BIDISORDIL [facility] Last Admin: 01/25/17 17:19 Dose: 30 mg Lactulose (Cephulac (Oral Use)) 20 gm PO TID [facility] Last Admin: 01/25/17 14:29 Dose: 20 gm Levothyroxine Sodium (Synthroid -) 50 mcg PO DAILY@0700 [facility] Last Admin: 01/25/17 06:11 Dose: 50 mcg Ofloxacin (Floxin Otic (Ear) Solution -) 5 drop AD BID [facility] Last Admin: 01/25/17 10:57 Dose: 5 drop Polyethylene Glycol (Miralax (For Daily Use) -) 17 gm PO DAILY PRN PRN Reason: CONSTIPATION Potassium Chloride (Potassium Chloride Oral Liquid) 20 meq PO DAILY [facility] Sodium Bicarbonate (Sodium Bicarbonate -) 1,300 mg PO BID [facility] Last Admin: 01/25/17 09:05 Dose: 1,300 mg Tamsulosin HCl (Flomax -) 0.4 mg PO DAILY [facility] Last Admin: 01/25/17 09:05 Dose: 0.4 mg Torsemide (Demadex -) 40 mg PO DAILY [facility] Last Admin: 01/25/17 09:05 Dose: 40 mg - Objective Vital Signs: Vital Signs Temperature 98.5 F 01/25/17 15:00 Pulse Rate 58 L 01/25/17 15:00 Respiratory Rate 18 01/25/17 15:00 Blood Pressure 115/67 01/25/17 15:00 O2 Sat by Pulse Oximetry (%) 98 01/25/17 09:00 Constitutional: Yes: Anxious, Mild Distress Eyes: Yes: Conjunctiva Clear HENT: Yes: Normocephalic Neck: Yes: Trachea Midline Cardiovascular: Yes: S1, S2 Respiratory: Yes: Regular, Diminished, Dullness, Rhonchi Gastrointestinal: Yes: Normal Bowel Sounds Extremities: Yes: Amputation (lesia) Neurological: Yes: Alert, Oriented Labs: CBC, BMP 01/21/17 05:35 01/25/17 05:35 INR, PTT INR 1.39 (0.82-1.09) H 01/19/17 06:00 Problem List - Problems (1) KAMRAN (acute kidney injury) Code(s): N17.9 - ACUTE KIDNEY FAILURE, UNSPECIFIED (2) CAD (coronary artery disease) Code(s): I25.10 - ATHSCL HEART DISEASE OF [place] CORONARY ARTERY W/O ANG PCTRS Qualifiers: Coronary Disease-Associated Artery/Lesion type: [place] artery [place] vs. transplanted heart: [place] heart Associated angina: without angina Qualified Code(s): I25.10 - Atherosclerotic heart disease of [place] coronary artery without angina pectoris (3) CHF (congestive heart failure) Code(s): I50.9 - HEART FAILURE, UNSPECIFIED Qualifiers: Congestive heart failure type: combined Congestive heart failure chronicity: acute on chronic Qualified Code(s): I50.43 - Acute on chronic combined systolic (congestive) and diastolic (congestive) heart failure (4) HTN (hypertension) Code(s): I10 - ESSENTIAL (PRIMARY) HYPERTENSION Qualifiers: Hypertension type: essential hypertension Qualified Code(s): I10 - Essential (primary) hypertension (5) DM2 (diabetes mellitus, type 2) Code(s): E11.9 - TYPE 2 DIABETES MELLITUS WITHOUT COMPLICATIONS Qualifiers: Diabetes mellitus complication status: with neurologic complications Diabetes mellitus complication detail: with unspecified neuropathy Diabetes mellitus ferry terminal agent insulin use: without ferry terminal agent use Qualified Code(s): E11.40 - Type 2 diabetes mellitus with diabetic neuropathy, unspecified; Z79.4 - ferry terminal agent (current) use of insulin (6) Pleural effusion Code(s): J90 - PLEURAL EFFUSION, NOT ELSEWHERE CLASSIFIED (7) Chronic kidney disease, stage 4, severely decreased GFR Code(s): N18.4 - CHRONIC KIDNEY DISEASE, STAGE 4 (SEVERE) Assessment/Plan Advanced Chronic Kidney disease. Stage 4. Most likely microvascular Renal disease from HTN, DM2, HLD etc. Can not r/o some degree of superimposed KAMRAN. Hypokalemia, possibly due to K loss in the urine ( Demadex) and K shift into the cells ( Sodium Bicarb.) PLAN: Since the Serum Bicarb is 26 mEq, will reduce the Bicarb supplements to 650 mg daily KCl supplements as ordered. Will monitor the Renal / electrolyte profile. 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 Liliam Smart MD
--- NOTE | 2017-01-25 19:04 | CON.PSY ---
Psychiatry Consult Chief Complaint: Asked to see this patient a 81 year old male with multiple medical problems includig bilateral lower ext. amputation(old) Symptoms: reports: Irritability, Anxiety - Previous Substance Abuse Treatment Inpatient: Within the last 12 months - Current Medications Current Medications: Active Medications Amoxicillin/Clavulanate Potassium (Augmentin - 250mg Tablet) 1 tab PO BID@0800, 1730 [facility] Last Admin: 01/25/17 17:18 Dose: 1 tab Aspirin (Ecotrin -) 81 mg PO DAILY [facility] Last Admin: 01/25/17 09:06 Dose: 81 mg Bacitracin (Bacitracin -) 1 applic TP DAILY [facility] Last Admin: 01/25/17 09:06 Dose: 1 applic Carvedilol (Coreg -) 25 mg PO BID [facility] Last Admin: 01/25/17 09:06 Dose: 25 mg Finasteride (Proscar -) 5 mg PO DAILY [facility] Last Admin: 01/25/17 09:05 Dose: 5 mg Hydralazine HCl (Apresoline -) 20 mg PO TID [facility] Last Admin: 01/25/17 14:30 Dose: 20 mg Insulin Aspart (Novolog Vial Sliding Scale -) 1 vial SQ TIDAC [facility] PRN Reason: Protocol Last Admin: 01/25/17 17:19 Dose: 2 units Insulin Detemir (Levemir Vial) 6 units SQ [facility] Isosorbide Dinitrate (Isordil -) 30 mg PO BIDISORDIL [facility] Last Admin: 01/25/17 17:19 Dose: 30 mg Lactulose (Cephulac (Oral Use)) 20 gm PO TID [facility] Last Admin: 01/25/17 14:29 Dose: 20 gm Levothyroxine Sodium (Synthroid -) 50 mcg PO DAILY@0700 [facility] Last Admin: 01/25/17 06:11 Dose: 50 mcg Ofloxacin (Floxin Otic (Ear) Solution -) 5 drop AD BID [facility] Last Admin: 01/25/17 10:57 Dose: 5 drop Polyethylene Glycol (Miralax (For Daily Use) -) 17 gm PO DAILY PRN PRN Reason: CONSTIPATION Potassium Chloride (Potassium Chloride Oral Liquid) 20 meq PO DAILY [facility] Sodium Bicarbonate (Sodium Bicarbonate -) 650 mg PO DAILY [facility] Tamsulosin HCl (Flomax -) 0.4 mg PO DAILY [facility] Last Admin: 01/25/17 09:05 Dose: 0.4 mg Torsemide (Demadex -) 40 mg PO DAILY [facility] Last Admin: 01/25/17 09:05 Dose: 40 mg - Allergies Allergies: Allergies Allergy/AdvReac Type Severity Reaction Status Date / Time Sulfa (Sulfonamide Allergy Verified 01/16/17 13:47 Antibiotics) - Current Living Status Usual Living Arrangement: Alone (with home health aide) - Current Mental Status Evaluation Appearance: Other (hospital gown asking for help to move around and to get comfortable in bed) Attitude: Cooperative - Affect Affect: Full Range Appropriateness: Appropriate to Content - Mood Mood: Anxious - Speech/Language Expressive: Coherent Receptive: Age Appropriate Comprehension of Spoken Words - Psychomotor Activity Psychomotor Activity: Normal - Thought Process Thought Process: Intact - Thought Content Hallucinations: Absent Delusions: Absent - Cognition Attention: Alert Orientation: Time, Person, Place Memory, Short Term: 1/3 Memory, Remote: Impaired - Concentration Simple Calculations Intact: Yes - Abstraction Judgement: Minimally Impaired - Impulse Control Impulse Control: Good Control - Suicidal Ideation Suicidal Ideation: No - Homicidal Ideation Homicidal Ideation: No Assessment/Plan Patient records reviewed social service liaison and case management social worker consultation reviewed RN input considered Patient was able to give information about the circumstances surrounding his hospitalization. He is awake, alert oriented with minimal cognitive impairment, He was able to discuss options going home vs going to a skilled facility, advantages and disadvantages. Still, he wants to go home with services. At this time, patient has capacity to make his own decisions. He does understand that he will benefit from short term rehabilitation and may be open to this option.
[2017-01-25] MEDS: INSULIN DETEMIR 100 UNITS/ML MDV SQ SCH (21:49)
[2017-01-26] MEDS: LACTULOSE 20 GM/30 ML UDC (FOR ORAL USE ONLY) PO SCH ×3 (06:11→21:58)
[2017-01-26] MEDS: INSULIN SLIDING SCALE (NOVOLOG) 1 VIAL SQ SCH ×3 (06:12→17:30)
[2017-01-26] MEDS: hydrALAZINE HCL 10 MG TABLET PO SCH ×3 (06:39→22:00)
[2017-01-26] MEDS: LEVOTHYROXINE NA 50 MCG TABLET (FP) PO SCH (06:39)
[2017-01-26 07:28] LABS: ALBUMIN 2.1 g/dl (3.4-5.0); ANION GAP 12 (8-16); CO2 25 mmol/L (21-32); CREATININE 3.1 mg/dL (0.7-1.3); GLUCOSE,RANDOM 118 mg/dL (74-106); SGOT/AST 29 U/L (15-37); SGPT/ALT 7 U/L (12-78); URIC ACID 9.3 mg/dL (2.6-7.2)
[2017-01-26 07:31] LABS: ALK PHOS 183 U/L (45-117); BILIRUBIN,TOTAL 0.8 mg/dL (0.2-1.0); TOT PROT 6.2 g/dl (6.4-8.2)
[2017-01-26] MEDS: POTASSIUM CHLORIDE ORAL LIQUID 20 MEQ/15 ML PO SCH (10:27)
[2017-01-26] MEDS: ISOSORBIDE DINITRATE 10 MG TABLET (FP) PO SCH ×2 (10:28→17:32)
[2017-01-26] MEDS: AMOX TR/POT CLAV 250MG/125MG TABLETS PO SCH ×2 (10:28→17:32)
[2017-01-26] MEDS: ASPIRIN COATED 81 MG TABLET.EC PO SCH (10:28)
[2017-01-26] MEDS: OFLOXACIN 0.3% OTIC SOLUTION 5 ML BOTTLE AD SCH ×2 (10:28→22:00)
[2017-01-26] MEDS: CARVEDILOL 25 MG TABLET (FP) PO SCH ×2 (10:29→22:00)
[2017-01-26] MEDS: TAMSULOSIN HCL 0.4 MG CAP.ER.24H (FP) PO SCH (10:29)
[2017-01-26] MEDS: TORSEMIDE 20 MG TABLET (FP) PO SCH (10:29)
[2017-01-26] MEDS: BACITRACIN 15 GM TUBE TOPICAL OINTMENT TP SCH (10:30)
[2017-01-26] MEDS: SODIUM BICARBONATE 650 MG TABLET PO SCH (10:30)
[2017-01-26] MEDS: FINASTERIDE 5 MG TABLET (FP) PO SCH (10:30)
--- NOTE | 2017-01-26 11:02 | PN ---
Progress Note (short form) - Note Progress Note: pt seen/ examined . comfortable psych input noted pt alert and awake. wants to go home today dont want str understands the riskd involved - including unable to take care of himself and getting sick and even . Vital Signs Temp 98.4 F 01/26/17 10:00 Pulse 66 01/26/17 10:00 Resp 18 01/26/17 10:00 BP 122/62 01/26/17 10:00 Pulse Ox 99 01/25/17 21:00 Intake & Output 01/25/17 01/25/17 01/26/17 11:59 23:59 11:59 Intake Total 240 550 0 Balance 240 550 0 Weight 160 lb 3.2 oz 161 lb 6.4 oz Intake: IV 0 saline lock 0 Oral 240 550 Other: Voiding Method Urinal Incontinent Diaper Bowel Movement Yes Weight Measurement Method Patient Lift Scale Patient Lift Scale Active Medications Amoxicillin/Clavulanate Potassium (Augmentin - 250mg Tablet) 1 tab PO BID@0800, 1730 [facility] Last Admin: 01/26/17 10:28 Dose: 1 tab Aspirin (Ecotrin -) 81 mg PO DAILY [facility] Last Admin: 01/26/17 10:28 Dose: 81 mg Bacitracin (Bacitracin -) 1 applic TP DAILY [facility] Last Admin: 01/26/17 10:30 Dose: 1 applic Carvedilol (Coreg -) 25 mg PO BID [facility] Last Admin: 01/26/17 10:29 Dose: 25 mg Finasteride (Proscar -) 5 mg PO DAILY [facility] Last Admin: 01/26/17 10:30 Dose: 5 mg Hydralazine HCl (Apresoline -) 20 mg PO TID [facility] Last Admin: 01/26/17 06:39 Dose: 20 mg Insulin Aspart (Novolog Vial Sliding Scale -) 1 vial SQ TIDAC [facility] PRN Reason: Protocol Last Admin: 01/26/17 06:12 Dose: Not Given Insulin Detemir (Levemir Vial) 6 units SQ HS [facility] Last Admin: 01/25/17 21:49 Dose: 6 units Isosorbide Dinitrate (Isordil -) 30 mg PO BIDISORDIL [facility] Last Admin: 01/26/17 10:28 Dose: 30 mg Lactulose (Cephulac (Oral Use)) 20 gm PO TID [facility] Last Admin: 01/26/17 06:11 Dose: Not Given Levothyroxine Sodium (Synthroid -) 50 mcg PO DAILY@0700 [facility] Last Admin: 01/26/17 06:39 Dose: 50 mcg Ofloxacin (Floxin Otic (Ear) Solution -) 5 drop AD BID [facility] Last Admin: 01/26/17 10:28 Dose: 5 drop Polyethylene Glycol (Miralax (For Daily Use) -) 17 gm PO DAILY PRN PRN Reason: CONSTIPATION Potassium Chloride (Potassium Chloride Oral Liquid) 20 meq PO DAILY [facility] Last Admin: 01/26/17 10:27 Dose: 20 meq Sodium Bicarbonate (Sodium Bicarbonate -) 650 mg PO DAILY [facility] Last Admin: 01/26/17 10:30 Dose: 650 mg Tamsulosin HCl (Flomax -) 0.4 mg PO DAILY [facility] Last Admin: 01/26/17 10:29 Dose: 0.4 mg Torsemide (Demadex -) 40 mg PO DAILY [facility] Last Admin: 01/26/17 10:29 Dose: 40 mg CBC, BMP 01/21/17 05:35 01/26/17 05:35 Physical Examination Constitutional: Yes: awake/ alert Cardiovascular: Yes: Regular Rate and Rhythm Respiratory: Yes: Diminished at bases Gastrointestinal: Yes: Normal Bowel Sounds, Soft. No: Distention, Tenderness Extremities: Yes: Amputation (B/L BKA, Rt BKA- wound+ surrounding erythema ) Edema: No Neuro- alert and awake Imaging - Results Chest X-ray: Image Reviewed EKG: Image Reviewed (sinus, 1st degree AV block) Problem List - Problems (1) KAMRAN (acute kidney injury) Code(s): N17.9 - ACUTE KIDNEY FAILURE, UNSPECIFIED (2) CHF (congestive heart failure) Code(s): I50.9 - HEART FAILURE, UNSPECIFIED Qualifiers: Congestive heart failure type: combined Congestive heart failure chronicity: acute on chronic Qualified Code(s): I50.43 - Acute on chronic combined systolic (congestive) and diastolic (congestive) heart failure (3) CHF exacerbation Code(s): I50.9 - HEART FAILURE, UNSPECIFIED Qualifiers: Congestive heart failure type: combined Qualified Code(s): I50.43 - Acute on chronic combined systolic (congestive) and diastolic (congestive) heart failure (4) HTN (hypertension) Code(s): I10 - ESSENTIAL (PRIMARY) HYPERTENSION Qualifiers: Hypertension type: essential hypertension Qualified Code(s): I10 - Essential (primary) hypertension (5) Acute on chronic systolic and diastolic heart failure, NYHA class 3 Code(s): I50.43 - ACUTE ON CHRONIC COMBINED SYSTOLIC AND DIASTOLIC HRT FAIL (6) Pleural effusion Code(s): J90 - PLEURAL EFFUSION, NOT ELSEWHERE CLASSIFIED A/p stable but condition very gaurded long talk with pt again as mentioned above. i also discussed condition with pts private pmd- . discussed with nursing staff will d/c home with vns and if arrangements are made with shop supervisor--pt lives with shop supervisor pt to follow with his pmd next week
--- NOTE | 2017-01-26 11:28 | PN ---
Progress Note (short form) - Note Progress Note: Chief Complaint: chf History of Present Illness: denies sob, cp, palpitations, dizzy Current Medications Generic Name Dose Route Start Last Admin Trade Name Day PRN Reason Stop Dose Admin Amoxicillin/Clavulanate Potassium 1 tab 01/23/17 17:30 01/26/17 10:28 Augmentin - 250mg Tablet PO 1 tab BID@0800,1730 CARLYN Administration Aspirin 81 mg 01/17/17 10:00 01/26/17 10:28 Ecotrin - PO 81 mg DAILY CARLYN Administration Bacitracin 1 applic 01/17/17 14:45 01/26/17 10:30 Bacitracin - TP 1 applic DAILY CARLYN Administration Carvedilol 25 mg 01/16/17 22:00 01/26/17 10:29 Coreg - PO 25 mg BID CARLYN Administration Finasteride 5 mg 01/17/17 10:00 01/26/17 10:30 Proscar - PO 5 mg DAILY CARLYN Administration Hydralazine HCl 20 mg 01/20/17 22:00 01/26/17 06:39 Apresoline - PO 20 mg TID CARLYN Administration Insulin Aspart 1 vial 01/17/17 07:00 01/26/17 06:12 Novolog Vial Sliding Scale - SQ Not Given TIDAC [facility] Protocol Insulin Detemir 6 units 01/25/17 11:56 01/25/17 21:49 Levemir Vial SQ 6 units HS CARLYN Administration Isosorbide Dinitrate 30 mg 01/20/17 22:00 01/26/17 10:28 Isordil - PO 30 mg BIDISORDIL CARLYN Administration Lactulose 20 gm 01/24/17 14:45 01/26/17 06:11 Cephulac (Oral Use) PO Not Given TID CARLYN Levothyroxine Sodium 50 mcg 01/17/17 07:00 01/26/17 06:39 Synthroid - PO 50 mcg DAILY@0700 CARLYN Administration Ofloxacin 5 drop 01/23/17 12:00 01/26/17 10:28 Floxin Otic (Ear) Solution - AD 5 drop BID CARLYN Administration Polyethylene Glycol 17 gm 01/20/17 12:04 Miralax (For Daily Use) - PO DAILY PRN CONSTIPATION Potassium Chloride 20 meq 01/26/17 10:00 01/26/17 10:27 Potassium Chloride Oral Liquid PO 20 meq DAILY CARLYN Administration Sodium Bicarbonate 650 mg 01/26/17 10:00 01/26/17 10:30 Sodium Bicarbonate - PO 650 mg DAILY CARLYN Administration Tamsulosin HCl 0.4 mg 01/17/17 10:00 01/26/17 10:29 Flomax - PO 0.4 mg DAILY CARLYN Administration Torsemide 40 mg 01/23/17 10:00 01/26/17 10:29 Demadex - PO 40 mg DAILY CARLYN Administration Vital Signs Period Temp Pulse Resp BP Sys/Stock Pulse Ox Last 24 Hr 97.9 F-99.6 F 58-81 18-20 101-152/42-83 99 Constitutional: Yes: No Distress, Calm Eyes: No: Sclera Icterus HENT: No: Nasal Congestion Cardiovascular: Yes: Regular Rate and Rhythm (decr intensity), no jvd, S1, S2, Other (PMI non diplaced). No: Gallop, Murmur Respiratory: Yes: CTA Bilaterally. No: Accessory Muscle Use, Rales, Wheezes Gastrointestinal: Yes: Normal Bowel Sounds, Soft. No: Tenderness Edema: no Integumentary: No: Jaundice diaphoresis Neurological: Yes: Alert. 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 acute on chronic syst chf - Biventricular failure -several prior admits for sob/chf -required thoracentesis for large right eff 2015 and again 11/2016 (reportedly was transudative c/w chf) -currently with signs of vol overload and recurrent large right eff -01/18 no change in sob or cxr after lasix 40 iv bid-->cr stable/improved so will increase to lasix 80 iv bid, monitor daily bmp, wts - 01/19: still no improvement in sx's on increased lasix dose. unable to record i/ o and ? accuracy of bed weights (although weights trending down). Will give trial of extra dose of 80 mg IV lasix this afternoon. If bun/cr worsens consider need for milrinone. - 01/20: received additional 80 mg IV lasix yesterday (total of 3 doses). weight con't to decrease but bun/cr not improved. will go back to bid dosing. Hydralazine and imdur added 01/19 to augment cardiac output via afterload reduction, but no significant decrease in bp. Will uptitrate today. If still no improvement in bun/cr tomorrow with lower bp's and ongoing diuresis --> need to consider starting milrinone. -limited ability to assess response to diuresis given no wts, no UOP monitoring -01/21: JVD present on exam, likely volume overloaded. rpt CXR with R effusion and venous congestionpersisting--will start milrinone 0.25mcg/kg/min trial (if frequent ventric ectopy or bp declines, will hold and try 0.125 mcg) -01/22: appears overall well euvolemic will transition to po torsemide. BMP improving on milrinone, but frequent NSVT will decrease milrinone to 0.2 mcg/kg/ min. - -01/23: cont po torsemide for maintenance. Tele with frequent ectopy and bp improved so will dc milrinone -01/24-15: vol stable, cont po torsemide -cont coreg -stopped entresto due to claudio on ckd, replaced with hydral/imdur -unfortunately, prognosis here is poor and the biggest obstacle in pt's ability to stay out of chf and avoid VT/VF complications of low EF is that he has refused prior discussion of the realities of his cardiac condition and refuses any escalation in treatments (e.g. devices, incl ICD) -rec outpt f/u with family involvement if pt amenable--perhaps if rapport builds he will accept intensification of home monitoring and chf mgmt positive trops: -borderline trop elevation with flat trend and normal ck, not consistent with acs, likely 2/2 chf -no new ecg findings VT, brief SVT - on max dose of coreg. - lytes stable--replete per usual targets - off milrinone now - no further episodes CAD: -s/p 4V cabg (1991) -no angina sxs -no ekg changes vs baseline -cont coreg, asa HTN: -cont coreg, hydral, imdur claudio on ckd: -baseline creat range here is 3.1-3.3 -worsened here likely cardiorenal syndrome, now cr back to baseline after diuresis DM: -s/p right BKA and left AKA -glycemia mgmt per PMD can dc tele
[2017-01-26] MEDS ORDERED: LORAZEPAM CARPU-JECT 2 MG/ML DISP.SYRIN ONE (13:12)
[2017-01-26 18:29] LABS: BASOPHIL 0.5 % (0-2.0); EOSINOPHIL 1.8 % (0-4.5); MCH 28.5 pg (25.7-33.7); MCHC 32.8 g/dl (32.0-35.9); MEAN CELL VOLUME 86.8 fl (80-96); MEAN PLT VOLUME 7.8 fl (7.5-11.1); NEUTROPHILS 71.9 % (42.8-82.8); PLATELET COUNT 308 K/MM3 (134-434); RDW 15.9 % (11.9-15.9); WHITE BLOOD COUNT 8.6 K/mm3 (4.0-10.0)
[2017-01-26] MEDS: INSULIN DETEMIR 100 UNITS/ML MDV SQ SCH (22:01)
[2017-01-27] MEDS: INSULIN SLIDING SCALE (NOVOLOG) 1 VIAL SQ SCH ×3 (06:23→17:28)
[2017-01-27] MEDS: LACTULOSE 20 GM/30 ML UDC (FOR ORAL USE ONLY) PO SCH ×3 (06:23→21:33)
[2017-01-27] MEDS: hydrALAZINE HCL 10 MG TABLET PO SCH ×3 (06:28→21:26)
[2017-01-27] MEDS: LEVOTHYROXINE NA 50 MCG TABLET (FP) PO SCH (06:28)
[2017-01-27] MEDS: AMOX TR/POT CLAV 250MG/125MG TABLETS PO SCH ×2 (09:43→17:27)
[2017-01-27] MEDS: TAMSULOSIN HCL 0.4 MG CAP.ER.24H (FP) PO SCH (09:43)
[2017-01-27] MEDS: POTASSIUM CHLORIDE ORAL LIQUID 20 MEQ/15 ML PO SCH (09:43)
[2017-01-27] MEDS: ASPIRIN COATED 81 MG TABLET.EC PO SCH (09:43)
[2017-01-27] MEDS: FINASTERIDE 5 MG TABLET (FP) PO SCH (09:43)
[2017-01-27] MEDS: TORSEMIDE 20 MG TABLET (FP) PO SCH (09:43)
[2017-01-27] MEDS: SODIUM BICARBONATE 650 MG TABLET PO SCH (09:43)
[2017-01-27] MEDS: ISOSORBIDE DINITRATE 10 MG TABLET (FP) PO SCH ×2 (09:44→17:27)
[2017-01-27] MEDS: CARVEDILOL 25 MG TABLET (FP) PO SCH ×2 (09:44→21:27)
[2017-01-27] MEDS: BACITRACIN 15 GM TUBE TOPICAL OINTMENT TP SCH (09:44)
[2017-01-27] MEDS: OFLOXACIN 0.3% OTIC SOLUTION 5 ML BOTTLE AD SCH ×2 (09:44→21:28)
--- NOTE | 2017-01-27 11:07 | PN ---
Progress Note (short form) - Note Progress Note: Chief Complaint: chf History of Present Illness: denies sob, cp, palpitations, dizzy Current Medications Generic Name Dose Route Start Last Admin Trade Name Day PRN Reason Stop Dose Admin Amoxicillin/Clavulanate Potassium 1 tab 01/23/17 17:30 01/27/17 09:43 Augmentin - 250mg Tablet PO 1 tab BID@0800,1730 CARLYN Administration Aspirin 81 mg 01/17/17 10:00 01/27/17 09:43 Ecotrin - PO 81 mg DAILY CARLYN Administration Bacitracin 1 applic 01/17/17 14:45 01/27/17 09:44 Bacitracin - TP 1 applic DAILY CARLYN Administration Carvedilol 25 mg 01/16/17 22:00 01/27/17 09:44 Coreg - PO 25 mg BID CARLYN Administration Finasteride 5 mg 01/17/17 10:00 01/27/17 09:43 Proscar - PO 5 mg DAILY CARLYN Administration Hydralazine HCl 20 mg 01/20/17 22:00 01/27/17 06:28 Apresoline - PO 20 mg TID CARLYN Administration Insulin Aspart 1 vial 01/17/17 07:00 01/27/17 06:23 Novolog Vial Sliding Scale - SQ Not Given [facility] Protocol Insulin Detemir 6 units 01/25/17 11:56 01/26/17 22:01 Levemir Vial SQ 6 units HS CARLYN Administration Isosorbide Dinitrate 30 mg 01/20/17 22:00 01/27/17 09:44 Isordil - PO 30 mg BIDISORDIL CARLYN Administration Lactulose 20 gm 01/24/17 14:45 01/27/17 06:23 Cephulac (Oral Use) PO Not Given TID CARLYN Levothyroxine Sodium 50 mcg 01/17/17 07:00 01/27/17 06:28 Synthroid - PO 50 mcg DAILY@0700 CARLYN Administration Ofloxacin 5 drop 01/23/17 12:00 01/27/17 09:44 Floxin Otic (Ear) Solution - AD 5 drop BID CARLYN Administration Polyethylene Glycol 17 gm 01/20/17 12:04 Miralax (For Daily Use) - PO DAILY PRN CONSTIPATION Potassium Chloride 20 meq 01/26/17 10:00 01/27/17 09:43 Potassium Chloride Oral Liquid PO 20 meq DAILY CARLYN Administration Sodium Bicarbonate 650 mg 01/26/17 10:00 01/27/17 09:43 Sodium Bicarbonate - PO 650 mg DAILY CARLYN Administration Tamsulosin HCl 0.4 mg 01/17/17 10:00 01/27/17 09:43 Flomax - PO 0.4 mg DAILY CARLYN Administration Torsemide 40 mg 01/23/17 10:00 01/27/17 09:43 Demadex - PO 40 mg DAILY CARLYN Administration Vital Signs Period Temp Pulse Resp BP Sys/Stock Pulse Ox Last 24 Hr 98 F-98.6 F 63-81 16-20 101-124/52-64 95 Constitutional: Yes: No Distress, Calm Eyes: No: Sclera Icterus HENT: No: Nasal Congestion Cardiovascular: Yes: Regular Rate and Rhythm (decr intensity), no jvd, S1, S2, Other (PMI non diplaced). No: Gallop, Murmur Respiratory: Yes: CTA Bilaterally. No: Accessory Muscle Use, Rales, Wheezes Gastrointestinal: Yes: Normal Bowel Sounds, Soft. No: Tenderness Edema: no Integumentary: No: Jaundice diaphoresis Neurological: Yes: Alert. 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 acute on chronic syst chf - Biventricular failure -several prior admits for sob/chf -required thoracentesis for large right eff 2015 and again 11/2016 (reportedly was transudative c/w chf) -currently with signs of vol overload and recurrent large right eff -01/18 no change in sob or cxr after lasix 40 iv bid-->cr stable/improved so will increase to lasix 80 iv bid, monitor daily bmp, wts - 01/19: still no improvement in sx's on increased lasix dose. unable to record i/ o and ? accuracy of bed weights (although weights trending down). Will give trial of extra dose of 80 mg IV lasix this afternoon. If bun/cr worsens consider need for milrinone. - 01/20: received additional 80 mg IV lasix yesterday (total of 3 doses). weight con't to decrease but bun/cr not improved. will go back to bid dosing. Hydralazine and imdur added 01/19 to augment cardiac output via afterload reduction, but no significant decrease in bp. Will uptitrate today. If still no improvement in bun/cr tomorrow with lower bp's and ongoing diuresis --> need to consider starting milrinone. -limited ability to assess response to diuresis given no wts, no UOP monitoring -01/21: JVD present on exam, likely volume overloaded. rpt CXR with R effusion and venous congestionpersisting--will start milrinone 0.25mcg/kg/min trial (if frequent ventric ectopy or bp declines, will hold and try 0.125 mcg) -01/22: appears overall well euvolemic will transition to po torsemide. BMP improving on milrinone, but frequent NSVT will decrease milrinone to 0.2 mcg/kg/ min. - -01/23: cont po torsemide for maintenance. Tele with frequent ectopy and bp improved so will dc milrinone -01/24-16: vol stable, cr stable, cont po torsemide -cont coreg -stopped entresto due to claudio on ckd, replaced with hydral/imdur -unfortunately, prognosis here is poor and the biggest obstacle in pt's ability to stay out of chf and avoid VT/VF complications of low EF is that he has refused prior discussion of the realities of his cardiac condition and refuses any escalation in treatments (e.g. devices, incl ICD) -rec outpt f/u with family involvement if pt amenable--perhaps if rapport builds he will accept intensification of home monitoring and chf mgmt positive trops: -borderline trop elevation with flat trend and normal ck, not consistent with acs, likely 2/2 chf -no new ecg findings VT, brief SVT - on max dose of coreg. - lytes stable--replete per usual targets - off milrinone now - no further episodes CAD: -s/p 4V cabg (1991) -no angina sxs -no ekg changes vs baseline -cont coreg, asa HTN: -cont coreg, hydral, imdur claudio on ckd: -baseline creat range here is 3.1-3.3 -worsened here likely cardiorenal syndrome, now cr back to baseline after diuresis DM: -s/p right BKA and left AKA -glycemia mgmt per PMD waiting for home services, stable for dc from cardiac pov
--- NOTE | 2017-01-27 11:44 | PN ---
Progress Note (short form) - Note Progress Note: pt seen/ examined . comfortable wants to go home. was discharged but unable to go as arrangements not made--pt aware . Vital Signs Temp 98 F 01/27/17 09:59 Pulse 66 01/27/17 09:59 Resp 16 01/27/17 09:59 BP 124/58 01/27/17 09:59 Pulse Ox 95 01/26/17 21:00 Intake & Output 01/26/17 01/26/17 01/27/17 11:59 23:59 11:59 Intake Total 60 550 Balance 60 550 Weight 161 lb 6.4 oz 162 lb 6.4 oz Intake: IV 0 saline lock 0 Oral 550 Oral Supplement 60 Other: Voiding Method Diaper Diaper Diaper # Unmeasured Voids Void 1 1 Bowel Movement No Weight Measurement Method Patient Lift Scale Patient Lift Scale Active Medications Amoxicillin/Clavulanate Potassium (Augmentin - 250mg Tablet) 1 tab PO BID@0800, 1730 [facility] Last Admin: 01/27/17 09:43 Dose: 1 tab Aspirin (Ecotrin -) 81 mg PO DAILY [facility] Last Admin: 01/27/17 09:43 Dose: 81 mg Bacitracin (Bacitracin -) 1 applic TP DAILY [facility] Last Admin: 01/27/17 09:44 Dose: 1 applic Carvedilol (Coreg -) 25 mg PO BID [facility] Last Admin: 01/27/17 09:44 Dose: 25 mg Finasteride (Proscar -) 5 mg PO DAILY [facility] Last Admin: 01/27/17 09:43 Dose: 5 mg Hydralazine HCl (Apresoline -) 20 mg PO TID [facility] Last Admin: 01/27/17 06:28 Dose: 20 mg Insulin Aspart (Novolog Vial Sliding Scale -) 1 vial SQ TIDAC [facility] PRN Reason: Protocol Last Admin: 01/27/17 06:23 Dose: Not Given Insulin Detemir (Levemir Vial) 6 units SQ HS [facility] Last Admin: 01/26/17 22:01 Dose: 6 units Isosorbide Dinitrate (Isordil -) 30 mg PO BIDISORDIL [facility] Last Admin: 01/27/17 09:44 Dose: 30 mg Lactulose (Cephulac (Oral Use)) 20 gm PO TID [facility] Last Admin: 01/27/17 06:23 Dose: Not Given Levothyroxine Sodium (Synthroid -) 50 mcg PO DAILY@0700 [facility] Last Admin: 01/27/17 06:28 Dose: 50 mcg Ofloxacin (Floxin Otic (Ear) Solution -) 5 drop AD BID [facility] Last Admin: 01/27/17 09:44 Dose: 5 drop Polyethylene Glycol (Miralax (For Daily Use) -) 17 gm PO DAILY PRN PRN Reason: CONSTIPATION Potassium Chloride (Potassium Chloride Oral Liquid) 20 meq PO DAILY [facility] Last Admin: 01/27/17 09:43 Dose: 20 meq Sodium Bicarbonate (Sodium Bicarbonate -) 650 mg PO DAILY [facility] Last Admin: 01/27/17 09:43 Dose: 650 mg Tamsulosin HCl (Flomax -) 0.4 mg PO DAILY [facility] Last Admin: 01/27/17 09:43 Dose: 0.4 mg Torsemide (Demadex -) 40 mg PO DAILY [facility] Last Admin: 01/27/17 09:43 Dose: 40 mg CBC, BMP 01/26/17 18:00 01/26/17 05:35 Physical Examination Constitutional: Yes: awake/ alert Cardiovascular: Yes: Regular Rate and Rhythm Respiratory: Yes: Diminished at bases Gastrointestinal: Yes: Normal Bowel Sounds, Soft. No: Distention, Tenderness Extremities: Yes: Amputation (B/L BKA, Rt BKA- wound+ surrounding erythema ) Edema: No Neuro- alert and awake Imaging - Results Chest X-ray: Image Reviewed EKG: Image Reviewed (sinus, 1st degree AV block) Problem List - Problems (1) KAMRAN (acute kidney injury) Code(s): N17.9 - ACUTE KIDNEY FAILURE, UNSPECIFIED (2) CHF (congestive heart failure) Code(s): I50.9 - HEART FAILURE, UNSPECIFIED Qualifiers: Congestive heart failure type: combined Congestive heart failure chronicity: acute on chronic Qualified Code(s): I50.43 - Acute on chronic combined systolic (congestive) and diastolic (congestive) heart failure (3) CHF exacerbation Code(s): I50.9 - HEART FAILURE, UNSPECIFIED Qualifiers: Congestive heart failure type: combined Qualified Code(s): I50.43 - Acute on chronic combined systolic (congestive) and diastolic (congestive) heart failure (4) HTN (hypertension) Code(s): I10 - ESSENTIAL (PRIMARY) HYPERTENSION Qualifiers: Hypertension type: essential hypertension Qualified Code(s): I10 - Essential (primary) hypertension (5) Acute on chronic systolic and diastolic heart failure, NYHA class 3 Code(s): I50.43 - ACUTE ON CHRONIC COMBINED SYSTOLIC AND DIASTOLIC HRT FAIL (6) Pleural effusion Code(s): J90 - PLEURAL EFFUSION, NOT ELSEWHERE CLASSIFIED A/p stable but condition very gaurded long talk with pt again as mentioned above. discussed with nursing staff gain today-- cant discharge till arrangements are made will d/c home with vns and if arrangements are made with tortilla maker--pt lives with tortilla maker pt to follow with his pmd next week will follow May be able to d/c tomorrow
[2017-01-27] MEDS ORDERED: PT OWN MED DRAWER 7, Y5N ONE (21:21)
[2017-01-27] MEDS: INSULIN DETEMIR 100 UNITS/ML MDV SQ SCH (21:27)
[2017-01-28] MEDS: LACTULOSE 20 GM/30 ML UDC (FOR ORAL USE ONLY) PO SCH ×3 (06:21→21:07)
[2017-01-28] MEDS: INSULIN SLIDING SCALE (NOVOLOG) 1 VIAL SQ SCH ×3 (06:21→16:59)
[2017-01-28] MEDS: LEVOTHYROXINE NA 50 MCG TABLET (FP) PO SCH (06:22)
[2017-01-28] MEDS: hydrALAZINE HCL 10 MG TABLET PO SCH ×3 (06:50→21:05)
[2017-01-28] MEDS ORDERED: PT OWN MED DRAWER 7, Y5N ONE ×6 (06:53→21:03)
[2017-01-28] MEDS: TORSEMIDE 20 MG TABLET (FP) PO SCH (09:35)
[2017-01-28] MEDS: POTASSIUM CHLORIDE ORAL LIQUID 20 MEQ/15 ML PO SCH (09:35)
[2017-01-28] MEDS: SODIUM BICARBONATE 650 MG TABLET PO SCH (09:35)
[2017-01-28] MEDS: CARVEDILOL 25 MG TABLET (FP) PO SCH ×2 (09:36→21:07)
[2017-01-28] MEDS: AMOX TR/POT CLAV 250MG/125MG TABLETS PO SCH ×2 (09:36→17:21)
[2017-01-28] MEDS: TAMSULOSIN HCL 0.4 MG CAP.ER.24H (FP) PO SCH (09:36)
[2017-01-28] MEDS: ASPIRIN COATED 81 MG TABLET.EC PO SCH (09:36)
[2017-01-28] MEDS: FINASTERIDE 5 MG TABLET (FP) PO SCH (09:36)
[2017-01-28] MEDS: BACITRACIN 15 GM TUBE TOPICAL OINTMENT TP SCH (09:49)
[2017-01-28] MEDS: OFLOXACIN 0.3% OTIC SOLUTION 5 ML BOTTLE AD SCH ×2 (09:50→21:08)
--- NOTE | 2017-01-28 10:46 | PN ---
Progress Note (short form) - Note Progress Note: pt seen/ examined . comfortable. no new issues wants to go home. was discharged but unable to go as arrangements not made--pt aware . Vital Signs Temp 98.5 F 01/28/17 09:12 Pulse 75 01/28/17 09:12 Resp 18 01/28/17 09:12 BP 125/57 01/28/17 09:12 Pulse Ox 94 L 01/27/17 20:57 Intake & Output 01/27/17 01/27/17 01/28/17 11:59 23:59 11:59 Intake Total 600 100 Output Total 350 Balance 250 100 Weight 162 lb 6.4 oz 152 lb 3.2 oz Intake: Oral 600 100 Output: Urine 350 Void 350 Other: Voiding Method Diaper Urinal # Unmeasured Voids Void 1 1 2 Bowel Movement No Weight Measurement Method Patient Lift Scale Active Medications Amoxicillin/Clavulanate Potassium (Augmentin - 250mg Tablet) 1 tab PO BID@0800, 1730 [facility] Last Admin: 01/27/17 09:43 Dose: 1 tab Aspirin (Ecotrin -) 81 mg PO DAILY [facility] Last Admin: 01/27/17 09:43 Dose: 81 mg Bacitracin (Bacitracin -) 1 applic TP DAILY [facility] Last Admin: 01/27/17 09:44 Dose: 1 applic Carvedilol (Coreg -) 25 mg PO BID [facility] Last Admin: 01/27/17 09:44 Dose: 25 mg Finasteride (Proscar -) 5 mg PO DAILY [facility] Last Admin: 01/27/17 09:43 Dose: 5 mg Hydralazine HCl (Apresoline -) 20 mg PO TID [facility] Last Admin: 01/27/17 06:28 Dose: 20 mg Insulin Aspart (Novolog Vial Sliding Scale -) 1 vial SQ TIDAC [facility] PRN Reason: Protocol Last Admin: 01/27/17 06:23 Dose: Not Given Insulin Detemir (Levemir Vial) 6 units SQ HS [facility] Last Admin: 01/26/17 22:01 Dose: 6 units Isosorbide Dinitrate (Isordil -) 30 mg PO BIDISORDIL [facility] Last Admin: 01/27/17 09:44 Dose: 30 mg Lactulose (Cephulac (Oral Use)) 20 gm PO TID [facility] Last Admin: 01/27/17 06:23 Dose: Not Given Levothyroxine Sodium (Synthroid -) 50 mcg PO DAILY@0700 [facility] Last Admin: 01/27/17 06:28 Dose: 50 mcg Ofloxacin (Floxin Otic (Ear) Solution -) 5 drop AD BID [facility] Last Admin: 01/27/17 09:44 Dose: 5 drop Polyethylene Glycol (Miralax (For Daily Use) -) 17 gm PO DAILY PRN PRN Reason: CONSTIPATION Potassium Chloride (Potassium Chloride Oral Liquid) 20 meq PO DAILY [facility] Last Admin: 01/27/17 09:43 Dose: 20 meq Sodium Bicarbonate (Sodium Bicarbonate -) 650 mg PO DAILY [facility] Last Admin: 01/27/17 09:43 Dose: 650 mg Tamsulosin HCl (Flomax -) 0.4 mg PO DAILY [facility] Last Admin: 01/27/17 09:43 Dose: 0.4 mg Torsemide (Demadex -) 40 mg PO DAILY [facility] Last Admin: 01/27/17 09:43 Dose: 40 mg CBC, BMP 01/26/17 18:00 01/26/17 05:35 Physical Examination Constitutional: Yes: awake/ alert Cardiovascular: Yes: Regular Rate and Rhythm Respiratory: Yes: Diminished at bases Gastrointestinal: Yes: Normal Bowel Sounds, Soft. No: Distention, Tenderness Extremities: Yes: Amputation (B/L BKA, Rt BKA- ) Edema: No Neuro- alert and awake Imaging - Results Chest X-ray: Image Reviewed EKG: Image Reviewed (sinus, 1st degree AV block) Problem List - Problems (1) KAMRAN (acute kidney injury) Code(s): N17.9 - ACUTE KIDNEY FAILURE, UNSPECIFIED (2) CHF (congestive heart failure) Code(s): I50.9 - HEART FAILURE, UNSPECIFIED Qualifiers: Congestive heart failure type: combined Congestive heart failure chronicity: acute on chronic Qualified Code(s): I50.43 - Acute on chronic combined systolic (congestive) and diastolic (congestive) heart failure (3) CHF exacerbation Code(s): I50.9 - HEART FAILURE, UNSPECIFIED Qualifiers: Congestive heart failure type: combined Qualified Code(s): I50.43 - Acute on chronic combined systolic (congestive) and diastolic (congestive) heart failure (4) HTN (hypertension) Code(s): I10 - ESSENTIAL (PRIMARY) HYPERTENSION Qualifiers: Hypertension type: essential hypertension Qualified Code(s): I10 - Essential (primary) hypertension (5) Acute on chronic systolic and diastolic heart failure, NYHA class 3 Code(s): I50.43 - ACUTE ON CHRONIC COMBINED SYSTOLIC AND DIASTOLIC HRT FAIL (6) Pleural effusion Code(s): J90 - PLEURAL EFFUSION, NOT ELSEWHERE CLASSIFIED A/p stable but condition very gaurded discussed with casey saw operator--working on having arrangements anticipate d/c later if arrangments are made
[2017-01-28] MEDS: ISOSORBIDE DINITRATE 10 MG TABLET (FP) PO SCH ×2 (11:29→21:01)
--- NOTE | 2017-01-28 15:23 | PN ---
Progress Note (short form) - Note Progress Note: Chief Complaint: chf History of Present Illness: denies sob, cp, palpitations, dizzy Current Medications Generic Name Dose Route Start Last Admin Trade Name Day PRN Reason Stop Dose Admin Amoxicillin/Clavulanate Potassium 1 tab 01/23/17 17:30 01/28/17 09:36 Augmentin - 250mg Tablet PO 1 tab BID@0800,1730 CARLYN Administration Aspirin 81 mg 01/17/17 10:00 01/28/17 09:36 Ecotrin - PO 81 mg DAILY CARLYN Administration Bacitracin 1 applic 01/17/17 14:45 01/28/17 09:49 Bacitracin - TP 1 applic DAILY CARLYN Administration Carvedilol 25 mg 01/16/17 22:00 01/28/17 09:36 Coreg - PO 25 mg BID CARLYN Administration Finasteride 5 mg 01/17/17 10:00 01/28/17 09:36 Proscar - PO 5 mg DAILY CARLYN Administration Hydralazine HCl 20 mg 01/20/17 22:00 01/28/17 06:50 Apresoline - PO 20 mg TID CARLYN Administration Insulin Aspart 1 vial 01/17/17 07:00 01/28/17 11:29 Novolog Vial Sliding Scale - SQ 2 units TIDAC CARLYN Administration Protocol Insulin Detemir 6 units 01/25/17 11:56 01/27/17 21:27 Levemir Vial SQ 6 units HS CARLYN Administration Isosorbide Dinitrate 30 mg 01/20/17 22:00 01/28/17 11:29 Isordil - PO 30 mg BIDISORDIL CARLYN Administration Lactulose 20 gm 01/24/17 14:45 01/28/17 14:25 Cephulac (Oral Use) PO Not Given TID CARLYN Levothyroxine Sodium 50 mcg 01/17/17 07:00 01/28/17 06:22 Synthroid - PO 50 mcg DAILY@0700 CARLYN Administration Ofloxacin 5 drop 01/23/17 12:00 01/28/17 09:50 Floxin Otic (Ear) Solution - AD 5 drop BID CARLYN Administration Polyethylene Glycol 17 gm 01/20/17 12:04 Miralax (For Daily Use) - PO DAILY PRN CONSTIPATION Potassium Chloride 20 meq 01/26/17 10:00 01/28/17 09:35 Potassium Chloride Oral Liquid PO 20 meq DAILY CARLYN Administration Sodium Bicarbonate 650 mg 01/26/17 10:00 01/28/17 09:35 Sodium Bicarbonate - PO 650 mg DAILY CARLYN Administration Tamsulosin HCl 0.4 mg 01/17/17 10:00 01/28/17 09:36 Flomax - PO 0.4 mg DAILY CARLYN Administration Torsemide 40 mg 01/23/17 10:00 01/28/17 09:35 Demadex - PO 40 mg DAILY CARLYN Administration Vital Signs Period Temp Pulse Resp BP Sys/Stock Pulse Ox Last 24 Hr 98 F-98.5 F 68-75 16-20 124-140/57-70 94-95 Constitutional: Yes: No Distress, Calm Eyes: No: Sclera Icterus HENT: No: Nasal Congestion Cardiovascular: Yes: Regular Rate and Rhythm (decr intensity), no jvd, S1, S2, Other (PMI non diplaced). No: Gallop, Murmur Respiratory: Yes: CTA Bilaterally. No: Accessory Muscle Use, Rales, Wheezes Gastrointestinal: Yes: Normal Bowel Sounds, Soft. No: Tenderness Edema: no Integumentary: No: Jaundice diaphoresis Neurological: Yes: Alert. 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 acute on chronic syst chf - Biventricular failure -several prior admits for sob/chf -required thoracentesis for large right eff 2015 and again 11/2016 (reportedly was transudative c/w chf) -currently with signs of vol overload and recurrent large right eff -01/18 no change in sob or cxr after lasix 40 iv bid-->cr stable/improved so will increase to lasix 80 iv bid, monitor daily bmp, wts - 01/19: still no improvement in sx's on increased lasix dose. unable to record i/ o and ? accuracy of bed weights (although weights trending down). Will give trial of extra dose of 80 mg IV lasix this afternoon. If bun/cr worsens consider need for milrinone. - 01/20: received additional 80 mg IV lasix yesterday (total of 3 doses). weight con't to decrease but bun/cr not improved. will go back to bid dosing. Hydralazine and imdur added 01/19 to augment cardiac output via afterload reduction, but no significant decrease in bp. Will uptitrate today. If still no improvement in bun/cr tomorrow with lower bp's and ongoing diuresis --> need to consider starting milrinone. -limited ability to assess response to diuresis given no wts, no UOP monitoring -01/21: JVD present on exam, likely volume overloaded. rpt CXR with R effusion and venous congestionpersisting--will start milrinone 0.25mcg/kg/min trial (if frequent ventric ectopy or bp declines, will hold and try 0.125 mcg) -01/22: appears overall well euvolemic will transition to po torsemide. BMP improving on milrinone, but frequent NSVT will decrease milrinone to 0.2 mcg/kg/ min. - -01/23: cont po torsemide for maintenance. Tele with frequent ectopy and bp improved so will dc milrinone -01/24-17: vol stable, cr stable, cont po torsemide -cont coreg -stopped entresto due to claudio on ckd, replaced with hydral/imdur -unfortunately, prognosis here is poor and the biggest obstacle in pt's ability to stay out of chf and avoid VT/VF complications of low EF is that he has refused prior discussion of the realities of his cardiac condition and refuses any escalation in treatments (e.g. devices, incl ICD) positive trops: -borderline trop elevation with flat trend and normal ck, not consistent with acs, likely 2/2 chf -no new ecg findings VT, brief SVT - on max dose of coreg. - lytes stable--replete per usual targets - off milrinone now - no further episodes CAD: -s/p 4V cabg (1991) -no angina sxs -no ekg changes vs baseline -cont coreg, asa HTN: -cont coreg, hydral, imdur claudio on ckd: -baseline creat range here is 3.1-3.3 -worsened here likely cardiorenal syndrome, now cr back to baseline after diuresis DM: -s/p right BKA and left AKA -glycemia mgmt per PMD waiting for home services, stable for dc from cardiac pov
[2017-01-28] MEDS: INSULIN DETEMIR 100 UNITS/ML MDV SQ SCH (21:07)
[2017-01-29] MEDS ORDERED: PT OWN MED DRAWER 7, Y5N ONE ×5 (06:13→22:11)
[2017-01-29] MEDS: LACTULOSE 20 GM/30 ML UDC (FOR ORAL USE ONLY) PO SCH ×3 (06:17→22:15)
[2017-01-29] MEDS: INSULIN SLIDING SCALE (NOVOLOG) 1 VIAL SQ SCH ×3 (06:17→17:26)
[2017-01-29] MEDS: LEVOTHYROXINE NA 50 MCG TABLET (FP) PO SCH (06:17)
[2017-01-29] MEDS: hydrALAZINE HCL 10 MG TABLET PO SCH ×3 (06:17→22:15)
[2017-01-29] MEDS: CARVEDILOL 25 MG TABLET (FP) PO SCH ×2 (09:13→22:15)
[2017-01-29] MEDS: TAMSULOSIN HCL 0.4 MG CAP.ER.24H (FP) PO SCH (09:13)
[2017-01-29] MEDS: FINASTERIDE 5 MG TABLET (FP) PO SCH (09:13)
[2017-01-29] MEDS: TORSEMIDE 20 MG TABLET (FP) PO SCH (09:13)
[2017-01-29] MEDS: ASPIRIN COATED 81 MG TABLET.EC PO SCH (09:13)
[2017-01-29] MEDS: SODIUM BICARBONATE 650 MG TABLET PO SCH (09:13)
[2017-01-29] MEDS: AMOX TR/POT CLAV 250MG/125MG TABLETS PO SCH ×2 (09:14→17:35)
[2017-01-29] MEDS: ISOSORBIDE DINITRATE 10 MG TABLET (FP) PO SCH (09:15)
[2017-01-29] MEDS: OFLOXACIN 0.3% OTIC SOLUTION 5 ML BOTTLE AD SCH ×2 (09:16→22:15)
[2017-01-29] MEDS: POTASSIUM CHLORIDE ORAL LIQUID 20 MEQ/15 ML PO SCH (09:18)
[2017-01-29] MEDS: BACITRACIN 15 GM TUBE TOPICAL OINTMENT TP SCH (09:19)
--- NOTE | 2017-01-29 11:11 | PN ---
Progress Note (short form) - Note Progress Note: Vital Signs - 24 hr 01/28/17 01/28/17 01/28/17 14:40 18:00 21:00 Temperature 98.3 F 97.8 F Pulse Rate 71 69 Respiratory 18 Rate Blood Pressure 125/61 O2 Sat by Pulse 95 Oximetry (%) 01/28/17 01/29/17 01/29/17 22:00 06:00 09:00 Temperature 98.6 F Pulse Rate 74 67 Respiratory 18 18 Rate Blood Pressure 128/60 133/70 O2 Sat by Pulse 95 Oximetry (%) 01/29/17 09:27 Temperature 98.1 F Pulse Rate 62 Respiratory 18 Rate Blood Pressure 122/57 O2 Sat by Pulse Oximetry (%) Laboratory Results - last 24 hr 01/28/17 01/28/17 01/29/17 16:53 21:06 06:16 POC Glucometer 204 142 115 Problem List - Problems (1) KAMRAN (acute kidney injury) Code(s): N17.9 - ACUTE KIDNEY FAILURE, UNSPECIFIED (2) CHF (congestive heart failure) Code(s): I50.9 - HEART FAILURE, UNSPECIFIED Qualifiers: Congestive heart failure type: combined Congestive heart failure chronicity: acute on chronic Qualified Code(s): I50.43 - Acute on chronic combined systolic (congestive) and diastolic (congestive) heart failure (3) CHF exacerbation Code(s): I50.9 - HEART FAILURE, UNSPECIFIED Qualifiers: Congestive heart failure type: combined Qualified Code(s): I50.43 - Acute on chronic combined systolic (congestive) and diastolic (congestive) heart failure (4) HTN (hypertension) Code(s): I10 - ESSENTIAL (PRIMARY) HYPERTENSION Qualifiers: Hypertension type: essential hypertension Qualified Code(s): I10 - Essential (primary) hypertension (5) Acute on chronic systolic and diastolic heart failure, NYHA class 3 Code(s): I50.43 - ACUTE ON CHRONIC COMBINED SYSTOLIC AND DIASTOLIC HRT FAIL (6) Pleural effusion Code(s): J90 - PLEURAL EFFUSION, NOT ELSEWHERE CLASSIFIED (7) UTI (urinary tract infection), bacterial Code(s): N39.0 - URINARY TRACT INFECTION, SITE NOT SPECIFIED A49.9 - BACTERIAL INFECTION, UNSPECIFIED
[2017-01-29] MEDS ORDERED: INSULIN (NOVOLOG) ASPART 100 UNITS/ML 10ML VIAL ONE (11:20)
--- NOTE | 2017-01-29 11:29 | PN ---
Progress Note (short form) - Note Progress Note: Chief Complaint: chf History of Present Illness: denies sob, cp, palpitations, dizzy Current Medications Generic Name Dose Route Start Last Admin Trade Name Day PRN Reason Stop Dose Admin Amoxicillin/Clavulanate Potassium 1 tab 01/23/17 17:30 01/29/17 09:14 Augmentin - 250mg Tablet PO 1 tab BID@0800,1730 CARLYN Administration Aspirin 81 mg 01/17/17 10:00 01/29/17 09:13 Ecotrin - PO 81 mg DAILY CARLYN Administration Bacitracin 1 applic 01/17/17 14:45 01/29/17 09:19 Bacitracin - TP 1 applic DAILY CARLYN Administration Carvedilol 25 mg 01/16/17 22:00 01/29/17 09:13 Coreg - PO 25 mg BID CARLYN Administration Finasteride 5 mg 01/17/17 10:00 01/29/17 09:13 Proscar - PO 5 mg DAILY CARLYN Administration Hydralazine HCl 20 mg 01/20/17 22:00 01/29/17 06:17 Apresoline - PO 20 mg TID CARLYN Administration Insulin Aspart 1 vial 01/17/17 07:00 01/29/17 11:23 Novolog Vial Sliding Scale - SQ 4 units TIDAC CARLYN Administration Protocol Insulin Detemir 6 units 01/25/17 11:56 01/28/17 21:07 Levemir Vial SQ 6 units HS CARLYN Administration Isosorbide Dinitrate 30 mg 01/20/17 22:00 01/29/17 09:15 Isordil - PO 30 mg BIDISORDIL CARLYN Administration Lactulose 20 gm 01/24/17 14:45 01/29/17 06:17 Cephulac (Oral Use) PO Not Given TID CARLYN Levothyroxine Sodium 50 mcg 01/17/17 07:00 01/29/17 06:17 Synthroid - PO 50 mcg DAILY@0700 CARLYN Administration Ofloxacin 5 drop 01/23/17 12:00 01/29/17 09:16 Floxin Otic (Ear) Solution - AD 5 drop BID CARLYN Administration Polyethylene Glycol 17 gm 01/20/17 12:04 Miralax (For Daily Use) - PO DAILY PRN CONSTIPATION Potassium Chloride 20 meq 01/26/17 10:00 01/29/17 09:18 Potassium Chloride Oral Liquid PO 20 meq DAILY CARLYN Administration Sodium Bicarbonate 650 mg 01/26/17 10:00 01/29/17 09:13 Sodium Bicarbonate - PO 650 mg DAILY CARLYN Administration Tamsulosin HCl 0.4 mg 01/17/17 10:00 01/29/17 09:13 Flomax - PO 0.4 mg DAILY CARLYN Administration Torsemide 40 mg 01/23/17 10:00 01/29/17 09:13 Demadex - PO 40 mg DAILY CARLYN Administration Vital Signs Period Temp Pulse Resp BP Sys/Stock Pulse Ox Last 24 Hr 97.8 F-98.6 F 62-74 18-18 122-133/57-70 95-95 Constitutional: Yes: No Distress, Calm Eyes: No: Sclera Icterus HENT: No: Nasal Congestion Cardiovascular: Yes: Regular Rate and Rhythm (decr intensity), no jvd, S1, S2, Other (PMI non diplaced). No: Gallop, Murmur Respiratory: Yes: CTA Bilaterally. No: Accessory Muscle Use, Rales, Wheezes Gastrointestinal: Yes: Normal Bowel Sounds, Soft. No: Tenderness Edema: no Integumentary: No: Jaundice diaphoresis Neurological: Yes: Alert. 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 acute on chronic syst chf - Biventricular failure -several prior admits for sob/chf -required thoracentesis for large right eff 2015 and again 11/2016 (reportedly was transudative c/w chf) -currently with signs of vol overload and recurrent large right eff -01/18 no change in sob or cxr after lasix 40 iv bid-->cr stable/improved so will increase to lasix 80 iv bid, monitor daily bmp, wts - 01/19: still no improvement in sx's on increased lasix dose. unable to record i/ o and ? accuracy of bed weights (although weights trending down). Will give trial of extra dose of 80 mg IV lasix this afternoon. If bun/cr worsens consider need for milrinone. - 01/20: received additional 80 mg IV lasix yesterday (total of 3 doses). weight con't to decrease but bun/cr not improved. will go back to bid dosing. Hydralazine and imdur added 01/19 to augment cardiac output via afterload reduction, but no significant decrease in bp. Will uptitrate today. If still no improvement in bun/cr tomorrow with lower bp's and ongoing diuresis --> need to consider starting milrinone. -limited ability to assess response to diuresis given no wts, no UOP monitoring -01/21: JVD present on exam, likely volume overloaded. rpt CXR with R effusion and venous congestionpersisting--will start milrinone 0.25mcg/kg/min trial (if frequent ventric ectopy or bp declines, will hold and try 0.125 mcg) -01/22: appears overall well euvolemic will transition to po torsemide. BMP improving on milrinone, but frequent NSVT will decrease milrinone to 0.2 mcg/kg/ min. - -01/23: cont po torsemide for maintenance. Tele with frequent ectopy and bp improved so will dc milrinone -01/24-18: vol stable, cr stable, cont po torsemide -cont coreg -stopped entresto due to claudio on ckd, replaced with hydral/imdur -unfortunately, prognosis here is poor and the biggest obstacle in pt's ability to stay out of chf and avoid VT/VF complications of low EF is that he has refused prior discussion of the realities of his cardiac condition and refuses any escalation in treatments (e.g. devices, incl ICD) positive trops: -borderline trop elevation with flat trend and normal ck, not consistent with acs, likely 2/2 chf -no new ecg findings VT, brief SVT - on max dose of coreg. - lytes stable--replete per usual targets - off milrinone now - no further episodes CAD: -s/p 4V cabg (1991) -no angina sxs -no ekg changes vs baseline -cont coreg, asa HTN: -cont coreg, hydral, imdur claudio on ckd: -baseline creat range here is 3.1-3.3 -worsened here likely cardiorenal syndrome, now cr back to baseline after diuresis DM: -s/p right BKA and left AKA -glycemia mgmt per PMD waiting for home services, stable for dc from cardiac pov
--- NOTE | 2017-01-29 11:56 | PN ---
Progress Note (short form) - Note Progress Note: Renal Follow up for CKD with Volume overload Pt seen and examined at the bedside awake and alert denies any CP, SOB waiting discharge SNF vs. home Vital Signs Temperature 98.1 F 01/29/17 09:27 Pulse Rate 62 01/29/17 09:27 Respiratory Rate 18 01/29/17 09:27 Blood Pressure 122/57 01/29/17 09:27 O2 Sat by Pulse Oximetry (%) 95 01/29/17 09:00 Intake & Output 01/26/17 01/27/17 01/28/17 01/29/17 23:59 23:59 23:59 23:59 Intake Total 619 762 4497 550 Output Total 350 300 Balance 610 250 700 550 Weight 161 lb 6.4 oz 162 lb 6.4 oz 152 lb 3.2 oz 151 lb 9 oz Gen: NAD CVS: RRR Lungs: Dec BS right lung, no wheeze, rales Ext: 2+ edema in LE, s/l amp CBC, BMP 01/26/17 18:00 01/26/17 05:35 Current Medications Amoxicillin/Clavulanate Potassium (Augmentin - 250mg Tablet) 1 tab PO BID@0800, 1730 [facility] Last Admin: 01/29/17 09:14 Dose: 1 tab Aspirin (Ecotrin -) 81 mg PO DAILY [facility] Last Admin: 01/29/17 09:13 Dose: 81 mg Bacitracin (Bacitracin -) 1 applic TP DAILY [facility] Last Admin: 01/29/17 09:19 Dose: 1 applic Carvedilol (Coreg -) 25 mg PO BID [facility] Last Admin: 01/29/17 09:13 Dose: 25 mg Finasteride (Proscar -) 5 mg PO DAILY [facility] Last Admin: 01/29/17 09:13 Dose: 5 mg Hydralazine HCl (Apresoline -) 20 mg PO TID [facility] Last Admin: 01/29/17 06:17 Dose: 20 mg Insulin Aspart (Novolog Vial Sliding Scale -) 1 vial SQ TIDAC [facility] PRN Reason: Protocol Last Admin: 01/29/17 11:23 Dose: 4 units Insulin Detemir (Levemir Vial) 6 units SQ HS [facility] Last Admin: 01/28/17 21:07 Dose: 6 units Isosorbide Dinitrate (Isordil -) 30 mg PO BIDISORDIL [facility] Last Admin: 01/29/17 09:15 Dose: 30 mg Lactulose (Cephulac (Oral Use)) 20 gm PO TID [facility] Last Admin: 01/29/17 06:17 Dose: Not Given Levothyroxine Sodium (Synthroid -) 50 mcg PO DAILY@0700 [facility] Last Admin: 01/29/17 06:17 Dose: 50 mcg Ofloxacin (Floxin Otic (Ear) Solution -) 5 drop AD BID [facility] Last Admin: 01/29/17 09:16 Dose: 5 drop Polyethylene Glycol (Miralax (For Daily Use) -) 17 gm PO DAILY PRN PRN Reason: CONSTIPATION Potassium Chloride (Potassium Chloride Oral Liquid) 20 meq PO DAILY [facility] Last Admin: 01/29/17 09:18 Dose: 20 meq Sodium Bicarbonate (Sodium Bicarbonate -) 650 mg PO DAILY [facility] Last Admin: 01/29/17 09:13 Dose: 650 mg Tamsulosin HCl (Flomax -) 0.4 mg PO DAILY [facility] Last Admin: 01/29/17 09:13 Dose: 0.4 mg Torsemide (Demadex -) 40 mg PO DAILY [facility] Last Admin: 01/29/17 09:13 Dose: 40 mg A/P 81 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 with PMhx of CKD stage 4 (baseline Cr 2.6-3.3) with nephrotic range proteinuria, Systolic CHF, PVD s/p b/l LE amputations, Hyperlipidemia, Anemia who presented with SOB, LE swelling and found to have large pleural effusion and BUN/Cr of 81/3.5.\] #CKD Stage 4 with nephrotic rang proteinuria with volume overload Renal function has been stable throughout the admission Will check BMP in AM continue torsemide daily no OLIVA/ARB #CHF/RIght Pleural effusion Weight has improved to 151 lbs on oral torsemide continue supportive care cardiology following #Right Ear discharge e/o otitis externa continue Abx as per ENT #Anion gap metabolic acidosis continue sodium bicarb 650mg Daily Hugh Huggins DO Problem List - Problems (1) KAMRAN (acute kidney injury) Code(s): N17.9 - ACUTE KIDNEY FAILURE, UNSPECIFIED (2) CAD (coronary artery disease) Code(s): I25.10 - ATHSCL HEART DISEASE OF [place] CORONARY ARTERY W/O ANG PCTRS Qualifiers: Coronary Disease-Associated Artery/Lesion type: [place] artery [place] vs. transplanted heart: [place] heart Associated angina: without angina Qualified Code(s): I25.10 - Atherosclerotic heart disease of [place] coronary artery without angina pectoris (3) CHF (congestive heart failure) Code(s): I50.9 - HEART FAILURE, UNSPECIFIED Qualifiers: Congestive heart failure type: combined Congestive heart failure chronicity: acute on chronic Qualified Code(s): I50.43 - Acute on chronic combined systolic (congestive) and diastolic (congestive) heart failure (4) CHF exacerbation Code(s): I50.9 - HEART FAILURE, UNSPECIFIED Qualifiers: Congestive heart failure type: combined Qualified Code(s): I50.43 - Acute on chronic combined systolic (congestive) and diastolic (congestive) heart failure (5) HTN (hypertension) Code(s): I10 - ESSENTIAL (PRIMARY) HYPERTENSION Qualifiers: Hypertension type: essential hypertension Qualified Code(s): I10 - Essential (primary) hypertension (6) Nephrotic syndrome Code(s): N04.9 - NEPHROTIC SYNDROME WITH UNSPECIFIED MORPHOLOGIC CHANGES (7) Pleural effusion Code(s): J90 - PLEURAL EFFUSION, NOT ELSEWHERE CLASSIFIED (8) Metabolic acidosis Code(s): E87.2 - ACIDOSIS
[2017-01-29] MEDS: INSULIN DETEMIR 100 UNITS/ML MDV SQ SCH (22:15)
[2017-01-30] MEDS: INSULIN SLIDING SCALE (NOVOLOG) 1 VIAL SQ SCH (06:09)
[2017-01-30] MEDS: LACTULOSE 20 GM/30 ML UDC (FOR ORAL USE ONLY) PO SCH (06:09)
[2017-01-30] MEDS: LEVOTHYROXINE NA 50 MCG TABLET (FP) PO SCH (06:09)
[2017-01-30] MEDS: hydrALAZINE HCL 10 MG TABLET PO SCH (06:09)
[2017-01-30] MEDS ORDERED: INSULIN (NOVOLOG) ASPART 100 UNITS/ML 10ML VIAL ONE (06:27)
[2017-01-30 06:43] LABS: ANION GAP 11 (8-16); CALCIUM 7.9 mg/dL (8.5-10.1); CO2 26 mmol/L (21-32); CREATININE 3.1 mg/dL (0.7-1.3); GLUCOSE,RANDOM 126 mg/dL (74-106); MAGNESIUM 2.2 mg/dL (1.8-2.4); PHOSPHOROUS 2.5 mg/dL (2.5-4.9)
[2017-01-30] MEDS ORDERED: PT OWN MED DRAWER 7, Y5N ONE ×2 (08:51→09:18)
[2017-01-30 09:04] VITALS: BP 109/61; PULSE 61; TEMP 98
[2017-01-30] MEDS: AMOX TR/POT CLAV 250MG/125MG TABLETS PO SCH (09:07)
[2017-01-30] MEDS: TAMSULOSIN HCL 0.4 MG CAP.ER.24H (FP) PO SCH (09:08)
[2017-01-30] MEDS: CARVEDILOL 25 MG TABLET (FP) PO SCH (09:08)
[2017-01-30] MEDS: FINASTERIDE 5 MG TABLET (FP) PO SCH (09:08)
[2017-01-30] MEDS: BACITRACIN 15 GM TUBE TOPICAL OINTMENT TP SCH (09:08)
[2017-01-30] MEDS: SODIUM BICARBONATE 650 MG TABLET PO SCH (09:08)
[2017-01-30] MEDS: ASPIRIN COATED 81 MG TABLET.EC PO SCH (09:08)
[2017-01-30] MEDS: TORSEMIDE 20 MG TABLET (FP) PO SCH (09:08)
[2017-01-30] MEDS: POTASSIUM CHLORIDE ORAL LIQUID 20 MEQ/15 ML PO SCH (09:09)
[2017-01-30] MEDS: ISOSORBIDE DINITRATE 10 MG TABLET (FP) PO SCH (09:09)
[2017-01-30] MEDS: OFLOXACIN 0.3% OTIC SOLUTION 5 ML BOTTLE AD SCH (09:12)
--- NOTE | 2017-01-30 11:15 | PN ---
Progress Note (short form) - Note Progress Note: Vital Signs - 24 hr 01/29/17 01/29/17 01/30/17 14:46 18:00 06:00 Temperature 98.0 F 98.1 F 98.1 F Pulse Rate 69 68 64 Respiratory 20 18 Rate Blood Pressure 128/69 117/59 01/30/17 08:56 Temperature 98.0 F Pulse Rate 61 Respiratory 18 Rate Blood Pressure 109/61 Problem List - Problems (1) KAMRAN (acute kidney injury) Code(s): N17.9 - ACUTE KIDNEY FAILURE, UNSPECIFIED (2) CHF (congestive heart failure) Code(s): I50.9 - HEART FAILURE, UNSPECIFIED Qualifiers: Congestive heart failure type: combined Congestive heart failure chronicity: acute on chronic Qualified Code(s): I50.43 - Acute on chronic combined systolic (congestive) and diastolic (congestive) heart failure (3) CHF exacerbation Code(s): I50.9 - HEART FAILURE, UNSPECIFIED Qualifiers: Congestive heart failure type: combined Qualified Code(s): I50.43 - Acute on chronic combined systolic (congestive) and diastolic (congestive) heart failure (4) HTN (hypertension) Code(s): I10 - ESSENTIAL (PRIMARY) HYPERTENSION Qualifiers: Hypertension type: essential hypertension Qualified Code(s): I10 - Essential (primary) hypertension (5) Acute on chronic systolic and diastolic heart failure, NYHA class 3 Code(s): I50.43 - ACUTE ON CHRONIC COMBINED SYSTOLIC AND DIASTOLIC HRT FAIL (6) Pleural effusion Code(s): J90 - PLEURAL EFFUSION, NOT ELSEWHERE CLASSIFIED (7) UTI (urinary tract infection), bacterial Code(s): N39.0 - URINARY TRACT INFECTION, SITE NOT SPECIFIED A49.9 - BACTERIAL INFECTION, UNSPECIFIED
== END 2017-01-30 11:20 | disposition home health service (06) | DRG 291 ==
LOC: JER 13:34 → JERBED 17:30 → J4W 20:54 → J6S 01-27 22:44
PROVIDERS: ADMIT Internal Medicine; ATTEND Internal Medicine
DX: I13.0 Hypertensive heart and chronic kidney disease with heart failure and stage 1 through stage 4 chronic kidney disease, or unspecified chronic kidney disease (principal); I50.23 Acute on chronic systolic (congestive) heart failure; N18.4 Chronic kidney disease, stage 4 (severe); N17.9 Acute kidney failure, unspecified; E87.2 Acidosis; I47.1 Supraventricular tachycardia; N39.0 Urinary tract infection, site not specified; E11.22 Type 2 diabetes mellitus with diabetic chronic kidney disease; E87.70 Fluid overload, unspecified; I25.10 Atherosclerotic heart disease of native coronary artery without angina pectoris; Z95.1 Presence of aortocoronary bypass graft; E78.5 Hyperlipidemia, unspecified; E87.6 Hypokalemia; H60.501 Unspecified acute noninfective otitis externa, right ear; Z16.12 Extended spectrum beta lactamase (ESBL) resistance
CPT/HCPCS: 36415; 71010-TC; 80048; 80053; 81003; 81015; 82140; 82550; 82553; 82570; 83036; 83735; 83880; 84100; 84156; 84300; 84484; 84540; 84550; 85025; 85610; 85730; 87086; 87186; 93005; 93010; 97116-GP; 97161-GP; 99282-25; J1644

== ENCOUNTER 2017-01-31 09:47 | Emergency (ER) | payer OTHER ==
--- NOTE | 2017-01-31 10:29 | PDOC ---
History of Present Illness - General History Source: Patient, Old Records Exam Limitations: No Limitations - History of Present Illness Initial Comments: 01/31/17 11:02 The patient is a 81 year old male with a significant past medical history of CAD s/p CABG, CHF, severe LV dysfunction on prior echo, hypertension, hyperlipidemia, diabetes, and prior B LE amputations, admitted to hospital on 01/16 for KAMRAN and CHF and discharged yesterday, presenting from home to the Emergency Department s/p fall last night. The patient report that he was moving from the toilet to his wheelchair when his wheelchair moved as he forgot to lock the brakes, and he fell onto the floor. He denies loss of consciousness. The patient reports that he has a certified home health aide during the days but not during the night. The certified home health aide brought him to the ED today. The patient denies any pain and has no complaints at this time. As per past records, the patient was seen in the ED on 01/16 and admitted for acute kidney injury and acute on chronic CHF. As per records, he was discharged yesterday. The patient denies head trauma, or loss of consciousness. Patient denies neck pain, or back pain. Patient denies nausea, vomiting, and diarrhea. Patient denies headache, dizziness, and blurry vision. PCP: Dr. Mcdaniels Past Medical Hx: prior UE thrombus, CKD with nephrotic range proteinuria, and BPH Surgical Hx: bilateral LE amputation <Monalisa Gates - Last Filed: 01/31/17 14:52> <Melinda Mabry - Last Filed: 01/31/17 15:16> - General Chief Complaint: Injury Stated Complaint: FALL Time Seen by Provider: 01/31/17 10:29 Past History <Monalisa Gates - Last Filed: 01/31/17 14:52> - Past Medical History Cardiac Disorders: Yes (cabg x 4 in 1991) Diabetes: Yes Disorders: Yes (urinary retention) HTN: Yes Hypercholesterolemia: Yes - Immunization History Immunization Up to Date: Yes - Psycho/Social/Smoking Cessation Hx Anxiety: No Suicidal Ideation: No Smoking History: Never smoked Have you smoked in the past 12 months: No Hx Alcohol Use: No Drug/Substance Use Hx: No Substance Use Type: None <Melinda Mabry - Last Filed: 01/31/17 15:16> - Past Medical History Allergies/Adverse Reactions: Allergies Allergy/AdvReac Type Severity Reaction Status Date / Time Sulfa (Sulfonamide Allergy Verified 01/16/17 13:47 Antibiotics) Home Medications: Ambulatory Orders Aspirin [Aspirin EC] 81 mg PO DAILY 01/16/17 Carvedilol [Coreg -] 25 mg PO BID 01/16/17 Finasteride [Proscar -] 5 mg PO DAILY 01/16/17 Levothyroxine [Synthroid -] 50 mcg PO DAILY 01/16/17 Tamsulosin HCl [Flomax -] 0.4 mg PO DAILY 01/16/17 Alprazolam [Xanax] 0.25 mg PO Q12H PRN #60 tablet MDD 2 01/24/17 Amox-Tr/K Cl [Augmentin 250-125mg Tablet -] 1 tab PO BID@0800,1730 #14 tablet Sodium Bicarbonate - 1,300 mg PO BID #60 tablet 01/24/17 Torsemide [Demadex -] 40 mg PO DAILY #60 tablet 01/24/17 Ofloxacin Otic [Floxin Otic -] 5 drop AD BID #1 amp 01/28/17 Glipizide Xl [Glucotrol Xl -] 10 mg PO DAILY@0700 #90 tab.er.24 01/30/17 Review of Systems - Review of Systems Able to Perform ROS?: Yes Comments:: 01/31/17 11:02 CONSTITUTIONAL: Absent: fever, no chills, no fatigue EYES: Absent: visual changes ENT: Absent: ear pain, no sore throat CARDIOVASCULAR: Absent: chest pain, no palpitations RESPIRATORY: Absent: cough, no SOB GI: Absent: abdominal pain, no nausea, no vomiting, no constipation, no diarrhea GENITOURINARY: Absent: dysuria, no frequency, no hematuria MUSCULOSKELETAL: Absent: back pain, no arthralgia, no myalgia SKIN: Absent: rash NEURO: Absent: headache <Monalisa Gates - Last Filed: 01/31/17 14:52> *Physical Exam - Vital Signs Last Vital Signs Temp Pulse Resp BP Pulse Ox 97.3 F L 63 20 144/76 94 L 01/31/17 10:30 01/31/17 10:30 01/31/17 10:30 01/31/17 10:30 01/31/17 10:30 - Physical Exam Comments: 01/31/17 11:02 GENERAL: Well developed, well nourished. Awake and alert. No acute distress. HEENT: Left ear has wax. Right ear has discharge from the ear, discharge in the ear canal, and TM is dull and cloudy. Normocephalic, atraumatic. PERRLA, EOMI. No conjunctival pallor. Sclera are non-icteric. Moist mucous membranes. CARDIOVASCULAR: Regular rate and rhythm. No murmurs, rubs, or gallops. Distal pulses are 2+ and symmetric. PULMONARY: No evidence of respiratory distress. Lungs clear to auscultation bilaterally. No wheezing, rales or rhonchi. ABDOMINAL: Soft. Non-tender. Non-distended. No rebound or guarding. No organomegaly. Normoactive bowel sounds. MUSCULOSKELETAL Normal range of motion at all joints. No bony deformities or tenderness. No CVA tenderness. EXTREMITIES: Left LE amputation above knee. Right LE amputation above knee. Small ulcer no signs of infection on right knee. No cyanosis. No clubbing. No edema. No calf tenderness. SKIN: Warm and dry. Normal capillary refill. No rashes. No jaundice. NEUROLOGICAL: Alert, awake, appropriate. Cranial nerves 2-12 intact. No focal neurological deficits. <Monalisa Gates - Last Filed: 01/31/17 14:52> ED Treatment Course - LABORATORY CBC & Chemistry Diagram: 01/31/17 11:20 01/31/17 11:20 - RADIOLOGY Radiograph Interpretation: 01/31/17 12:[address] As reviewed by Dr. Darwin Arita No evidence of acute intracranial hemorrhage, edema, midline shift, mass effect , or skull fracture. No CT evidence of acute territorial ischemic changes. Majority right mastoid air cells are opacified with several air-fluid levels without bony destructive changes. Clinically correlate for right otomastoiditis <Monalisa Gates - Last Filed: 01/31/17 14:52> - LABORATORY CBC & Chemistry Diagram: 01/31/17 11:20 01/31/17 11:20 <Melinda Mabry - Last Filed: 01/31/17 15:16> Medical Decision Making - Medical Decision Making 01/31/17 14:52 Dr. Santizo was called at her office at 2:[address] Mabry about the patient's care. Dr. Santizo reports that the patient's mastoiditis is known , and is being treated. <Monalisa Gates - Last Filed: 01/31/17 14:52> - Medical Decision Making 01/31/17 15:07 Pt presents to the ED after fall from bed last night. As per patient and home health aide, patient is unable to transfer himself to the wheelchair when he has a bowel movement overnight. Denies complaints. CT head is negative for intracranial injury, but does show mastoiditis. + otitis externa on exam. initial plan was to admit the patient, but as per Dr. Santizo, mastoiditis is known and patient has been evaluated by ENT and is currently on antibiotics. I am concerned about whether patient is safe at home, but patient is refusing placement to the dependency case manager and myself. Patient is alert and oriented x 3 and capable of refusing placement. Will discharge home. <Melinda Mabry - Last Filed: 01/31/17 15:16> *DC/Admit/Observation/Transfer - Attestations Scribe Attestion: 01/31/17 11:05 Documentation prepared by Monalisa Gates, acting as medical billing associate for Melinda Mabry MD. <Monalisa Gates - Last Filed: 01/31/17 14:52> - Discharge Dispostion Admit: No <Melinda Mabry - Last Filed: 01/31/17 15:16> Diagnosis at time of Disposition: Fall Qualifiers: Encounter type: initial encounter Qualified Code(s): W19.XXXA - Unspecified fall, initial encounter - Discharge Dispostion Disposition: HOME Condition at time of disposition: Good - Referrals Referrals: Berenice Santizo MD [Primary Care Provider] - - Patient Instructions Printed Discharge Instructions: DI for Mastoiditis-Adult Additional Instructions: return to the ED for fever, severe ear pain, new or worsening symptoms. Continue your antibiotics until they are all gone. Follow up with your doctor. Return to the Ed if you fall again.
[2017-01-31 10:46] VITALS: TEMP 97.3
[2017-01-31 11:34] LABS: BASOPHIL 0.9 % (0-2.0); EOSINOPHIL 0.9 % (0-4.5); MCH 28.5 pg (25.7-33.7); MCHC 32.6 g/dl (32.0-35.9); MEAN CELL VOLUME 87.3 fl (80-96); MEAN PLT VOLUME 7.5 fl (7.5-11.1); NEUTROPHILS 80.5 % (42.8-82.8); PLATELET COUNT 313 K/MM3 (134-434); RDW 15.8 % (11.9-15.9); WHITE BLOOD COUNT 8.9 K/mm3 (4.0-10.0)
[2017-01-31 11:56] LABS: ALBUMIN 2.3 g/dl (3.4-5.0); ANION GAP 9 (8-16); BILIRUBIN,TOTAL 0.7 mg/dL (0.2-1.0); CALCIUM 8.7 mg/dL (8.5-10.1); CO2 27 mmol/L (21-32); CREATININE 3.3 mg/dL (0.7-1.3); GLUCOSE,RANDOM 165 mg/dL (74-106); SGOT/AST 38 U/L (15-37); SGPT/ALT 22 U/L (12-78); TOT PROT 6.9 g/dl (6.4-8.2)
[2017-01-31 11:58] LABS: ALK PHOS 218 U/L (45-117); TROPONIN I 0.05 ng/ml (0.00-0.05)
[2017-01-31 17:14] VITALS: BP 138/80; PULSE 90
== END 2017-01-31 17:14 | disposition home or self-care (01) ==
LOC: JER 09:47
DX: Z04.8 Encounter for examination and observation for other specified reasons (principal); W05.0XXA Fall from non-moving wheelchair, initial encounter; Z91.81 History of falling; Y93.E8 Activity, other personal hygiene; Y92.031 Bathroom in apartment as the place of occurrence of the external cause; I25.10 Atherosclerotic heart disease of native coronary artery without angina pectoris; I13.0 Hypertensive heart and chronic kidney disease with heart failure and stage 1 through stage 4 chronic kidney disease, or unspecified chronic kidney disease; N18.9 Chronic kidney disease, unspecified; I50.1 Left ventricular failure, unspecified; Z95.1 Presence of aortocoronary bypass graft; N40.0 Benign prostatic hyperplasia without lower urinary tract symptoms; E11.9 Type 2 diabetes mellitus without complications; Z79.84 Long term (current) use of oral hypoglycemic drugs; Z89.612 Acquired absence of left leg above knee; Z89.611 Acquired absence of right leg above knee; Z99.3 Dependence on wheelchair
CPT/HCPCS: 36415; 70450-TC; 80053; 82550; 82553; 84484; 85025; 99282-25

== ENCOUNTER 2017-02-13 09:03 | Inpatient (IN) | payer OTHER ==
--- NOTE | 2017-02-13 09:14 | PDOC ---
History of Present Illness <lA Garcia - Last Filed: 02/13/17 14:40> - General History Source: Patient Exam Limitations: No Limitations - History of Present Illness Initial Comments: 02/13/17 09:57 The patient is a 81 year old male, with a significant past medical history of hypertension, hyperlipidemia, hypothyroidism, CAD(s/p CABG), CHF, severe LV dysfunction on prior echo, hypertension, hyperlipidemia, diabetes, prior B LE amputations, CKD with nephrotic range proteinuria, and BPH, who presents to the emergency department s/p mechanical fall earlier this morning. Patient reports he was transferring from his wheelchair to his bed, and fell. Patient reports left rib pain s/p fall, but denies any associated head trauma, LOC, headache, or changes in vision. He denies any neck or back pain. He denies any dysuria, hematuria, frequency, or urgency. Per records, patient was presented on 01/31/17 s/p a similar fall. Patient is also complaining of decreased appetite and increased weight-loss during the past 2 weeks. Records indicate patient was admitted for acute kidney injury and acute on chronic CHF. Per home health aid, patient has become increasingly forgetful and weak since he was discharged. Patient denies any nausea, vomiting, diarrhea, or constipation. He denies any chest pain, shortness of breath, diaphoresis, or palpitations. He reports some right ear pain and white discharge, but denies any fever, chills, cough, or sore throat. Allergies: Sulfa(Sulfonamide antibiotics) Past Surgical History: Bilateral LE amputation, CABG Social History: Non smoker. No ETOH or drug use. PCP: Dr. Mcdaniels <Deana Jensen - Last Filed: 02/13/17 16:14> - General Chief Complaint: Injury Stated Complaint: FALL Time Seen by Provider: 02/13/17 09:12 Past History - Past Medical History Cardiac Disorders: Yes (cabg x 4 in 1991) Diabetes: Yes Disorders: Yes (urinary retention) HTN: Yes Hypercholesterolemia: Yes - Immunization History Immunization Up to Date: Yes - Psycho/Social/Smoking Cessation Hx Anxiety: No Suicidal Ideation: No Smoking History: Never smoked Have you smoked in the past 12 months: No Hx Alcohol Use: No Drug/Substance Use Hx: No Substance Use Type: None <Al Garcia - Last Filed: 02/13/17 14:40> <Deana Jensen - Last Filed: 02/13/17 16:14> - Past Medical History Allergies/Adverse Reactions: Allergies Allergy/AdvReac Type Severity Reaction Status Date / Time Sulfa (Sulfonamide Allergy Verified 02/13/17 09:27 Antibiotics) Home Medications: Ambulatory Orders Aspirin [Aspirin EC] 81 mg PO DAILY 01/16/17 Carvedilol [Coreg -] 25 mg PO BID 01/16/17 Finasteride [Proscar -] 5 mg PO DAILY 01/16/17 Levothyroxine [Synthroid -] 50 mcg PO DAILY 01/16/17 Tamsulosin HCl [Flomax -] 0.4 mg PO DAILY 01/16/17 Alprazolam [Xanax] 0.25 mg PO Q12H PRN #60 tablet MDD 2 01/24/17 Amox-Tr/K Cl [Augmentin 250-125mg Tablet -] 1 tab PO BID@0800,1730 #14 tablet Sodium Bicarbonate - 1,300 mg PO BID #60 tablet 01/24/17 Torsemide [Demadex -] 40 mg PO DAILY #60 tablet 01/24/17 Ofloxacin Otic [Floxin Otic -] 5 drop AD BID #1 amp 01/28/17 Glipizide Xl [Glucotrol Xl -] 10 mg PO DAILY@0700 #90 tab.er.24 01/30/17 Review of Systems - Review of Systems Able to Perform ROS?: Yes Comments:: 02/13/17 09:58 GENERAL/CONSTITUTIONAL: Yes: +Weakness. No fever or chills. HEAD, EYES, EARS, NOSE AND THROAT: Yes: +right ear pain, +right ear discharge. No change in vision. No sore throat. CARDIOVASCULAR: No chest pain or shortness of breath. RESPIRATORY: No cough, wheezing, or hemoptysis. GASTROINTESTINAL: No nausea, vomiting, diarrhea or constipation. GENITOURINARY: No dysuria, frequency, or change in urination. MUSCULOSKELETAL: Yes: +left rib pain. No joint or muscle swelling or pain. No neck or back pain. SKIN: No rash NEUROLOGIC: No headache, vertigo, loss of consciousness, or change in strength/ sensation. ENDOCRINE: Yes: +decreased weight, +decreased appetite. No increased thirst. HEMATOLOGIC/LYMPHATIC: No anemia, easy bleeding, or history of blood clots. ALLERGIC/IMMUNOLOGIC: No hives or skin allergy. <Deana Jensen - Last Filed: 02/13/17 16:14> *Physical Exam - Vital Signs Last Vital Signs Temp Pulse Resp BP Pulse Ox 98.1 F 65 18 147/81 98 02/13/17 09:25 02/13/17 09:25 02/13/17 09:25 02/13/17 09:25 02/13/17 09:25 - Physical Exam Comments: 02/13/17 10:02 GENERAL: Generally debilitated and weak. Voice is weak. Awake, alert, and fully oriented, in no acute distress HEAD: No signs of trauma EYES: PERRLA, EOMI, sclera anicteric, conjunctiva clear ENT: Perforated right TM. Hard of hearing. Nares patent, oropharynx clear without exudates. Dry mucosa. NECK: Normal ROM, supple, no lymphadenopathy, JVD, or masses LUNGS: Breath sounds equal, clear to auscultation bilaterally. No wheezes, and no crackles HEART: Regular rate and rhythm, normal S1 and S2, no murmurs, rubs or gallops ABDOMEN: Soft, nontender, normoactive bowel sounds. No guarding, no rebound. No masses EXTREMITIES: Normal range of motion, no edema. No clubbing or cyanosis. No cords, erythema, or tenderness NEUROLOGICAL: Cranial nerves II through XII grossly intact. Voice is weak. Gait deferred. SKIN: Skin is doughy with poor turgor. Warm, Dry,no rashes or lesions noted. <Deana Jensen - Last Filed: 02/13/17 16:14> Heart Score/ECG Review - ECG Intrepretation Comment:: 02/13/17 11:20 Vent Rate: 63 bpm Impression: Junctional rhythm. Low voltage QRS. Old Inferior infarct. Prolonged QT. No change from ECG on 01/16/17. <Deana Jensen - Last Filed: 02/13/17 16:14> ED Treatment Course - LABORATORY CBC & Chemistry Diagram: 02/13/17 10:54 02/13/17 10:54 <Al Garcia - Last Filed: 02/13/17 14:40> - LABORATORY CBC & Chemistry Diagram: 02/13/17 10:54 02/13/17 10:54 - RADIOLOGY Radiograph Interpretation: 02/13/17 14:32 EXAM: Head CT INTERPRETED BY: Dr. Ramsey REVIEWED BY: Dr. Garcia IMPRESSION: In comparison to a prior cranial CT study of 01/31/2017 apparent interval development of partial cortical erosion is seen along the medial aspect of the right mastoid air cells. Additional evaluation utilizing a dedicated temporal bone CT study may be considered. As on the prior exam there is diffuse fluid accumulation within the right mastoid air cells and right middle ear cavity consistent with otomastoiditis. The remainder of the study appears unchanged. Small chronic right cerebellar infarct. Moderate periventricular and subcortical chronic microvascular ischemic changes. EXAM: CXR INTERPRETED BY: Dr. Cruz REVIEWED BY: Dr. Garcia IMPRESSION: Cardiomegaly with congestive changes and moderate right effusion. Continuing clinical and radiographic evaluation suggested. <Deana Jensen - Last Filed: 02/13/17 16:14> Medical Decision Making - Medical Decision Making 02/13/17 12:11 Plan: 1. Bloodwork/Culture 2. Urine 3. CXR 4. CT Abd and Pelvis First call placed to Dr. Santizo at 14:28. Awaiting call back. First call placed to Dr. Garcia at 14:30, case discussed at this time. Dr. Garcia ordered pt be started on Meropenem and ciprofloxacin, and be seen by ENT occupational therapist rehab manager. First call placed to Dr. Huntley at 14:38. Awaiting call back. Pt seen and evaluated by Dr. Garcia in the ED. Will place pt on ceftriaxone. Second call placed to Dr. Huntley at 16:13. <Deana Jensen - Last Filed: 02/13/17 16:14> *DC/Admit/Observation/Transfer - Discharge Dispostion Admit: Yes - Attestations Physician Attestion: 02/13/17 09:13 I, Dr. Al Garcia, attest that this document has been prepared under my direction and personally reviewed by me in its entirety. I further attest, that it accurately reflects all work, treatment, procedures and medical decision -making performed by me. <Al Garcia - Last Filed: 02/13/17 14:40> - Attestations Scribe Attestion: 02/13/17 10:02 Documentation prepared by Deana Jensen, acting as medical receptionist for Al Garcia DO. <Deana Jensen - Last Filed: 02/13/17 16:14> Diagnosis at time of Disposition: Renal insufficiency syndrome, KAMRAN (acute kidney injury), Generalized weakness Osteomyelitis Qualifiers: Osteomyelitis type: other acute Osteomyelitis location: other site Qualified Code(s): M86.18 - Other acute osteomyelitis, other site Mastoiditis Qualifiers: Laterality: right Qualified Code(s): H70.91 - Unspecified mastoiditis, right ear - Referrals
[2017-02-13] MEDS ORDERED: ONDANSETRON 4 MG/2 ML VIAL IVPUSH ONE (09:40)
[2017-02-13] MEDS ORDERED: ONDANSETRON 4 MG/2 ML VIAL ONE (10:39)
[2017-02-13] MEDS: SODIUM CHLORIDE 1,000 ML IV SCH ×2 (10:56→20:00)
[2017-02-13 11:03] LABS: BASOPHIL 0.9 % (0-2.0); EOSINOPHIL 1.4 % (0-4.5); MCH 28.2 pg (25.7-33.7); MCHC 32.2 g/dl (32.0-35.9); MEAN CELL VOLUME 87.7 fl (80-96); MEAN PLT VOLUME 7.7 fl (7.5-11.1); NEUTROPHILS 65.2 % (42.8-82.8); PLATELET COUNT 373 K/MM3 (134-434); RDW 15.6 % (11.9-15.9); WHITE BLOOD COUNT 5.7 K/mm3 (4.0-10.0)
[2017-02-13 11:15] LABS: INR 1.26 (0.82-1.09); PROTHROMBIN TIME (PATIENT) 13.9 SEC (9.98-11.88)
[2017-02-13 11:32] LABS: ALBUMIN 2.5 g/dl (3.4-5.0); ANION GAP 11 (8-16); BILIRUBIN,TOTAL 0.7 mg/dL (0.2-1.0); CALCIUM 8.5 mg/dL (8.5-10.1); CO2 22 mmol/L (21-32); CREATININE 2.9 mg/dL (0.7-1.3); GLUCOSE,RANDOM 122 mg/dL (74-106); SGOT/AST 15 U/L (15-37); SGPT/ALT 18 U/L (12-78); TOT PROT 7.3 g/dl (6.4-8.2)
[2017-02-13 11:55] LABS: ALK PHOS 240 U/L (45-117); CPK 94 IU/L (39-308); TROPONIN I 0.06 ng/ml (0.00-0.05)
[2017-02-13 13:51] LABS: ACETONE SERUM NEGATIVE (NEGATIVE)
[2017-02-13] MEDS ORDERED: MEROPENEM 1 MG in DEXTROSE 5%-WATER - 100 ML IVPB ONE (14:34)
[2017-02-13] MEDS ORDERED: CIPROFLOXACIN 400 MG/D5W 200 ML IVPB ONE (14:34)
[2017-02-13] MEDS ORDERED: MEROPENEM 1,000 MG in DEXTROSE 5%-WATER - 100 ML IVPB ONE (15:09)
[2017-02-13] MEDS ORDERED: CLINDAMYCIN 600MG PREMIX IVPB 50 ML IVPB ONE ×2 (16:09→20:30)
[2017-02-13] MEDS ORDERED: ALPRAZolam 0.25 MG TABLET PO PRN (16:17)
--- NOTE | 2017-02-13 16:38 | CONSULT ---
Consult Consult Specialty:: infectious diseases Referred by:: Maribell Reason for Consultation:: ear infection. discharge from the ear - History of Present Illness Chief Complaint: fever and discharge from the ear History of Present Illness: 81 year old male, with a significant past medical history of hypertension, hyperlipidemia, hypothyroidism, CAD(s/p CABG), CHF, severe LV dysfunction on prior echo, hypertension, hyperlipidemia, diabetes, prior B LE amputations, CKD with nephrotic range proteinuria, and BPH, who presents to the emergency department Patient was brought in because he feel down. According to the sitter patient had the ear problem couple of weeks back and patient was taken to the hospital she does not know which and was admitted and was send home on ear drops Patient fell down and that is why the patient came to the hospital. she does mentions that 2 weeks back patient heard a pop in the ear and then thee was a constant discharge from the right ear Patient reports he was transferring from his wheelchair to his bed, and fell. denies any associated head trauma, LOC, headache, on. He denies any neck or back pain. patient does mention that he has lost hearing in his right ear curently patient is stable but is not able to hear from his right ear.He does mention of having fevers,but i do not know the temprature as i do not think it was recorded one thing patient is mentioning that he has been having jaw pain for couple of days now - History Source History Provided By: Caregiver Limitations to Obtaining History: Language Barrier - Past Medical History Cardio/Vascular: Yes: CAD, CHF (low EF), Hyperlipdemia Gastrointestinal: Yes: Constipation, Other (no hx colonoscopy) Renal/: Yes: Renal Inusuff, BPH Endocrine: Yes: Diabetes Mellitus - Past Surgical History Past Surgical History: Yes: Amputation (bilateral lower leg amputations due to diabeic complications.), CABG - Alcohol/Substance Use Hx Alcohol Use: No - Smoking History Smoking history: Never smoked Have you smoked in the past 12 months: No - Social History Usual Living Arrangement: Alone (with home health aide) History of Recent Travel: No Home Medications - Allergies Allergies/Adverse Reactions: Allergies Allergy/AdvReac Type Severity Reaction Status Date / Time Sulfa (Sulfonamide Allergy Verified 02/13/17 09:27 Antibiotics) - Home Medications Home Medications: Ambulatory Orders Aspirin [Aspirin EC] 81 mg PO DAILY 01/16/17 Carvedilol [Coreg -] 25 mg PO BID 01/16/17 Finasteride [Proscar -] 5 mg PO DAILY 01/16/17 Levothyroxine [Synthroid -] 50 mcg PO DAILY 01/16/17 Tamsulosin HCl [Flomax -] 0.4 mg PO DAILY 01/16/17 Alprazolam [Xanax] 0.25 mg PO Q12H PRN #60 tablet MDD 2 01/24/17 Amox-Tr/K Cl [Augmentin 250-125mg Tablet -] 1 tab PO BID@0800,1730 #14 tablet Sodium Bicarbonate - 1,300 mg PO BID #60 tablet 01/24/17 Torsemide [Demadex -] 40 mg PO DAILY #60 tablet 01/24/17 Ofloxacin Otic [Floxin Otic -] 5 drop AD BID #1 amp 01/28/17 Glipizide Xl [Glucotrol Xl -] 10 mg PO DAILY@0700 #90 tab.er.24 01/30/17 Review of Systems - Review of Systems Constitutional: reports: Fever Eyes: reports: No Symptoms HENT: reports: Hearing Loss, Other (discharge from ear right) Neck: reports: No Symptoms Cardiovascular: reports: No Symptoms Respiratory: reports: No Symptoms Gastrointestinal: reports: No Symptoms Genitourinary: reports: No Symptoms Musculoskeletal: reports: No Symptoms Integumentary: reports: No Symptoms Neurological: reports: No Symptoms Endocrine: reports: No Symptoms Hematology/Lymphatic: reports: No Symptoms Psychiatric: reports: No Symptoms Physical Exam Vital Signs: Vital Signs Temperature 98.1 F 02/13/17 09:25 Pulse Rate 65 02/13/17 09:25 Respiratory Rate 18 02/13/17 09:25 Blood Pressure 147/81 02/13/17 09:25 O2 Sat by Pulse Oximetry (%) 98 02/13/17 09:25 Constitutional: Yes: Mild Distress, Other Eyes: Yes: Conjunctiva Clear HENT: Yes: Other (right ear looked at,patient has discharge from the right ear and perforation noted in the right eat,discharge is whitish in color) Neck: Yes: Supple Cardiovascular: Yes: Regular Rate and Rhythm Respiratory: Yes: Regular, CTA Bilaterally Gastrointestinal: Yes: Normal Bowel Sounds, Soft Musculoskeletal: Yes: WNL Extremities: Yes: WNL Neurological: Yes: Alert, Oriented Psychiatric: Yes: Alert, Oriented Imaging - Results Cat Scan: Report Reviewed, Image Reviewed Assessment/Plan after evaluating the history of the patient and looking at the ct scan i am very worried about his condition as this has been going on for some time and now it is showing erosison and acute osteomastoditis patient has lost hearing in the ear osteomastoditis drainage from the ear plan i am going to initially cover him with antibiotic as he easily can get spread to his brain we will streamline abx once ent sees him very close watch on the patient if possible cx to be send of the ear fluid
--- NOTE | 2017-02-13 20:31 | CON.ENT ---
Consult Consult Specialty:: ENT Referred by:: Dr. Santizo Reason for Consultation:: otomastoiditis - History of Present Illness Chief Complaint: ear drainage History of Present Illness: 81 yo M with numerous medical problems including DM, s/p bilateral lower extremity amputations had recent fall felt a pop in right ear, had drainage and problems hearing Pt had been evaluated recently for similar symptoms , Dr. Razo examined on . at that time purlence right ear found, also densely impacted cerumen left ear. Ofloxacin drops recommended. Outpatient followup was recommended but not followed through - History Source History Provided By: Patient, Medical Record Limitations to Obtaining History: Language Barrier - Past Medical History Cardio/Vascular: Yes: CAD, CHF (low EF), Hyperlipdemia Gastrointestinal: Yes: Constipation, Other (no hx colonoscopy) Renal/: Yes: Renal Inusuff, BPH Endocrine: Yes: Diabetes Mellitus - Past Surgical History Past Surgical History: Yes: Amputation (bilateral lower leg amputations due to diabeic complications.), CABG - Alcohol/Substance Use Hx Alcohol Use: No - Smoking History Smoking history: Never smoked Have you smoked in the past 12 months: No - Social History Usual Living Arrangement: Alone (with home health aide) History of Recent Travel: No Home Medications - Allergies Allergies/Adverse Reactions: Allergies Allergy/AdvReac Type Severity Reaction Status Date / Time Sulfa (Sulfonamide Allergy Verified 02/13/17 09:27 Antibiotics) - Home Medications Home Medications: Ambulatory Orders Aspirin [Aspirin EC] 81 mg PO DAILY 01/16/17 Carvedilol [Coreg -] 25 mg PO BID 01/16/17 Finasteride [Proscar -] 5 mg PO DAILY 01/16/17 Levothyroxine [Synthroid -] 50 mcg PO DAILY 01/16/17 Tamsulosin HCl [Flomax -] 0.4 mg PO DAILY 01/16/17 Alprazolam [Xanax] 0.25 mg PO Q12H PRN #60 tablet MDD 2 01/24/17 Amox-Tr/K Cl [Augmentin 250-125mg Tablet -] 1 tab PO BID@0800,1730 #14 tablet Sodium Bicarbonate - 1,300 mg PO BID #60 tablet 01/24/17 Torsemide [Demadex -] 40 mg PO DAILY #60 tablet 01/24/17 Ofloxacin Otic [Floxin Otic -] 5 drop AD BID #1 amp 01/28/17 Glipizide Xl [Glucotrol Xl -] 10 mg PO DAILY@0700 #90 tab.er.24 01/30/17 Physical Exam-ENT Vital Signs: Vital Signs Temperature 98.1 F 02/13/17 09:25 Pulse Rate 66 02/13/17 17:18 Respiratory Rate 18 02/13/17 17:18 Blood Pressure 153/76 02/13/17 17:18 O2 Sat by Pulse Oximetry (%) 94 L 02/13/17 17:18 Constitutional: Yes: No Distress, Calm Head: Yes: WNL Face: Yes: WNL (full facial strength) Eyes: Yes: WNL Nose: Yes: WNL Outer Ear: Yes: WNL Ear Canal: Yes: Drainage (thin yellow purulent drainage, sl sticky. right ear .NO mastoid swelling or tenderness either ear) Tympanic Membrane: Yes: Other (not visible) Neck: Yes: WNL Respiratory: Yes: WNL Neurological: Yes: Alert Imaging - Results Cat Scan: Report Reviewed, Image Reviewed (CT scan of head: right otomastoiditis with opacification of mastoid air cells, middle ear fluid left temporal bone grossly WNL) Problem List - Problems (1) Mastoiditis Assessment/Plan: right ear otorrhea hearing loss, worse with conductive component from middle ear fluid consistent with acute otomastoiditis (fluid on CT scan) but draining assume right tympanic membrane perforation no evidence of bony erosion or intracranial complications on CT scan Recommend: continue antibiotics consider change to oral pt requires outpatient follow-up in office after discharge where microscope is available for otomicroscopy and ability to suction ear canal and possibly middle ear audiogram also recommended because of his condition and complaint of hearing trouble right ear Thank you for consultation, Yahir Huntley MD FACS Code(s): H70.90 - UNSPECIFIED MASTOIDITIS, UNSPECIFIED EAR Qualifiers: Laterality: right Qualified Code(s): H70.91 - Unspecified mastoiditis, right ear
[2017-02-13] MEDS: CARVEDILOL 25 MG TABLET (FP) PO SCH (21:56)
[2017-02-13] MEDS: SODIUM BICARBONATE 650 MG TABLET PO SCH (21:56)
[2017-02-13] MEDS ORDERED: CIPROFLOXACIN 200 MG/D5W 100 ML IVPB SCH (22:00)
[2017-02-13] MEDS: MEROPENEM 1 GM in DEXTROSE 5%-WATER - 100 ML IVPB SCH (22:44)
[2017-02-14] MEDS: LEVOTHYROXINE NA 50 MCG TABLET (FP) PO SCH (06:22)
[2017-02-14] MEDS: INSULIN SLIDING SCALE (NOVOLOG) 1 VIAL SQ SCH ×3 (06:23→17:26)
[2017-02-14] MEDS: SODIUM CHLORIDE 1,000 ML IV SCH ×2 (06:32→10:53)
[2017-02-14] MEDS: glipiZIDE-XL 10 MG TAB.ER.24 (FP) PO SCH (06:46)
[2017-02-14 08:44] LABS: BASOPHIL 1.2 % (0-2.0); EOSINOPHIL 2.5 % (0-4.5); MCH 28.4 pg (25.7-33.7); MCHC 32.7 g/dl (32.0-35.9); MEAN CELL VOLUME 87.1 fl (80-96); MEAN PLT VOLUME 7.4 fl (7.5-11.1); NEUTROPHILS 58.9 % (42.8-82.8); PLATELET COUNT 314 K/MM3 (134-434); RDW 15.8 % (11.9-15.9); WHITE BLOOD COUNT 5.2 K/mm3 (4.0-10.0)
[2017-02-14 09:05] LABS: ALBUMIN 2.1 g/dl (3.4-5.0); ALK PHOS 200 U/L (45-117); ANION GAP 10 (8-16); BILIRUBIN,TOTAL 0.9 mg/dL (0.2-1.0); CALCIUM 8.1 mg/dL (8.5-10.1); CO2 22 mmol/L (21-32); CREATININE 2.7 mg/dL (0.7-1.3); GLUCOSE,RANDOM 105 mg/dL (74-106); SGOT/AST 12 U/L (15-37); SGPT/ALT 15 U/L (12-78); TOT PROT 6.3 g/dl (6.4-8.2)
[2017-02-14] MEDS ORDERED: PT OWN MED DRAWER 7, Y5N ONE (10:45)
[2017-02-14 10:51] LABS: ERYTHROCYTE SEDIMENTATION RATE 50 mm/hr (0-20)
--- NOTE | 2017-02-14 10:51 | EKG ---
Test Reason : Blood Pressure : / mmHG Vent. 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
[2017-02-14] MEDS: MEROPENEM 1 GM in DEXTROSE 5%-WATER - 100 ML IVPB SCH (10:52)
[2017-02-14] MEDS: CARVEDILOL 25 MG TABLET (FP) PO SCH ×2 (10:52→21:15)
[2017-02-14] MEDS: TAMSULOSIN HCL 0.4 MG CAP.ER.24H (FP) PO SCH (10:52)
[2017-02-14] MEDS: SODIUM BICARBONATE 650 MG TABLET PO SCH ×2 (10:52→21:15)
[2017-02-14] MEDS: FINASTERIDE 5 MG TABLET (FP) PO SCH (10:53)
[2017-02-14] MEDS: ASPIRIN COATED 81 MG TABLET.EC PO SCH (10:53)
[2017-02-14] MEDS: TORSEMIDE 20 MG TABLET (FP) PO SCH (10:53)
--- NOTE | 2017-02-14 10:54 | PN ---
Progress Note (short form) - Note Progress Note: ID This 81 year old diabetic male has recent otorrhea right ear. Seen in mid January by ENT and treated for otitis externa with quinolone gtts. Admitted now for evaluation following a fall and noted still to have right ear drainage. Seen by Dr Huntley unable to visualize tympanic membrane thus a perforation could not be ruled out. CT head compared to previous suggests cortical erosion mastoid hence "Bena mastoiditis". He is not acutely ill febrile nor does he have evidence for malignant otitis externa. This should be treated with antibiotic directed primarily at Staph aureus and pseudomonas ( pneumoccocus of cource) Advise Vancomycin and Zosyn Culture form the ear canal for whatever benefit this may provide Discussed with Dr Huntley who will review the imaging with radiology Hopefully we could give oral antibiotic ? Linezolid and a quinolone for longer term treatment Martha COLLINS Problem List - Problems (1) Acute mastoiditis Code(s): H70.009 - ACUTE MASTOIDITIS WITHOUT COMPLICATIONS, UNSPECIFIED EAR (2) Diabetes Code(s): E11.9 - TYPE 2 DIABETES MELLITUS WITHOUT COMPLICATIONS
--- NOTE | 2017-02-14 11:19 | HP ---
Admitting History and Physical - Primary Care Physician PCP: Villa Mcdaniels - Admission Chief Complaint: frequent falls History of Present Illness: -ER HISTORY History of Present Illness Initial Comments: 02/13/17 09:57 The patient is a 81 year old male, with a significant past medical history of hypertension, hyperlipidemia, hypothyroidism, CAD(s/p CABG), CHF, severe LV dysfunction on prior echo, hypertension, hyperlipidemia, diabetes, prior B LE amputations, CKD with nephrotic range proteinuria, and BPH, who presents to the emergency department s/p mechanical fall earlier this morning. Patient reports he was transferring from his wheelchair to his bed, and fell. Patient reports left rib pain s/p fall, but denies any associated head trauma, LOC, headache, or changes in vision. He denies any neck or back pain. He denies any dysuria, hematuria, frequency, or urgency. Per records, patient was presented on 01/31/17 s/p a similar fall. Patient is also complaining of decreased appetite and increased weight-loss during the past 2 weeks. Records indicate patient was admitted for acute kidney injury and acute on chronic CHF. Per home health aid, patient has become increasingly forgetful and weak since he was discharged. Patient denies any nausea, vomiting, diarrhea, or constipation. He denies any chest pain, shortness of breath, diaphoresis, or palpitations. He reports some right ear pain and white discharge, but denies any fever, chills, cough, or sore throat. Allergies: Sulfa(Sulfonamide antibiotics) Past Surgical History: Bilateral LE amputation, CABG Social History: Non smoker. No ETOH or drug use. PCP: Dr. 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 He has been frequently found on the floor as per ASSISTANT FRONT OFFICE MANAGER.Pt has been refusing to go to the [facility] for short term rehab He was recently admitted for acute renal failure and acute CHF. During that admission . had drainage from right ear and was seen by ENT -- started on Ofloxacin ear drops. c/o continuous drainage from the right ear, along with pain and hearing loss History Source: Patient, Medical Record Limitations to Obtaining History: Poor Historian - Past Medical History Cardiovascular: Yes: CAD, CHF (low EF), Hyperlipdemia Gastrointestinal: Yes: Constipation, Other (no hx colonoscopy) Renal/: Yes: Renal Inusuff, BPH Heme/Onc: Yes: Anemia Endocrine: Yes: Diabetes Mellitus - Past Surgical History Past Surgical History: Yes: Amputation (bilateral lower leg amputations due to diabeic complications.), CABG - Smoking History Smoking history: Never smoked Have you smoked in the past 12 months: No - Alcohol/Substance Use Hx Alcohol Use: No - Social History History of Recent Travel: No Home Medications - Allergies Allergies/Adverse Reactions: Allergies Allergy/AdvReac Type Severity Reaction Status Date / Time Sulfa (Sulfonamide Allergy Verified 02/13/17 09:27 Antibiotics) - Home Medications Home Medications: Ambulatory Orders Aspirin [Aspirin EC] 81 mg PO DAILY 01/16/17 Carvedilol [Coreg -] 25 mg PO BID 01/16/17 Finasteride [Proscar -] 5 mg PO DAILY 01/16/17 Levothyroxine [Synthroid -] 50 mcg PO DAILY 01/16/17 Tamsulosin HCl [Flomax -] 0.4 mg PO DAILY 01/16/17 Alprazolam [Xanax] 0.25 mg PO Q12H PRN #60 tablet MDD 2 01/24/17 Amox-Tr/K Cl [Augmentin 250-125mg Tablet -] 1 tab PO BID@0800,1730 #14 tablet Sodium Bicarbonate - 1,300 mg PO BID #60 tablet 01/24/17 Torsemide [Demadex -] 40 mg PO DAILY #60 tablet 01/24/17 Ofloxacin Otic [Floxin Otic -] 5 drop AD BID #1 amp 01/28/17 Glipizide Xl [Glucotrol Xl -] 10 mg PO DAILY@0700 #90 tab.er.24 01/30/17 Review of Systems - Review of Systems Constitutional: reports: Weakness. denies: Chills, Fever HENT: reports: Hearing Loss Cardiovascular: denies: Chest Pain, Shortness of Breath Physical Examination Vital Signs: Vital Signs Temperature 98.4 F 02/14/17 06:04 Pulse Rate 68 02/14/17 06:04 Respiratory Rate 20 02/14/17 06:04 Blood Pressure 140/90 02/14/17 06:04 O2 Sat by Pulse Oximetry (%) 96 02/13/17 21:00 Constitutional: Yes: No Distress HENT: Yes: Other (drainage from right ear, tender tragus, rt mastoid +) Cardiovascular: Yes: Regular Rate and Rhythm, Murmur Respiratory: Yes: Diminished Gastrointestinal: Yes: Normal Bowel Sounds, Soft. 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 transplanted heart: [place] heart Associated angina: without angina Qualified Code(s): I25.10 - Atherosclerotic heart disease of [place] coronary artery without angina pectoris (3) CHF (congestive heart failure) Assessment/Plan: compensated continue with mediactions renal function better dc iv fluids Code(s): I50.9 - HEART FAILURE, UNSPECIFIED Qualifiers: Congestive heart failure type: combined Congestive heart failure chronicity: chronic Qualified Code(s): I50.42 - Chronic combined systolic (congestive) and diastolic (congestive) heart failure (4) Diabetes Assessment/Plan: check BGM continue with meds Code(s): E11.9 - TYPE 2 DIABETES MELLITUS WITHOUT COMPLICATIONS Qualifiers: Diabetes mellitus type: type 1 Diabetes mellitus complication status: with circulatory complication (5) Generalized weakness Code(s): R53.1 - WEAKNESS (6) Chronic kidney disease, stage 4, severely decreased GFR Assessment/Plan: renal function is better continue with sodium bicarb continue Torsemide monitor renal function DVT prophylaxis-- Heparin sc Time spent in assessment , plan and documentation --- 40 min Code(s): N18.4 - CHRONIC KIDNEY DISEASE, STAGE 4 (SEVERE)
[2017-02-14 11:43] LABS: C-REACTIVE PROTEIN 6.2 MG/DL (0.00-0.3)
[2017-02-14] MEDS ORDERED: VANCOMYCIN 1 GRAM (PRE-DOCKED) 250 ML IVPB ONE (12:00)
[2017-02-14] MEDS ORDERED: INSULIN (NOVOLOG) ASPART 100 UNITS/ML 10ML VIAL ONE (12:14)
--- NOTE | 2017-02-14 12:21 | CONS ---
DATE OF CONSULTATION: HISTORY: This is a 81-year-old male with a history of multiple comorbidities including hypertension, diabetes, peripheral vascular disease, congestive heart failure, coronary artery bypass graft surgery, hyperlipidemia, bilateral lower extremity amputations, chronic kidney disease who presents to the emergency room after a fall earlier yesterday morning. He denied any associated head trauma or loss of consciousness. He was essentially admitted for evaluation of a fall and after admission was noted to have nonbloody drainage coming from his right ear. He was seen in consultation by the ENT service. Note that the patient was recently hospitalized at [facility] in mid-January at which time he also had right ear drainage and had been seen by Dr. Ilia Razo with a diagnosis of otitis externa, which was treated with fluoroquinolone ear drops. Currently, the patient notes ear drainage but denies any ear pain, headaches, fever, or chills. He has been afebrile and does not appear systemically ill. He is alert and oriented. PAST MEDICAL HISTORY: As noted previously. MEDICATIONS: Aspirin, carvedilol, Proscar, Synthroid, Flomax, sodium bicarbonate, Demadex, Floxin Otic, Glucotrol. ALLERGIES: SULFA. SOCIAL HISTORY: Lives alone with a home health aide. No recent travel. HIV status unknown. Never smoked. No history of alcohol or substance abuse. FAMILY HISTORY: Unobtainable from the patient. REVIEW OF SYSTEMS: Respiratory: No cough or shortness of breath. Cardiac: No chest pain, palpitations, syncope. Gastrointestinal: No nausea, vomiting, diarrhea, abdominal pain. Genitourinary: No dysuria, hematuria, urinary frequency. PHYSICAL EXAMINATION: General: He is an alert male in no acute distress. Vital Signs: Temperature 98.1, pulse 66, blood pressure 153/76, respirations 18. Neck: Supple. No adenopathy. Lungs: Clear to percussion and auscultation. Heart: S1, S2. Regular rhythm without audible murmur. Abdomen: Soft and nontender without hepatosplenomegaly. Extremities: Reveal bilateral amputations right BKA, left AKA. HEENT: Reveals a thin, yellow drainage coming from the right ear with no mastoid tenderness noted and no redness, swelling, pain of the external auditory canal. The white count is 5.7 with a hemoglobin 10.6 and platelets 373, ESR 50. BUN 63, creatinine 2.7, alkaline phosphatase 200. Chest x-ray shows cardiomegaly with congestive changes and right moderate effusion. Head CT scan is compared to a prior study dated January 31 with apparent interval development of partial cortical erosion along the medial aspect of the right mastoid air cells. Diffuse fluid accumulation within the right mastoid air cells and right middle ear cavity is noted. Small right cerebellar infarct is seen. ASSESSMENT: A 81-year-old male admitted with a fall noted to have persistent drainage from the right ear canal. Clinical findings consistent with an otomastoiditis. He is not febrile nor does he look acutely ill, and the clinical findings do not suggest otitis externa or malignant otitis externa. Most likely, organisms involved here would include Staphylococcus aureus, thus consider methicillin-resistant Staphylococcus aureus as well as Pseudomonas aeruginosa. Streptococcus pneumoniae would also need to be considered for middle ear infection. He will be empirically treated for now with vancomycin and piperacillin and tazobactam. A CRP will be obtained, and I discussed the case with Dr. Huntley who will re-review the current CAT scan findings with Dr. Ramsey regarding the finding of cortical erosion. He may have a tympanic membrane perforation, but this cannot be definitively determined based on limited examination thus far in the hospital. He will likely need longer term antibiotics, and I would look to avoid a PICC line insertion if at all possible. Possible consideration for oral therapy might include linezolid and a fluoroquinolone orally; however, an ear culture has been sent for whatever benefit this may provide, and perhaps Dr. Huntley could get a more reliable middle ear culture depending on his examination later on today. Lastly, the extended-spectrum beta-lactamase from a urine culture noted January 18 was seen and reviewed. He is on contact isolation, but I do not necessarily feel that we need to treat him with a Carbapenem at this time for mastoiditis. PHIL MENDOZA M.D. [place]/[id number]
[2017-02-14] MEDS ORDERED: PIPERACILLIN/TAZOBACTAM 2.25 GM VIAL IVPB ONE (17:17)
[2017-02-14] MEDS ORDERED: DEXTROSE 5%-WATER - 50 ML IVPB ONE (17:18)
[2017-02-14] MEDS: PIPERACILLIN/TAZOB 2.25 GM 2.25 GM in DEXTROSE 5%-WATER - 50 ML IVPB SCH (17:25)
[2017-02-14] MEDS: HEPARIN NA (PORCINE) 5,000 UNITS/ML 1ML VIAL SQ SCH (21:15)
[2017-02-14] MEDS: ACETAMINOPHEN 325 MG TABLET (FP) PO PRN (21:19)
[2017-02-15] MEDS ORDERED: PIPERACILLIN/TAZOBACTAM 2.25 GM VIAL IVPB ONE ×3 (00:56→17:37)
[2017-02-15] MEDS ORDERED: DEXTROSE 5%-WATER - 50 ML IVPB ONE ×3 (00:56→17:37)
[2017-02-15] MEDS: ACETAMINOPHEN 325 MG TABLET (FP) PO PRN ×2 (00:59→06:36)
[2017-02-15] MEDS: PIPERACILLIN/TAZOB 2.25 GM 2.25 GM in DEXTROSE 5%-WATER - 50 ML IVPB SCH ×3 (01:00→18:24)
[2017-02-15] MEDS: glipiZIDE-XL 10 MG TAB.ER.24 (FP) PO SCH (06:05)
[2017-02-15] MEDS: INSULIN SLIDING SCALE (NOVOLOG) 1 VIAL SQ SCH ×3 (06:05→16:28)
[2017-02-15] MEDS: LEVOTHYROXINE NA 50 MCG TABLET (FP) PO SCH (06:08)
[2017-02-15] MEDS: CARVEDILOL 25 MG TABLET (FP) PO SCH ×2 (09:38→22:19)
[2017-02-15] MEDS: TORSEMIDE 20 MG TABLET (FP) PO SCH (09:39)
[2017-02-15] MEDS: TAMSULOSIN HCL 0.4 MG CAP.ER.24H (FP) PO SCH (09:40)
[2017-02-15] MEDS: ASPIRIN COATED 81 MG TABLET.EC PO SCH (09:40)
[2017-02-15] MEDS: HEPARIN NA (PORCINE) 5,000 UNITS/ML 1ML VIAL SQ SCH ×2 (09:40→22:19)
[2017-02-15] MEDS: FINASTERIDE 5 MG TABLET (FP) PO SCH (09:41)
[2017-02-15] MEDS: SODIUM BICARBONATE 650 MG TABLET PO SCH ×2 (09:41→22:19)
--- NOTE | 2017-02-15 10:20 | PN ---
Progress Note (short form) - Note Progress Note: pt seen/ examined chart reviewed pt known to me from previous admission comfortable afebrile Vital Signs Temp 99.5 F 02/15/17 05:00 Pulse 102 H 02/15/17 05:00 Resp 18 02/15/17 05:00 BP 111/74 02/15/17 05:00 Pulse Ox 95 02/14/17 21:00 Intake & Output 02/14/17 02/14/17 02/15/17 11:59 23:59 11:59 Intake Total 2150 650 250 Output Total 200 Balance 2150 450 250 Intake: IV 1500 Normal Saline - 1,000 ml 1500 @ 150 mls/hr IV ASDIR [facility] Rx#:[id number] IVPB 450 50 50 Oral 200 600 200 Output: Urine 200 Void 200 Other: Voiding Method Urinal # Unmeasured Voids Void 2 Bowel Movement No Yes # Bowel Movements 0 Active Medications Acetaminophen (Tylenol -) 650 mg PO Q4H PRN PRN Reason: FEVER OR PAIN Last Admin: 02/15/17 06:36 Dose: 650 mg Alprazolam (Xanax -) 0.25 mg PO Q12H PRN PRN Reason: ANXIETY Last Admin: 02/15/17 00:59 Dose: 0.25 mg Aspirin (Ecotrin -) 81 mg PO DAILY [facility] Last Admin: 02/15/17 09:40 Dose: 81 mg Carvedilol (Coreg -) 25 mg PO BID [facility] Last Admin: 02/15/17 09:38 Dose: 25 mg Finasteride (Proscar -) 5 mg PO DAILY [facility] Last Admin: 02/15/17 09:41 Dose: 5 mg Glipizide (Glucotrol Xl -) 10 mg PO DAILY@0700 [facility] Last Admin: 02/15/17 06:05 Dose: Not Given Heparin Sodium (Porcine) (Heparin -) 5,000 unit SQ BID [facility] Last Admin: 02/15/17 09:40 Dose: 5,000 unit Piperacillin Sod/Tazobactam (Sod 2.25 gm/ Dextrose) 50 mls @ 100 mls/hr IVPB Q8H-IV CARLYN PRN Reason: Protocol Last Admin: 02/15/17 09:42 Dose: 100 mls/hr Insulin Aspart (Novolog Vial Sliding Scale -) 1 vial SQ TIDAC [facility] PRN Reason: Protocol Last Admin: 02/15/17 06:05 Dose: Not Given Levothyroxine Sodium (Synthroid -) 50 mcg PO DAILY@0700 [facility] Last Admin: 02/15/17 06:08 Dose: 50 mcg Sodium Bicarbonate (Sodium Bicarbonate -) 1,300 mg PO BID [facility] Last Admin: 02/15/17 09:41 Dose: 1,300 mg Tamsulosin HCl (Flomax -) 0.4 mg PO DAILY [facility] Last Admin: 02/15/17 09:40 Dose: 0.4 mg Torsemide (Demadex -) 40 mg PO DAILY [facility] Last Admin: 02/15/17 09:39 Dose: 40 mg CBC, BMP 02/14/17 08:00 02/14/17 08:00 Physical Examination Constitutional: Yes: No Distress/ comfortable HENT: Yes: Other (drainage from right ear, tender tragus, rt mastoid +) Cardiovascular: Yes: Regular Rate and Rhythm, Murmur Respiratory: Yes: Diminished at bases Gastrointestinal: Yes: Normal Bowel Sounds, Soft. No: Distention, Tenderness Extremities: Yes: Amputation (B/L)-- right stump-- about 3 cm wound +- Edema: No Psychiatric: Yes: Alert Imaging - Results Chest X-ray: Image Reviewed (cardiomegaly) Cat Scan: Report Reviewed EKG: Image Reviewed (sinus tachycardia) Problem List - Problems (1) Acute mastoiditis Assessment/Plan: Spoke with ID-- on Iv antibiotics may need longer therapy -- plan for NH for long-term antibiotics wound cultures done pain control ENT eval noted pt has cortical erosion in right ear, with mastoiditis Code(s): H70.009 - ACUTE MASTOIDITIS WITHOUT COMPLICATIONS, UNSPECIFIED EAR Qualifiers: Laterality: right Qualified Code(s): H70.001 - Acute mastoiditis without complications, right ear (2) CAD (coronary artery disease) Assessment/Plan: stable on meds Code(s): I25.10 - ATHSCL HEART DISEASE OF [place] CORONARY ARTERY W/O ANG PCTRS Qualifiers: Coronary Disease-Associated Artery/Lesion type: [place] artery [place] vs. transplanted heart: [place] heart Associated angina: without angina Qualified Code(s): I25.10 - Atherosclerotic heart disease of [place] coronary artery without angina pectoris (3) CHF (congestive heart failure) Assessment/Plan: compensated continue with mediactions renal function better dc iv fluids Code(s): I50.9 - HEART FAILURE, UNSPECIFIED Qualifiers: Congestive heart failure type: combined Congestive heart failure chronicity: chronic Qualified Code(s): I50.42 - Chronic combined systolic (congestive) and diastolic (congestive) heart failure (4) Diabetes Assessment/Plan: check BGM continue with meds Code(s): E11.9 - TYPE 2 DIABETES MELLITUS WITHOUT COMPLICATIONS Qualifiers: Diabetes mellitus type: type 1 Diabetes mellitus complication status: with circulatory complication (5) Generalized weakness Code(s): R53.1 - WEAKNESS (6) Chronic kidney disease, stage 4, severely decreased GFR Assessment/Plan: Continue Abx Continue other meds. clean wound with ns and daily dressing with wet - to dry wound care consult . will follow discussed with nursing staff.
--- NOTE | 2017-02-15 13:13 | PN ---
Progress Note (short form) - Note Progress Note: ENT pt has some right ear discomfort continued drainage VSS NAD facial nerve function normal no mastoid swelling or tenderness (no subperiosteal abscess) canal +sl thick clear to light yellow drainage TM thick, small perforation (draining) Data: 01-31-[address] scan images not accessible (file problem) charissa images referred to in 02-13-17 report Impression right otomastoiditis some focal cortical erosion reported on current CT is spontaneously draining via TM perforation NO clinical evidence of intracranial or other complication from otomastoiditis Recommend: continue antibiotics await wound culture (ear drainage) temporal bone CT scan for better resolution of temporal bone Problem List - Problems (1) Mastoiditis Code(s): H70.90 - UNSPECIFIED MASTOIDITIS, UNSPECIFIED EAR Qualifiers: Laterality: right Qualified Code(s): H70.91 - Unspecified mastoiditis, right ear
[2017-02-16] MEDS ORDERED: PIPERACILLIN/TAZOBACTAM 2.25 GM VIAL IVPB ONE ×3 (02:47→17:10)
[2017-02-16] MEDS ORDERED: DEXTROSE 5%-WATER - 50 ML IVPB ONE ×2 (02:48→09:09)
[2017-02-16] MEDS: PIPERACILLIN/TAZOB 2.25 GM 2.25 GM in DEXTROSE 5%-WATER - 50 ML IVPB SCH ×3 (03:00→17:32)
[2017-02-16] MEDS ORDERED: PT OWN MED DRAWER 7, Y5N ONE (06:28)
[2017-02-16] MEDS: LEVOTHYROXINE NA 50 MCG TABLET (FP) PO SCH (06:47)
[2017-02-16] MEDS: INSULIN SLIDING SCALE (NOVOLOG) 1 VIAL SQ SCH ×4 (06:47→17:02)
[2017-02-16] MEDS: glipiZIDE-XL 10 MG TAB.ER.24 (FP) PO SCH (06:47)
--- NOTE | 2017-02-16 08:08 | PN ---
Progress Note, Physician Chief Complaint: ID ENT consultation noted as well as temporal CT scan showing bone erosion of the mastoid cortex Vancomycin and Pip Tazo day 2 Rx Alert NAD - Current Medication List Current Medications: Active Medications Acetaminophen (Tylenol -) 650 mg PO Q4H PRN PRN Reason: FEVER OR PAIN Last Admin: 02/15/17 06:36 Dose: 650 mg Alprazolam (Xanax -) 0.25 mg PO Q12H PRN PRN Reason: ANXIETY Last Admin: 02/15/17 00:59 Dose: 0.25 mg Aspirin (Ecotrin -) 81 mg PO DAILY [facility] Last Admin: 02/15/17 09:40 Dose: 81 mg Carvedilol (Coreg -) 25 mg PO BID [facility] Last Admin: 02/15/17 22:19 Dose: 25 mg Finasteride (Proscar -) 5 mg PO DAILY [facility] Last Admin: 02/15/17 09:41 Dose: 5 mg Glipizide (Glucotrol Xl -) 10 mg PO DAILY@0700 [facility] Last Admin: 02/16/17 06:47 Dose: 10 mg Heparin Sodium (Porcine) (Heparin -) 5,000 unit SQ BID [facility] Last Admin: 02/15/17 22:19 Dose: 5,000 unit Piperacillin Sod/Tazobactam (Sod 2.25 gm/ Dextrose) 50 mls @ 100 mls/hr IVPB Q8H-IV [facility] PRN Reason: Protocol Last Admin: 02/16/17 03:00 Dose: 100 mls/hr Insulin Aspart (Novolog Vial Sliding Scale -) 1 vial SQ TIDAC [facility] PRN Reason: Protocol Last Admin: 02/16/17 06:47 Dose: Not Given Levothyroxine Sodium (Synthroid -) 50 mcg PO DAILY@0700 [facility] Last Admin: 02/16/17 06:47 Dose: 50 mcg Sodium Bicarbonate (Sodium Bicarbonate -) 1,300 mg PO BID [facility] Last Admin: 02/15/17 22:19 Dose: 1,300 mg Tamsulosin HCl (Flomax -) 0.4 mg PO DAILY [facility] Last Admin: 02/15/17 09:40 Dose: 0.4 mg Torsemide (Demadex -) 40 mg PO DAILY [facility] Last Admin: 02/15/17 09:39 Dose: 40 mg - Objective Vital Signs: Vital Signs Temperature 97.6 F 02/15/17 19:04 Pulse Rate 76 02/15/17 19:04 Respiratory Rate 20 02/15/17 21:00 Blood Pressure 137/79 02/15/17 19:04 O2 Sat by Pulse Oximetry (%) 96 02/15/17 21:00 Constitutional: Yes: Well Nourished, No Distress HENT: Yes: WNL, Atraumatic, Other (Drainage of the right ear canal with perforation seen) Respiratory: Yes: WNL, Regular, CTA Bilaterally Gastrointestinal: Yes: WNL, Normal Bowel Sounds, Soft. No: Tenderness Extremities: Yes: Amputation, Delayed Capillary Refill Labs: CBC, BMP 02/14/17 08:00 02/14/17 08:00 INR, PTT INR 1.26 (0.82-1.09) H 02/13/17 10:54 Problem List - Problems (1) Acute mastoiditis Code(s): H70.009 - ACUTE MASTOIDITIS WITHOUT COMPLICATIONS, UNSPECIFIED EAR Qualifiers: Laterality: right Qualified Code(s): H70.001 - Acute mastoiditis without complications, right ear (2) Diabetes Code(s): E11.9 - TYPE 2 DIABETES MELLITUS WITHOUT COMPLICATIONS Qualifiers: Diabetes mellitus type: type 1 Diabetes mellitus complication status: with circulatory complication Assessment/Plan Microbiology 02/14/17 12:00 Drainage (Swab) Gram Stain - Final 02/14/17 12:00 Drainage (Swab) Wound Culture - Preliminary Lactose Fermenting Neg Bacilli 02/13/17 19:30 Blood - Peripheral Venous Blood Culture - Preliminary NO GROWTH OBTAINED AFTER 48 HOURS, INCUBATION TO CONTINUE FOR 3 DAYS. 02/13/17 19:30 Blood - Peripheral Venous Blood Culture - Preliminary NO GROWTH OBTAINED AFTER 48 HOURS, INCUBATION TO CONTINUE FOR 3 DAYS. Laboratory Tests 02/13/17 02/14/17 02/14/17 19:30 08:00 08:00 WBC 5.2 Hgb 9.7 L Hct 29.6 L Plt Count 314 ESR 50 H C-Reactive Protein 7.0 H 6.2 H D Assessment Otomastoiditis positive CT showing erosion Gram negative luis culture Plan Stop Vancomycin Continue Zosyn Pending c/s Perhaps might be able to switch to po therapy ? quinolone for discharge Contact isolation prior ESBL Discussed with Dr Agus Thomas MD
--- NOTE | 2017-02-16 08:52 | PN ---
Progress Note (short form) - Note Progress Note: pt seen/ examined comfortable today ENT consultation noted /appreciated temporal CT scan showing bone erosion of the mastoid cortex. Vital Signs Temp 97.6 F 02/15/17 19:04 Pulse 76 02/15/17 19:04 Resp 20 02/15/17 21:00 BP 137/79 02/15/17 19:04 Pulse Ox 96 02/15/17 21:00 Intake & Output 02/15/17 02/15/17 02/16/17 11:59 23:59 11:59 Intake Total 250 750 Output Total 150 50 Balance 250 600 -50 Intake: IVPB 50 50 Oral 200 700 Output: Urine 150 50 Void 150 50 Other: Voiding Method Incontinent Bedpan Bowel Movement Yes No # Bowel Movements 2 Active Medications Acetaminophen (Tylenol -) 650 mg PO Q4H PRN PRN Reason: FEVER OR PAIN Last Admin: 02/15/17 06:36 Dose: 650 mg Alprazolam (Xanax -) 0.25 mg PO Q12H PRN PRN Reason: ANXIETY Last Admin: 02/15/17 00:59 Dose: 0.25 mg Aspirin (Ecotrin -) 81 mg PO DAILY [facility] Last Admin: 02/15/17 09:40 Dose: 81 mg Carvedilol (Coreg -) 25 mg PO BID [facility] Last Admin: 02/15/17 22:19 Dose: 25 mg Finasteride (Proscar -) 5 mg PO DAILY [facility] Last Admin: 02/15/17 09:41 Dose: 5 mg Glipizide (Glucotrol Xl -) 10 mg PO DAILY@0700 [facility] Last Admin: 02/16/17 06:47 Dose: 10 mg Heparin Sodium (Porcine) (Heparin -) 5,000 unit SQ BID [facility] Last Admin: 02/15/17 22:19 Dose: 5,000 unit Piperacillin Sod/Tazobactam (Sod 2.25 gm/ Dextrose) 50 mls @ 100 mls/hr IVPB Q8H-IV [facility] PRN Reason: Protocol Last Admin: 02/16/17 03:00 Dose: 100 mls/hr Insulin Aspart (Novolog Vial Sliding Scale -) 1 vial SQ TIDAC [facility]S [facility] PRN Reason: Protocol Last Admin: 02/16/17 06:47 Dose: Not Given Levothyroxine Sodium (Synthroid -) 50 mcg PO DAILY@0700 [facility] Last Admin: 02/16/17 06:47 Dose: 50 mcg Sodium Bicarbonate (Sodium Bicarbonate -) 1,300 mg PO BID [facility] Last Admin: 02/15/17 22:19 Dose: 1,300 mg Tamsulosin HCl (Flomax -) 0.4 mg PO DAILY [facility] Last Admin: 02/15/17 09:40 Dose: 0.4 mg Torsemide (Demadex -) 40 mg PO DAILY [facility] Last Admin: 02/15/17 09:39 Dose: 40 mg CBC, BMP 02/14/17 08:00 02/14/17 08:00 Microbiology 02/13/17 19:30 Blood Culture - Preliminary Blood - Peripheral Venous NO GROWTH OBTAINED AFTER 48 HOURS, INCUBATION TO CONTINUE FOR 3 DAYS. 02/13/17 19:30 Blood Culture - Preliminary Blood - Peripheral Venous NO GROWTH OBTAINED AFTER 48 HOURS, INCUBATION TO CONTINUE FOR 3 DAYS. 02/14/17 12:00 Gram Stain - Final Drainage (Swab) Wound Culture - Preliminary Lactose Fermenting Neg Bacilli Physical Examination Constitutional: Yes: No Distress/ comfortable HENT: Yes: Other (small drainage from right ear, tender tragus, rt mastoid +) Cardiovascular: Yes: Regular Rate and Rhythm, Murmur Respiratory: Yes: Diminished at bases Gastrointestinal: Yes: Normal Bowel Sounds, Soft. No: Distention, Tenderness Extremities: Yes: Amputation (B/L)-- right stump-- about 3 cm wound +- Edema: No Psychiatric: Yes: Alert Imaging - Results Chest X-ray: Image Reviewed (cardiomegaly) Cat Scan: Report Reviewed EKG: Image Reviewed (sinus tachycardia) A/P continue abx continue other meds f/u labs/ cultures will follow Problem List - Problems (1) Acute mastoiditis Code(s): H70.009 - ACUTE MASTOIDITIS WITHOUT COMPLICATIONS, UNSPECIFIED EAR Qualifiers: Laterality: right Qualified Code(s): H70.001 - Acute mastoiditis without complications, right ear (2) CAD (coronary artery disease) Code(s): I25.10 - ATHSCL HEART DISEASE OF [place] CORONARY ARTERY W/O ANG PCTRS Qualifiers: Coronary Disease-Associated Artery/Lesion type: [place] artery [place] vs. transplanted heart: [place] heart Associated angina: without angina Qualified Code(s): I25.10 - Atherosclerotic heart disease of [place] coronary artery without angina pectoris (3) Diabetes Code(s): E11.9 - TYPE 2 DIABETES MELLITUS WITHOUT COMPLICATIONS Qualifiers: Diabetes mellitus type: type 1 Diabetes mellitus complication status: with circulatory complication (4) HTN (hypertension) Code(s): I10 - ESSENTIAL (PRIMARY) HYPERTENSION Qualifiers: Hypertension type: essential hypertension Qualified Code(s): I10 - Essential (primary) hypertension (5) Renal insufficiency syndrome Code(s): N28.9 - DISORDER OF KIDNEY AND URETER, UNSPECIFIED (6) S/P CABG (coronary artery bypass graft) Code(s): Z95.1 - PRESENCE OF AORTOCORONARY BYPASS GRAFT (7) Chronic kidney disease, stage 4, severely decreased GFR Code(s): N18.4 - CHRONIC KIDNEY DISEASE, STAGE 4 (SEVERE)
[2017-02-16] MEDS: HEPARIN NA (PORCINE) 5,000 UNITS/ML 1ML VIAL SQ SCH ×2 (09:17→22:30)
[2017-02-16] MEDS: FINASTERIDE 5 MG TABLET (FP) PO SCH (09:18)
[2017-02-16] MEDS: TAMSULOSIN HCL 0.4 MG CAP.ER.24H (FP) PO SCH (09:18)
[2017-02-16] MEDS: TORSEMIDE 20 MG TABLET (FP) PO SCH (09:18)
[2017-02-16] MEDS: CARVEDILOL 25 MG TABLET (FP) PO SCH ×2 (09:18→22:30)
[2017-02-16] MEDS: SODIUM BICARBONATE 650 MG TABLET PO SCH ×2 (09:18→22:30)
[2017-02-16] MEDS: ASPIRIN COATED 81 MG TABLET.EC PO SCH (09:18)
--- NOTE | 2017-02-16 11:36 | PN ---
Progress Note (short form) - Note Progress Note: Vascular Surgery Pt seen and examined. Right BKA stump ulcer. Bone exposed. Pt does not wear a prosthesis. Santyl to area daily. Kartik Rabago DO
[2017-02-16] MEDS: COLLAGENASE CLOSTRIDIUM HIST. 30 GRAMS TUBE TP SCH (13:13)
[2017-02-16] MEDS ORDERED: DEXTROSE 5%-WATER - 100 ML IVPB ONE (17:10)
[2017-02-17] MEDS ORDERED: PIPERACILLIN/TAZOBACTAM 2.25 GM VIAL IVPB ONE ×2 (03:01→10:33)
[2017-02-17] MEDS ORDERED: DEXTROSE 5%-WATER - 50 ML IVPB ONE ×2 (03:01→10:33)
[2017-02-17] MEDS: PIPERACILLIN/TAZOB 2.25 GM 2.25 GM in DEXTROSE 5%-WATER - 50 ML IVPB SCH ×3 (03:10→12:07)
[2017-02-17] MEDS: LEVOTHYROXINE NA 50 MCG TABLET (FP) PO SCH (06:29)
[2017-02-17] MEDS: INSULIN SLIDING SCALE (NOVOLOG) 1 VIAL SQ SCH ×3 (06:29→17:25)
[2017-02-17] MEDS: glipiZIDE-XL 10 MG TAB.ER.24 (FP) PO SCH (06:30)
[2017-02-17] MEDS ORDERED: PT OWN MED DRAWER 7, Y5N ONE (06:30)
--- NOTE | 2017-02-17 08:58 | PN ---
Progress Note (short form) - Note Progress Note: ID Currently on Zosyn Microbiology 02/14/17 12:00 Drainage (Swab) Gram Stain - Final 02/14/17 12:00 Drainage (Swab) Wound Culture - Final Klebsiella Pneumoniae Staphylococcus Coagulase Neg 02/13/17 19:30 Blood - Peripheral Venous Blood Culture - Preliminary NO GROWTH OBTAINED AFTER 72 HOURS, INCUBATION TO CONTINUE FOR 2 DAYS. 02/13/17 19:30 Blood - Peripheral Venous Blood Culture - Preliminary NO GROWTH OBTAINED AFTER 72 HOURS, INCUBATION TO CONTINUE FOR 2 DAYS. Selected Entries 02/17/17 05:21 Temperature 97.5 F L Pulse Rate 61 Respiratory 20 Rate Blood Pressure 131/66 Assessment Otomastoiditis cortical erosion seen CT KLebsiella most likely the organism here Assume Coag neg staph skin john Plan Substitute Ciprofloxacin 500mg daily for Cr Cl daily 5 weeks ENT f/u in few weeks Martha COLLINS Problem List - Problems (1) Acute mastoiditis Code(s): H70.009 - ACUTE MASTOIDITIS WITHOUT COMPLICATIONS, UNSPECIFIED EAR Qualifiers: Laterality: right Qualified Code(s): H70.001 - Acute mastoiditis without complications, right ear (2) Diabetes Code(s): E11.9 - TYPE 2 DIABETES MELLITUS WITHOUT COMPLICATIONS Qualifiers: Diabetes mellitus type: type 1 Diabetes mellitus complication status: with circulatory complication
[2017-02-17 09:02] LABS: BASOPHIL 1.3 % (0-2.0); EOSINOPHIL 1.4 % (0-4.5); MCH 28.3 pg (25.7-33.7); MCHC 32.3 g/dl (32.0-35.9); MEAN CELL VOLUME 87.7 fl (80-96); MEAN PLT VOLUME 7.6 fl (7.5-11.1); NEUTROPHILS 60.4 % (42.8-82.8); PLATELET COUNT 347 K/MM3 (134-434); RDW 15.8 % (11.9-15.9); WHITE BLOOD COUNT 6.1 K/mm3 (4.0-10.0)
[2017-02-17 09:34] LABS: ALBUMIN 2.1 g/dl (3.4-5.0); ANION GAP 12 (8-16); BILIRUBIN,TOTAL 0.9 mg/dL (0.2-1.0); CALCIUM 8.2 mg/dL (8.5-10.1); CO2 21 mmol/L (21-32); CREATININE 3.3 mg/dL (0.7-1.3); GLUCOSE,RANDOM 99 mg/dL (74-106); SGOT/AST 18 U/L (15-37); SGPT/ALT 20 U/L (12-78); TOT PROT 6.5 g/dl (6.4-8.2)
[2017-02-17 09:35] LABS: ALK PHOS 210 U/L (45-117)
[2017-02-17] MEDS: HEPARIN NA (PORCINE) 5,000 UNITS/ML 1ML VIAL SQ SCH ×2 (10:38→22:00)
[2017-02-17] MEDS: ASPIRIN COATED 81 MG TABLET.EC PO SCH (10:38)
[2017-02-17] MEDS: TAMSULOSIN HCL 0.4 MG CAP.ER.24H (FP) PO SCH (10:39)
[2017-02-17] MEDS: FINASTERIDE 5 MG TABLET (FP) PO SCH (10:39)
[2017-02-17] MEDS: TORSEMIDE 20 MG TABLET (FP) PO SCH (10:39)
[2017-02-17] MEDS: SODIUM BICARBONATE 650 MG TABLET PO SCH ×2 (10:39→22:21)
[2017-02-17] MEDS: CARVEDILOL 25 MG TABLET (FP) PO SCH ×2 (10:39→22:21)
[2017-02-17] MEDS: COLLAGENASE CLOSTRIDIUM HIST. 30 GRAMS TUBE TP SCH (10:45)
--- NOTE | 2017-02-17 12:05 | PN ---
Progress Note (short form) - Note Progress Note: patient seen and examined Comfortable No distress ID follow-up noted Vital Signs Temp 97.5 F L 02/17/17 09:00 Pulse 79 02/17/17 09:00 Resp 18 02/17/17 09:00 BP 141/83 02/17/17 09:00 Pulse Ox 96 02/16/17 21:00 Intake & Output 02/16/17 02/17/17 02/17/17 23:59 11:59 23:59 Intake Total 50 Balance 50 Intake: IVPB 50 Other: Voiding Method Incontinent # Unmeasured Voids Void 1 Active Medications Acetaminophen (Tylenol -) 650 mg PO Q4H PRN PRN Reason: FEVER OR PAIN Last Admin: 02/15/17 06:36 Dose: 650 mg Aspirin (Ecotrin -) 81 mg PO DAILY [facility] Last Admin: 02/17/17 10:38 Dose: 81 mg Carvedilol (Coreg -) 25 mg PO BID [facility] Last Admin: 02/17/17 10:39 Dose: 25 mg Collagenase (Santyl -) 1 applic TP DAILY [facility] Last Admin: 02/17/17 10:45 Dose: 1 applic Finasteride (Proscar -) 5 mg PO DAILY [facility] Last Admin: 02/17/17 10:39 Dose: 5 mg Glipizide (Glucotrol Xl -) 10 mg PO DAILY@0700 [facility] Last Admin: 02/17/17 06:30 Dose: 10 mg Heparin Sodium (Porcine) (Heparin -) 5,000 unit SQ BID [facility] Last Admin: 02/17/17 10:38 Dose: 5,000 unit Piperacillin Sod/Tazobactam (Sod 2.25 gm/ Dextrose) 50 mls @ 100 mls/hr IVPB Q8H-IV [facility] PRN Reason: Protocol Last Admin: 02/17/17 10:39 Dose: 100 mls/hr Insulin Aspart (Novolog Vial Sliding Scale -) 1 vial SQ TIDAC [facility] PRN Reason: Protocol Last Admin: 02/17/17 06:29 Dose: Not Given Levothyroxine Sodium (Synthroid -) 50 mcg PO DAILY@0700 [facility] Last Admin: 02/17/17 06:29 Dose: 50 mcg Sodium Bicarbonate (Sodium Bicarbonate -) 1,300 mg PO BID [facility] Last Admin: 02/17/17 10:39 Dose: 1,300 mg Tamsulosin HCl (Flomax -) 0.4 mg PO DAILY [facility] Last Admin: 02/17/17 10:39 Dose: 0.4 mg Torsemide (Demadex -) 40 mg PO DAILY [facility] Last Admin: 02/17/17 10:39 Dose: 40 mg CBC, BMP 02/17/17 07:25 02/17/17 07:25 Microbiology 02/13/17 19:30 Blood Culture - Preliminary Blood - Peripheral Venous NO GROWTH OBTAINED AFTER 72 HOURS, INCUBATION TO CONTINUE FOR 2 DAYS. 02/13/17 19:30 Blood Culture - Preliminary Blood - Peripheral Venous NO GROWTH OBTAINED AFTER 72 HOURS, INCUBATION TO CONTINUE FOR 2 DAYS. 02/14/17 12:00 Gram Stain - Final Drainage (Swab) Wound Culture - Final Klebsiella Pneumoniae Staphylococcus Coagulase Neg Physical Examination Constitutional: Yes: No Distress/ comfortable HENT: Yes: Other (small drainage from right ear, tender tragus, rt mastoid +) Cardiovascular: Yes: Regular Rate and Rhythm, Murmur Respiratory: Yes: Diminished at bases Gastrointestinal: Yes: Normal Bowel Sounds, Soft. No: Distention, Tenderness Extremities: Yes: Amputation (B/L)-- right stump-- bone exposed Edema: No Psychiatric: Yes: Alert Imaging - Results Chest X-ray: Image Reviewed (cardiomegaly) Cat Scan: Report Reviewed EKG: Image Reviewed (sinus tachycardia) A/P clinically better continue abx--switch to Cipro as per ID continue other meds wound care consult noted--- sentyl for right lower extremity BKA if remains stable and spend discharge tomorrow--- patient wants to go home only as before Problem List - Problems (1) Acute mastoiditis Code(s): H70.009 - ACUTE MASTOIDITIS WITHOUT COMPLICATIONS, UNSPECIFIED EAR Qualifiers: Laterality: right Qualified Code(s): H70.001 - Acute mastoiditis without complications, right ear (2) CAD (coronary artery disease) Code(s): I25.10 - ATHSCL HEART DISEASE OF [place] CORONARY ARTERY W/O ANG PCTRS Qualifiers: Coronary Disease-Associated Artery/Lesion type: [place] artery [place] vs. transplanted heart: [place] heart Associated angina: without angina Qualified Code(s): I25.10 - Atherosclerotic heart disease of [place] coronary artery without angina pectoris (3) Diabetes Code(s): E11.9 - TYPE 2 DIABETES MELLITUS WITHOUT COMPLICATIONS Qualifiers: Diabetes mellitus type: type 1 Diabetes mellitus complication status: with circulatory complication (4) HTN (hypertension) Code(s): I10 - ESSENTIAL (PRIMARY) HYPERTENSION Qualifiers: Hypertension type: essential hypertension Qualified Code(s): I10 - Essential (primary) hypertension (5) Renal insufficiency syndrome Code(s): N28.9 - DISORDER OF KIDNEY AND URETER, UNSPECIFIED (6) S/P CABG (coronary artery bypass graft) Code(s): Z95.1 - PRESENCE OF AORTOCORONARY BYPASS GRAFT (7) Chronic kidney disease, stage 4, severely decreased GFR Code(s): N18.4 - CHRONIC KIDNEY DISEASE, STAGE 4 (SEVERE)
[2017-02-17] MEDS: CIPROFLOXACIN 500 MG TABLET (RESTRICTED TO ID) PO SCH (14:27)
[2017-02-18] MEDS ORDERED: PT OWN MED DRAWER 7, Y5N ONE ×2 (06:28→09:56)
[2017-02-18] MEDS: glipiZIDE-XL 10 MG TAB.ER.24 (FP) PO SCH (06:30)
[2017-02-18] MEDS: LEVOTHYROXINE NA 50 MCG TABLET (FP) PO SCH (06:31)
[2017-02-18] MEDS: INSULIN SLIDING SCALE (NOVOLOG) 1 VIAL SQ SCH ×3 (06:33→16:37)
[2017-02-18] MEDS: CARVEDILOL 25 MG TABLET (FP) PO SCH ×2 (10:06→22:32)
[2017-02-18] MEDS: CIPROFLOXACIN 500 MG TABLET (RESTRICTED TO ID) PO SCH (10:06)
[2017-02-18] MEDS: FINASTERIDE 5 MG TABLET (FP) PO SCH (10:06)
[2017-02-18] MEDS: TORSEMIDE 20 MG TABLET (FP) PO SCH (10:06)
[2017-02-18] MEDS: ASPIRIN COATED 81 MG TABLET.EC PO SCH (10:06)
[2017-02-18] MEDS: TAMSULOSIN HCL 0.4 MG CAP.ER.24H (FP) PO SCH (10:06)
[2017-02-18] MEDS: HEPARIN NA (PORCINE) 5,000 UNITS/ML 1ML VIAL SQ SCH ×2 (10:07→22:32)
[2017-02-18] MEDS: SODIUM BICARBONATE 650 MG TABLET PO SCH ×2 (10:07→22:32)
--- NOTE | 2017-02-18 10:48 | DS ---
Physical Examination Vital Signs: Vital Signs Temperature 97.4 F L 02/18/17 06:00 Pulse Rate 62 02/18/17 06:00 Respiratory Rate 20 02/18/17 06:00 Blood Pressure 124/65 02/18/17 06:00 O2 Sat by Pulse Oximetry (%) 96 02/17/17 21:00 Findings/Remarks: feels well. denies pain. says ear much better wants to go home Constitutional: Yes: No Distress, Calm Eyes: Yes: Conjunctiva Clear HENT: Yes: Other (no discharge from ear) Neck: Yes: Supple Cardiovascular: Yes: Regular Rate and Rhythm Respiratory: Yes: CTA Bilaterally Gastrointestinal: Yes: Soft Extremities: Yes: Amputation Neurological: Yes: Alert Labs: CBC, BMP 02/17/17 07:25 02/17/17 07:25 Discharge Summary Reason For Visit: OSTEOMYELITIS, MASTOIDITIS, ACUTE KIDNEY INJURY Current Active Problems KAMRAN (acute kidney injury) (Acute) Acute mastoiditis (Acute) CAD (coronary artery disease) (Acute) CHF (congestive heart failure) (Acute) DVT (deep venous thrombosis) (Acute) Diabetes (Acute) Generalized weakness (Acute) HTN (hypertension) (Acute) Ischemic cardiomyopathy (Acute) Mastoiditis (Acute) Nephrotic syndrome (Acute) Obstructive uropathy (Acute) Osteomyelitis (Acute) Pneumonia (Acute) Renal insufficiency syndrome (Acute) S/P CABG (coronary artery bypass graft) (Acute) S/P thoracentesis (Acute) UTI (urinary tract infection) (Acute) Urinary retention (Acute) Hospital Course: The patient is a 81 year old male, with a significant past medical history of hypertension, hyperlipidemia, hypothyroidism, CAD(s/p CABG), CHF, severe LV dysfunction on prior echo, hypertension, hyperlipidemia, diabetes, prior B LE amputations, CKD with nephrotic range proteinuria, and BPH, who presents to the emergency department s/p mechanical fall earlier this morning. Patient reports he was transferring from his wheelchair to his bed, and fell. Patient reports left rib pain s/p fall, but denies any associated head trauma, LOC, headache, or changes in vision. He denies any neck or back pain. He denies any dysuria, hematuria, frequency, or urgency. Per records, patient was presented on 01/31/17 s/p a similar fall. Patient is also complaining of decreased appetite and increased weight-loss during the past 2 weeks. Records indicate patient was admitted for acute kidney injury and acute on chronic CHF. Per home health aid, patient has become increasingly forgetful and weak since he was discharged. Patient denies any nausea, vomiting, diarrhea, or constipation. He denies any chest pain, shortness of breath, diaphoresis, or palpitations. He reports some right ear pain and white discharge, but denies any fever, chills, cough, or sore throat. Allergies: Sulfa(Sulfonamide antibiotics) Past Surgical History: Bilateral LE amputation, CABG Social History: Non smoker. No ETOH or drug use. PCP: Dr. Mcdaniels work up showed acute mastoiditis-- culture grew Klebscella treated with abx ent/ i/d followed discussed with i/d yesterday stable for d/c on po cipro pt strongly advised to follow with ent pt wants to go home only. will d/c home today meds reconciled/ prescribed. discussed with nursing staff. f/u with his pmd in one week. pt in agreement. d/c time 40 min in examining/ documenting and coordating care. - Instructions Referrals: Berenice Santizo MD [Primary Care Provider] - Villa Mcdaniels MD [Staff Physician] - Disposition: HOME - Home Medications Comprehensive Discharge Medication List: Ambulatory Orders Aspirin [Aspirin EC] 81 mg PO DAILY 01/16/17 Carvedilol [Coreg -] 25 mg PO BID 01/16/17 Finasteride [Proscar -] 5 mg PO DAILY 01/16/17 Levothyroxine [Synthroid -] 50 mcg PO DAILY 01/16/17 Tamsulosin HCl [Flomax -] 0.4 mg PO DAILY 01/16/17 Alprazolam [Xanax] 0.25 mg PO Q12H PRN #60 tablet MDD 2 01/24/17 Sodium Bicarbonate - 1,300 mg PO BID #60 tablet 01/24/17 Torsemide [Demadex -] 40 mg PO DAILY #60 tablet 01/24/17 Ofloxacin Otic [Floxin Otic -] 5 drop AD BID #1 amp 01/28/17 Glipizide Xl [Glucotrol Xl -] 10 mg PO DAILY@0700 #90 tab.er.[id number] 01/30/17 Ciprofloxacin [Cipro -] 500 mg PO DAILY #35 tablet 02/18/17 Collagenase Clostridium Hist. [Santyl -] 1 applic TP DAILY #30 tube 02/18/17 Levothyroxine [Synthroid -] 50 mcg PO DAILY@0700 tablet 02/18/17
[2017-02-18] MEDS: COLLAGENASE CLOSTRIDIUM HIST. 30 GRAMS TUBE TP SCH (12:06)
[2017-02-19] MEDS: glipiZIDE-XL 10 MG TAB.ER.24 (FP) PO SCH (06:48)
[2017-02-19] MEDS: LEVOTHYROXINE NA 50 MCG TABLET (FP) PO SCH (06:48)
[2017-02-19] MEDS ORDERED: PT OWN MED DRAWER 7, Y5N ONE (09:24)
[2017-02-19] MEDS: TAMSULOSIN HCL 0.4 MG CAP.ER.24H (FP) PO SCH ×2 (09:27→09:39)
[2017-02-19] MEDS: TORSEMIDE 20 MG TABLET (FP) PO SCH ×2 (09:27→09:39)
[2017-02-19] MEDS: CARVEDILOL 25 MG TABLET (FP) PO SCH ×2 (09:27→09:39)
[2017-02-19] MEDS: FINASTERIDE 5 MG TABLET (FP) PO SCH ×2 (09:27→09:39)
[2017-02-19] MEDS: CIPROFLOXACIN 500 MG TABLET (RESTRICTED TO ID) PO SCH ×2 (09:27→09:40)
[2017-02-19] MEDS: SODIUM BICARBONATE 650 MG TABLET PO SCH ×2 (09:27→09:39)
[2017-02-19] MEDS: ASPIRIN COATED 81 MG TABLET.EC PO SCH ×2 (09:27→09:39)
[2017-02-19] MEDS: HEPARIN NA (PORCINE) 5,000 UNITS/ML 1ML VIAL SQ SCH ×2 (09:28→09:37)
[2017-02-19] MEDS: INSULIN SLIDING SCALE (NOVOLOG) 1 VIAL SQ SCH (09:29)
[2017-02-19] MEDS: COLLAGENASE CLOSTRIDIUM HIST. 30 GRAMS TUBE TP SCH (09:41)
[2017-02-19 09:47] VITALS: BP 137/87; PULSE 83; TEMP 97.7
== END 2017-02-19 11:46 | disposition home health service (06) | DRG 153 ==
LOC: JER 09:03 → JERBED 14:45 → J6S 18:44
PROVIDERS: ADMIT Internal Medicine; ATTEND Internal Medicine
DX: H70.001 Acute mastoiditis without complications, right ear (principal); I13.0 Hypertensive heart and chronic kidney disease with heart failure and stage 1 through stage 4 chronic kidney disease, or unspecified chronic kidney disease; N18.4 Chronic kidney disease, stage 4 (severe); I50.42 Chronic combined systolic (congestive) and diastolic (congestive) heart failure; L97.819 Non-pressure chronic ulcer of other part of right lower leg with unspecified severity; E11.22 Type 2 diabetes mellitus with diabetic chronic kidney disease; Z91.81 History of falling; E03.9 Hypothyroidism, unspecified; E78.5 Hyperlipidemia, unspecified; I25.10 Atherosclerotic heart disease of native coronary artery without angina pectoris; Z95.1 Presence of aortocoronary bypass graft; N40.0 Benign prostatic hyperplasia without lower urinary tract symptoms; Z89.612 Acquired absence of left leg above knee; Z89.611 Acquired absence of right leg above knee; Z51.89 Encounter for other specified aftercare; B96.1 Klebsiella pneumoniae [K. pneumoniae] as the cause of diseases classified elsewhere; B95.8 Unspecified staphylococcus as the cause of diseases classified elsewhere; S29.8XXA Other specified injuries of thorax, initial encounter; W01.0XXA Fall on same level from slipping, tripping and stumbling without subsequent striking against object, initial encounter; Y93.89 Activity, other specified; Y92.032 Bedroom in apartment as the place of occurrence of the external cause; Y99.8 Other external cause status
CPT/HCPCS: 36415; 70450-TC; 70480-TC; 71010-TC; 80053; 82009; 82140; 83605; 83880; 84484; 85025; 85610; 85651; 86140; 87040; 87070; 87186; 87205; 93005; 93010; 99283-25; J1644

== ENCOUNTER 2017-03-09 10:28 | Inpatient (IN) | payer OTHER ==
--- NOTE | 2017-03-09 11:18 | PDOC ---
History of Present Illness - General History Source: Patient, Care Provider Exam Limitations: No Limitations - History of Present Illness Initial Comments: 03/09/17 12:36 The patient is a 81 year old male, with a significant past medical history of diabetes, hypertension, hyperlipidemia, hypothyroidism, CAD(s/p CABG), CHF, severe LV dysfunction on prior echo, prior B LE amputations, CKD, and BPH, who presents to the emergency department complaining of scrotal swelling for approximately 5 days. The patient reports increased scrotal swelling with associated pain and erythema over the past 5 days. Patient reports associated rash to the inner thigh, which he describes as a burning sensation. He reports dysuria, but denies any difficulty starting a stream, hematuria, frequency, or urgency. He denies any trauma to the testes. He denies any associated fever or chills. Patient reports intermittent shortness of breath, but he denies any chest pain, diaphoresis, or palpitations. He denies any abdominal pain, nausea, vomiting, diarrhea, or constipation. He denies any recent travel or sick contacts. Allergies: Sulfa(Sulfonamide antibiotics) Past Surgical History: Bilateral LE amputation, CABG Social History: Non smoker. No ETOH or drug use. PCP: Dr. Mcdaniels <Deana Jensen - Last Filed: 03/09/17 15:51> <Rc Damon - Last Filed: 03/09/17 16:08> - General Chief Complaint: Urinary Problem Stated Complaint: GROIN SWELLING Time Seen by Provider: 03/09/17 11:18 Past History <Deana Jensen - Last Filed: 03/09/17 15:51> - Past Medical History Cardiac Disorders: Yes (cabg x 4 in 1991) Diabetes: Yes Disorders: Yes (urinary retention) HTN: Yes Hypercholesterolemia: Yes - Immunization History Immunization Up to Date: Yes - Psycho/Social/Smoking Cessation Hx Anxiety: No Suicidal Ideation: No Smoking History: Never smoked Have you smoked in the past 12 months: No Information on smoking cessation initiated: No Hx Alcohol Use: No Drug/Substance Use Hx: No Substance Use Type: None <Rc Damon - Last Filed: 03/09/17 16:08> - Past Medical History Allergies/Adverse Reactions: Allergies Allergy/AdvReac Type Severity Reaction Status Date / Time Sulfa (Sulfonamide Allergy Verified 02/13/17 09:27 Antibiotics) Home Medications: Ambulatory Orders Unobtainable [Unobtainable] 03/09/17 Review of Systems - Review of Systems Able to Perform ROS?: Yes Comments:: 03/09/17 12:36 GENERAL/CONSTITUTIONAL: No fever or chills. No weakness. HEAD, EYES, EARS, NOSE AND THROAT: No change in vision. No ear pain or discharge. No sore throat. CARDIOVASCULAR: Yes: +shortness of breath. No chest pain. RESPIRATORY: No cough, wheezing, or hemoptysis. GASTROINTESTINAL: No nausea, vomiting, diarrhea or constipation. GENITOURINARY: Yes: +dysuria, +scrotal swelling. No frequency, or change in urination. MUSCULOSKELETAL: No joint or muscle swelling or pain. No neck or back pain. SKIN: No rash NEUROLOGIC: No headache, vertigo, loss of consciousness, or change in strength/ sensation. ENDOCRINE: No increased thirst. No abnormal weight change. HEMATOLOGIC/LYMPHATIC: No anemia, easy bleeding, or history of blood clots. ALLERGIC/IMMUNOLOGIC: Yes: +scrotal/inner thigh rash. No other hives or skin allergy. <Deana Jensen - Last Filed: 03/09/17 15:51> *Physical Exam - Vital Signs Last Vital Signs Temp Pulse Resp BP Pulse Ox 98 F 70 20 126/78 98 03/09/17 10:39 03/09/17 11:58 03/09/17 10:39 03/09/17 10:39 03/09/17 11:58 - Physical Exam Comments: 03/09/17 12:36 GENERAL: Awake, alert, in no acute distress HEAD: No signs of trauma EYES: PERRLA, EOMI, sclera anicteric, conjunctiva clear ENT: Auricles normal inspection, hearing grossly normal, nares patent, oropharynx clear without exudates. Moist mucosa NECK: Normal ROM, supple, no lymphadenopathy, JVD, or masses LUNGS: Diminished breath sounds at the right lung base, otherwise clear to auscultation. No wheezes, and no crackles HEART: Regular rate and rhythm, normal S1 and S2, no murmurs, rubs or gallops ABDOMEN: Soft, nontender, normoactive bowel sounds. No guarding, no rebound. No masses GENITAL: Edematous, indurated, erythematous, and tender scrotal sack, with no crepitus or open wounds. Erythema and induration extending from the scrotal sack to the medial thigh EXTREMITIES: Pitting edema of the lower extremity stumps bilaterally. No clubbing or cyanosis. No cords. NEUROLOGICAL: Normal speech, cranial nerves intact, negative pronator drift, normal tone SKIN: Edematous, indurated, erythematous, and tender scrotal sack, with no crepitus or open wounds. Erythema and induration extending from the scrotal sack to the right medial thigh. Otherwise Warm, Dry, normal turgor, no rashes or lesions noted. <Deana Jensen - Last Filed: 03/09/17 15:51> - Vital Signs Last Vital Signs Temp Pulse Resp BP Pulse Ox 98 F 68 20 126/78 98 03/09/17 10:39 03/09/17 10:39 03/09/17 10:39 03/09/17 10:39 03/09/17 10:39 <Rc Damon - Last Filed: 03/09/17 16:08> ED Treatment Course - LABORATORY CBC & Chemistry Diagram: 03/09/17 11:34 03/09/17 11:34 - ADDITIONAL ORDERS Additional order review: Laboratory Results 03/09/17 03/09/17 03/09/17 11:55 11:55 11:34 Sodium Potassium Chloride Carbon Dioxide Anion Gap BUN Creatinine Creat Clearance w eGFR Random Glucose Lactic Acid 1.4 Calcium Magnesium Total Bilirubin AST ALT Alkaline Phosphatase Troponin I Cancelled C-Reactive Protein 11.0 H D Total Protein Albumin 03/09/17 11:34 Sodium 140 Potassium 5.0 Chloride 107 Carbon Dioxide 21 Anion Gap 12 BUN 84 H D Creatinine 3.3 H Creat Clearance w eGFR 18.17 Random Glucose 117 H Lactic Acid Calcium 8.0 L Magnesium 1.8 Total Bilirubin 1.3 H D AST 23 D ALT 17 Alkaline Phosphatase 213 H Troponin I C-Reactive Protein Total Protein 6.5 Albumin 2.1 L 03/09/17 11:34 RBC 3.79 L MCV 87.7 MCHC 32.1 RDW 17.1 H MPV 7.6 Neutrophils % 72.6 D Lymphocytes % 15.3 D Monocytes % 9.7 Eosinophils % 1.4 Basophils % 1.0 - RADIOLOGY Radiograph Interpretation: 03/09/17 13:17 EXAM: US scrotum INTERPRETED BY: Dr. Ramsey REVIEWED BY: Dr. Damon IMPRESSION: No obvious interval change is noted. Diffuse scrotal edema. Small to moderate bilateral hydroceles. EXAM: CXR INTERPRETED BY: Dr. Verma REVIEWED BY: Dr. Damon IMPRESSION: Since the prior study of 02/13/2017, the extensive pulmonary and pleural changes on the right with sizable effusion, large heart, unfolded aorta , sternal sutures and clips and congestive changes are again noted. <Deana Jensen - Last Filed: 03/09/17 15:51> - LABORATORY CBC & Chemistry Diagram: 03/09/17 11:34 03/09/17 11:34 <Rc Damon - Last Filed: 03/09/17 16:08> Medical Decision Making - Medical Decision Making 03/09/17 15:51 First call placed to Dr. Santizo answering service at 15:51. Awaiting call back. <Deana Jensen - Last Filed: 03/09/17 15:51> - Medical Decision Making 03/09/17 14:56 89-year-old male with a history of CHF, COPD, CAD status post CABG, DM and multiple other medical problems presents with progressive scrotal edema and intermittent shortness of breath for 5 days. Exam significant for scrotal edema and tenderness to palpation as well as diminished breath sounds consistent with likely volume overload. Given history of diabetes Fornier's gangrene is also on the differential however the patient has no crepitance and no purulence in the scrotal area. -labs -scrotal US -CXR -likely admit 03/09/17 15:58 Scrotal ultrasound revealing of only significant scrotal edema with no foci of gas. Patient does not have a white count to suggest acute infection. Chest x- ray with large pleural effusion and signs of vascular congestion. BNP 115,000. Scrotal edema and intermittent shortness of breath likely secondary to volume overload. Pt is hemodynamically stable and afebrile. I ordered 40mg of Lasix and patient is admitted to Dr. Gonzales for further management. <Rc Damon - Last Filed: 03/09/17 16:08> *DC/Admit/Observation/Transfer - Attestations Scribe Attestion: 03/09/17 12:37 Documentation prepared by Deana Jensen, acting as director biomedical engineering for Rc Damon MD. <Deana Jensen - Last Filed: 03/09/17 15:51> - Discharge Dispostion Admit: Yes - Attestations Physician Attestion: 03/09/17 16:08 I, Dr. Rc Damon MD, attest that this document has been prepared under my direction and personally reviewed by me in its entirety. I further attest, that it accurately reflects all work, treatment, procedures and medical decision -making performed by me. <Rc Damon - Last Filed: 03/09/17 16:08> Diagnosis at time of Disposition: Scrotal edema, Acute on chronic systolic and diastolic heart failure, NYHA class 3 - Discharge Dispostion Condition at time of disposition: Stable - Referrals Referrals: Berenice Santizo MD [Primary Care Provider] -
[2017-03-09 12:00] LABS: EOSINOPHIL 1.4 % (0-4.5); MCH 28.1 pg (25.7-33.7); MCHC 32.1 g/dl (32.0-35.9); MEAN CELL VOLUME 87.7 fl (80-96); MEAN PLT VOLUME 7.6 fl (7.5-11.1); NEUTROPHILS 72.6 % (42.8-82.8); PLATELET COUNT 239 K/MM3 (134-434); RDW 17.1 % (11.9-15.9); WHITE BLOOD COUNT 7.6 K/mm3 (4.0-10.0)
[2017-03-09 12:25] LABS: ALBUMIN 2.1 g/dl (3.4-5.0); ANION GAP 12 (8-16); BILIRUBIN,TOTAL 1.3 mg/dL (0.2-1.0); CO2 21 mmol/L (21-32); CREATININE 3.3 mg/dL (0.7-1.3); GLUCOSE,RANDOM 117 mg/dL (74-106); MAGNESIUM 1.8 mg/dL (1.8-2.4); SGOT/AST 23 U/L (15-37); SGPT/ALT 17 U/L (12-78); TOT PROT 6.5 g/dl (6.4-8.2)
[2017-03-09 12:28] LABS: ALK PHOS 213 U/L (45-117)
[2017-03-09 12:42] LABS: TROPONIN I 0.05 ng/ml (0.00-0.05)
[2017-03-09] MEDS ORDERED: FUROSEMIDE 40 MG/4 ML INJECTABLE VIAL IVPUSH ONE (15:50)
[2017-03-09] MEDS ORDERED: FUROSEMIDE 40 MG/4 ML INJECTABLE VIAL ONE (17:29)
[2017-03-09 19:54] LABS: URINE APPEARANCE SLCLOUDY; URINE BILIRUBIN NEGATIVE (NEGATIVE); URINE BLOOD 1+ (NEGATIVE); URINE COLOR YELLOW; URINE GLUCOSE (UA) 1+ (NEGATIVE); URINE KETONE NEGATIVE (NEGATIVE); URINE LEUK ESTERASE NEGATIVE (NEGATIVE); URINE NITRITE NEGATIVE (NEGATIVE)
[2017-03-09 19:55] LABS: URINE PROTEIN 2+ (NEGATIVE)
[2017-03-09 19:59] LABS: URINE HYALINE CAST 1 /lpf; URINE RBC 13 /hpf (0-3); URINE WBC 4 /hpf (3-5)
[2017-03-10] MEDS: FUROSEMIDE 40 MG/4 ML INJECTABLE VIAL IVPB SCH ×2 (05:24→14:52)
[2017-03-10 08:10] LABS: MCH 28.5 pg (25.7-33.7); MCHC 32.5 g/dl (32.0-35.9); MEAN CELL VOLUME 87.6 fl (80-96); MEAN PLT VOLUME 7.8 fl (7.5-11.1); PLATELET COUNT 246 K/MM3 (134-434); RDW 17.7 % (11.9-15.9); WHITE BLOOD COUNT 6.6 K/mm3 (4.0-10.0)
--- NOTE | 2017-03-10 11:17 | HP ---
Admitting History and Physical - Primary Care Physician PCP: Villa Mcdaniels - Admission Chief Complaint: scrotal swelling. SOB History of Present Illness: ER HISTORY History of Present Illness Initial Comments: 03/09/17 12:36 The patient is a 81 year old male, with a significant past medical history of diabetes, hypertension, hyperlipidemia, hypothyroidism, CAD(s/p CABG), CHF, severe LV dysfunction on prior echo, prior B LE amputations, CKD, and BPH, who presents to the emergency department complaining of scrotal swelling for approximately 5 days. The patient reports increased scrotal swelling with associated pain and erythema over the past 5 days. Patient reports associated rash to the inner thigh, which he describes as a burning sensation. He reports dysuria, but denies any difficulty starting a stream, hematuria, frequency, or urgency. He denies any trauma to the testes. He denies any associated fever or chills. Patient reports intermittent shortness of breath, but he denies any chest pain, diaphoresis, or palpitations. He denies any abdominal pain, nausea, vomiting, diarrhea, or constipation. He denies any recent travel or sick contacts. Allergies: Sulfa(Sulfonamide antibiotics) Past Surgical History: Bilateral LE amputation, CABG Social History: Non smoker. No ETOH or drug use. PCP: Dr. Mcdaniels Pt examined by me in Telemetry Known to me from previous admissions- he is usually admitted for CHF exacerbation.Pt refuses to believe he has CHF. c/o scrotal swelling , rash in scrotal area. B/L amputee-- feels weak and tired. Able to lie flat in bed . SOB+, no chest pain +Pt lives alone , has RN TRIAGE History Source: Patient Limitations to Obtaining History: No Limitations - Past Medical History Cardiovascular: Yes: CAD, CHF (low EF), Hyperlipdemia Gastrointestinal: Yes: Constipation, Other (no hx colonoscopy) Renal/: Yes: Renal Inusuff, BPH Heme/Onc: Yes: Anemia Endocrine: Yes: Diabetes Mellitus - Past Surgical History Past Surgical History: Yes: Amputation (bilateral lower leg amputations due to diabeic complications.), CABG - Smoking History Smoking history: Never smoked Have you smoked in the past 12 months: No - Alcohol/Substance Use Hx Alcohol Use: No - Social History History of Recent Travel: No Home Medications - Allergies Allergies/Adverse Reactions: Allergies Allergy/AdvReac Type Severity Reaction Status Date / Time Sulfa (Sulfonamide Allergy Verified 02/13/17 09:27 Antibiotics) - Home Medications Home Medications: Ambulatory Orders Unobtainable [Unobtainable] 03/09/17 Review of Systems - Review of Systems Constitutional: denies: Chills, Night Sweats Respiratory: reports: SOB Genitourinary: reports: Testicular Swelling Physical Examination Vital Signs: Vital Signs Temperature 98.2 F 03/10/17 06:00 Pulse Rate 65 03/10/17 06:00 Respiratory Rate 20 03/10/17 06:00 Blood Pressure 113/57 03/10/17 06:00 O2 Sat by Pulse Oximetry (%) 96 03/10/17 02:47 Constitutional: Yes: No Distress Cardiovascular: Yes: Regular Rate and Rhythm Respiratory: Yes: Diminished Gastrointestinal: Yes: Normal Bowel Sounds, Soft. No: Distention, Tenderness Renal/: Yes: Scrotal Edema, Other (erythema in groin) Extremities: Yes: Other (sacral edema) Edema: No Imaging - Results Chest X-ray: Image Reviewed Ultrasound: Report Reviewed EKG: Image Reviewed (sinus , 1st degree AV block) Problem List - Problems (1) Acute on chronic systolic and diastolic heart failure, NYHA class 3 Code(s): I50.43 - ACUTE ON CHRONIC COMBINED SYSTOLIC AND DIASTOLIC HRT FAIL (2) CAD (coronary artery disease) Code(s): I25.10 - ATHSCL HEART DISEASE OF [place] CORONARY ARTERY W/O ANG PCTRS Qualifiers: Coronary Disease-Associated Artery/Lesion type: [place] artery [place] vs. transplanted heart: [place] heart Associated angina: without angina Qualified Code(s): I25.10 - Atherosclerotic heart disease of [place] coronary artery without angina pectoris (3) CHF (congestive heart failure) Code(s): I50.9 - HEART FAILURE, UNSPECIFIED Qualifiers: Congestive heart failure type: combined Congestive heart failure chronicity: chronic Qualified Code(s): I50.42 - Chronic combined systolic (congestive) and diastolic (congestive) heart failure (4) HTN (hypertension) Code(s): I10 - ESSENTIAL (PRIMARY) HYPERTENSION Qualifiers: Hypertension type: essential hypertension Qualified Code(s): I10 - Essential (primary) hypertension (5) Nephrotic syndrome Code(s): N04.9 - NEPHROTIC SYNDROME WITH UNSPECIFIED MORPHOLOGIC CHANGES Assessment/Plan PLAN very high BNP scrotal edema due to acute CHF started IV lasix -- monitor renal function Cardiology and renal eval continue with meds pt does not remember his meds-- meds ordered from previous admission telehealth case manager eval about detention management continue with meds DVT prophylaxis- Heparin sc Mycolog cream for groin rash time spent for coordination of care-- 40 min
[2017-03-10 11:36] LABS: ALBUMIN 2.2 g/dl (3.4-5.0); ALK PHOS 219 U/L (45-117); ANION GAP 12 (8-16); BILIRUBIN,TOTAL 1.3 mg/dL (0.2-1.0); CALCIUM 7.8 mg/dL (8.5-10.1); CO2 19 mmol/L (21-32); CREATININE 3.4 mg/dL (0.7-1.3); GLUCOSE,RANDOM 94 mg/dL (74-106); SGOT/AST 28 U/L (15-37); SGPT/ALT 19 U/L (12-78); TOT PROT 6.7 g/dl (6.4-8.2)
[2017-03-10] MEDS: SODIUM BICARBONATE 650 MG TABLET PO SCH ×2 (13:51→21:31)
[2017-03-10] MEDS ORDERED: INSULIN (NOVOLOG) ASPART 100 UNITS/ML 10ML VIAL SQ SCH (16:30)
[2017-03-10] MEDS: NYSTATIN/TRIAMCINOLONE TOPICAL CREAM 15 GM TUBE TP SCH ×2 (16:55→21:31)
--- NOTE | 2017-03-10 19:01 | CON.CARD ---
Cardiology Consult (text) - Consultation Consultation Note: CC: CHF exacerbation History of Present Illness: 81 yo with h/o CAD s/p CABG and severe LV dysfunction, htn, hl, DM, prior UE thrombus 2015, CKD, nephrotic range proteinuria, prior bilat LE amputations 2/2 diabetes, bph, hypothyroid, recent admit this month for acute mastoiditis who p/ w worsening scrotal edema/HF exacerbation. reports several days of sob and scrotal swelling. + pain and erythema at right BKA stump. no cp, palps, dizzy, loc, pnd, orthopnea. + edema. sob. no f/c/s, n/v/d, cough, congestion, visual disturbances, bleeding, h/a. PMH/PSHx: per hpi Social Hx: Never smoked fam hx: Denies (no cmp) ros: per hpi Ambulatory Orders Unobtainable [Unobtainable] 03/09/17 (recent discharge medication list:) Aspirin [Aspirin EC] 81 mg PO DAILY 01/16/17 Carvedilol [Coreg -] 25 mg PO BID 01/16/17 Finasteride [Proscar -] 5 mg PO DAILY 01/16/17 Levothyroxine [Synthroid -] 50 mcg PO DAILY 01/16/17 Tamsulosin HCl [Flomax -] 0.4 mg PO DAILY 01/16/17 Alprazolam [Xanax] 0.25 mg PO Q12H PRN #60 tablet MDD 2 01/24/17 Sodium Bicarbonate - 1,300 mg PO BID #60 tablet 01/24/17 Torsemide [Demadex -] 40 mg PO DAILY #60 tablet 01/24/17 Ofloxacin Otic [Floxin Otic -] 5 drop AD BID #1 amp 01/28/17 Glipizide Xl [Glucotrol Xl -] 10 mg PO DAILY@0700 #90 tab.er.24 01/30/17 Ciprofloxacin [Cipro -] 500 mg PO DAILY #35 tablet 02/18/17 Collagenase Clostridium Hist. [Santyl -] 1 applic TP DAILY #30 tube 02/18/17 Levothyroxine [Synthroid -] 50 mcg PO DAILY@0700 tablet 02/18/17 Current Medications Acetaminophen (Tylenol -) 650 mg PO Q6H PRN PRN Reason: PAIN Last Admin: 03/10/17 21:32 Dose: 650 mg Furosemide (Lasix Injection -) 80 mg IVPB BID@0600,1400 [facility] Last Admin: 03/10/17 14:52 Dose: 80 mg Glipizide (Glucotrol Xl -) 10 mg PO DAILY@0700 [facility] Insulin Aspart (Novolog Vial Sliding Scale -) 1 vial SQ TIDAC [facility] PRN Reason: Protocol Levothyroxine Sodium (Synthroid -) 50 mcg PO DAILY@0700 [facility] Nystatin/Triamcinolone Acetonide (Mycolog Ii Cream -) 1 applic TP BID [facility] Last Admin: 03/10/17 21:31 Dose: 1 applic Polyethylene Glycol (Miralax (For Daily Use) -) 17 gm PO DAILY [facility] Sodium Bicarbonate (Sodium Bicarbonate -) 1,300 mg PO BID [facility] Last Admin: 03/10/17 21:31 Dose: 1,300 mg Vital Signs - 24 hr 03/10/17 03/10/17 03/10/17 00:41 02:37 02:43 Temperature 98.1 F 97.5 F L 97.5 F L Pulse Rate 70 70 Respiratory 20 20 20 Rate Blood Pressure 127/73 109/60 109/60 O2 Sat by Pulse Oximetry (%) 03/10/17 03/10/17 03/10/17 02:47 06:00 09:00 Temperature 98.2 F Pulse Rate 65 Respiratory 20 20 20 Rate Blood Pressure 113/57 O2 Sat by Pulse 96 99 Oximetry (%) 03/10/17 03/10/17 11:30 15:26 Temperature 97.6 F 98.9 F Pulse Rate 77 70 Respiratory 19 18 Rate Blood Pressure 117/79 120/69 O2 Sat by Pulse Oximetry (%) Constitutional: Yes: Well Nourished, No Distress Eyes: No: Sclera Icterus HENT: No: Nasal Congestion Neck: No: Decreased ROM Respiratory: Yes: Diminished (R base). nl eff No: Accessory Muscle Use Gastrointestinal: Yes: Normal Bowel Sounds. No: Distention, Hepatomegaly, Palpable Mass, Tenderness Cardiovascular: Yes: Regular Rate and Rhythm JVD: yes Carotid Bruit: No PMI: Displaced Heart Sounds: Yes: S1, S2. No: Gallop Murmur: 2/6 sys murmur at apex. Extremities: No: Cold, Cyanosis Edema: (+edema in thighs (s/p bilat amp) to abdomen Peripheral Pulses: s/p B amp Integumentary: No: Jaundice diaphoresis, + erythema at rt bka stump. Neurological: Yes: Alert. No: Seizure Psychiatric: No: Agitated, aaox3 - Other Data Labs, Other Data: CBC, BMP 03/10/17 06:00 Laboratory Tests 02/17/17 03/09/17 03/10/17 07:25 11:34 06:00 BUN 67 H Creatinine 3.3 H D Total Bilirubin 1.3 H AST 28 D ALT 19 Alkaline Phosphatase 219 H Troponin I 0.05 ekg 02/2017: SR with av delay. pac's. IVCD. anterolateral twi. (present on priors) tele: SR pvc's CXR: extensive pulmonarypleural changes on right with right sided pleural effusion. similar to priors. Echo 11/2015 ([facility]): mild LVE; severe, global HK; nl RV; mod MR, mild TR; no RVSP echo 11/2016: mod lve, sev dec lvef, global hk, mod rve, mod dec rv fcn, sarah, mod mr, mild tr, rvsp 30-40 a/p: 81 yo with h/o CAD s/p CABG and severe LV dysfunction, htn, hl, DM, prior UE thrombus 2015, CKD, nephrotic range proteinuria, prior bilat LE amputations 2/2 diabetes, bph, hypothyroid, recent admit this month for acute mastoiditis who p/ w worsening scrotal edema/HF exacerbation. acute on chronic syst chf - Biventricular failure -several prior admits for sob/chf. required thoracentesis for large right eff 2015 and again 11/2016 (reportedly was transudative c/w chf). required milrinone for diuresis (dosing limited by ventricular ectopy) in addition to lasix 80 mg IV bid during admission last month. HF meds titrated to isordil 30 bid, hydral 20 tid, coreg 25 bid. d/c on torsemide 40 daily - on prior admit had self-limited VT, brief svt. monitor on tele. lyte repletion prn. -per report, in the past, he has refused any escalation in treatments (e.g. devices, incl ICD) - 03/10: trial of 80 mg IV lasix bid today. If again is unable to diurese due to cardiorenal syndrome, low threshold to add milrinone. Will resume hydralazine, imdur. Hold coreg until clear patient does not need milrinone support. CAD: -s/p 4V cabg (1991) -no angina sxs -no ekg changes vs baseline -hold coreg for now until clear patient does not need milrinone support. - resume asa, statin HTN: -now runs low, HF regimen as mentioned. ckd -baseline creat range here is 3.1-3.3 -monitor for cardiorenal syndrome erythema of right BKA - monitor for signs of infection. mgm't per pmd.
--- NOTE | 2017-03-10 20:12 | EKG ---
Test Reason : Blood Pressure : / mmHG Vent. 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
[2017-03-10] MEDS ORDERED: ACETAMINOPHEN 325 MG TABLET (FP) PO PRN (20:41)
[2017-03-10] MEDS ORDERED: PT OWN MED DRAWER 7, Y5N ONE (20:55)
[2017-03-10] MEDS ORDERED: BISACODYL 10 MG SUPP.RECT RC ONE (22:45)
[2017-03-10] MEDS: POLYETHYLENE GLYCOL 3350 119 GM BTL PO SCH (23:22)
[2017-03-11] MEDS: FUROSEMIDE 40 MG/4 ML INJECTABLE VIAL IVPB SCH ×2 (06:55→14:37)
[2017-03-11] MEDS ORDERED: PT OWN MED DRAWER 7, Y5N ONE ×2 (06:55→09:59)
[2017-03-11] MEDS: INSULIN SLIDING SCALE (NOVOLOG) 1 VIAL SQ SCH ×3 (06:58→16:31)
[2017-03-11] MEDS ORDERED: glipiZIDE-XL 10 MG TAB.ER.24 (FP) PO SCH (07:00)
[2017-03-11] MEDS: hydrALAZINE HCL 10 MG TABLET PO SCH ×3 (07:13→21:41)
[2017-03-11] MEDS: LEVOTHYROXINE NA 50 MCG TABLET (FP) PO SCH (07:13)
[2017-03-11 07:33] LABS: ANION GAP 12 (8-16); CALCIUM 7.7 mg/dL (8.5-10.1); CO2 18 mmol/L (21-32); CREATININE 3.2 mg/dL (0.7-1.3); GLUCOSE,RANDOM 124 mg/dL (74-106)
--- NOTE | 2017-03-11 08:27 | PN ---
Progress Note (short form) - Note Progress Note: pt seen/ examined chart reviewed pt well known to me from previous admissions I dont think pt able to take care of himself at home - but he always insisted to go home--has capacity right ear better denies cp. breathing stable Vital Signs Temp 98.2 F 03/11/17 07:00 Pulse 68 03/11/17 07:00 Resp 18 03/11/17 07:00 BP 119/62 03/11/17 07:00 Pulse Ox 98 03/10/17 21:00 Intake & Output 03/10/17 03/10/17 03/11/17 11:59 23:59 11:59 Intake Total 300 170 Output Total 250 375 Balance -250 -75 170 Weight 170 lb 164 lb 4 oz Intake: IVPB 50 Oral 300 120 Output: Urine 250 375 Void 250 375 Other: Voiding Method Urinal Urinal # Unmeasured Voids Void 1 1 Bowel Movement Yes: large BM Yes Height 5 ft 4.57 in Body Mass Index (BMI) 28.6 Weight Measurement Method Patient Lift Scale Active Medications Acetaminophen (Tylenol -) 650 mg PO Q6H PRN PRN Reason: PAIN Last Admin: 03/10/17 21:32 Dose: 650 mg Aspirin (Ecotrin -) 81 mg PO DAILY [facility] Last Admin: 03/11/17 10:04 Dose: 81 mg Atorvastatin Calcium (Lipitor -) 40 mg PO HS [facility] Furosemide (Lasix Injection -) 80 mg IVPB BID@0600,1400 [facility] Last Admin: 03/11/17 06:55 Dose: 80 mg Hydralazine HCl (Apresoline -) 20 mg PO TID [facility] Last Admin: 03/11/17 07:13 Dose: 20 mg Insulin Aspart (Novolog Vial Sliding Scale -) 1 vial SQ TIDAC [facility] PRN Reason: Protocol Last Admin: 03/11/17 06:58 Dose: Not Given Insulin Detemir (Levemir Vial) 10 units SQ HS [facility] Isosorbide Dinitrate (Isordil -) 30 mg PO BIDISORDIL [facility] Last Admin: 03/11/17 10:08 Dose: 30 mg Levothyroxine Sodium (Synthroid -) 50 mcg PO DAILY@0700 [facility] Last Admin: 03/11/17 07:13 Dose: 50 mcg Nystatin/Triamcinolone Acetonide (Mycolog Ii Cream -) 1 applic TP BID [facility] Last Admin: 03/11/17 10:05 Dose: 1 applic Polyethylene Glycol (Miralax (For Daily Use) -) 17 gm PO DAILY [facility] Last Admin: 03/10/17 23:22 Dose: 17 grams Sodium Bicarbonate (Sodium Bicarbonate -) 1,300 mg PO BID [facility] Last Admin: 03/11/17 10:03 Dose: 1,300 mg CBC, BMP 03/11/17 06:00 Microbiology 03/09/17 19:46 Urine Culture - Final Urine - Urine Clean Catch Contaminated: Please Repeat 03/09/17 11:41 Blood Culture - Preliminary Blood - Peripheral Venous NO GROWTH OBTAINED AFTER 24 HOURS, INCUBATION TO CONTINUE FOR 4 DAYS. 03/09/17 11:34 Blood Culture - Preliminary Blood - Peripheral Venous NO GROWTH OBTAINED AFTER 24 HOURS, INCUBATION TO CONTINUE FOR 4 DAYS. 03/09/17 14:14 Gram Stain - Final Knee - Right Wound Culture - Preliminary NO GROWTH OBTAINED AFTER 24 HOURS INCUBATION, REINCUBATED. Physical Examination Constitutional: Yes: No Distress/ comfortable Cardiovascular: Yes: Regular Rate and Rhythm Respiratory: Yes: Diminished at bases Gastrointestinal: Yes: Normal Bowel Sounds, Soft. No: Distention, Tenderness Renal/: Yes: Scrotal Edema, Extremities: Yes: Other (sacral edema) Imaging - Results Chest X-ray: Image Reviewed Ultrasound: Report Reviewed EKG: Image Reviewed (sinus , 1st degree AV block) Problem List - Problems (1) Acute on chronic systolic and diastolic heart failure, NYHA class 3 Code(s): I50.43 - ACUTE ON CHRONIC COMBINED SYSTOLIC AND DIASTOLIC HRT FAIL (2) CAD (coronary artery disease) Code(s): I25.10 - ATHSCL HEART DISEASE OF [place] CORONARY ARTERY W/O ANG PCTRS Qualifiers: Coronary Disease-Associated Artery/Lesion type: [place] artery [place] vs. transplanted heart: [place] heart Associated angina: without angina Qualified Code(s): I25.10 - Atherosclerotic heart disease of [place] coronary artery without angina pectoris (3) CHF (congestive heart failure) Code(s): I50.9 - HEART FAILURE, UNSPECIFIED Qualifiers: Congestive heart failure type: combined Congestive heart failure chronicity: chronic Qualified Code(s): I50.42 - Chronic combined systolic (congestive) and diastolic (congestive) heart failure (4) HTN (hypertension) Code(s): I10 - ESSENTIAL (PRIMARY) HYPERTENSION Qualifiers: Hypertension type: essential hypertension Qualified Code(s): I10 - Essential (primary) hypertension (5) Nephrotic syndrome Code(s): N04.9 - NEPHROTIC SYNDROME WITH UNSPECIFIED MORPHOLOGIC CHANGES Assessment/Plan clinically better continue IV lasix -- continue with other meds d/c glipizide and start on Levemir Monitor bgm monitor lytes will follow
--- NOTE | 2017-03-11 09:52 | PN ---
Progress Note, Physician Chief Complaint: scrotal edema History of Present Illness: says scrotal/penile swelling not improved; admits to sob denies cp, palpitations no cigs - Current Medication List Current Medications: Active Medications Acetaminophen (Tylenol -) 650 mg PO Q6H PRN PRN Reason: PAIN Last Admin: 03/10/17 21:32 Dose: 650 mg Aspirin (Ecotrin -) 81 mg PO DAILY [facility] Atorvastatin Calcium (Lipitor -) 40 mg PO HS [facility] Furosemide (Lasix Injection -) 80 mg IVPB BID@0600,1400 [facility] Last Admin: 03/11/17 06:55 Dose: 80 mg Glipizide (Glucotrol Xl -) 10 mg PO DAILY@0700 [facility] Last Admin: 03/11/17 07:13 Dose: 10 mg Hydralazine HCl (Apresoline -) 20 mg PO TID [facility] Last Admin: 03/11/17 07:13 Dose: 20 mg Insulin Aspart (Novolog Vial Sliding Scale -) 1 vial SQ TIDAC [facility] PRN Reason: Protocol Last Admin: 03/11/17 06:58 Dose: Not Given Isosorbide Dinitrate (Isordil -) 30 mg PO BIDISORDIL [facility] Levothyroxine Sodium (Synthroid -) 50 mcg PO DAILY@0700 [facility] Last Admin: 03/11/17 07:13 Dose: 50 mcg Nystatin/Triamcinolone Acetonide (Mycolog Ii Cream -) 1 applic TP BID [facility] Last Admin: 03/10/17 21:31 Dose: 1 applic Polyethylene Glycol (Miralax (For Daily Use) -) 17 gm PO DAILY [facility] Last Admin: 03/10/17 23:22 Dose: 17 grams Sodium Bicarbonate (Sodium Bicarbonate -) 1,300 mg PO BID [facility] Last Admin: 03/10/17 21:31 Dose: 1,300 mg - Objective Vital Signs: Vital Signs Temperature 98.2 F 03/11/17 07:00 Pulse Rate 68 03/11/17 07:00 Respiratory Rate 18 03/11/17 07:00 Blood Pressure 119/62 03/11/17 07:00 O2 Sat by Pulse Oximetry (%) 98 03/10/17 21:00 Constitutional: Yes: No Distress, Calm Eyes: No: Sclera Icterus HENT: No: Nasal Congestion Cardiovascular: Yes: Regular Rate and Rhythm, S1, S2, Other (PMI non diplaced). No: JVD, Gallop, Murmur Respiratory: Yes: CTA Bilaterally. No: Accessory Muscle Use, Rales, Wheezes Gastrointestinal: Yes: Normal Bowel Sounds, Soft. No: Tenderness Musculoskeletal: Yes: Other (No kyphosis) Extremities: No: Cold Edema: Yes (R thigh (bilat AKAs), scr) Integumentary: No: Jaundice Neurological: Yes: Alert. No: Seizure Psychiatric: No: Agitated Labs: CBC, BMP 03/11/17 06:00 - ....Imaging EKG: Other (tele: NSR with 1st degr AVB; 2 runs AIVR) Assessment/Plan ekg 02/2017: SR with av delay. pac's. IVCD. anterolateral twi. (present on priors) tele: SR pvc's CXR: extensive pulmonarypleural changes on right with right sided pleural effusion. similar to priors. Echo 11/2015 (): mild LVE; severe, global HK; nl RV; mod MR, mild TR; no RVSP Echo 11/2016: mod lve, sev dec lvef, global hk, mod rve, mod dec rv fcn, sarah, mod mr, mild tr, rvsp 30-40 a/p: 81 yo with h/o CAD s/p CABG and severe LV dysfunction, htn, hl, DM, prior UE thrombus 2015, CKD, nephrotic range proteinuria, prior bilat LE amputations 2/2 diabetes, bph, hypothyroid, recent admit this month for acute mastoiditis who p/ w worsening scrotal edema/HF exacerbation. acute on chronic syst chf - Biventricular failure -several prior admits for sob/chf. required thoracentesis for large right eff 2015 and again 11/2016 (reportedly was transudative c/w chf). required milrinone for diuresis (dosing limited by ventricular ectopy) in addition to lasix 80 mg IV bid during admission 01/28. HF meds titrated to isordil 30 bid, hydral 20 tid, coreg 25 bid. d/c'd on torsemide 40 daily - on prior admit had self-limited VT, brief svt. -per report, in the past, he has refused any escalation in treatments (e.g. devices, incl ICD) - 03/10: trial of 80 mg IV lasix bid today. If again is unable to diurese due to cardiorenal syndrome, low threshold to add milrinone. Will resume hydralazine, imdur. Hold coreg until clear patient does not need milrinone support. - 03/11: wt trend 01/28 (lift scale) from 179 peak to 162. currently 164 lbs. bp and renal fxn stable. sob and scrotal edema/R thigh edema persists--cont lasix 80 iv bid. - resume coreg at reduced dose (12.5 bid), monitor bp for hypotension - monitor lytes, replete K/Mag prn per usual targets - rec outpt cardio f/u if pt willing, to discuss advanced therapies vs palliative care referral further CAD: -s/p 4V cabg (1991) -no angina sxs -no ekg changes vs baseline -resume asa, statin, bb as doing HTN: -now runs low, HF regimen as mentioned. ckd -baseline creat range here 2.9-3.5 previously -creat stable, monitor trend with diuresis
[2017-03-11] MEDS: POLYETHYLENE GLYCOL 3350 119 GM BTL PO SCH (10:00)
[2017-03-11] MEDS: SODIUM BICARBONATE 650 MG TABLET PO SCH ×2 (10:03→21:41)
[2017-03-11] MEDS: ASPIRIN COATED 81 MG TABLET.EC PO SCH (10:04)
[2017-03-11] MEDS: NYSTATIN/TRIAMCINOLONE TOPICAL CREAM 15 GM TUBE TP SCH ×2 (10:05→21:42)
[2017-03-11] MEDS: ISOSORBIDE DINITRATE 10 MG TABLET (FP) PO SCH ×2 (10:08→17:31)
[2017-03-11 10:35] VITALS: BMI 27.6
--- NOTE | 2017-03-11 10:35 | CON.NEP ---
Consult Consult Specialty:: Nephrology (Berry/Joseluis) Referred by:: Dr. Berenice Santizo Reason for Consultation:: CKD Stage 4 with volume overload - History of Present Illness Chief Complaint: Scrotal swelling History of Present Illness: This is a 81 year old gentleman with PMhx of CKD Stage 4 (baseline Cr 3.1-3.3) with nephrotic range proteinuria , CHF, COPD, DM, BPH, PVD s/p AKA/BKA presents with scrotal swelling and admitted for CHF exacerbation. Pt reports swelling x 8 days and tenderness. Pt reports decreased urine output. Pt was on diuretics as an outpatient. Denies any flank pain, fever, chills, N/V/D. Denies any NSAID use. Denies any chest pain, has mild sob at times. - History Source History Provided By: Patient Limitations to Obtaining History: Language Barrier - Past Medical History Cardio/Vascular: Yes: CAD, CHF (low EF), Hyperlipdemia Gastrointestinal: Yes: Constipation, Other (no hx colonoscopy) Renal/: Yes: Renal Inusuff, BPH Endocrine: Yes: Diabetes Mellitus - Past Surgical History Past Surgical History: Yes: Amputation (bilateral lower leg amputations due to diabeic complications.), CABG - Alcohol/Substance Use Hx Alcohol Use: No - Smoking History Smoking history: Never smoked Have you smoked in the past 12 months: No - Social History Usual Living Arrangement: Alone (with home health aide) History of Recent Travel: No Home Medications - Allergies Allergies/Adverse Reactions: Allergies Allergy/AdvReac Type Severity Reaction Status Date / Time Sulfa (Sulfonamide Allergy Verified 02/13/17 09:27 Antibiotics) - Home Medications Home Medications: Ambulatory Orders Unobtainable [Unobtainable] 03/09/17 Family Disease History - Family Disease History Family History: Unremarkable Review of Systems - Review of Systems Constitutional: reports: Lethargy. denies: Chills, Fever, Loss of Appetite Eyes: reports: No Symptoms HENT: reports: No Symptoms Neck: reports: No Symptoms Cardiovascular: reports: Edema, Shortness of Breath. denies: Chest Pain, Palpitations Respiratory: reports: Cough, Exercise Intolerance, SOB, SOB on Exertion. denies : PND, Wheezing Gastrointestinal: denies: Abdominal Pain, Constipation, Diarrhea Genitourinary: reports: Testicular Swelling. denies: Dysuria, Flank Pain Musculoskeletal: denies: Back Pain Neurological: reports: No Symptoms Endocrine: reports: No Symptoms Psychiatric: reports: No Symptoms Nephrology Consult - Height Height: 5 ft 4.57 in - Weight Weight: 164 lb 4 oz - BMI Body Mass Index (BMI): 27.6 - Lab Results CBC,BMP: CBC, BMP 03/11/17 06:00 Anion Gap: Anion Gap Anion Gap 12 (8-16) 03/11/17 06:00 - Imaging Chest X-ray: Report Reviewed - Physical Examination Vital Signs: Vital Signs Temperature 98.2 F 03/11/17 07:00 Pulse Rate 68 03/11/17 07:00 Respiratory Rate 18 03/11/17 07:00 Blood Pressure 119/62 03/11/17 07:00 O2 Sat by Pulse Oximetry (%) 98 03/10/17 21:00 Constitutional: Yes: No Distress HENT: Yes: Atraumatic, Normocephalic Neck: Yes: Supple, Trachea Midline Cardiovascular: Yes: Regular Rate and Rhythm, S1, S2. No: JVD, Murmur, Rub Respiratory: Yes: Regular, Diminished (right lung base > left lung) Gastrointestinal: Yes: Normal Bowel Sounds, Soft Renal/: No: Bladder Distention, CVA Tenderness - Left, CVA Tenderness - Right , [place] Present Extremities: Yes: Amputation Edema: Yes Edema: LLE: 1+, RLE: 1+ Neurological: Yes: Alert, Oriented Problem List - Problems (1) Acute on chronic systolic and diastolic heart failure, NYHA class 3 Code(s): I50.43 - ACUTE ON CHRONIC COMBINED SYSTOLIC AND DIASTOLIC HRT FAIL (2) CHF (congestive heart failure) Code(s): I50.9 - HEART FAILURE, UNSPECIFIED Qualifiers: Congestive heart failure type: combined Congestive heart failure chronicity: chronic Qualified Code(s): I50.42 - Chronic combined systolic (congestive) and diastolic (congestive) heart failure (3) Nephrotic syndrome Code(s): N04.9 - NEPHROTIC SYNDROME WITH UNSPECIFIED MORPHOLOGIC CHANGES (4) Obstructive uropathy Code(s): N13.9 - OBSTRUCTIVE AND REFLUX UROPATHY, UNSPECIFIED (5) S/P CABG (coronary artery bypass graft) Code(s): Z95.1 - PRESENCE OF AORTOCORONARY BYPASS GRAFT (6) CHF exacerbation Code(s): I50.9 - HEART FAILURE, UNSPECIFIED Qualifiers: Congestive heart failure type: combined Qualified Code(s): I50.43 - Acute on chronic combined systolic (congestive) and diastolic (congestive) heart failure (7) Chronic kidney disease, stage 4, severely decreased GFR Code(s): N18.4 - CHRONIC KIDNEY DISEASE, STAGE 4 (SEVERE) Assessment/Plan 81 year old gentleman with PMhx of CKD Stage 4 (baseline Cr 3.1-3.3) with nephrotic range proteinuria , CHF, COPD, DM, BPH, PVD s/p AKA/BKA presents with scrotal swelling and admitted for CHF exacerbation. #CKD Stage 4 with nephrotic range proteinuria in setting of total body volume overload Check urine studies including UPCR would continue IV diuretics BID as prescribed no OLIVA/ARB given low eGFR Trend BUN/Cr and urine output Low salt diet Dose all meds for eGFR < 20 no acute indication for [place] #Acute CHF exacerbation Continue IV duretics trend daily weight cardiology follow up #Metabolic acidosis normal anion gap continue sodium bicarb 1300mg BID goal is bicarb > 22 #Pseudohypocalcemia corrected ca is WNL Thank you will follow Hugh Huggins DO Current Medications Acetaminophen (Tylenol -) 650 mg PO Q6H PRN PRN Reason: PAIN Last Admin: 03/10/17 21:32 Dose: 650 mg Aspirin (Ecotrin -) 81 mg PO DAILY [facility] Last Admin: 03/11/17 10:04 Dose: 81 mg Atorvastatin Calcium (Lipitor -) 40 mg PO HS [facility] Furosemide (Lasix Injection -) 80 mg IVPB BID@0600,1400 [facility] Last Admin: 03/11/17 06:55 Dose: 80 mg Hydralazine HCl (Apresoline -) 20 mg PO TID [facility] Last Admin: 03/11/17 07:13 Dose: 20 mg Insulin Aspart (Novolog Vial Sliding Scale -) 1 vial SQ TIDAC [facility] PRN Reason: Protocol Last Admin: 03/11/17 06:58 Dose: Not Given Insulin Detemir (Levemir Vial) 10 units SQ HS [facility] Isosorbide Dinitrate (Isordil -) 30 mg PO BIDISORDIL [facility] Last Admin: 03/11/17 10:08 Dose: 30 mg Levothyroxine Sodium (Synthroid -) 50 mcg PO DAILY@0700 [facility] Last Admin: 03/11/17 07:13 Dose: 50 mcg Nystatin/Triamcinolone Acetonide (Mycolog Ii Cream -) 1 applic TP BID [facility] Last Admin: 03/11/17 10:05 Dose: 1 applic Polyethylene Glycol (Miralax (For Daily Use) -) 17 gm PO DAILY [facility] Last Admin: 03/10/17 23:22 Dose: 17 grams Sodium Bicarbonate (Sodium Bicarbonate -) 1,300 mg PO BID [facility] Last Admin: 03/11/17 10:03 Dose: 1,300 mg
[2017-03-11 11:23] LABS: MAGNESIUM 1.7 mg/dL (1.8-2.4)
[2017-03-11] MEDS ORDERED: MAGNESIUM SULF 50% (8.12 MEQ/2 ML-1 GM VIAL) IVPB ONE (12:00)
[2017-03-11] MEDS: CARVEDILOL 12.5 MG TABLET (FP) PO SCH ×2 (12:43→21:41)
--- NOTE | 2017-03-11 19:03 | EKG ---
Test Reason : Blood Pressure : / mmHG Vent. Rate : 069 BPM Atrial Rate : 069 BPM P-R Int : 254 ms QRS Dur : 124 ms QT Int : 456 ms P-R-T Axes : 012 -34 170 degrees QTc Int : 488 ms SINUS RHYTHM WITH 1ST DEGREE A-V BLOCK LEFT AXIS DEVIATION INFERIOR INFARCT (CITED ON OR BEFORE 27-NOV-2016) ABNORMAL ECG WHEN COMPARED WITH ECG OF 13-FEB-2017 11:14, NO SIGNIFICANT CHANGE WAS FOUND Confirmed by BLAISE DEJESUS MD ([id number]) on 03/11/2017 7:03:25 PM Referred By: Confirmed By:BLAISE DEJESUS MD
[2017-03-11] MEDS: ATORVASTATIN CA 40 MG TABLET (FP) PO SCH (21:41)
[2017-03-11] MEDS: INSULIN DETEMIR 100 UNITS/ML MDV SQ SCH (21:45)
[2017-03-12] MEDS: INSULIN SLIDING SCALE (NOVOLOG) 1 VIAL SQ SCH ×3 (06:16→16:52)
[2017-03-12] MEDS: LEVOTHYROXINE NA 50 MCG TABLET (FP) PO SCH (06:33)
[2017-03-12] MEDS: hydrALAZINE HCL 10 MG TABLET PO SCH ×3 (06:33→22:49)
[2017-03-12] MEDS: FUROSEMIDE 40 MG/4 ML INJECTABLE VIAL IVPB SCH ×2 (06:33→14:36)
[2017-03-12 08:21] LABS: ANION GAP 13 (8-16); CALCIUM 7.5 mg/dL (8.5-10.1); CO2 20 mmol/L (21-32); CREATININE 3.1 mg/dL (0.7-1.3); GLUCOSE,RANDOM 112 mg/dL (74-106); PHOSPHOROUS 4.2 mg/dL (2.5-4.9)
--- NOTE | 2017-03-12 10:22 | PN ---
Progress Note, Physician Chief Complaint: no SOB No chest pain sitting up in bed, comfortable - Current Medication List Current Medications: Active Medications Acetaminophen (Tylenol -) 650 mg PO Q6H PRN PRN Reason: PAIN Last Admin: 03/10/17 21:32 Dose: 650 mg Aspirin (Ecotrin -) 81 mg PO DAILY [facility] Last Admin: 03/11/17 10:04 Dose: 81 mg Atorvastatin Calcium (Lipitor -) 40 mg PO HS [facility] Last Admin: 03/11/17 21:41 Dose: 40 mg Carvedilol (Coreg -) 12.5 mg PO BID [facility] Last Admin: 03/11/17 21:41 Dose: 12.5 mg Furosemide (Lasix Injection -) 80 mg IVPB BID@0600,1400 [facility] Last Admin: 03/12/17 06:33 Dose: 80 mg Hydralazine HCl (Apresoline -) 20 mg PO TID [facility] Last Admin: 03/12/17 06:33 Dose: 20 mg Insulin Aspart (Novolog Vial Sliding Scale -) 1 vial SQ TIDAC [facility] PRN Reason: Protocol Last Admin: 03/12/17 06:16 Dose: Not Given Insulin Detemir (Levemir Vial) 10 units SQ [facility] Last Admin: 03/11/17 21:45 Dose: Not Given Isosorbide Dinitrate (Isordil -) 30 mg PO BIDISORDIL [facility] Last Admin: 03/11/17 17:31 Dose: 30 mg Levothyroxine Sodium (Synthroid -) 50 mcg PO DAILY@0700 [facility] Last Admin: 03/12/17 06:33 Dose: 50 mcg Nystatin/Triamcinolone Acetonide (Mycolog Ii Cream -) 1 applic TP BID [facility] Last Admin: 03/11/17 21:42 Dose: 1 applic Polyethylene Glycol (Miralax (For Daily Use) -) 17 gm PO DAILY [facility] Last Admin: 03/11/17 10:00 Dose: 17 grams Sodium Bicarbonate (Sodium Bicarbonate -) 1,300 mg PO BID [facility] Last Admin: 03/11/17 21:41 Dose: 1,300 mg - Objective Vital Signs: Vital Signs Temperature 97.5 F L 03/12/17 06:00 Pulse Rate 110 H 03/12/17 06:00 Respiratory Rate 18 03/12/17 06:00 Blood Pressure 122/82 03/12/17 06:00 O2 Sat by Pulse Oximetry (%) 96 03/11/17 21:00 Constitutional: Yes: No Distress Cardiovascular: Yes: Regular Rate and Rhythm Respiratory: Yes: Diminished Gastrointestinal: Yes: Normal Bowel Sounds, Soft. No: Distention, Tenderness Genitourinary: Yes: Scrotal Edema (decreased) Extremities: Yes: Amputation (B/L AKA) Edema: No Labs: CBC, BMP 03/10/17 06:00 03/12/17 06:30 Problem List - Problems (1) Acute on chronic systolic and diastolic heart failure, NYHA class 3 Code(s): I50.43 - ACUTE ON CHRONIC COMBINED SYSTOLIC AND DIASTOLIC HRT FAIL (2) CAD (coronary artery disease) Code(s): I25.10 - ATHSCL HEART DISEASE OF [place] CORONARY ARTERY W/O ANG PCTRS Qualifiers: Coronary Disease-Associated Artery/Lesion type: [place] artery [place] vs. transplanted heart: [place] heart Associated angina: without angina Qualified Code(s): I25.10 - Atherosclerotic heart disease of [place] coronary artery without angina pectoris (3) CHF (congestive heart failure) Code(s): I50.9 - HEART FAILURE, UNSPECIFIED Qualifiers: Congestive heart failure type: combined Congestive heart failure chronicity: chronic Qualified Code(s): I50.42 - Chronic combined systolic (congestive) and diastolic (congestive) heart failure (4) HTN (hypertension) Code(s): I10 - ESSENTIAL (PRIMARY) HYPERTENSION Qualifiers: Hypertension type: essential hypertension Qualified Code(s): I10 - Essential (primary) hypertension (5) Nephrotic syndrome Code(s): N04.9 - NEPHROTIC SYNDROME WITH UNSPECIFIED MORPHOLOGIC CHANGES Assessment/Plan PLAN on IV lasix 80mg BID renal function stable 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
[2017-03-12] MEDS: ASPIRIN COATED 81 MG TABLET.EC PO SCH (10:37)
[2017-03-12] MEDS: POLYETHYLENE GLYCOL 3350 119 GM BTL PO SCH (10:37)
[2017-03-12] MEDS: CARVEDILOL 12.5 MG TABLET (FP) PO SCH ×2 (10:37→22:49)
[2017-03-12] MEDS: ISOSORBIDE DINITRATE 10 MG TABLET (FP) PO SCH ×2 (10:38→18:25)
[2017-03-12] MEDS: SODIUM BICARBONATE 650 MG TABLET PO SCH ×2 (10:38→22:49)
[2017-03-12] MEDS: NYSTATIN/TRIAMCINOLONE TOPICAL CREAM 15 GM TUBE TP SCH ×2 (10:38→22:48)
--- NOTE | 2017-03-12 12:09 | PN ---
Progress Note (short form) - Note Progress Note: Renal follow up for CKD with volume overload Pt seen and examined at the bedside reports feeling better today scrotal swelling has improved no chest pain, sob, N/V/D good urine output Vital Signs Temperature 98.0 F 03/12/17 10:00 Pulse Rate 71 03/12/17 10:00 Respiratory Rate 19 03/12/17 10:00 Blood Pressure 125/78 03/12/17 10:00 O2 Sat by Pulse Oximetry (%) 96 03/11/17 21:00 Intake & Output 03/09/17 03/10/17 03/11/17 03/12/17 23:59k 23:59 23:59 23:59 Intake Total 300 1410 410 Output Total 240 748 5531 Balance -450 -325 -115 410 Weight 170 lb 170 lb 164 lb 4 oz 164 lb 2 oz Gen: NAD, awake and alert CVS:RRR, No M/R Lungs: CTA, no rales or wheeze Abd: soft, Obese, Midl abd wall edema Ext: b/L amputations, + sacral swelling : + scrotal swelling CBC, BMP 03/10/17 06:00 03/12/17 06:30 Current Medications Acetaminophen (Tylenol -) 650 mg PO Q6H PRN PRN Reason: PAIN Last Admin: 03/10/17 21:32 Dose: 650 mg Aspirin (Ecotrin -) 81 mg PO DAILY [facility] Last Admin: 03/12/17 10:37 Dose: 81 mg Atorvastatin Calcium (Lipitor -) 40 mg PO HS [facility] Last Admin: 03/11/17 21:41 Dose: 40 mg Carvedilol (Coreg -) 12.5 mg PO BID [facility] Last Admin: 03/12/17 10:37 Dose: 12.5 mg Furosemide (Lasix Injection -) 80 mg IVPB BID@0600,1400 [facility] Last Admin: 03/12/17 06:33 Dose: 80 mg Hydralazine HCl (Apresoline -) 20 mg PO TID [facility] Last Admin: 03/12/17 06:33 Dose: 20 mg Insulin Aspart (Novolog Vial Sliding Scale -) 1 vial SQ TIDAC [facility] PRN Reason: Protocol Last Admin: 03/12/17 06:16 Dose: Not Given Insulin Detemir (Levemir Vial) 10 units SQ [facility] Last Admin: 03/11/17 21:45 Dose: Not Given Isosorbide Dinitrate (Isordil -) 30 mg PO BIDISORDIL [facility] Last Admin: 03/12/17 10:38 Dose: 30 mg Levothyroxine Sodium (Synthroid -) 50 mcg PO DAILY@0700 [facility] Last Admin: 03/12/17 06:33 Dose: 50 mcg Nystatin/Triamcinolone Acetonide (Mycolog Ii Cream -) 1 applic TP BID [facility] Last Admin: 03/12/17 10:38 Dose: 1 applic Polyethylene Glycol (Miralax (For Daily Use) -) 17 gm PO DAILY [facility] Last Admin: 03/12/17 10:37 Dose: 17 grams Sodium Bicarbonate (Sodium Bicarbonate -) 1,300 mg PO BID [facility] Last Admin: 03/12/17 10:38 Dose: 1,300 mg A/P 81 year old gentleman with PMhx of CKD Stage 4 (baseline Cr 3.1-3.3) with nephrotic range proteinuria , CHF, COPD, DM, BPH, PVD s/p AKA/BKA presents with scrotal swelling and admitted for CHF exacerbation. #CKD Stage 4 with nephrotic range proteinuria in setting of total body volume overload Pt with UPCR of 2.6 which indicates tubular proteinuria BUN/Cr remains stable, no signs of uremia would continue current Lasix BID as pt with clinical improvement Trend BUN/Cr and electrolytes Continue Sodium bicarb BID for Metabolic acidosis no OLIVA/ARB given low eGFR Hugh Huggins DO Problem List - Problems (1) Acute on chronic systolic and diastolic heart failure, NYHA class 3 Code(s): I50.43 - ACUTE ON CHRONIC COMBINED SYSTOLIC AND DIASTOLIC HRT FAIL (2) CHF (congestive heart failure) Code(s): I50.9 - HEART FAILURE, UNSPECIFIED Qualifiers: Congestive heart failure type: combined Congestive heart failure chronicity: chronic Qualified Code(s): I50.42 - Chronic combined systolic (congestive) and diastolic (congestive) heart failure (3) Nephrotic syndrome Code(s): N04.9 - NEPHROTIC SYNDROME WITH UNSPECIFIED MORPHOLOGIC CHANGES (4) Obstructive uropathy Code(s): N13.9 - OBSTRUCTIVE AND REFLUX UROPATHY, UNSPECIFIED (5) S/P CABG (coronary artery bypass graft) Code(s): Z95.1 - PRESENCE OF AORTOCORONARY BYPASS GRAFT (6) CHF exacerbation Code(s): I50.9 - HEART FAILURE, UNSPECIFIED Qualifiers: Congestive heart failure type: combined Qualified Code(s): I50.43 - Acute on chronic combined systolic (congestive) and diastolic (congestive) heart failure (7) Chronic kidney disease, stage 4, severely decreased GFR Code(s): N18.4 - CHRONIC KIDNEY DISEASE, STAGE 4 (SEVERE)
--- NOTE | 2017-03-12 13:49 | PN ---
Progress Note (short form) - Note Progress Note: Chief Complaint: scrotal edema History of Present Illness: edema continues to improve. no cp, sob, palps dizziness no cigs Current Medications Acetaminophen (Tylenol -) 650 mg PO Q6H PRN PRN Reason: PAIN Last Admin: 03/10/17 21:32 Dose: 650 mg Aspirin (Ecotrin -) 81 mg PO DAILY [facility] Last Admin: 03/12/17 10:37 Dose: 81 mg Atorvastatin Calcium (Lipitor -) 40 mg PO HS [facility] Last Admin: 03/11/17 21:41 Dose: 40 mg Carvedilol (Coreg -) 12.5 mg PO BID [facility] Last Admin: 03/12/17 10:37 Dose: 12.5 mg Furosemide (Lasix Injection -) 80 mg IVPB BID@0600,1400 [facility] Last Admin: 03/12/17 06:33 Dose: 80 mg Hydralazine HCl (Apresoline -) 20 mg PO TID [facility] Last Admin: 03/12/17 06:33 Dose: 20 mg Insulin Aspart (Novolog Vial Sliding Scale -) 1 vial SQ TIDAC [facility] PRN Reason: Protocol Last Admin: 03/12/17 12:14 Dose: 2 unit Insulin Detemir (Levemir Vial) 10 units SQ [facility] Last Admin: 03/11/17 21:45 Dose: Not Given Isosorbide Dinitrate (Isordil -) 30 mg PO BIDISORDIL [facility] Last Admin: 03/12/17 10:38 Dose: 30 mg Levothyroxine Sodium (Synthroid -) 50 mcg PO DAILY@0700 [facility] Last Admin: 03/12/17 06:33 Dose: 50 mcg Nystatin/Triamcinolone Acetonide (Mycolog Ii Cream -) 1 applic TP BID [facility] Last Admin: 03/12/17 10:38 Dose: 1 applic Polyethylene Glycol (Miralax (For Daily Use) -) 17 gm PO DAILY [facility] Last Admin: 03/12/17 10:37 Dose: 17 grams Sodium Bicarbonate (Sodium Bicarbonate -) 1,300 mg PO BID [facility] Last Admin: 03/12/17 10:38 Dose: 1,300 mg Vital Signs - 24 hr 03/11/17 03/11/17 03/11/17 14:00 18:00 21:00 Temperature 97.5 F L 97.5 F L 97.9 F Pulse Rate 79 72 69 Respiratory 20 18 18 Rate Blood Pressure 119/57 121/76 132/81 O2 Sat by Pulse 96 Oximetry (%) 03/12/17 03/12/17 03/12/17 01:54 06:00 10:00 Temperature 97.8 F 97.5 F L 98.0 F Pulse Rate 68 110 H 71 Respiratory 18 18 19 Rate Blood Pressure 127/70 122/82 125/78 O2 Sat by Pulse Oximetry (%) Intake & Output 03/10/17 03/11/17 03/12/17 03/13/17 07:59 07:59 07:59 07:59 Intake Total 470 1240 410 Output Total 270 498 8364 Balance -700 95 -285 410 Weight 170 lb 164 lb 4 oz 164 lb 4 oz 164 lb 2 oz Constitutional: Yes: No Distress, Calm Eyes: No: Sclera Icterus HENT: No: Nasal Congestion Cardiovascular: Yes: Regular Rate and Rhythm, S1, S2, Other (PMI non diplaced). No: JVD, Gallop, Murmur Respiratory: Yes: CTA Bilaterally. No: Accessory Muscle Use, Rales, Wheezes Gastrointestinal: Yes: Normal Bowel Sounds, Soft. No: Tenderness Musculoskeletal: Yes: Other (No kyphosis) Extremities: No: Cold Edema: Yes (R thigh (bilat AKAs), scr) Integumentary: No: Jaundice Neurological: Yes: Alert. No: Seizure Psychiatric: No: Agitated Labs: CBC, BMP 03/12/17 06:30 - ....Imaging EKG: Other (tele: NSR with 1st degr AVB; 2 runs AIVR) Assessment/Plan ekg 02/2017: SR with av delay. pac's. IVCD. anterolateral twi. (present on priors) tele: SR pvc's CXR: extensive pulmonarypleural changes on right with right sided pleural effusion. similar to priors. Echo 11/2015 (NIKKI): mild LVE; severe, global HK; nl RV; mod MR, mild TR; no RVSP Echo 11/2016: mod lve, sev dec lvef, global hk, mod rve, mod dec rv fcn, sarah, mod mr, mild tr, rvsp 30-40 a/p: 81 yo with h/o CAD s/p CABG and severe LV dysfunction, htn, hl, DM, prior UE thrombus 2015, CKD, nephrotic range proteinuria, prior bilat LE amputations 2/2 diabetes, bph, hypothyroid, recent admit this month for acute mastoiditis who p/ w worsening scrotal edema/HF exacerbation. acute on chronic syst chf - Biventricular failure -several prior admits for sob/chf. required thoracentesis for large right eff 2015 and again 11/2016 (reportedly was transudative c/w chf). required milrinone for diuresis (dosing limited by ventricular ectopy) in addition to lasix 80 mg IV bid during admission 01/28. HF meds titrated to isordil 30 bid, hydral 20 tid, coreg 25 bid. d/c'd on torsemide 40 daily - on prior admit had self-limited VT, brief svt. -per report, in the past, he has refused any escalation in treatments (e.g. devices, incl ICD) - 03/10: trial of 80 mg IV lasix bid today. If again is unable to diurese due to cardiorenal syndrome, low threshold to add milrinone. Will resume hydralazine, imdur. Hold coreg until clear patient does not need milrinone support. - 03/11: wt trend 01/28 (lift scale) from 179 peak to 162. currently 164 lbs. bp and renal fxn stable. sob and scrotal edema/R thigh edema persists--cont lasix 80 iv bid. resume coreg at reduced dose (12.5 bid), monitor bp for hypotension - 03/12 Cr continues to improve on current regimen, con't same mgm't. - monitor lytes, replete K/Mag prn per usual targets - rec outpt cardio f/u if pt willing, to discuss advanced therapies vs palliative care referral further CAD: -s/p 4V cabg (1991) -no angina sxs -no ekg changes vs baseline - asa, statin, bb as doing HTN: - stable, HF regimen as mentioned. monitor for hypotension. ckd -baseline creat range here 2.9-3.5 previously -creat stable/improving, monitor trend with diuresis. renal following
[2017-03-12] MEDS: ATORVASTATIN CA 40 MG TABLET (FP) PO SCH (22:49)
[2017-03-12] MEDS: INSULIN DETEMIR 100 UNITS/ML MDV SQ SCH (22:53)
[2017-03-13] MEDS: INSULIN SLIDING SCALE (NOVOLOG) 1 VIAL SQ SCH ×3 (06:25→17:26)
[2017-03-13] MEDS: LEVOTHYROXINE NA 50 MCG TABLET (FP) PO SCH (06:31)
[2017-03-13] MEDS: FUROSEMIDE 40 MG/4 ML INJECTABLE VIAL IVPB SCH ×2 (06:31→13:24)
[2017-03-13] MEDS: hydrALAZINE HCL 10 MG TABLET PO SCH ×3 (06:31→21:26)
[2017-03-13 07:42] LABS: ANION GAP 10 (8-16); CALCIUM 7.9 mg/dL (8.5-10.1); CO2 22 mmol/L (21-32); CREATININE 3.1 mg/dL (0.7-1.3); GLUCOSE,RANDOM 142 mg/dL (74-106)
--- NOTE | 2017-03-13 10:04 | PN ---
Progress Note, Physician Chief Complaint: no SOB No chest pain sitting up in bed, comfortable - Current Medication List Current Medications: Active Medications Acetaminophen (Tylenol -) 650 mg PO Q6H PRN PRN Reason: PAIN Last Admin: 03/10/17 21:32 Dose: 650 mg Aspirin (Ecotrin -) 81 mg PO DAILY [facility] Last Admin: 03/12/17 10:37 Dose: 81 mg Atorvastatin Calcium (Lipitor -) 40 mg PO HS [facility] Last Admin: 03/12/17 22:49 Dose: 40 mg Carvedilol (Coreg -) 12.5 mg PO BID [facility] Last Admin: 03/12/17 22:49 Dose: 12.5 mg Furosemide (Lasix Injection -) 80 mg IVPB BID@0600,1400 [facility] Last Admin: 03/13/17 06:31 Dose: 80 mg Hydralazine HCl (Apresoline -) 20 mg PO TID [facility] Last Admin: 03/13/17 06:31 Dose: 20 mg Insulin Aspart (Novolog Vial Sliding Scale -) 1 vial SQ TIDAC [facility] PRN Reason: Protocol Last Admin: 03/13/17 06:25 Dose: Not Given Insulin Detemir (Levemir Vial) [address] [facility] Last Admin: 03/12/17 22:53 Dose: Not Given Isosorbide Dinitrate (Isordil -) 30 mg PO BIDISORDIL [facility] Last Admin: 03/12/17 18:25 Dose: 30 mg Levothyroxine Sodium (Synthroid -) 50 mcg PO DAILY@0700 [facility] Last Admin: 03/13/17 06:31 Dose: 50 mcg Nystatin/Triamcinolone Acetonide (Mycolog Ii Cream -) 1 applic TP BID [facility] Last Admin: 03/12/17 22:48 Dose: 1 applic Polyethylene Glycol (Miralax (For Daily Use) -) 17 gm PO DAILY [facility] Last Admin: 03/12/17 10:37 Dose: 17 grams Sodium Bicarbonate (Sodium Bicarbonate -) 1,300 mg PO BID [facility] Last Admin: 03/12/17 22:49 Dose: 1,300 mg - Objective Vital Signs: Vital Signs Temperature 98.4 F 03/13/17 06:00 Pulse Rate 68 03/13/17 06:00 Respiratory Rate 20 03/13/17 06:00 Blood Pressure 123/74 03/13/17 06:00 O2 Sat by Pulse Oximetry (%) 96 03/12/17 21:00 Constitutional: Yes: No Distress Cardiovascular: Yes: Regular Rate and Rhythm Respiratory: Yes: CTA Bilaterally Gastrointestinal: Yes: Normal Bowel Sounds, Soft. No: Distention, Tenderness Genitourinary: Yes: Scrotal Edema (decreased) Edema: No (decreased) Labs: CBC, BMP 03/10/17 06:00 03/13/17 07:00 Problem List - Problems (1) Acute on chronic systolic and diastolic heart failure, NYHA class 3 Code(s): I50.43 - ACUTE ON CHRONIC COMBINED SYSTOLIC AND DIASTOLIC HRT FAIL (2) CAD (coronary artery disease) Code(s): I25.10 - ATHSCL HEART DISEASE OF [place] CORONARY ARTERY W/O ANG PCTRS Qualifiers: Coronary Disease-Associated Artery/Lesion type: [place] artery [place] vs. transplanted heart: [place] heart Associated angina: without angina Qualified Code(s): I25.10 - Atherosclerotic heart disease of [place] coronary artery without angina pectoris (3) CHF (congestive heart failure) Code(s): I50.9 - HEART FAILURE, UNSPECIFIED Qualifiers: Congestive heart failure type: combined Congestive heart failure chronicity: chronic Qualified Code(s): I50.42 - Chronic combined systolic (congestive) and diastolic (congestive) heart failure (4) HTN (hypertension) Code(s): I10 - ESSENTIAL (PRIMARY) HYPERTENSION Qualifiers: Hypertension type: essential hypertension Qualified Code(s): I10 - Essential (primary) hypertension (5) Nephrotic syndrome Code(s): N04.9 - NEPHROTIC SYNDROME WITH UNSPECIFIED MORPHOLOGIC CHANGES Assessment/Plan PLAN on IV lasix 80mg BID renal function stable continue with meds neonatal social worker evaluation spoke with Cardiology-- will recheck tomorrow and change to PO needs to follow up with pattern grader outpt
[2017-03-13] MEDS ORDERED: PT OWN MED DRAWER 7, Y5N ONE (10:44)
[2017-03-13] MEDS: ASPIRIN COATED 81 MG TABLET.EC PO SCH (10:54)
[2017-03-13] MEDS: SODIUM BICARBONATE 650 MG TABLET PO SCH ×2 (10:54→21:26)
[2017-03-13] MEDS: CARVEDILOL 12.5 MG TABLET (FP) PO SCH ×2 (10:54→21:26)
[2017-03-13] MEDS: POLYETHYLENE GLYCOL 3350 119 GM BTL PO SCH (10:54)
[2017-03-13] MEDS: ISOSORBIDE DINITRATE 10 MG TABLET (FP) PO SCH ×2 (10:55→17:58)
[2017-03-13] MEDS: NYSTATIN/TRIAMCINOLONE TOPICAL CREAM 15 GM TUBE TP SCH ×2 (10:58→21:26)
--- NOTE | 2017-03-13 11:24 | PN ---
Progress Note (short form) - Note Progress Note: Chief Complaint: scrotal edema History of Present Illness: edema continues to improve. still with scrotal edema no cp, sob, palps dizziness no cigs Current Medications Generic Name Dose Route Start Last Admin Trade Name Fregudelia PRN Reason Stop Dose Admin Acetaminophen 650 mg 03/10/17 20:41 03/10/17 21:32 Tylenol - PO 650 mg Q6H PRN Administration PAIN Aspirin 81 mg 03/11/17 10:00 03/13/17 10:54 Ecotrin - PO 81 mg DAILY CARLYN Administration Atorvastatin Calcium 40 mg 03/11/17 22:00 03/12/17 22:49 Lipitor - PO 40 mg HS [facility] Administration Carvedilol 12.5 mg 03/11/17 11:00 03/13/17 10:54 Coreg - PO 12.5 mg BID [facility] Administration Furosemide 80 mg 03/10/17 06:00 03/13/17 06:31 Lasix Injection - IVPB 80 mg BID@0600,1400 [facility] Administration Glipizide 10 mg 03/14/17 07:00 Glucotrol Xl - PO DAILY@0700 [facility] Hydralazine HCl 20 mg 03/11/17 06:15 03/13/17 06:31 Apresoline - PO 20 mg TID [facility] Administration Insulin Aspart 1 vial 03/10/17 22:30 03/13/17 06:25 Novolog Vial Sliding Scale - SQ Not Given TIDAC [facility] Protocol Isosorbide Dinitrate 30 mg 03/11/17 10:00 03/13/17 10:55 Isordil - PO 30 mg BIDISORDIL [facility] Administration Levothyroxine Sodium 50 mcg 03/11/17 07:00 03/13/17 06:31 Synthroid - PO 50 mcg DAILY@0700 [facility] Administration Nystatin/Triamcinolone Acetonide 1 applic 03/10/17 11:30 03/13/17 10:58 Mycolog Ii Cream - TP 1 applic BID [facility] Administration Polyethylene Glycol 17 gm 03/10/17 22:45 03/13/17 10:54 Miralax (For Daily Use) - PO 17 grams DAILY [facility] Administration Sodium Bicarbonate 1,300 mg 03/10/17 11:30 03/13/17 10:54 Sodium Bicarbonate - PO 1,300 mg BID [facility] Administration Vital Signs Period Temp Pulse Resp BP Sys/Stock Pulse Ox Last 24 Hr 97.5 F-98.4 F 65-106 18-20 115-139/62-78 96 Constitutional: Yes: No Distress, Calm Eyes: No: Sclera Icterus HENT: No: Nasal Congestion Cardiovascular: Yes: Regular Rate and Rhythm, S1, S2, Other (PMI non diplaced). No: JVD, Gallop, Murmur Respiratory: Yes: CTA Bilaterally. No: Accessory Muscle Use, Rales, Wheezes Gastrointestinal: Yes: Normal Bowel Sounds, Soft. No: Tenderness Musculoskeletal: Yes: Other (No kyphosis) Extremities: No: Cold Edema: Yes (R thigh (bilat AKAs), scr) Integumentary: No: Jaundice Neurological: Yes: Alert. No: Seizure Psychiatric: No: Agitated Labs: CBC, BMP 03/10/17 06:00 03/13/17 07:00 ekg 02/2017: SR with av delay. pac's. IVCD. anterolateral twi. (present on priors) no tele (pt refused) CXR: extensive pulmonarypleural changes on right with right sided pleural effusion. similar to priors. Echo 11/2015 ([facility]): mild LVE; severe, global HK; nl RV; mod MR, mild TR; no RVSP Echo 11/2016: mod lve, sev dec lvef, global hk, mod rve, mod dec rv fcn, sarah, mod mr, mild tr, rvsp 30-40 a/p: 81 yo with h/o CAD s/p CABG and severe LV dysfunction, htn, hl, DM, prior UE thrombus 2015, CKD, nephrotic range proteinuria, prior bilat LE amputations 2/2 diabetes, bph, hypothyroid, recent admit this month for acute mastoiditis who p/ w worsening scrotal edema/HF exacerbation. acute on chronic syst chf - Biventricular failure -several prior admits for sob/chf. required thoracentesis for large right eff 2015 and again 11/2016 (reportedly was transudative c/w chf). required milrinone for diuresis (dosing limited by ventricular ectopy) in addition to lasix 80 mg IV bid during admission 01/28. HF meds titrated to isordil 30 bid, hydral 20 tid, coreg 25 bid. d/c'd on torsemide 40 daily - on prior admit had self-limited VT, brief svt. -per report, in the past, he has refused any escalation in treatments (e.g. devices, incl ICD) - 03/10: trial of 80 mg IV lasix bid today. If again is unable to diurese due to cardiorenal syndrome, low threshold to add milrinone. Will resume hydralazine, imdur. Hold coreg until clear patient does not need milrinone support. - 03/11: wt trend 01/28 (lift scale) from 179 peak to 162. currently 164 lbs. bp and renal fxn stable. sob and scrotal edema/R thigh edema persists--cont lasix 80 iv bid. resume coreg at reduced dose (12.5 bid), monitor bp for hypotension - 03/12-: Cr stable.wt down, con't same mgm't today - monitor lytes, replete K/Mag prn per usual targets - rec outpt cardio f/u if pt willing, to discuss advanced therapies vs palliative care referral further CAD: -s/p 4V cabg (1991) -no angina sxs -no ekg changes vs baseline -asa, statin, bb as doing HTN: - stable, HF regimen as mentioned. monitor for hypotension. ckd -baseline creat range here 2.9-3.5 previously -creat stable/improving, monitor trend with diuresis. renal following
--- NOTE | 2017-03-13 12:49 | PN ---
Progress Note (short form) - Note Progress Note: Renal follow up for CKD with volume overload Pt seen and examined at the bedside no acute complaints denies any CP, SOB, Abd pain, N/V/D feels better Vital Signs Temperature 98.4 F 03/13/17 06:00 Pulse Rate 68 03/13/17 06:00 Respiratory Rate 20 03/13/17 06:00 Blood Pressure 123/74 03/13/17 06:00 O2 Sat by Pulse Oximetry (%) 96 03/12/17 21:00 Intake & Output 03/10/17 03/11/17 03/12/17 03/13/17 23:59 23:59 23:59 23:59 Intake Total 300 1410 830 Output Total 625 1525 1000 250 Balance -325 -115 -170 -250 Weight 170 lb 164 lb 4 oz 164 lb 2 oz 162 lb 12.8 oz Gen: NAD, awake and alert CVS:RRR, No M/R Lungs: CTA, no rales or wheeze Abd: soft, Obese, Midl abd wall edema Ext: b/L amputations, + sacral swelling : + scrotal swelling CBC, BMP 03/10/17 06:00 03/13/17 07:00 Current Medications Acetaminophen (Tylenol -) 650 mg PO Q6H PRN PRN Reason: PAIN Last Admin: 03/10/17 21:32 Dose: 650 mg Aspirin (Ecotrin -) 81 mg PO DAILY [facility] Last Admin: 03/13/17 10:54 Dose: 81 mg Atorvastatin Calcium (Lipitor -) 40 mg PO HS [facility] Last Admin: 03/12/17 22:49 Dose: 40 mg Carvedilol (Coreg -) 12.5 mg PO BID [facility] Last Admin: 03/13/17 10:54 Dose: 12.5 mg Furosemide (Lasix Injection -) 80 mg IVPB BID@0600,1400 [facility] Last Admin: 03/13/17 06:31 Dose: 80 mg Glipizide (Glucotrol Xl -) 10 mg PO DAILY@0700 [facility] Hydralazine HCl (Apresoline -) 20 mg PO TID [facility] Last Admin: 03/13/17 06:31 Dose: 20 mg Insulin Aspart (Novolog Vial Sliding Scale -) 1 vial SQ TIDAC [facility] PRN Reason: Protocol Last Admin: 03/13/17 11:42 Dose: Not Given Isosorbide Dinitrate (Isorpdil -) 30 mg PO BIDISORDIL [facility] Last Admin: 03/13/17 10:55 Dose: 30 mg Levothyroxine Sodium (Synthroid -) 50 mcg PO DAILY@0700 [facility] Last Admin: 03/13/17 06:31 Dose: 50 mcg Nystatin/Triamcinolone Acetonide (Mycolog Ii Cream -) 1 applic TP BID [facility] Last Admin: 03/13/17 10:58 Dose: 1 applic Polyethylene Glycol (Miralax (For Daily Use) -) 17 gm PO DAILY [facility] Last Admin: 03/13/17 10:54 Dose: 17 grams Sodium Bicarbonate (Sodium Bicarbonate -) 1,300 mg PO BID [facility] Last Admin: 03/13/17 10:54 Dose: 1,300 mg A/P 81 year old gentleman with PMhx of CKD Stage 4 (baseline Cr 3.1-3.3) with nephrotic range proteinuria , CHF, COPD, DM, BPH, PVD s/p AKA/BKA presents with scrotal swelling and admitted for CHF exacerbation. #CKD Stage 4 with nephrotic range proteinuria in setting of total body volume overload BUN/Cr stable on IV diuretics Pt with improvement in weight 170lbs to 162 lbs would continue IV Lasix BID Continue sodium bicarb BID No OLIVA/ARB given low eGFR no indication for PERSONAL LINES ACCOUNT EXECUTIVE at this time Trend BUN/Cr will need outpatient monitoring of renal function Hugh Huggins DO Problem List - Problems (1) Acute on chronic systolic and diastolic heart failure, NYHA class 3 Code(s): I50.43 - ACUTE ON CHRONIC COMBINED SYSTOLIC AND DIASTOLIC HRT FAIL (2) CHF (congestive heart failure) Code(s): I50.9 - HEART FAILURE, UNSPECIFIED Qualifiers: Congestive heart failure type: combined Congestive heart failure chronicity: chronic Qualified Code(s): I50.42 - Chronic combined systolic (congestive) and diastolic (congestive) heart failure (3) Nephrotic syndrome Code(s): N04.9 - NEPHROTIC SYNDROME WITH UNSPECIFIED MORPHOLOGIC CHANGES (4) Obstructive uropathy Code(s): N13.9 - OBSTRUCTIVE AND REFLUX UROPATHY, UNSPECIFIED (5) S/P CABG (coronary artery bypass graft) Code(s): Z95.1 - PRESENCE OF AORTOCORONARY BYPASS GRAFT (6) CHF exacerbation Code(s): I50.9 - HEART FAILURE, UNSPECIFIED Qualifiers: Congestive heart failure type: combined Qualified Code(s): I50.43 - Acute on chronic combined systolic (congestive) and diastolic (congestive) heart failure (7) Chronic kidney disease, stage 4, severely decreased GFR Code(s): N18.4 - CHRONIC KIDNEY DISEASE, STAGE 4 (SEVERE)
[2017-03-13] MEDS: ATORVASTATIN CA 40 MG TABLET (FP) PO SCH (21:26)
[2017-03-14] MEDS: FUROSEMIDE 40 MG/4 ML INJECTABLE VIAL IVPB SCH (05:25)
[2017-03-14] MEDS: hydrALAZINE HCL 10 MG TABLET PO SCH ×3 (05:25→21:21)
[2017-03-14] MEDS: LEVOTHYROXINE NA 50 MCG TABLET (FP) PO SCH (07:05)
[2017-03-14] MEDS: INSULIN SLIDING SCALE (NOVOLOG) 1 VIAL SQ SCH ×3 (07:06→17:22)
[2017-03-14] MEDS: glipiZIDE-XL 5 MG TAB.ER.24 PO SCH (07:07)
--- NOTE | 2017-03-14 09:48 | DS ---
Physical Examination Vital Signs: Vital Signs Temperature 98.6 F 03/14/17 06:00 Pulse Rate 105 H 03/14/17 06:00 Respiratory Rate 20 03/14/17 06:00 Blood Pressure 125/66 03/14/17 06:00 O2 Sat by Pulse Oximetry (%) 96 03/13/17 21:00 Constitutional: Yes: No Distress, Calm Cardiovascular: Yes: Regular Rate and Rhythm Respiratory: Yes: CTA Bilaterally Gastrointestinal: Yes: Normal Bowel Sounds, Soft. No: Distention, Tenderness Renal/: Yes: Scrotal Edema (decreased) Edema: No Labs: CBC, BMP 03/10/17 06:00 03/13/17 07:00 Discharge Summary Reason For Visit: SCROTAL EDEMA Current Active Problems Acute on chronic systolic and diastolic heart failure, NYHA class 3 (Acute) CAD (coronary artery disease) (Acute) CHF (congestive heart failure) (Acute) DVT (deep venous thrombosis) (Acute) HTN (hypertension) (Acute) Ischemic cardiomyopathy (Acute) Nephrotic syndrome (Acute) Obstructive uropathy (Acute) Pneumonia (Acute) S/P CABG (coronary artery bypass graft) (Acute) S/P thoracentesis (Acute) Scrotal edema (Acute) UTI (urinary tract infection) (Acute) Urinary retention (Acute) Hospital Course: Admitted for scrotal edema and CHF decompensation BNP elevated Seen by Renal and cardiology unsure if pt is taking hio meds at home has a APPLIED EXERCISE PHYSIOLOGIST , family is not in state. Diuresed here- IV Lasix 80mg BID-- pt lost weight and swelling has decreased Pt feels better, no SOB Renal function remained stable on IV lasix adamant to go home as he found out his brother in [place]. Spoke with Air Quality Instrument Specialist-- pt will be dc home on PO Torsemide 80mg daily. Spoke with staff for arrangements regarding dc home and resuming services Condition: Stable - Instructions Referrals: Villa Mcdaniels MD [Staff Physician] - Talon Araya MD [Staff Physician] - Disposition: HOME - Home Medications Comprehensive Discharge Medication List: Ambulatory Orders Atorvastatin Ca [Lipitor] 40 mg PO HS #30 tablet 03/14/17 Carvedilol [Coreg -] 12.5 mg PO BID #60 tablet 03/14/17 Glipizide Xl [Glucotrol Xl -] 10 mg PO DAILY@0700 #30 tab 03/14/17 Hydralazine HCl [Apresoline -] 20 mg PO TID #60 tablet 03/14/17 Levothyroxine [Synthroid -] 50 mcg PO DAILY@0700 #30 tablet 03/14/17 Polyethylene Glycol 3350 [Miralax 119 gm Btl -] 17 gm PO DAILY #1 bottle Sodium Bicarbonate - 1,300 mg PO BID #60 tablet 03/14/17 Torsemide [Demadex -] 80 mg PO DAILY #90 tablet 03/14/17
[2017-03-14] MEDS ORDERED: PT OWN MED DRAWER 7, Y5N ONE (10:02)
[2017-03-14] MEDS: SODIUM BICARBONATE 650 MG TABLET PO SCH ×2 (10:08→21:21)
[2017-03-14] MEDS: POLYETHYLENE GLYCOL 3350 119 GM BTL PO SCH (10:09)
[2017-03-14] MEDS: CARVEDILOL 12.5 MG TABLET (FP) PO SCH ×2 (10:09→21:21)
[2017-03-14] MEDS: ASPIRIN COATED 81 MG TABLET.EC PO SCH (10:09)
[2017-03-14] MEDS: NYSTATIN/TRIAMCINOLONE TOPICAL CREAM 15 GM TUBE TP SCH ×2 (10:10→21:23)
--- NOTE | 2017-03-14 10:19 | PN ---
Progress Note (short form) - Note Progress Note: Chief Complaint: scrotal edema History of Present Illness: pt feeling back to baseline, asking to go home today no sob palps dizzy sob no cigs Current Medications Generic Name Dose Route Start Last Admin Trade Name Day PRN Reason Stop Dose Admin Acetaminophen 650 mg 03/10/17 20:41 03/10/17 21:32 Tylenol - PO 650 mg Q6H PRN Administration PAIN Aspirin 81 mg 03/11/17 10:00 03/14/17 10:09 Ecotrin - PO 81 mg DAILY CARLYN Administration Atorvastatin Calcium 40 mg 03/11/17 22:00 03/13/17 21:26 Lipitor - PO 40 mg HS CARLYN Administration Carvedilol 12.5 mg 03/11/17 11:00 03/14/17 10:09 Coreg - PO 12.5 mg BID CARLYN Administration Furosemide 80 mg 03/10/17 06:00 03/14/17 05:25 Lasix Injection - IVPB 80 mg BID@0600,1400 CARLYN Administration Glipizide 10 mg 03/14/17 07:00 03/14/17 07:07 Glucotrol Xl - PO 10 mg DAILY@0700 CARLYN Administration Hydralazine HCl 20 mg 03/11/17 06:15 03/14/17 05:25 Apresoline - PO 20 mg TID CARLYN Administration Insulin Aspart 1 vial 03/10/17 22:30 03/14/17 07:06 Novolog Vial Sliding Scale - SQ Not Given TIDAC [facility] Protocol Isosorbide Dinitrate 30 mg 03/11/17 10:00 03/13/17 17:58 Isordil - PO 30 mg BIDISORDIL CARLYN Administration Levothyroxine Sodium 50 mcg 03/11/17 07:00 03/14/17 07:05 Synthroid - PO 50 mcg DAILY@0700 CARLYN Administration Nystatin/Triamcinolone Acetonide 1 applic 03/10/17 11:30 03/14/17 10:10 Mycolog Ii Cream - TP 1 applic BID CARLYN Administration Polyethylene Glycol 17 gm 03/10/17 22:45 03/14/17 10:09 Miralax (For Daily Use) - PO 17 grams DAILY CARLYN Administration Sodium Bicarbonate 1,300 mg 03/10/17 11:30 03/14/17 10:08 Sodium Bicarbonate - PO 1,300 mg BID CARLYN Administration Vital Signs Period Temp Pulse Resp BP Sys/Stock Pulse Ox Last 24 Hr 97.8 F-98.6 F 72-105 18-20 122-129/66-77 96 Constitutional: Yes: No Distress, Calm Eyes: No: Sclera Icterus HENT: No: Nasal Congestion Cardiovascular: Yes: Regular Rate and Rhythm, S1, S2, Other (PMI non diplaced). No: JVD, Gallop, Murmur Respiratory: Yes: CTA Bilaterally. No: Accessory Muscle Use, Rales, Wheezes Gastrointestinal: Yes: Normal Bowel Sounds, Soft. No: Tenderness Musculoskeletal: Yes: Other (No kyphosis) Extremities: No: Cold Edema: no Integumentary: No: Jaundice Neurological: Yes: Alert. No: Seizure Psychiatric: No: Agitated Labs: CBC, BMP 03/10/17 06:00 03/13/17 07:00 ekg 02/2017: SR with av delay. pac's. IVCD. anterolateral twi. (present on priors) no tele (pt refused) CXR: extensive pulmonarypleural changes on right with right sided pleural effusion. similar to priors. Echo 11/2015 ([facility]): mild LVE; severe, global HK; nl RV; mod MR, mild TR; no RVSP Echo 11/2016: mod lve, sev dec lvef, global hk, mod rve, mod dec rv fcn, sarah, mod mr, mild tr, rvsp 30-40 a/p: 81 yo with h/o CAD s/p CABG and severe LV dysfunction, htn, hl, DM, prior UE thrombus 2015, CKD, nephrotic range proteinuria, prior bilat LE amputations 2/2 diabetes, bph, hypothyroid, recent admit this month for acute mastoiditis who p/ w worsening scrotal edema/HF exacerbation. acute on chronic syst chf - Biventricular failure -several prior admits for sob/chf. required thoracentesis for large right eff 2015 and again 11/2016 (reportedly was transudative c/w chf). required milrinone for diuresis (dosing limited by ventricular ectopy) in addition to lasix 80 mg IV bid during admission 01/28. HF meds titrated to isordil 30 bid, hydral 20 tid, coreg 25 bid. d/c'd on torsemide 40 daily - on prior admit had self-limited VT, brief svt. -per report, in the past, he has refused any escalation in treatments (e.g. devices, incl ICD) - 03/10: trial of 80 mg IV lasix bid today. If again is unable to diurese due to cardiorenal syndrome, low threshold to add milrinone. Will resume hydralazine, imdur. Hold coreg until clear patient does not need milrinone support. - 03/11: wt trend 01/28 (lift scale) from 179 peak to 162. currently 164 lbs. bp and renal fxn stable. sob and scrotal edema/R thigh edema persists--cont lasix 80 iv bid. resume coreg at reduced dose (12.5 bid), monitor bp for hypotension - 03/12-: Cr stable.wt down, con't same mgm't today -03/14: pt asking to go home, feels at his baseline. Vol status improved. Was on torsemide 40 qd at home, will increase to 80 qd and pt can be discharged today. - rec outpt cardio f/u if pt willing, to discuss advanced therapies vs palliative care referral further CAD: -s/p 4V cabg (1991) -no angina sxs -no ekg changes vs baseline -asa, statin, bb as doing HTN: - stable, HF regimen as mentioned ckd -baseline creat range here 2.9-3.5 previously -creat stable here
--- NOTE | 2017-03-14 11:44 | PN ---
Progress Note (short form) - Note Progress Note: Renal follow up for CKD with volume overload Pt seen and examined at the bedside no acute complaints want to go home Vital Signs Temperature 98.6 F 03/14/17 06:00 Pulse Rate 105 H 03/14/17 06:00 Respiratory Rate 20 03/14/17 06:00 Blood Pressure 125/66 03/14/17 06:00 O2 Sat by Pulse Oximetry (%) 96 03/13/17 21:00 Intake & Output 03/11/17 03/12/17 03/13/17 03/14/17 23:59 23:59 23:59 23:59 Intake Total 1410 830 350 250 Output Total 1525 1000 1850 Balance -115 -170 -1500 250 Weight 164 lb 4 oz 164 lb 2 oz 162 lb 12.8 oz 162 lb 12.8 oz Gen: NAD, awake and alert CVS:RRR, No M/R Lungs: CTA, no rales or wheeze Abd: soft, Obese, Midl abd wall edema Ext: b/L amputations, CBC, BMP 03/10/17 06:00 03/13/17 07:00 Current Medications Acetaminophen (Tylenol -) 650 mg PO Q6H PRN PRN Reason: PAIN Last Admin: 03/10/17 21:32 Dose: 650 mg Aspirin (Ecotrin -) 81 mg PO DAILY [facility] Last Admin: 03/14/17 10:09 Dose: 81 mg Atorvastatin Calcium (Lipitor -) 40 mg PO HS [facility] Last Admin: 03/13/17 21:26 Dose: 40 mg Carvedilol (Coreg -) 12.5 mg PO BID [facility] Last Admin: 03/14/17 10:09 Dose: 12.5 mg Glipizide (Glucotrol Xl -) 10 mg PO DAILY@0700 [facility] Last Admin: 03/14/17 07:07 Dose: 10 mg Hydralazine HCl (Apresoline -) 20 mg PO TID [facility] Last Admin: 03/14/17 05:25 Dose: 20 mg Insulin Aspart (Novolog Vial Sliding Scale -) 1 vial SQ TIDAC [facility] PRN Reason: Protocol Last Admin: 03/14/17 07:06 Dose: Not Given Isosorbide Dinitrate (Isordil -) 30 mg PO BIDISORDIL [facility] Last Admin: 03/13/17 17:58 Dose: 30 mg Levothyroxine Sodium (Synthroid -) 50 mcg PO DAILY@0700 [facility] Last Admin: 03/14/17 07:05 Dose: 50 mcg Nystatin/Triamcinolone Acetonide (Mycolog Ii Cream -) 1 applic TP BID [facility] Last Admin: 03/14/17 10:10 Dose: 1 applic Polyethylene Glycol (Miralax (For Daily Use) -) 17 gm PO DAILY [facility] Last Admin: 03/14/17 10:09 Dose: 17 grams Sodium Bicarbonate (Sodium Bicarbonate -) 1,300 mg PO BID [facility] Last Admin: 03/14/17 10:08 Dose: 1,300 mg Torsemide (Demadex -) 80 mg PO DAILY [facility] A/P 81 year old gentleman with PMhx of CKD Stage 4 (baseline Cr 3.1-3.3) with nephrotic range proteinuria , CHF, COPD, DM, BPH, PVD s/p AKA/BKA presents with scrotal swelling and admitted for CHF exacerbation. #CKD Stage 4 with nephrotic range proteinuria in setting of total body volume overload Renal function stable Clinically improved and can be discharged on PO Torsemide Daily outpatient follow up in the office in 1-2 weeks for monitoring of kidney function no OLIVA/ARB given low eGFR Thank you for allowing us to take part in the care of this patient Hugh Huggins DO Problem List - Problems (1) Acute on chronic systolic and diastolic heart failure, NYHA class 3 Code(s): I50.43 - ACUTE ON CHRONIC COMBINED SYSTOLIC AND DIASTOLIC HRT FAIL (2) CHF (congestive heart failure) Code(s): I50.9 - HEART FAILURE, UNSPECIFIED Qualifiers: Congestive heart failure type: combined Congestive heart failure chronicity: chronic Qualified Code(s): I50.42 - Chronic combined systolic (congestive) and diastolic (congestive) heart failure (3) Nephrotic syndrome Code(s): N04.9 - NEPHROTIC SYNDROME WITH UNSPECIFIED MORPHOLOGIC CHANGES (4) Obstructive uropathy Code(s): N13.9 - OBSTRUCTIVE AND REFLUX UROPATHY, UNSPECIFIED (5) S/P CABG (coronary artery bypass graft) Code(s): Z95.1 - PRESENCE OF AORTOCORONARY BYPASS GRAFT (6) CHF exacerbation Code(s): I50.9 - HEART FAILURE, UNSPECIFIED Qualifiers: Congestive heart failure type: combined Qualified Code(s): I50.43 - Acute on chronic combined systolic (congestive) and diastolic (congestive) heart failure (7) Chronic kidney disease, stage 4, severely decreased GFR Code(s): N18.4 - CHRONIC KIDNEY DISEASE, STAGE 4 (SEVERE)
[2017-03-14] MEDS: ISOSORBIDE DINITRATE 10 MG TABLET (FP) PO SCH ×2 (12:06→17:51)
[2017-03-14] MEDS: ATORVASTATIN CA 40 MG TABLET (FP) PO SCH (21:21)
[2017-03-15] MEDS: hydrALAZINE HCL 10 MG TABLET PO SCH (06:09)
[2017-03-15] MEDS: glipiZIDE-XL 5 MG TAB.ER.24 PO SCH (06:09)
[2017-03-15] MEDS: INSULIN SLIDING SCALE (NOVOLOG) 1 VIAL SQ SCH (06:09)
[2017-03-15] MEDS: LEVOTHYROXINE NA 50 MCG TABLET (FP) PO SCH (06:10)
[2017-03-15 06:15] VITALS: BP 132/80; PULSE 98; TEMP 98.5
[2017-03-15] MEDS ORDERED: PT OWN MED DRAWER 7, Y5N ONE (09:48)
[2017-03-15] MEDS: SODIUM BICARBONATE 650 MG TABLET PO SCH (09:51)
[2017-03-15] MEDS: ASPIRIN COATED 81 MG TABLET.EC PO SCH (09:51)
[2017-03-15] MEDS: CARVEDILOL 12.5 MG TABLET (FP) PO SCH (09:52)
[2017-03-15] MEDS: ISOSORBIDE DINITRATE 10 MG TABLET (FP) PO SCH (09:52)
[2017-03-15] MEDS: POLYETHYLENE GLYCOL 3350 119 GM BTL PO SCH (09:52)
[2017-03-15] MEDS ORDERED: TORSEMIDE 20 MG TABLET (FP) PO SCH (10:00)
--- NOTE | 2017-03-15 10:24 | PN ---
Progress Note (short form) - Note Progress Note: Chief Complaint: scrotal edema History of Present Illness: pt feeling back to baseline, asking to go home today no sob palps dizzy sob no cigs Current Medications Generic Name Dose Route Start Last Admin Trade Name Freq PRN Reason Stop Dose Admin Acetaminophen 650 mg 03/10/17 20:41 03/10/17 21:32 Tylenol - PO 650 mg Q6H PRN Administration PAIN Aspirin 81 mg 03/11/17 10:00 03/15/17 09:51 Ecotrin - PO 81 mg DAILY CARLYN Administration Atorvastatin Calcium 40 mg 03/11/17 22:00 03/14/17 21:21 Lipitor - PO Not Given HS CARLYN Carvedilol 12.5 mg 03/11/17 11:00 03/15/17 09:52 Coreg - PO 12.5 mg BID CARLYN Administration Glipizide 10 mg 03/14/17 07:00 03/15/17 06:09 Glucotrol Xl - PO Not Given DAILY@0700 [facility] Hydralazine HCl 20 mg 03/11/17 06:15 03/15/17 06:09 Apresoline - PO Not Given TID [facility] Insulin Aspart 1 vial 03/10/17 22:30 03/15/17 06:09 Novolog Vial Sliding Scale - SQ Not Given TIDAC [facility] Protocol Isosorbide Dinitrate 30 mg 03/11/17 10:00 03/15/17 09:52 Isordil - PO 30 mg BIDISORDIL CARLYN Administration Levothyroxine Sodium 50 mcg 03/11/17 07:00 03/15/17 06:10 Synthroid - PO Not Given DAILY@0700 [facility] Nystatin/Triamcinolone Acetonide 1 applic 03/10/17 11:30 03/14/17 21:23 Mycolog Ii Cream - TP Not Given BID [facility] Polyethylene Glycol 17 gm 03/10/17 22:45 03/15/17 09:52 Miralax (For Daily Use) - PO Not Given DAILY [facility] Sodium Bicarbonate 1,300 mg 03/10/17 11:30 03/15/17 09:51 Sodium Bicarbonate - PO 1,300 mg BID CARLYN Administration Torsemide 80 mg 03/15/17 10:00 03/15/17 09:51 Demadex - PO 80 mg DAILY CARLYN Administration Vital Signs Period Temp Pulse Resp BP Sys/Stock Pulse Ox Last 24 Hr 97.8 F-98.5 F 70-101 20-20 122-138/64-80 96 Constitutional: Yes: No Distress, Calm Eyes: No: Sclera Icterus HENT: No: Nasal Congestion Cardiovascular: Yes: Regular Rate and Rhythm, S1, S2, Other (PMI non diplaced). No: JVD, Gallop, Murmur Respiratory: Yes: CTA Bilaterally. No: Accessory Muscle Use, Rales, Wheezes Gastrointestinal: Yes: Normal Bowel Sounds, Soft. No: Tenderness Musculoskeletal: Yes: Other (No kyphosis) Extremities: No: Cold Edema: no Integumentary: No: Jaundice Neurological: Yes: Alert. No: Seizure Psychiatric: No: Agitated Labs: CBC, BMP 03/10/17 06:00 03/13/17 07:00 ekg 02/2017: SR with av delay. pac's. IVCD. anterolateral twi. (present on priors) no tele (pt refused) CXR: extensive pulmonarypleural changes on right with right sided pleural effusion. similar to priors. Echo 11/2015 (): mild LVE; severe, global HK; nl RV; mod MR, mild TR; no RVSP Echo 11/2016: mod lve, sev dec lvef, global hk, mod rve, mod dec rv fcn, sarah, mod mr, mild tr, rvsp 30-40 a/p: 81 yo with h/o CAD s/p CABG and severe LV dysfunction, htn, hl, DM, prior UE thrombus 2015, CKD, nephrotic range proteinuria, prior bilat LE amputations 2/2 diabetes, bph, hypothyroid, recent admit this month for acute mastoiditis who p/ w worsening scrotal edema/HF exacerbation. acute on chronic syst chf - Biventricular failure -several prior admits for sob/chf. required thoracentesis for large right eff 2015 and again 11/2016 (reportedly was transudative c/w chf). required milrinone for diuresis (dosing limited by ventricular ectopy) in addition to lasix 80 mg IV bid during admission 01/28. HF meds titrated to isordil 30 bid, hydral 20 tid, coreg 25 bid. d/c'd on torsemide 40 daily - on prior admit had self-limited VT, brief svt. -per report, in the past, he has refused any escalation in treatments (e.g. devices, incl ICD) - 03/10: trial of 80 mg IV lasix bid today. If again is unable to diurese due to cardiorenal syndrome, low threshold to add milrinone. Will resume hydralazine, imdur. Hold coreg until clear patient does not need milrinone support. - 03/11: wt trend 01/28 (lift scale) from 179 peak to 162. currently 164 lbs. bp and renal fxn stable. sob and scrotal edema/R thigh edema persists--cont lasix 80 iv bid. resume coreg at reduced dose (12.5 bid), monitor bp for hypotension - 03/12-: Cr stable.wt down, con't same mgm't today -03/14-03/15: pt asking to go home, feels at his baseline. Vol status improved. Was on torsemide 40 qd at home, will increase to 80 qd and pt can be discharged today. - rec outpt cardio f/u if pt willing, to discuss advanced therapies vs palliative care referral further CAD: -s/p 4V cabg (1991) -no angina sxs -no ekg changes vs baseline -asa, statin, bb as doing HTN: - stable, HF regimen as mentioned ckd -baseline creat range here 2.9-3.5 previously -creat stable here
== END 2017-03-15 10:38 | disposition home or self-care (01) | DRG 291 ==
LOC: JER 10:28 → JERBED 16:08 → UNDOADMIN 16:20 → J4S 20:26
PROVIDERS: ADMIT Internal Medicine; ATTEND Internal Medicine
DX: I13.0 Hypertensive heart and chronic kidney disease with heart failure and stage 1 through stage 4 chronic kidney disease, or unspecified chronic kidney disease (principal); I50.41 Acute combined systolic (congestive) and diastolic (congestive) heart failure; N18.4 Chronic kidney disease, stage 4 (severe); N17.9 Acute kidney failure, unspecified; E87.2 Acidosis; N50.89 Other specified disorders of the male genital organs; E11.22 Type 2 diabetes mellitus with diabetic chronic kidney disease; I25.10 Atherosclerotic heart disease of native coronary artery without angina pectoris; Z95.1 Presence of aortocoronary bypass graft; E78.00 Pure hypercholesterolemia, unspecified; E03.9 Hypothyroidism, unspecified; N40.0 Benign prostatic hyperplasia without lower urinary tract symptoms; Z89.512 Acquired absence of left leg below knee; Z89.511 Acquired absence of right leg below knee; R21 Rash and other nonspecific skin eruption; I44.0 Atrioventricular block, first degree; Z86.718 Personal history of other venous thrombosis and embolism
CPT/HCPCS: 36415; 71020-TC; 76870-TC; 80048; 80053; 81003; 81015; 82570; 83605; 83735; 83880; 84100; 84156; 84300; 84484; 84540; 85025; 85027; 85651; 86140; 87040; 87070; 87086; 87186; 87205; 93005; 93010; 99284-25